=== PATIENT | female | born 1940 | race Caucasian/White ===

== ENCOUNTER → 2016-02-27 | Outpatient (CLI) | payer BC ==
[~2016-02-27] MED LIST: ASPI81TA28 PO; CALC600T37 PO; CHOL1000 PO; CHOLTAB3 PO; CYNI1000 SC; ESCI1TAB6 PO; FAMO20TA11 PO; GLC/500 PO; GLIP10TA9 PO; INSU1INJ7 SC; KETO10TA PO; LSN/10125 PO; MAGN400T6 PO; MAGNESIUM PO; METF-384 PO; NAPR-960 PO; OXYC-57 PO; OXYC1TAB3 PO; RXC5 PO; SIMV10TA2 PO; VITAMIN B 12
--- NOTE | 2016-02-27 10:01 | DIAGNOSTIC IMAGING REPORT ---
RIGHT SHOULDER MRI HISTORY: RIGHT SHOULDER PAIN, ROTATOR CUFF TEAR Right TECHNIQUE: Multiplanar multisequence MRI of the right shoulder was performed without contrast. COMPARISON STUDY: None. FINDINGS: AC joint: Moderate arthrosis demonstrated by cartilage space narrowing, subchondral sclerosis, and marginal osteophytes. Rotator cuff: Small amount of increased signal at the distal supraspinatus and infraspinatus tendons consistent with a tendinopathy. No evidence for full-thickness rotator cuff tear. The subscapularis and teres minor tendons are intact. No fluid within the subacromial/subdeltoid bursa. Labrum: Truncated appearance to the superior labrum consistent with a SLAP tear. Biceps tendon: Intact Bones: No fracture or dislocation. Cartilage: Mild cartilage thinning within the glenoid. Miscellaneous: No significant joint effusion. There is mild edema at the posterior fibers of the inferior glenohumeral ligament. This is best seen on coronal T2 fat sat sequences images 11 through 13. This could represent a partial tear as some of the fibers appear intact. There is an 8 mm cyst at the spinoglenoid notch. However, there is no atrophy or edema identified within the rotator cuff muscles. IMPRESSION: 1. Mild supraspinatus and infraspinatus tendinopathy. No evidence for full-thickness rotator cuff tear. 2. SLAP tear. 3. Edema within the posterior fibers of the inferior glenohumeral ligament. This may represent a partial tear as some of the fibers appear intact. 4. An 8 mm cyst at the spinoglenoid notch. However, there is no atrophy or edema identified within the rotator cuff muscles. Electronically signed by: Alex Cuba M.D. 02/27/2016 9:59 AM Dictated Date/Time: 02/27/2016 9:50 AM
== END | disposition home or self-care (01) ==
LOC: C.MRIBC 08:12
PROVIDERS: ATTEND Orthopaedic Surgery
DX: M25.511 Pain in right shoulder (principal)

== ENCOUNTER → 2016-03-05 | Outpatient (CLI) | payer BC ==
[2016-03-05 12:23] LABS: BASO % 0.3 %; BASO ABS # 0.03 K/uL (0-0.2); COMPLETE YES; EOS % 3.6 %; HEMATOCRIT 45.8 % (37-47); IG% 0.3 %; LYMPH % 20.6 %; LYMPH ABS # 2.16 K/uL (1.2-3.4); MEAN CELL VOLUME 88.8 fL (80-100); MEAN CORPUSCULAR HEMOGLOBIN 30.4 pg (25-34); MEAN CORPUSCULAR HGB CONC 34.3 g/dl (32-36); MEAN PLATELET VOLUME 12.4 fL (7.4-10.4); MONO % 5.5 %; NEUT % 69.7 %; PLATELET COUNT 225 K/uL (130-400); RED BLOOD COUNT 5.16 M/uL (4.2-5.4); WHITE BLOOD COUNT 10.49 K/uL (4.8-10.8)
[2016-03-05 12:45] LABS: BLOOD UREA NITROGEN 25 mg/dl (7-18); BUN/CREATININE RATIO 20.9 (10-20); CALCIUM 9.7 mg/dl (8.5-10.1); CARBON DIOXIDE 27 mmol/L (21-32); CHLORIDE 104 mmol/L (98-107); GLUCOSE 206 mg/dl (70-99); POTASSIUM 4.8 mmol/L (3.5-5.1); SODIUM 141 mmol/L (136-145)
== END | disposition home or self-care (01) ==
LOC: C.LABBFT 09:57
PROVIDERS: ATTEND Orthopaedic Surgery
DX: Z01.812 Encounter for preprocedural laboratory examination (principal); M25.511 Pain in right shoulder

== ENCOUNTER → 2016-03-26 | Outpatient (CLI) | payer BC ==
--- NOTE | 2016-03-26 14:09 | DIAGNOSTIC IMAGING REPORT ---
LUMBAR SPINE CT CT DOSE: 554.94 mGycm HISTORY: Low back pain. TECHNIQUE: Multiaxial CT images of the lumbar spine were performed and reformatted in the sagittal and coronal plane without the use of contrast. COMPARISON: Lumbar spine MRI 11/09/2015. FINDINGS: Paraspinal soft tissues are unremarkable. The sacrum is intact. There is posterior decompression fusion at L4-L5 with pedicle screws and rods. The hardware appears intact. Partial fusion of the vertebral bodies. Mild levoscoliosis which could be positional. Moderate to severe disc space narrowing at L1-L2. Mild disc space narrowing at L2-L3. L1-L2: Small broad-based posterior disc bulge resulting in mild central canal and mild bilateral neural foraminal narrowing. L2-L3: Small broad-based posterior disc bulge with facet hypertrophy. No significant central canal or neural foraminal narrowing. L3-L4: Small broad-based posterior disc bulge with ligamentum and facet hypertrophy resulting in mild central canal narrowing. L4-L5: No significant central canal narrowing due to the posterior decompression. No significant neural foraminal narrowing. L5-S1: No significant central canal or neural foraminal narrowing. IMPRESSION: 1. L4-L5 posterior decompression and fusion. The hardware appears intact. 2. No fractures or subluxation within the lumbar spine. 3. Degenerative changes as described above most pronounced at the L1-L2 level. This is similar to the prior lumbar spine MRI. Electronically signed by: Alex Cuba M.D. 03/26/2016 2:08 PM Dictated Date/Time: 03/26/2016 2:01 PM
== END | disposition home or self-care (01) ==
LOC: C.CTS 12:23
PROVIDERS: ATTEND Orthopaedic Surgery Orthopaedic Surgery of the Spine
DX: M54.5 Low back pain (principal)

== ENCOUNTER 2016-05-08 08:08 | Inpatient (IN) | payer BC, OTHER ==
[2016-04-13 08:52] VITALS: BMI 29.0
--- NOTE | 2016-04-13 09:34 | PAT Medication Instructions ---
Service Date Apr 13, 2016. Current Home Medication List Aspirin (Aspirin Ec), 81 MG PO QAM Calcium (Calcium), 1 TAB PO QAM Cholecalciferol (Vitamin D3), 1 TAB PO QAM Famotidine (Pepcid), 20 MG PO QPM Hctz/Lisinopril (Lisinopril/Hctz 10/12.5 Mg), 1 TAB PO QAM Insulin Glargine (Lantus), 38 UNITS SC QD@1200 Metformin Hcl (Glucophage), 1,000 MG PO BIDM Simvastatin (Zocor), 10 MG PO HS [Magnesium], 250 MG PO QAM [Vitamin B 12], QMONTHLY Medication Instructions For Your Scheduled Surgery - Continue as directed: [Vitamin B 12], QMONTHLY - Hold the following medications 48 hours prior to surgery: Metformin Hcl (Glucophage), 1,000 MG PO BIDM - Hold the following medications the morning of surgery: Insulin Glargine (Lantus), 38 UNITS SC QD@1200 (pt usually takes around lunchtime) Hctz/Lisinopril (Lisinopril/Hctz 10/12.5 Mg), 1 TAB PO QAM [Magnesium], 250 MG PO QAM Calcium (Calcium), 1 TAB PO QAM Cholecalciferol (Vitamin D3), 1 TAB PO QAM - Take the following medications the morning of surgery with a sip of water OTHERWISE NOTHING TO EAT OR DRINK AFTER MIDNIGHT: Aspirin (Aspirin Ec), 81 MG PO QAM Famotidine (Pepcid), 20 MG PO QPM - Take the following medications as scheduled the night before surgery: Simvastatin (Zocor), 10 MG PO HS If you have any questions please call us at [phone] or [phone] or [phone]
[2016-04-13 10:16] LABS: BASO % 0.3 %; BASO ABS # 0.03 K/uL (0-0.2); COMPLETE YES; EOS % 2.5 %; HEMATOCRIT 43.8 % (37-47); IG% 0.2 %; LYMPH % 21.5 %; LYMPH ABS # 1.88 K/uL (1.2-3.4); MEAN CELL VOLUME 89.2 fL (80-100); MEAN CORPUSCULAR HEMOGLOBIN 31.2 pg (25-34); MEAN CORPUSCULAR HGB CONC 34.9 g/dl (32-36); MEAN PLATELET VOLUME 12.2 fL (7.4-10.4); MONO % 5.5 %; PLATELET COUNT 192 K/uL (130-400); RED BLOOD COUNT 4.91 M/uL (4.2-5.4); WHITE BLOOD COUNT 8.75 K/uL (4.8-10.8)
--- NOTE | 2016-04-13 10:23 | DIAGNOSTIC IMAGING REPORT ---
CHEST PREADMISSION(PA/LAT) CLINICAL HISTORY: Preoperative chest COMPARISON STUDY: January 09, 2015 FINDINGS: The cardiac and mediastinal contours are normal. There is no evidence of focal pulmonary consolidation. There is no evidence of failure. No pleural effusions are visualized.[ IMPRESSION: No active disease in the chest. Electronically signed by: Julio Sharp M.D. 04/13/2016 10:22 AM Dictated Date/Time: 04/13/2016 10:19 AM
[2016-04-13 10:34] LABS: BUN/CREATININE RATIO 21.6 (10-20); CALCIUM 9.6 mg/dl (8.5-10.1); CREATININE 1.1 mg/dl (0.60-1.20); POTASSIUM 4.8 mmol/L (3.5-5.1)
[2016-04-13 17:46] LABS: URINE APPEARANCE CLEAR (CLEAR); URINE BILIRUBIN NEG (NEG); URINE COLOR YELLOW; URINE NITRITE NEG (NEG); URINE SPECIFIC GRAVITY 1.025 (1.000-1.030); UROBILINOGEN NEG (NEG)
[2016-04-13 17:51] LABS: MANUAL MICROSCOPIC REQUIRED? NO; REVIEW REQ? NO
[~2016-05-08] VITALS: Ht 157.5 cm; Wt 73.9 kg
[2016-05-08] VITALS (8 sets, daily range): BP systolic 115–136; BP diastolic 60–74; PULSE 42–100; TEMP 36.3–36.8; O2SAT 93–98; Ht 157.5 cm; Wt 73.9 kg
[~2016-05-08 08:08] MED LIST changes: +CEFAZOLIN 1000MG/55 ML D5W IV SCH; -CHOLTAB3 PO; -CYNI1000 SC; -ESCI1TAB6 PO; -GLIP10TA9 PO; -KETO10TA PO; +LACTATED RINGER'S 1000ML 1,000 ML IV SCH; -MAGN400T6 PO; -METF-384 PO; -NAPR-960 PO; -OXYC-57 PO; -OXYC1TAB3 PO; -RXC5 PO
--- NOTE | 2016-05-08 09:25 | History & Physical Bridge Note ---
H&P Re-Evaluation Bridge Note: I have examined the patient, reviewed the History & Physical and in the interval since the performance of the History & Physical I have noted the following changes of clinical significance: No changes noted
--- NOTE | 2016-05-08 09:26 | History and Physical ---
History & Physical Date May 08, 2016. Chief Complaint back and leg pain History of Present Illness The patient is a 75 year old female with complaints of Past Medical/Surgical History Medical Problems: (1) Acute respiratory distress (2) Back contusion (3) Chest pain (4) Chest pain (5) Contusion of left shoulder (6) Depressive Disorder Nec (7) Diab Tiffany Wo Compl, Type Ii Or Unspec Type, Uncontrolled (8) Esophageal Reflux (9) Fall (10) Hyperlipidemia Nec/Nos (11) Hypertension Nos (12) Osteoporosis Nos (13) Pneumonia Surgical Problems: (1) Knee Joint Replacement Status Additional History Hepatic Disease: No Endocrine Disorder: No Kidney Disease: No Hypertension: No Heart Disease: No Bleeding Tendencies: No Infectious Diseases: No Allergies Coded Allergies: No Known Allergies (Unverified , 05/08/16) Home Medications Scheduled Aspirin (Aspirin Ec), 81 MG PO QAM Calcium (Calcium), 1 TAB PO QAM Cholecalciferol (Vitamin D3), 1 TAB PO QAM Famotidine (Pepcid), 20 MG PO QPM Hctz/Lisinopril (Lisinopril/Hctz 10/12.5 Mg), 1 TAB PO QAM Insulin Glargine (Lantus), 42 UNITS SC QD@1200 Metformin Hcl (Glucophage), 1,000 MG PO BIDM Simvastatin (Zocor), 10 MG PO HS [Magnesium], 250 MG PO QAM [Vitamin B 12], QMONTHLY Physical Examination Skin: warm/dry, no rash Eyes: normal inspection, EOMI, sclerae normal ENT: normal ENT inspection, pharynx normal Head: normocephalic, atraumatic Neck: supple, no adenopathy, trachea midline Respiratory/Chest: lungs clear, normal breath sounds, no respiratory distress Cardiovascular: regular rate, rhythm, no edema, no murmur Abdomen / GI: normal bowel sounds, non tender Back: normal inspection Extremities: normal inspection, normal range of motion Neurologic/Psych: no motor/sensory deficits, alert, normal reflexes, oriented x 3 Diagnosis lumbar stenosis/ sacralilitis Plan of Treatment decompression fusion L5-S1 with iliac bolts, removal instrumentation L4-5
[2016-05-08] MEDS ORDERED: FENTANYL CITRATE INJ 50 MCG/1 ML 2 ML VIAL ONE ×4 (09:30→12:23)
[2016-05-08] MEDS ORDERED: MIDAZOLAM HCL 1 MG/ML 2ML VIAL ONE (09:30)
[2016-05-08] MEDS ORDERED: INSULIN REGULAR 250 UNITS in SODIUM CHLORIDE 0.9% 250ML 250 ML IV ONE (09:45)
[2016-05-08] MEDS ORDERED: BACITRACIN 50000 UNIT VIAL ONE (10:00)
[2016-05-08] MEDS ORDERED: BUPIVACAINE/EPINEPHRINE 0.5% MPF 1:200,000 30 ML VIAL ONE (10:00)
[2016-05-08] MEDS ORDERED: SODIUM CHLORIDE 0.9% PF 50 ML VIAL ONE (10:00)
[2016-05-08] MEDS ORDERED: HYDROmorphone INJ 2 MG/ML SYR/VIAL ONE ×2 (10:45→12:23)
[2016-05-08] MEDS ORDERED: EpHEDrine SULFATE INJ 50 MG/ML AMP IV PRN (11:15)
[2016-05-08] MEDS ORDERED: HYDROmorphone INJ 1 MG/ML SYR IV PRN (11:15)
[2016-05-08] MEDS ORDERED: ONDANSETRON INJ 2 MG/ML 2 ML VIAL IV PRN ×2 (11:15→12:00)
[2016-05-08] MEDS ORDERED: PROMETHAZINE HCL INJ 12.5 MG in SODIUM CHLORIDE 0.9% 50ML 50 ML IV PRN ×2 (11:15→12:00)
[2016-05-08] MEDS ORDERED: ATROPINE SULFATE 0.1 MG/ML 5ML SYR IV PRN (11:15)
[2016-05-08] MEDS ORDERED: FENTANYL CITRATE INJ 50 MCG/1 ML 2 ML VIAL IV PRN (11:15)
[2016-05-08] MEDS ORDERED: PHENYLEPHRINE 100MCG/ML 5ML SYR ONE ×2 (11:25→12:41)
[2016-05-08] MEDS ORDERED: ROCURONIUM BROMIDE 10 MG/ML 5 ML VIAL ONE (11:25)
[2016-05-08] MEDS ORDERED: LIDOCAINE HCL 2% 2 ML VIAL (20MG/ML) ONE (11:25)
[2016-05-08] MEDS ORDERED: PROPOFOL IV EMULSION 10 MG/ML 20 ML VIAL IV ONE (11:25)
[2016-05-08] MEDS ORDERED: DEXAMETHASONE SOD INJ 4 MG/ML VIAL ONE (11:25)
[2016-05-08] MEDS ORDERED: ONDANSETRON INJ 2 MG/ML 2 ML VIAL ONE ×2 (11:25→12:41)
[2016-05-08] MEDS ORDERED: SODIUM CHLORIDE 0.9% 1000ML 1,000 ML IV SCH (11:58)
[2016-05-08] MEDS ORDERED: DO NOT ADMINISTER FLU VACCINE PRN ×3 (12:00)
[2016-05-08] MEDS ORDERED: METOCLOPRAMIDE HCL INJ 5 MG/ML 2 ML VIAL IV PRN (12:00)
[2016-05-08] MEDS ORDERED: LORAZEPAM 0.5 MG TAB PO PRN (12:00)
[2016-05-08] MEDS ORDERED: NALOXONE HCL 0.4 MG/1 ML VIAL/CARP IV PRN ×2 (12:00)
[2016-05-08] MEDS ORDERED: ACETAMINOPHEN IV 100 ML IV PRN (12:00)
[2016-05-08] MEDS ORDERED: hydrOXYzine HCL 25 MG TAB PO PRN (12:00)
[2016-05-08] MEDS ORDERED: SOD PHOSPHATE/SOD BIPHOSPHATE ENEMA 132 ML BTL PR PRN (12:00)
[2016-05-08] MEDS ORDERED: MAGNESIUM HYDROXIDE SUSP 30 ML UDC PO PRN (12:00)
[2016-05-08] MEDS ORDERED: FAMOTIDINE 20 MG TAB PO PRN (12:00)
[2016-05-08] MEDS ORDERED: BISACODYL 10 MG SUPP PR PRN (12:00)
[2016-05-08] MEDS ORDERED: ACETAMINOPHEN 500 MG TAB PO PRN (12:00)
[2016-05-08] MEDS ORDERED: LORAZEPAM INJ 0.5 MG in SYRINGE 0 ML IV PRN (12:00)
[2016-05-08] MEDS ORDERED: ALUMINUM/MAGNESIUM SUSP 30 ML UDC PO PRN (12:00)
[2016-05-08] MEDS ORDERED: DO NOT ADMINISTER PNEUMOCOCCAL VACCINE PRN ×2 (12:00)
[2016-05-08] MEDS ORDERED: FLOSEAL HEMOSTATIC MATRIX 10ML TOP ONE (12:06)
--- NOTE | 2016-05-08 12:11 | DIAGNOSTIC IMAGING REPORT ---
INTRAOPERATIVE RADIOGRAPH CLINICAL HISTORY: L4-S1 spinal fusion. Fluoroscopy time: 12 seconds. FINDINGS: 2 spot fluoroscopic views of the lower lumbar spine are presented. There is evidence of discectomy at L4-L5 and L5-S1 with laminectomy and posterior fusion from L4 -S1. Interpedicular screws are present at all levels. Iliac bolts are in place. A surgical drain is noted on the second image. IMPRESSION: Intraoperative image from L4 -S1 spinal fusion with iliac bolt placement as above. Electronically signed by: Aquilino Wagner M.D. 05/08/2016 12:09 PM Dictated Date/Time: 05/08/2016 12:08 PM
--- NOTE | 2016-05-08 12:22 | OPERATIVE REPORT ---
DATE OF OPERATION: 05/08/2016 PREOPERATIVE DIAGNOSIS: Spinal stenosis. POSTOPERATIVE DIAGNOSIS: Same. PROCEDURES PERFORMED: 1. Removal of posterior instrumentation, L4-L5. 2. Exploration of fusion, L4-L5. 3. Lumbar decompression, medial facetectomies, and foraminotomies, L5-S1. 4. Posterior spinal fusion, L5-S1. 5. Placement of bilateral SI joint fusions. 6. Placement of posterior segmental instrumentation using Medicrea rods and screws, L4-L5 and L5-S1 as well as bilateral iliac bolts. 7. Interbody fusion, L4-L5. 8. Placement of PEEK cage, 13 x 22 mm at L5-S1. 9. Placement of locally harvested morselized autograft the posterior gutters. 10. Placement of Infuse collagen sponge combined with Mastergraft in the posterior lateral gutters and Angy bone graft in the interbody space and Infuse placed in the bilateral SI joints. SURGEON: Dr. Isaiah Palma. OFFICE MANAGER EXECUTIVE ASSISTANT: Armando Wu PA-C Due to the complex nature of the procedure, the entire surgery was performed with the perioperative assistant of Armando Wu PA-C. The assistant film editor, under direct supervision, was involved in the actual performance of all aspects of the surgical procedure including hemostasis, tissue retraction and incision, instrument management, patient positioning, and wound closure. ANESTHESIA: General. DISPOSITION: The patient awakened and taken to PACU in stable condition. HISTORY OF PATIENT'S PROBLEMS: This is a 75-year-old female that presents with the above-mentioned diagnosis. After failing extensive course of nonoperative care, she elected to undergo the above-mentioned procedures. Risks, benefits, pros, cons, and alternatives were outlined in detail preoperatively. DESCRIPTION OF PROCEDURE: The patient was met with preoperatively, the case discussed and all questions were addressed. At that point, the patient was taken back to operative suite and after undergoing successful general intubation by the department of anesthesia, she was placed in prone position on Reynaldo table atop the Guy frame. All bony prominences were well padded and the eyes were inspected to ensure there was no external pressure placed upon them. At this point, lumbar spine was prepped and draped in normal sterile fashion. Sharp dissection with the assistance of Bovie cautery was performed down to and exposing the lamina and transverse processes and instrumentation at the L4-L5 levels as well as the bilateral SI joints. I then proceeded to remove the hardware at L4-L5 bilaterally, exploring the fusion mass noting it to be intact. I then performed a complete laminectomy of L5 including medial facetectomies and foraminotomies, noting significant stenosis on the right. After this was complete, pedicle screws were then placed in L4, L5 and S1 levels as well as bilateral iliac bolts. Through a transforaminal approach on the right, a complete diskectomy of L5-S1 was performed and endplates curetted to subcortical bleeding bone and a 13 x 22 mm PEEK cage filled with Angy bone grafting tapped into position. Appropriate size rods were then placed, locked into final position bilaterally and transverse processes of L5 and the sacral ala as well as bilateral SI joints were burred to subcortical bleeding bone. Infused collagen sponge combined sponge combined with Mastergraft and locally harvested morselized autograft was placed. A 7 flat LIZY drain inserted. Incision was closed with 1-0 Vicryl in the fascia, 2-0 Vicryl subcutaneously, and 4-0 Monocryl for final skin closure. Steri-Strips and sterile dressing placed. The patient was awakened and taken to PACU in stable condition. I attest to the content of the Intraoperative Record and any orders documented therein. Any exceptio ns are noted below.
[2016-05-08] MEDS ORDERED: NEOSTIGMINE METHYLSULFATE 1 MG/ML 10ML VIAL ONE (12:41)
[2016-05-08] MEDS ORDERED: GLYCOPYRROLATE INJ 0.2 MG/ML VIAL ONE (12:41)
[2016-05-08] MEDS ORDERED: HYDROmorphone HCL 0.5MG/ML 50 ML CASSETTE ONE (12:43)
[2016-05-08] MEDS ORDERED: PHARMACY GLYCEMIC MGMT CONSULT PRN (12:46)
--- NOTE | 2016-05-08 13:17 | Pharmacy Progress Note ---
Glycemic Control Intl Consult Date of Service May 08, 2016. Scope Glycemic Pharmacist consulted for glycemic control and to write orders per [facility] inpatient glycemic control protocol Objective Weight (Kilograms): 73.90 Accuchecks BSG (last 24hrs): Test 05/08/16 08:36 05/08/16 12:30 Bedside Glucose 284 mg/dl (70-90) 152 mg/dl (70-90) Recent Pertinent Medications Outpatient Anti-diabetic Regimen: * Lantus 42 units SC daily@12 * Metformin 1 g po BIDM * A1c = pending for 05/09/16 The patient is currently receiving: * Insulin gtt per Dr. Sultana * Currently @ 2 units/hr (per REIMBURSEMENT AUDITOR) Risk Factors for Insulin Resistance: * Steroids: Dexamethasone 4 mg IV x1 then 6 mg IV q8h x3 doses * Infection: Cefazolin pre- and post-op * Recent Surgery: POD 1 s/p laminectomy * Diet: Regular Assessment & Plan ASSESSMENT: * ADA & AACE recommend a goal blood sugar range 140-180 mg/dl for the majority of critically ill & non-critically ill patients. However, more stringent targets may be selected in individual cases. 05/08/16 * 75 yo F s/p laminectomy today * Insulin gtt started per Dr. Sultana's direction (not protocol based) pre- and intra-op 2nd elevated BSG to 284 mg/dL pre-op today * Per REIMBURSEMENT AUDITOR, currently running at 2 units/hr * Anticipate discontinuation of insulin gtt. Can transition to basal/bolus * Total daily outpatient insulin dose 42 units, but administered as all basal which is not ideal for inpatient post-op management, especially when a patient is being administered steroids. * Will give 1/2 dose of total daily dose as basal. * Will start Novolog at weight-based correction factor. Will do slightly tighter than weight-based CHO ratio 2nd steroids * Will schedule two overnight BSG checks PLAN FOR INPATIENT GLYCEMIC CONTROL: * Hold outpatient oral diabetes medications * Discontinue insulin gtt 1 hr after administration of Lantus * Basal insulin with LANTUS 20 units SQ x1 now then 10 units BID (hold for BSG < 120 mg/dL) * Correctional Insulin with NOVOLOG per scale ACHS or Q6hrs while NPO - additional checks at 0000,0400 * Goal Range: Low 120 mg/dL - High 160 mg/dL * Correction Factor: 30 mg/dL/unit * Nutritional / Prandial insulin per carb ratio of 1 unit per 9 grams CHO consumed * Please note that the plan above was derived based on current level of insulin resistance and hospital stress. These recommendations are appropriate for inpatient admission only. Plan of care upon discharge will need to be reassessed to avoid potential outpatient hypo/hyperglycemia. Thank you.
[2016-05-08] MEDS ORDERED: BACITRACIN OINT 15 GM TUBE EXT ONE (13:45)
--- NOTE | 2016-05-08 13:55 | Anesthesiology Progress Note ---
Anesthesia Post Op Note Date & Time May 08, 2016 at 13:48 Vital Signs Pain Intensity: 5 Vital Signs Past 12 Hours Date Time Temp Pulse Resp B/P Pulse Ox O2 Delivery O2 Flow Rate FiO2 05/08/16 13:25 95 11 125/66 95 05/08/16 13:25 49 11 05/08/16 13:21 124/58 05/08/16 13:20 96 19 92 05/08/16 13:20 48 19 05/08/16 13:15 93 16 140/58 92 05/08/16 13:15 56 16 05/08/16 13:11 121/58 05/08/16 13:10 91 5 89 05/08/16 13:10 46 5 05/08/16 13:06 133/65 05/08/16 13:05 97 15 99 05/08/16 13:05 75 15 05/08/16 13:02 140/61 05/08/16 13:00 59 17 05/08/16 13:00 88 17 97 05/08/16 12:56 114/62 05/08/16 12:55 73 5 05/08/16 12:55 86 5 99 05/08/16 12:51 154/89 05/08/16 12:50 50 9 05/08/16 12:50 90 9 99 05/08/16 12:48 159/72 05/08/16 12:45 92 15 99 05/08/16 12:45 46 15 05/08/16 12:41 113/69 05/08/16 12:40 51 17 05/08/16 12:40 99 17 94 05/08/16 12:36 150/85 05/08/16 12:35 91 9 99 05/08/16 12:35 92 9 05/08/16 12:31 159/84 05/08/16 12:30 99 15 05/08/16 12:30 96 15 99 05/08/16 12:27 115/102 05/08/16 12:25 93 12 157/133 99 05/08/16 12:25 47 12 05/08/16 12:25 36.5 88 14 159/84 100 Mask 10 05/08/16 08:50 36.6 100 20 136/74 96 Room Air Notes Mental Status: alert / awake / arousable, participated in evaluation Pt Amnestic to Procedure: Yes Nausea / Vomiting: adequately controlled Pain: adequately controlled Airway Patency, RR, SpO2: stable & adequate BP & HR: stable & adequate Hydration State: stable & adequate Anesthetic Complications: no major complications apparent Anesthetic Complications: minor abrasions on face due to tape. Abrasions were covered in bacitracin in pacu. Patient BSG poorly controlled diabetic as outpatient. She had stopped her metformin as instructed before surgery. AM BSG at home was 210, by the time she was checked in to asu, 280. I put the patient on a drip of insulin intraoperative to control her BSG to 150-180. In pacu, this drip was running at 3u/hr on discharge. Dr Curry the consulting hospitalist is aware and will manage the blood glucose on the floor.
[2016-05-08] MEDS ORDERED: BACITRACIN OINT 15 GM TUBE EXT PRN (14:00)
[2016-05-08] MEDS ORDERED: NURSING VERBAL MED ORDER ONE (14:00)
[2016-05-08] MEDS: HYDROmorphone HCL 0.5MG/ML 50 ML CASSETTE IV PRN ×3 (14:16→22:57)
--- NOTE | 2016-05-08 15:09 | Medical Consult ---
Consultation Date of Consultation: May 08, 2016. Attending Physician: Isaiah Palma D.O. Reason for Consultation: Postoperative medical management History of Present Illness This patient is a 75-year-old female with a history of lumbar spinal stenosis, diabetes mellitus type 2, depression, GERD, fibrocystic breast disease, hyperlipidemia, hypertension, osteoarthritis, Ayers, obesity, osteoporosis, urinary stress incontinence, and pernicious anemia, who is admitted for a lumbar removal of hardware at L4-L5, discectomy and fusion at L4 L5 S1 performed by Dr. Palma today. Her diabetes has been uncontrolled and her insulin was increased as an outpatient in an effort to improve her preoperative glucose control. This morning preoperatively, her fasting glucose was 280. Anesthesia placed her on an insulin drip during the procedure to control her glucose. Of note, she also received several doses of IV dexamethasone for the procedure. Her glucose was 150 after being placed on 4 units per hour of the drip, then the drip was lowered to 2 units per hour and the glucose went up to 180. The insulin drip was then increased slightly to 3 units per hour by the completion of the surgery. Postoperatively, I interviewed and examined her in the PACU. She is drowsy and complains of a headache on the top of her head which she frequently gets. She denies chest pain or shortness of breath, denies abdominal pain, denies numbness or tingling anywhere. Past Medical/Surgical History Past Medical History: Lumbar spinal stenosis Frequent PVCs Diabetes mellitus type 2-uncontrolled Depression GERD Fibrocystic breast disease Osteoarthritis Hyperlipidemia Hypertension AYERS Obesity Osteoporosis Urinary stress incontinence Pernicious anemia Past surgical history: TKA 3 Left shoulder repair Left elbow repair Previous lumbar fusion L4-L5 Bilateral cataracts Right breast lumpectomy 2 Total abdominal hysterectomy Wrist surgery Family History Diabetes mellitus Heart disease Coronary artery disease in her mom, dad, and brothers Diabetes mellitus type 2 in multiple family members Stroke in dad Social History Smoking Status: Never Smoker Alcohol Use: none Drug Use: none Marital Status: Housing Status: lives alone (and has 2 sons that live locally, the third son lives in [place]) Occupation Status: unemployed Allergies Coded Allergies: No Known Allergies (Unverified , 05/08/16) Home Medications Reported Home Medications Medications Dose Route/Sig Max Daily Dose Days Date Category Dose Instructions Calcium 600 Mg Tab 1 Tab PO QAM 04/13/16 Reported Vitamin D3 (Cholecalciferol) 1,000 Unit Tab 1 Tab PO QAM 04/13/16 Reported DOSE ON PT MED LIST IS 1200 IU Aspirin Ec (Aspirin) 81 Mg Tab 81 Mg PO QAM 04/13/16 Reported [Magnesium] 250 Mg PO QAM 04/13/16 Reported [Vitamin B 12] QMONTHLY 04/13/16 Reported INJECTION ONCE A MONTH...LAST INJECTION APR 02 Glucophage (Metformin Hcl) 500 Mg Tab 1,000 Mg PO BIDM 11/09/15 Reported Lantus (Insulin Glargine) 100 Unit/ Inj 42 Units SC QD@1200 09/17/11 Reported Lisinopril/Hctz 11/19.5 Mg (HCTZ/Lisinopril) 1 Ea Tab 1 Tab PO QAM 09/17/11 Reported Zocor (Simvastatin) 10 Mg Tab 10 Mg PO HS 09/20/09 Reported Pepcid (Famotidine) 20 Mg Tab 20 Mg PO QPM 12/21/07 Reported AFTER SUPPER Current Inpatient Medications Current Inpatient Medications Medications (Trade) Dose Ordered Sig/Adriana Route Start Time Stop Time Status Last Admin Dose Admin Lactated Ringer's 1,000 ml @ 15 mls/hr Q24H IV 05/08/16 06:00 05/09/16 05:59 Cefazolin Sodium (Ancef 1000mg/55 ml D5W) 55 ml @ 100 mls/hr PREOP IV 05/08/16 06:00 05/08/16 18:00 05/08/16 10:02 100 MLS/HR Fentanyl Citrate (Fentanyl Inj) 50 mcg Q5M PRN IV 05/08/16 11:15 05/08/16 17:00 05/08/16 12:59 50 MCG Hydromorphone HCl (Dilaudid Inj) 0.5 mg Q5M PRN IV 05/08/16 11:15 05/08/16 17:00 Ondansetron HCl 4 mg 4 mg ONE PRN IV 05/08/16 11:15 05/08/16 17:00 Promethazine HCl/ Sodium Chloride (Phenergan Inj/ Nss 50ml) 50.5 ml @ 202 mls/hr ONE PRN IV 05/08/16 11:15 05/08/16 17:00 Ephedrine Sulfate (EpHEDrine SULFATE INJ) 5 mg Q5M PRN IV 05/08/16 11:15 05/08/16 17:00 Atropine Sulfate 0.5 mg 0.5 mg Q1M PRN IV 05/08/16 11:15 05/08/16 17:00 Dexamethasone Sodium Phosphate 6 mg/Syringe 1.5 ml @ 1 mls/min Q8H IV 05/08/16 12:00 05/09/16 04:02 UNV Promethazine HCl/ Sodium Chloride (Phenergan Inj/ Nss 50ml) 50.5 ml @ 202 mls/hr Q6H PRN IV 05/08/16 12:00 06/07/16 11:59 Ondansetron HCl (Zofran Inj) 4 mg Q6H PRN IV 05/08/16 12:00 06/07/16 11:59 Metoclopramide HCl (Reglan Inj) 10 mg Q6H PRN IV 05/08/16 12:00 06/07/16 11:59 Lorazepam 0.5 mg 0.5 mg Q8H PRN PO 05/08/16 12:00 06/07/16 11:59 Lorazepam/Syringe (Ativan Inj/ Syringe) 0.25 ml @ 1 mls/min Q8H PRN IV 05/08/16 12:00 06/07/16 11:59 UNV Pneumococcal Polysaccharide Vaccine 1 ea PRN PRN N/A 05/08/16 12:00 06/07/16 11:59 Influenza Virus Vacc Triv Types A&B 1 ea PRN PRN N/A 05/08/16 12:00 06/07/16 11:59 Polyethylene (Miralax Powder Packet) 17 gm Q6 PO 05/10/16 06:00 06/09/16 05:59 UNV Bisacodyl (Dulcolax Supp) 10 mg DAILY PRN MD 05/08/16 12:00 06/07/16 11:59 Magnesium Hydroxide (Milk Of Magnesia Susp) 30 ml DAILY PRN PO 05/08/16 12:00 06/07/16 11:59 Hydromorphone HCl (Dilaudid Inj) 0.5-1mg prn moder... Q3H PRN IV 05/09/16 06:00 05/23/16 05:59 Oxycodone HCl 5-10mg prn moderate to sev... Q4H PRN PO 05/09/16 06:00 05/23/16 05:59 Cefazolin Sodium 2000 mg/Dextrose 60 ml @ 100 mls/hr Q8H IV 05/08/16 12:00 05/08/16 20:35 UNV Sodium Chloride (Nss 1000ml) 1,000 ml @ 150 mls/hr Q6H40M IV 05/08/16 11:58 06/07/16 11:57 UNV Acetaminophen 1000 mg 1,000 mg Q8H PRN PO 05/08/16 12:00 06/07/16 11:59 Acetaminophen (Ofirmev Iv) 100 ml @ 400 mls/hr Q8H PRN IV 05/08/16 12:00 06/07/16 11:59 UNV Naloxone HCl (Narcan Inj) 0.1 mg Q5M PRN IV 05/08/16 12:00 06/07/16 11:59 Senna/Docusate Sodium (Senokot S Tab) 2 tab HS PO 05/08/16 21:00 06/07/16 20:59 UNV Sodium Biphosphate/ Sodium Phosphate (Fleet Enema) 132 ml ONE PRN MD 05/08/16 12:00 06/07/16 11:59 Hydroxyzine HCl (Vistaril Tab) 25 mg Q8H PRN PO 05/08/16 12:00 06/07/16 11:59 UNV Al Hydroxide/Mg Hydroxide (Maalox Susp) 30 ml Q6H PRN PO 05/08/16 12:00 06/07/16 11:59 Famotidine (Pepcid Tab) 20 mg Q12 PRN PO 05/08/16 12:00 06/07/16 11:59 UNV Diphenhydramine HCl (Benadryl Cap) 25 mg Q6H PRN PO 05/08/16 12:00 06/07/16 11:59 Miscellaneous Information (Discontinue TABLE SAW OPERATOR) 1 ea TODAY@0600 N/A 05/09/16 06:00 05/09/16 06:01 Naloxone HCl (Narcan Inj) 0.1 mg Q5M PRN IV 05/08/16 12:00 05/09/16 06:00 Hydromorphone HCl 25 mg 25 mg PRN PRN IV 05/08/16 12:00 05/09/16 06:00 05/08/16 14:16 25 MG Sodium Chloride (Nss 1000ml) 1,000 ml @ 15 mls/hr Q24H IV 05/08/16 11:58 05/09/16 06:00 Aspirin (Ecotrin Tab) 81 mg QAM PO 05/09/16 09:00 06/08/16 08:59 UNV Famotidine (Pepcid Tab) 20 mg QPM PO 05/08/16 21:00 06/07/16 20:59 UNV HCTZ/Lisinopril (Prinzide 10-12.5MG Tab) 1 tab QAM PO 05/09/16 09:00 06/08/16 08:59 UNV Simvastatin (Zocor Tab) 10 mg HS PO 05/08/16 21:00 06/07/16 20:59 UNV Miscellaneous Information (Consult Glycemic Management Pharmacy) 1 ea UD PRN N/A 05/08/16 12:46 06/07/16 12:45 Bacitracin (Bacitracin Oint) 1 appln DAILY PRN EXT 05/08/16 14:00 06/07/16 13:59 Bacitracin (Bacitracin Oint) 1 appln NOW ONCE EXT 05/08/16 13:45 05/08/16 13:46 UNV Review of Systems Constitutional: No chills, No fever Eyes: No worsening of vision ENT: No hearing loss, No problem reported Respiratory: No shortness of breath, No wheezing Cardiovascular: No chest pain, No palpitations Abdomen: No constipation (last bowel movement this morning), No nausea, No pain , No vomiting Genitourinary - Female: No problem reported Neurologic: + problem reported (headache) Psychiatric: No problem reported Endocrine: + problem reported (uncontrolled blood sugar) Hematologic / Lymphatic: No problem reported Allergic / Immunologic: No problem reported Physical Exam Date Time Temp Pulse Resp B/P Pulse Ox O2 Delivery O2 Flow Rate FiO2 05/08/16 13:51 66 29 05/08/16 13:51 94 29 126/62 100 05/08/16 13:49 121/82 05/08/16 13:47 92/62 05/08/16 13:46 96 19 94 05/08/16 13:46 48 19 05/08/16 13:43 36.3 94 16 122/60 95 Mask 4 05/08/16 13:41 93 12 122/60 97 05/08/16 13:41 49 12 05/08/16 13:36 96 22 96 05/08/16 13:36 48 22 05/08/16 13:35 135/76 05/08/16 13:31 96 12 93 05/08/16 13:31 48 12 05/08/16 13:30 128/63 05/08/16 13:26 54 12 05/08/16 13:26 95 12 94 05/08/16 13:25 95 11 125/66 95 05/08/16 13:25 49 11 05/08/16 13:21 124/58 05/08/16 13:20 96 19 92 05/08/16 13:20 48 19 05/08/16 13:15 93 16 140/58 92 05/08/16 13:15 56 16 05/08/16 13:11 121/58 05/08/16 13:10 91 5 89 05/08/16 13:10 46 5 05/08/16 13:06 133/65 05/08/16 13:05 97 15 99 05/08/16 13:05 75 15 05/08/16 13:02 140/61 05/08/16 13:00 59 17 05/08/16 13:00 88 17 97 05/08/16 12:56 114/62 05/08/16 12:55 73 5 05/08/16 12:55 86 5 99 05/08/16 12:51 154/89 05/08/16 12:50 50 9 05/08/16 12:50 90 9 99 05/08/16 12:48 159/72 05/08/16 12:45 92 15 99 05/08/16 12:45 46 15 05/08/16 12:41 113/69 05/08/16 12:40 51 17 05/08/16 12:40 99 17 94 05/08/16 12:36 150/85 05/08/16 12:35 91 9 99 05/08/16 12:35 92 9 05/08/16 12:31 159/84 05/08/16 12:30 99 15 05/08/16 12:30 96 15 99 05/08/16 12:27 115/102 05/08/16 12:25 93 12 157/133 99 05/08/16 12:25 47 12 05/08/16 12:25 36.5 88 14 159/84 100 Mask 10 05/08/16 08:50 36.6 100 20 136/74 96 Room Air General Appearance: WD/WN, no apparent distress Head: normocephalic, atraumatic Eyes: normal inspection, PERRL, EOMI, sclerae normal ENT: hearing grossly normal, pharynx normal Neck: supple, no carotid bruits, trachea midline Respiratory/Chest: lungs clear, normal breath sounds, no respiratory distress, no accessory muscle use Cardiovascular: regular rate, rhythm, + extra beats (frequent, in bigeminy on the monitor in the PACU) Abdomen/GI: normal bowel sounds, non tender, soft, no organomegaly, no pulsatile mass Extremities/Musculoskelatal: normal inspection, no calf tenderness Neurologic/Psych: no motor/sensory deficits, alert, normal mood/affect, oriented x 3 Skin: normal color, warm/dry, no rash Laboratory Results Last 24 Hours Test 05/08/16 08:36 05/08/16 12:30 05/08/16 13:32 Bedside Glucose 284 mg/dl 152 mg/dl 182 mg/dl Assessment & Plan This patient is a 75-year-old female with a history of lumbar spinal stenosis, diabetes mellitus type 2, depression, GERD, fibrocystic breast disease, hyperlipidemia, hypertension, frequent PVCs, osteoarthritis, Ayers, obesity, osteoporosis, urinary stress incontinence, and pernicious anemia, who is admitted for a lumbar removal of hardware at L4-L5, discectomy and fusion at L4 L5 S1 performed by Dr. Palma today. Lumbar discectomy and fusion-postoperative management as per orthopedics. -Pain control and bowel regimen -DVT prophylaxis with SCDs and BRANT hose -PT/OT evaluations -Postop wound care -Check postop CBC and PRP tomorrow Diabetes mellitus type 2-required insulin drip through the surgery. Did receive IV dexamethasone intraoperatively. Pharmacy glycemic consult is in place and I discussed the case with the pharmacist on the phone. Hemoglobin A1c was 9.5% in January 2016. -We'll stop insulin drip upon arrival to the floor and start Lantus 20 units daily with a higher sliding scale insulin for coverage with meals, we'll also check glucose in the middle of the night -Restart metformin in 2 days -home dose of Lantus is 42 units once daily along with metformin 1000 g by mouth twice a day. -Check hemoglobin A1c Hypertension/hyperlipidemia/frequent PVCs-stable, asymptomatic, had normal dobutamine stress test preoperatively in 2011. Hemodynamically stable -Okay to continue lisinopril/HCTZ tomorrow -Continue statin and baby aspirin once daily -No need for telemetry monitoring -Watch electrolytes and replete as needed GERD-stable -Continue Pepcid Pernicious anemia/B12 deficiency-stable -Restart vitamin B12 upon discharge DVT prophylaxis-SCDs and BRANT louisee Disposition-full code Possibly to rehabilitation versus home with home PT Additional Copies To Michelle Underwood M.D.
[2016-05-08] MEDS ORDERED: INSULIN GLARGINE SOLOSTAR 100 UNITS/ML 3 ML PEN SC ONE (15:30)
[2016-05-08] MEDS: SODIUM CHLORIDE 0.9% 1000ML 1,000 ML IV SCH ×3 (15:50→23:17)
[2016-05-08] MEDS ORDERED: INSULIN DRIP STOP ORDER ONE (16:30)
[2016-05-08] MEDS: INSULIN ASPART 100 UNITS/ML 3 ML PEN SC SCH ×2 (18:29→21:05)
[2016-05-08] MEDS: CEFAZOLIN IV 2,000 MG in DEXTROSE 5% 50ML 50 ML IV SCH (18:32)
[2016-05-08] MEDS: FAMOTIDINE 20 MG TAB PO SCH (20:28)
[2016-05-08] MEDS: DOCUSATE SODIUM/SENNA 50/8.6MG TAB PO SCH (20:29)
[2016-05-08] MEDS: SIMVASTATIN 10 MG TAB PO SCH (20:29)
[2016-05-08] MEDS: DEXAMETHASONE INJ 6 MG in SYRINGE 0 ML IV SCH (20:30)
[2016-05-09] MEDS: INSULIN ASPART 100 UNITS/ML 3 ML PEN SC SCH ×6 (00:53→20:55)
[2016-05-09] MEDS: CEFAZOLIN IV 2,000 MG in DEXTROSE 5% 50ML 50 ML IV SCH (02:25)
[2016-05-09 03:55] VITALS: BP 119/79; PULSE 70; TEMP 37; O2SAT 97
[2016-05-09] MEDS: DEXAMETHASONE INJ 6 MG in SYRINGE 0 ML IV SCH ×2 (04:04→13:00)
[2016-05-09 05:35] LABS: COMPLETE YES; HEMATOCRIT 37.4 % (37-47); IG% 0.5 %; LYMPH % 7.3 %; LYMPH ABS # 1.13 K/uL (1.2-3.4); MEAN CELL VOLUME 87.2 fL (80-100); MEAN CORPUSCULAR HEMOGLOBIN 30.3 pg (25-34); MEAN CORPUSCULAR HGB CONC 34.8 g/dl (32-36); MEAN PLATELET VOLUME 11.8 fL (7.4-10.4); MONO % 2.1 %; NEUT % 90.1 %; PLATELET COUNT 183 K/uL (130-400); RED BLOOD COUNT 4.29 M/uL (4.2-5.4); WHITE BLOOD COUNT 15.44 K/uL (4.8-10.8)
[2016-05-09 06:00] LABS: BUN/CREATININE RATIO 13.5 (10-20); CREATININE 1.2 mg/dl (0.60-1.20); POTASSIUM 4.4 mmol/L (3.5-5.1)
[2016-05-09] MEDS ORDERED: OXYCODONE HCL IR 5 MG TAB (IMMEDIATE RELEASE) PO PRN (06:00)
[2016-05-09] MEDS ORDERED: DC PCA SCH (06:00)
[2016-05-09] MEDS ORDERED: HYDROmorphone INJ 0.5 MG/0.5 ML SYR IV PRN (06:00)
[2016-05-09] MEDS ORDERED: NURSING DECISION MEDICATION ORDER SCH (06:30)
[2016-05-09 07:25] LABS: ESTIMATED AVERAGE GLUCOSE 263 mg/dl; HA1C FLAG Normal (Normal)
[2016-05-09 07:30] VITALS: BP 131/83; PULSE 54; TEMP 37.1; O2SAT 97
[2016-05-09] MEDS ORDERED: RXC5 PO (08:51)
--- NOTE | 2016-05-09 08:51 | Discharge Instructions ---
Discharge Instructions Date of Service May 09, 2016. Admission Reason for Admission: Lumbar Spinal Stenosis Discharge Discharge Diagnosis / Problem: stenosis Discharge Goals Goal(s): Improve function Activity Recommendations Activity Limitations: per Instructions/Follow-up section . Instructions / Follow-Up Instructions / Follow-Up ACTIVITY RECOMMENDATIONS: SELF CARE INSTRUCTIONS AFTER THORACIC/LUMBAR FUSIONS 1. You may walk to your tolerance. It is good exercise for your legs and back. Expect some back and intermittent leg aches and pains. 2. You may perform "counter-top" level activities (make a sandwich, heri with a project, etc.). 3. No bending or lifting of more than 10 pounds or back twisting of any nature (roll like a log when turning in bed). 4. You may ride in a car for 20-30 minutes at a time. No driving until after your first visit with your doctor. 5. Frequent changes of position and restricting sitting to 30 minutes at a time will help limit the amount of back spasms and stiffness you may experience. 6. You may discontinue the use of ambulatory aids (cane, crutches, etc.) once your strength and confidence allow. 7. You may cabinet assembler the shower and let water strike your incision when you arrive home at least once daily. Do not take a tub bath, sit in a hot tub or go into a swimming pool until after your first recheck in the office. SPECIAL CARE INSTRUCTIONS: VERY IMPORTANT TO READ AND REVIEW A. Your surgical incision has been closed with a cosmetic suture under the skin that will dissolve in about 6 weeks. In 14 days, you can use a pair of clean scissors and cut the suture that is left outside of the skin at the ends of your incision. 1. The small skin tapes can be removed 7 days after surgery if they have not fallen off by that point. 2. You may keep the wound open to air as much as possible to promote healing after post-op day number 5 unless told otherwise by your doctor. 3. If you think the wound looks like it is becoming infected (redness or worsening drainage) and/or you are experiencing fever, chill or worsening back pain and muscle spasms, contact the office so that we may evaluate you as soon as possible. B. Complications are uncommon, but please contact us if you have any signs or symptoms of: 1. wound infection (fever higher than 102.5 degrees F, redness, separation of wound, drainage, or increasing pain from the incision) 2. blood clots in legs (pain, swelling, redness and warmth in legs) 3. urinary tract infection (fever higher than 102.5 degrees F, burning upon urination or increased frequency of urination) 4. nerve problems (inability to walk on your toes or heels, numbness, loss of bowel or bladder control) 5. any other symptoms that concern you C. Please call the office at if you have any concerns or questions about your operation or recovery. D. No smoking! Smoking drastically decreases the chance of a solid fusion. E. Do not take any anti-inflammatory medications (Indocin, Advil, Motrin, Aspirin, Naprosyn, etc.) as these may inhibit the chance of a solid fusion. Tylenol is okay to take for pain. MANAGING PAIN AFTER SPINAL SURGERY 1. Narcotic medication is intended for short-term use and will be provided for surgical pain. Surgical pain usually lasts for a period of 4-6 weeks. Narcotic medication includes Percocet, Vicodin, Darvocet, Tylenol #3 or Lortab. 2. Longer-term pain is more appropriately treated with non-narcotic medication such as Tylenol ES. 3. Muscle spasm is not appropriately treated with narcotics. Muscle relaxers such as Soma, Flexeril or Skelaxin can be used along with Tylenol ES. 4. Remember that we all live with some "aches and pains". This is not unusual or uncommon after an injury or as we get older. a. Back pain is expected and may include muscle spasms for 4 to 6 weeks after surgery. The pain should gradually improve. If the pain worsens for no apparent reason, please contact the office. b. Intermittent leg pain may also be experienced and should not be concerned about unless it worsens for no apparent reason. If so, please contact the office. 5. We will provide appropriate medication within the normal guidelines of their prescribed use. We will also be very cautious and aware of potential abuse and extended duration of patients' medication needs. a. Pain medications are for your comfort and to assist with sleep and rest so that the tissue can heal. They are not provided in order to return to normal activity and should not be used through the day. To do so or worsening pain at night can result from ongoing tissue damage and development of tolerance to the prescribed medicine. 6. Please allow 2-3 days to process refills. Prescriptions will not be mailed but must be picked up at the office. FOLLOW UP VISIT: Keep your scheduled follow-up appointment. Any questions, please call the office at . Current Hospital Diet Patient's current hospital diet: Diabetes Type 2 Diet Discharge Diet Recommended Diet: Regular Diet Procedures Procedures Performed: L4-S1 Revision Decompression; L4-Pelvis Posterior Instrumentation and Posterolateral Fusion; L5-S1 Interbody Fusion with application of Interbody Cage; L4-L5 Hardware Removal; Use of Bone Morphogenetic Protein and Angy allograft Pending Studies Studies pending at discharge: no Laboratory Results Hemoglobin A1c Test 05/09/16 05:16 Range/Units Estimated Average Glucose 263 mg/dl Hemoglobin A1c 10.8 H 4.5-5.6 % Medical Emergencies . Who to Call and When: Medical Emergencies: If at any time you feel your situation is an emergency, please call 911 immediately. . Non-Emergent Contact Non-Emergency issues call your: Primary Care Provider . "Provider Documentation" section prepared by Isaiah Palma. VTE Core Measure Inpt VTE Proph given/why not?: Joaquin Cage, SCD's
[2016-05-09] MEDS ORDERED: INSULIN REGULAR IV STA ×3 (08:57→12:40)
[2016-05-09] MEDS: ASPIRIN 81 MG ECTAB PO SCH (09:29)
[2016-05-09] MEDS: INSULIN GLARGINE SOLOSTAR 100 UNITS/ML 3 ML PEN SC SCH ×2 (09:37→20:56)
[2016-05-09] MEDS: LISINOPRIL/HCTZ 10/12.5MG TAB PO SCH (09:37)
--- NOTE | 2016-05-09 10:53 | Pharmacy Progress Note ---
Glycemic Control: Progress Nt Date of Service May 09, 2016. Scope Glycemic Pharmacist consulted for glycemic control and to write orders per [facility] inpatient glycemic control protocol. Objective Accuchecks BSG (last 24hrs): Test 05/08/16 12:30 05/08/16 13:32 05/08/16 14:32 05/08/16 15:44 Bedside Glucose 152 mg/dl (70-90) 182 mg/dl (70-90) 208 mg/dl (70-90) 186 mg/dl (70-90) Test 05/08/16 16:56 05/08/16 20:51 05/08/16 23:55 05/09/16 04:00 Bedside Glucose 172 mg/dl (70-90) 265 mg/dl (70-90) 252 mg/dl (70-90) 258 mg/dl (70-90) Test 05/09/16 05:16 05/09/16 07:50 Random Glucose 285 mg/dl (70-99) Bedside Glucose 294 mg/dl (70-90) Laboratory Data (last 24hrs) Test 05/09/16 05:16 Anion Gap 8.0 mmol/L BUN/Creatinine Ratio 13.5 Blood Urea Nitrogen 16 mg/dl Creatinine 1.20 mg/dl Hemoglobin A1c 10.8 % Potassium Level 4.4 mmol/L Sodium Level 140 mmol/L White Blood Count 15.44 K/uL Red Blood Count 4.29 M/uL Hemoglobin 13.0 g/dL Hematocrit 37.4 % Mean Corpuscular Volume 87.2 fL Mean Corpuscular Hemoglobin 30.3 pg Mean Corpuscular Hemoglobin Concent 34.8 g/dl Platelet Count 183 K/uL Mean Platelet Volume 11.8 fL Neutrophils (%) (Auto) 90.1 % Lymphocytes (%) (Auto) 7.3 % Monocytes (%) (Auto) 2.1 % Eosinophils (%) (Auto) 0.0 % Basophils (%) (Auto) 0.0 % Neutrophils # (Auto) 13.92 K/uL Lymphocytes # (Auto) 1.13 K/uL Monocytes # (Auto) 0.32 K/uL Eosinophils # (Auto) 0.00 K/uL Basophils # (Auto) 0.00 K/uL HbA1c: Test 05/09/16 05:16 Hemoglobin A1c 10.8 % (4.5-5.6) H Recent Pertinent Medications Outpatient Anti-diabetic Regimen: * Lantus 42 units SC daily@12 * Metformin 1 g po BIDM * A1c 10.8% on 05/09/16 The patient is currently receiving: * Basal insulin with LANTUS 20 units SQ x1 now then 10 units BID (hold for BSG < 120 mg/dL) * Correctional Insulin with NOVOLOG per scale ACHS or Q6hrs while NPO - additional checks at 0000,0400 * Goal Range: Low 120 mg/dL - High 160 mg/dL * Correction Factor: 30 mg/dL/unit * Nutritional / Prandial insulin per carb ratio of 1 unit per 9 grams CHO consumed Risk Factors for Insulin Resistance: * Steroids: Dexamethasone 4 mg IV x1 then 6 mg IV q8h x3 doses (d/c today after 1200 dose) * Recent Surgery: POD 1 s/p laminectomy * Diet: T2DM Assessment & Plan ASSESSMENT: * ADA & AACE recommend a goal blood sugar range 140-180 mg/dl for the majority of critically ill & non-critically ill patients. However, more stringent targets may be selected in individual cases. 05/08/16 * 75 yo F s/p laminectomy today * Insulin gtt started per Dr. Sultana's direction (not protocol based) pre- and intra-op 2nd elevated BSG to 284 mg/dL pre-op today * Per DIGESTER OPERATOR, currently running at 2 units/hr * Anticipate discontinuation of insulin gtt. Can transition to basal/bolus * Total daily outpatient insulin dose 42 units, but administered as all basal which is not ideal for inpatient post-op management, especially when a patient is being administered steroids. * Will give 1/2 dose of total daily dose as basal. * Will start Novolog at weight-based correction factor. Will do slightly tighter than weight-based CHO ratio 2nd steroids * Will schedule two overnight BSG checks 05/09/16 * BSG's persistently elevated despite overnight BSG checks providing 8 units of insulin * Will give one-time IV bolus as BSG's close to 300 mg/dL are unacceptable for patients recently post-op * Will tighten carb ratio as steroid-induced hyperglycemia responds best to this * Will increase Lantus * Spoke w RN r/e lunch BSG to 329 mg/dL - patient snacks frequently over prolonged periods. Patient noted she has already had 8 ashok-ales today * Will give additional IV bolus at higher dose than at breakfast (BSG responded appropriately) * Appreciate RN to speaking with patient r/e dangers of significantly elevated BSG's so recently post-op. Per RN, patient eager to learn. * Will tighten carb ratio further and also tighten correction factor PLAN FOR INPATIENT GLYCEMIC CONTROL: * Hold outpatient oral diabetes medications * Regular insulin IV bolus' administered today * 6 units at breakfast * 10 units at lunch * Increase Basal insulin with LANTUS 14 units BID (half for BSG < 120 mg/dL) * Correctional Insulin with NOVOLOG per scale ACHS or Q6hrs while NPO - additional checks at 0000,0400 * Goal Range: Low 120 mg/dL - High 160 mg/dL * Tighten Correction Factor: 25 mg/dL/unit * Tighten Nutritional / Prandial insulin per carb ratio of 1 unit per 7 grams CHO consumed * Please note that the plan above was derived based on current level of insulin resistance and hospital stress. These recommendations are appropriate for inpatient admission only. Plan of care upon discharge will need to be reassessed to avoid potential outpatient hypo/hyperglycemia. Thank you.
[2016-05-09 11:36] VITALS: BP 124/69; PULSE 72; TEMP 36.7; O2SAT 94
--- NOTE | 2016-05-09 14:52 | Hospitalist Progress Note ---
Hospitalist Progress Note Date of Service May 09, 2016. Subjective Pt evaluation today including: conversation w/ patient, physical exam, chart review Medications Medications (Trade) Dose Ordered Sig/Adriana Route Start Time Stop Time Status Last Admin Dose Admin Dexamethasone Sodium Phosphate 6 mg/Syringe 1.5 ml @ 1 mls/min Q8H IV 05/08/16 20:00 05/09/16 12:02 DC 05/09/16 13:00 1 MLS/MIN Cefazolin Sodium/ Dextrose (Ancef Iv/D5 50ml) 60 ml @ 100 mls/hr Q8H IV 05/08/16 18:00 05/09/16 02:35 DC 05/09/16 02:25 100 MLS/HR Senna/Docusate Sodium (Senokot S Tab) 2 tab HS PO 05/08/16 21:00 06/07/16 20:59 05/08/16 20:29 2 TAB Miscellaneous Information (Discontinue 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) 1 ea TODAY@0600 N/A 05/09/16 06:00 05/09/16 06:01 DC 05/09/16 05:48 1 EA Aspirin (Ecotrin Tab) 81 mg QAM PO 05/09/16 09:00 06/08/16 08:59 05/09/16 09:29 81 MG Famotidine (Pepcid Tab) 20 mg QPM PO 05/08/16 21:00 06/07/16 20:59 05/08/16 20:28 20 MG HCTZ/Lisinopril (Prinzide 10-12.5MG Tab) 1 tab QAM PO 05/09/16 09:00 06/08/16 08:59 05/09/16 09:37 1 TAB Simvastatin (Zocor Tab) 10 mg HS PO 05/08/16 21:00 06/07/16 20:59 05/08/16 20:29 10 MG Insulin Glargine (Lantus Solostar Pen) 20 unit TODAY@1530 ONCE SC 05/08/16 15:30 05/08/16 15:31 DC 05/08/16 15:47 20 UNIT Insulin Glargine (Lantus Solostar Pen) BID SC 05/09/16 09:00 06/08/16 08:59 05/09/16 09:37 14 UNIT Insulin Aspart (novoLOG ASPART) SLIDING SCALE ACHS MT 05/08/16 17:15 06/07/16 17:14 05/09/16 13:00 12 UNITS Miscellaneous (Stop Order) 1 ea TODAY@1630 ONCE N/A 05/08/16 16:30 05/08/16 16:31 DC 05/08/16 16:33 1 EA Insulin Aspart SLIDING SCALE TODAY@0000,0400 MT 05/09/16 00:00 05/09/16 09:03 DC 05/09/16 04:12 4 UNITS Insulin Human Regular 6 units/ Syringe 0.06 ml @ 1 mls/min NOW STAT IV 05/09/16 08:57 05/09/16 08:58 DC 05/09/16 09:35 1 MLS/MIN Insulin Human Regular/Syringe (novoLIN-R/ Syringe) 0.1 ml @ 1 mls/min NOW STAT IV 05/09/16 12:40 05/09/16 12:41 DC 05/09/16 12:57 1 MLS/MIN Objective Vital Signs Date Time Temp Pulse Resp B/P Pulse Ox O2 Delivery O2 Flow Rate FiO2 05/09/16 11:36 36.7 72 16 124/69 94 Room Air 05/09/16 08:00 Room Air 05/09/16 07:30 37.1 54 16 131/83 97 Room Air 05/09/16 03:55 37.0 70 16 119/79 97 Room Air 05/09/16 00:50 Room Air 05/08/16 22:50 36.8 42 14 120/60 97 Room Air 05/08/16 20:41 36.8 67 17 132/71 96 Room Air 05/08/16 17:10 36.7 51 16 115/74 98 Nasal Cannula 4.0 05/08/16 16:09 36.3 47 16 119/69 97 Nasal Cannula 4.0 05/08/16 15:45 Nasal Cannula 4.0 05/08/16 15:15 36.4 93 16 133/66 98 Nasal Cannula 4.0 Physical Exam General Appearance: WD/WN, no apparent distress Eyes: normal inspection, PERRL, EOMI ENT: normal ENT inspection, hearing grossly normal, TMs normal Neck: supple, no adenopathy, thyroid normal Respiratory/Chest: chest non-tender, lungs clear, normal breath sounds Cardiovascular: regular rate, rhythm, no edema, no gallop Abdomen: normal bowel sounds, non tender, soft Extremities: normal range of motion Neurologic/Psychiatric: manager of care II-XII nml as tested, normal mood/affect, oriented x 3 Skin: normal color Laboratory Results Last 24 Hours Test 05/08/16 15:44 05/08/16 16:56 05/08/16 20:51 05/08/16 23:55 Bedside Glucose 186 mg/dl 172 mg/dl 265 mg/dl 252 mg/dl Test 05/09/16 04:00 05/09/16 05:16 05/09/16 07:50 05/09/16 11:31 Bedside Glucose 258 mg/dl 294 mg/dl 329 mg/dl White Blood Count 15.44 K/uL Red Blood Count 4.29 M/uL Hemoglobin 13.0 g/dL Hematocrit 37.4 % Mean Corpuscular Volume 87.2 fL Mean Corpuscular Hemoglobin 30.3 pg Mean Corpuscular Hemoglobin Concent 34.8 g/dl Platelet Count 183 K/uL Mean Platelet Volume 11.8 fL Neutrophils (%) (Auto) 90.1 % Lymphocytes (%) (Auto) 7.3 % Monocytes (%) (Auto) 2.1 % Eosinophils (%) (Auto) 0.0 % Basophils (%) (Auto) 0.0 % Neutrophils # (Auto) 13.92 K/uL Lymphocytes # (Auto) 1.13 K/uL Monocytes # (Auto) 0.32 K/uL Eosinophils # (Auto) 0.00 K/uL Basophils # (Auto) 0.00 K/uL RDW Standard Deviation 41.1 fL RDW Coefficient of Variation 12.8 % Immature Granulocyte % (Auto) 0.5 % Immature Granulocyte # (Auto) 0.07 K/uL Sodium Level 140 mmol/L Potassium Level 4.4 mmol/L Chloride Level 106 mmol/L Carbon Dioxide Level 26 mmol/L Anion Gap 8.0 mmol/L Blood Urea Nitrogen 16 mg/dl Creatinine 1.20 mg/dl Est Creatinine Clear Calc Drug Dose 39.3 ml/min Estimated GFR () 51.9 Estimated GFR (Non- 44.8 BUN/Creatinine Ratio 13.5 Random Glucose 285 mg/dl Estimated Average Glucose 263 mg/dl Hemoglobin A1c 10.8 % Calcium Level 8.0 mg/dl Hepatitis C Antibody Screen NEG Test 05/09/16 14:02 Bedside Glucose 175 mg/dl Assessment and Plan This patient is a 75-year-old female with a history of lumbar spinal stenosis, diabetes mellitus type 2, depression, GERD, fibrocystic breast disease, hyperlipidemia, hypertension, frequent PVCs, osteoarthritis, Hamilton, obesity, osteoporosis, urinary stress incontinence, and pernicious anemia, who is admitted for a lumbar removal of hardware at L4-L5, discectomy and fusion at L4 L5 S1 performed by Dr. Palma today. Lumbar discectomy and fusion-postoperative management as per orthopedics. -Pain control and bowel regimen -DVT prophylaxis with Dmitriy and BRANT medrano -PT/OT evaluations -Postop wound care -Check postop CBC and PRP tomorrow Diabetes mellitus type 2-required insulin drip through the surgery. Did receive IV dexamethasone intraoperatively. Pharmacy glycemic consult is in place and I discussed the case with the pharmacist on the phone. Hemoglobin A1c was 9.5% in January 2016. -We'll stop insulin drip upon arrival to the floor and start Lantus 20 units daily with a higher sliding scale insulin for coverage with meals. Adjust lantus dose according to accucheks. Hgba1c poorly controlled at 10.6 -Restart metformin in 2 days -home dose of Lantus is 42 units once daily along with metformin 1000 g by mouth twice a day. -Check hemoglobin A1c Hypertension/hyperlipidemia/frequent PVCs-stable, asymptomatic, had normal dobutamine stress test preoperatively in 2011. Hemodynamically stable -Okay to continue lisinopril/HCTZ tomorrow -Continue statin and baby aspirin once daily -No need for telemetry monitoring -Watch electrolytes and replete as needed GERD-stable -Continue Pepcid Pernicious anemia/B12 deficiency-stable -Restart vitamin B12 upon discharge DVT prophylaxis-Dmitriy and BRANT medrano Disposition-full code Possibly to rehabilitation versus home with home PT
[2016-05-09 16:02] VITALS: BP 101/66; PULSE 52; TEMP 36.9; O2SAT 97
[2016-05-09 17:36] VITALS: O2SAT 97
[2016-05-09] MEDS: SIMVASTATIN 10 MG TAB PO SCH (21:39)
[2016-05-09] MEDS: FAMOTIDINE 20 MG TAB PO SCH (21:39)
[2016-05-09] MEDS: DOCUSATE SODIUM/SENNA 50/8.6MG TAB PO SCH (21:40)
[2016-05-09 23:25] VITALS: BP 105/57; PULSE 45; TEMP 36.5; O2SAT 95
[2016-05-10] MEDS ORDERED: INSULIN ASPART 100 UNITS/ML 3 ML PEN SC ONE (02:00)
[2016-05-10] MEDS ORDERED: POLYETHYLENE (MIRALAX) 17 GM PACK PO SCH (06:00)
[2016-05-10] MEDS ORDERED: NURSING DECISION MEDICATION ORDER SCH (06:00)
[2016-05-10 06:52] VITALS: BP 107/64; PULSE 42; TEMP 36.5; O2SAT 97
[2016-05-10 07:45] VITALS: O2SAT 97
[2016-05-10 08:12] VITALS: BP 100/50; PULSE 86
[2016-05-10] MEDS: LISINOPRIL/HCTZ 10/12.5MG TAB PO SCH (08:14)
[2016-05-10] MEDS: ASPIRIN 81 MG ECTAB PO SCH (08:15)
[2016-05-10] MEDS: INSULIN GLARGINE SOLOSTAR 100 UNITS/ML 3 ML PEN SC SCH (08:28)
[2016-05-10] MEDS: INSULIN ASPART 100 UNITS/ML 3 ML PEN SC SCH ×2 (08:28→12:56)
--- NOTE | 2016-05-10 12:36 | Hospitalist Progress Note ---
Hospitalist Progress Note Date of Service May 10, 2016. Subjective Pt evaluation today including: conversation w/ patient, physical exam, chart review Voiding: no voiding problems Medications Medications (Trade) Dose Ordered Sig/Adriana Route Start Time Stop Time Status Last Admin Dose Admin Insulin Human Regular/Syringe (novoLIN-R/ Syringe) 0.1 ml @ 1 mls/min NOW STAT IV 05/09/16 12:40 05/09/16 12:41 DC 05/09/16 12:57 1 MLS/MIN Insulin Aspart (novoLOG ASPART) SLIDING SCALE 0200 ONCE SC 05/10/16 02:00 05/10/16 02:01 DC 05/10/16 02:08 5 UNITS Objective Vital Signs Date Time Temp Pulse Resp B/P Pulse Ox O2 Delivery O2 Flow Rate FiO2 05/10/16 08:12 86 100/50 05/10/16 07:45 97 Room Air 05/10/16 06:52 36.5 42 16 107/64 97 Room Air 05/10/16 00:00 Room Air 05/09/16 23:25 36.5 45 16 105/57 95 Room Air 05/09/16 17:36 97 Room Air 05/09/16 16:02 36.9 52 18 101/66 97 Room Air Physical Exam General Appearance: WD/WN, no apparent distress Eyes: normal inspection, PERRL ENT: normal ENT inspection Neck: supple, no adenopathy Respiratory/Chest: chest non-tender, lungs clear, normal breath sounds Cardiovascular: regular rate, rhythm, no edema, no gallop Abdomen: normal bowel sounds, non tender, soft Extremities: normal range of motion Neurologic/Psychiatric: usability strategist II-XII nml as tested Laboratory Results Last 24 Hours Test 05/09/16 14:02 05/09/16 16:56 05/09/16 20:39 05/10/16 02:03 Bedside Glucose 175 mg/dl 233 mg/dl 378 mg/dl 269 mg/dl Test 05/10/16 06:40 05/10/16 12:14 Bedside Glucose 183 mg/dl 268 mg/dl Assessment and Plan This patient is a 75-year-old female with a history of lumbar spinal stenosis, diabetes mellitus type 2, depression, GERD, fibrocystic breast disease, hyperlipidemia, hypertension, frequent PVCs, osteoarthritis, Hamilton, obesity, osteoporosis, urinary stress incontinence, and pernicious anemia, who is admitted for a lumbar removal of hardware at L4-L5, discectomy and fusion at L4 L5 S1 performed by Dr. Palma today. Lumbar discectomy and fusion-postoperative management as per orthopedics. -Pain control and bowel regimen -DVT prophylaxis with Dmitriy and BRANT medrano -PT/OT evaluation completed -Postop wound care Diabetes mellitus type 2-required insulin drip through the surgery. Did receive IV dexamethasone intraoperatively. Pharmacy glycemic consult is in place and I discussed the case with the pharmacist on the phone. Hemoglobin A1c was 9.5% in January 2016.. Hgba1c poorly controlled at 10.6 -home dose of Lantus is 42 units once daily along with metformin 1000 g by mouth twice a day which can be resumed at the time of discharge Hypertension/hyperlipidemia/frequent PVCs-stable, asymptomatic, had normal dobutamine stress test preoperatively in 2011. Hemodynamically stable -Okay to continue lisinopril/HCTZ -Continue statin and baby aspirin once daily GERD-stable -Continue Pepcid Pernicious anemia/B12 deficiency-stable -Restart vitamin B12 upon discharge DVT prophylaxis-Dmitriy and BRANT medrano Disposition-full code Ok for dc home from IM standpoint
[2016-05-10 13:16] VITALS: BP 100/50; PULSE 86; TEMP 36.5; O2SAT 97
--- NOTE | 2016-05-10 22:22 | DISCHARGE SUMMARY ---
PRINCIPAL DIAGNOSIS: Spinal stenosis. HOSPITAL COURSE FOLLOWS: On May 08, patient underwent lumbar decompression and fusion, tolerated this well and taken to the orthopedic floor postoperatively. Postop day #1, she was up and ambulatory, progressed to postop day #2. LIZY drain decreased appropriately. Pain well controlled. Subsequently discharged home. Discharge orders and instructions found on the chart for further review.
--- NOTE | 2016-05-11 07:48 | PROGRESS NOTE ---
DATE: 05/09/2016 SUBJECTIVE: Postop day #1. Back pain is controlled. Leg pain markedly improved. Vital signs stable. T-max 37.1. LIZY drained 80 mL. Hematocrit 37.4. PHYSICAL EXAMINATION: The patient is in chair at bedside. She has good strength to testing, appears comfortable. ASSESSMENT: Status post lumbar pelvic fusion. PLAN: At this time, will continue with physical therapy, advance her bowel regimen and anticipate possibly home Wednesday or Wednesday.
[2016-09-23] MEDS ORDERED: METF-384 PO (08:36)
[2016-09-23] MEDS ORDERED: NAPR-960 PO (08:42)
== END 2016-05-10 14:04 | disposition home or self-care (01) | DRG 460 ==
LOC: ENRESERVTM → ENRESERVDT → C.ACU 08:08 → C.3E 09:05
PROVIDERS: ADMIT Orthopaedic Surgery Orthopaedic Surgery of the Spine; ATTEND Orthopaedic Surgery Orthopaedic Surgery of the Spine
PROC: 0SG30A1 (ICD-10-PCS; principal; 2016-05-08 10:20)
PROC: 0SG00Z1 (ICD-10-PCS; principal; 2016-05-08 10:20)
PROC: 0SP004Z Removal of Internal Fixation Device from Lumbar Vertebral Joint, Open Approach (ICD-10-PCS; principal; 2016-05-08 10:20)
DX: M48.06 Spinal stenosis, lumbar region (principal); K21.9 Gastro-esophageal reflux disease without esophagitis; E11.65 Type 2 diabetes mellitus with hyperglycemia; E78.5 Hyperlipidemia, unspecified; M81.0 Age-related osteoporosis without current pathological fracture; E66.9 Obesity, unspecified; Z68.29 Body mass index [BMI] 29.0-29.9, adult; N60.19 Diffuse cystic mastopathy of unspecified breast; M19.90 Unspecified osteoarthritis, unspecified site; Z79.4 Long term (current) use of insulin; N39.3 Stress incontinence (female) (male); D51.0 Vitamin B12 deficiency anemia due to intrinsic factor deficiency; K75.81 Nonalcoholic steatohepatitis (NASH); Z83.3 Family history of diabetes mellitus; Z82.3 Family history of stroke; Z82.49 Family history of ischemic heart disease and other diseases of the circulatory system

== ENCOUNTER → 2016-06-01 | Outpatient (CLI) | payer BC ==
[~2016-06-01] MED LIST changes: -CEFAZOLIN 1000MG/55 ML D5W IV SCH; +INSDGI SQ; +KETO10TA PO; -LACTATED RINGER'S 1000ML 1,000 ML IV SCH; +METF-384 PO; +NAPR-960 PO; +OXYC-57 PO; +RXC5 PO
[2016-06-01 12:44] LABS: ESTIMATED AVERAGE GLUCOSE 301 mg/dl; HA1C FLAG Normal (Normal)
== END | disposition home or self-care (01) ==
LOC: C.LABBFT 08:31
PROVIDERS: ATTEND Internal Medicine
DX: E11.65 Type 2 diabetes mellitus with hyperglycemia (principal)

== ENCOUNTER → 2016-06-19 | Outpatient (CLI) | payer BC ==
[~2016-06-19] MED LIST changes: +OPTIRAY 320 IV PRN
[2016-06-19 14:16] LABS: BLOOD UREA NITROGEN 17 mg/dl (7-18); BUN/CREATININE RATIO 16.5 (10-20)
--- NOTE | 2016-06-19 14:41 | DIAGNOSTIC IMAGING REPORT ---
CT orbits ORBITS/SELLA/TEMP WITH CLINICAL HISTORY: H57.10 Pain and swelling of [id number] pain. Edema. TECHNIQUE: Transaxial acquisition with multi axial reformatted images COMPARISON STUDY: None FINDINGS: Mild degree of soft tissue edema anterior to the right globe and orbital region. No evidence for abscess or collection. Globes are symmetric. Retroseptal structures are unremarkable. The optic nerves are symmetric. Osseous structures are intact. There is no evidence for bony destructive process. IMPRESSION: Mild preseptal soft tissue edema, possibly a low-grade cellulitis. 2. No evidence for abscess collection or obstruction. 3. All retroseptal structures and retrobulbar structures are normal Electronically signed by: Arcenio Bowman M.D. 06/19/2016 2:40 PM Dictated Date/Time: 06/19/2016 2:37 PM
[2016-06-19 14:46] LABS: BASO % 0.2 %; BASO ABS # 0.02 K/uL (0-0.2); COMPLETE YES; EOS % 3.9 %; HEMATOCRIT 41.7 % (37-47); IG% 0.3 %; LYMPH % 24.7 %; LYMPH ABS # 2.75 K/uL (1.2-3.4); MEAN CORPUSCULAR HEMOGLOBIN 28.9 pg (25-34); MEAN CORPUSCULAR HGB CONC 32.9 g/dl (32-36); MEAN PLATELET VOLUME 11.5 fL (7.4-10.4); MONO % 6.5 %; NEUT % 64.4 %; PLATELET COUNT 248 K/uL (130-400); RED BLOOD COUNT 4.74 M/uL (4.2-5.4); WHITE BLOOD COUNT 11.15 K/uL (4.8-10.8)
== END | disposition home or self-care (01) ==
LOC: C.CTS 13:23
PROVIDERS: ATTEND Internal Medicine
DX: H57.10 Ocular pain, unspecified eye (principal)

== ENCOUNTER → 2016-06-24 | Outpatient (CLI) | payer BC ==
[~2016-06-24] MED LIST changes: -OPTIRAY 320 IV PRN
[2016-06-24 12:28] LABS: BLOOD UREA NITROGEN 18 mg/dl (7-18)
== END ==
LOC: C.LABBFT 08:34
PROVIDERS: ATTEND Internal Medicine
DX: E11.65 Type 2 diabetes mellitus with hyperglycemia (principal)

== ENCOUNTER → 2016-07-24 | Outpatient (CLI) | payer BC ==
--- NOTE | 2016-07-24 10:44 | DIAGNOSTIC IMAGING REPORT ---
CT LUMBAR SPINE WITHOUT CT DOSE: 691.57 mGycm CLINICAL HISTORY: Neurogenic claudication. Lumbar spinal stenosis. TECHNIQUE: Helical images were acquired in transverse plane. Reformatted sagittal and coronal images were reviewed. CONTRAST: No contrast was administered COMPARISON STUDY: 03/26/2016 FINDINGS: L1-2 level: There is marked disc degeneration with endplate sclerotic changes and mild endplate irregularity. There is a mild circumferential disc bulge. There is minimal spinal canal narrowing.. L2-3 level: There is a mild circumferential disc bulge. There is mild spinal stenosis. There is no significant foraminal narrowing L3-4 level: There is a mild circumferential disc bulge. There is mild to moderate spinal stenosis. There is no significant foraminal narrowing L4-5 level: There are postsurgical changes of a discectomy and interbody fusion. There are postlaminectomy changes present. There is posterior pedicle screw spinal fusion. L5-S1 level: There are postsurgical changes of a discectomy and interbody fusion. There are postlaminectomy changes. There is posterior pedicle screw spinal fusion. Bilateral sacral bolts are also visualized. IMPRESSION: 1. Postsurgical changes of an L4-5, and L5-S1 discectomies, interbody fusions, posterior laminectomies, and posterior spinal fusion 2. Multilevel degenerative change. Minimal spinal stenosis at the L1-2 level mild spinal stenosis at the L2-3 level and mild to moderate spinal stenosis the L3-4 level. Electronically signed by: Julio Sharp M.D. 07/24/2016 10:43 AM Dictated Date/Time: 07/24/2016 10:37 AM
== END | disposition home or self-care (01) ==
LOC: C.CTS 09:55
PROVIDERS: ATTEND Physician Assistant Medical
DX: M48.06 Spinal stenosis, lumbar region (principal); Z98.1 Arthrodesis status

== ENCOUNTER → 2016-08-05 | Outpatient (CLI) | payer BC ==
[~2016-08-05] MED LIST changes: -INSDGI SQ
[2016-08-05 12:37] LABS: URINE APPEARANCE CLEAR (CLEAR); URINE BILIRUBIN NEG (NEG); URINE COLOR YELLOW; URINE EPITHELIAL CELL AUTO 20-30 /lpf (0-5); URINE NITRITE NEG (NEG); URINE SPECIFIC GRAVITY 1.028 (1.000-1.030); UROBILINOGEN NEG (NEG)
[2016-08-05 12:41] LABS: MANUAL MICROSCOPIC REQUIRED? NO; REVIEW REQ? NO
== END | disposition home or self-care (01) ==
LOC: C.LABBFT 10:41
PROVIDERS: ATTEND Internal Medicine
DX: R39.9 Unspecified symptoms and signs involving the genitourinary system (principal)

== ENCOUNTER → 2016-08-21 | Outpatient (CLI) | payer BC ==
[~2016-08-21] MED LIST changes: +OPTIRAY 320 IV PRN
[2016-08-21 11:44] LABS: ISTAT CREATININE 0.9 mg/dl (0.6-1.3); ISTAT HEMOGLOBIN 15.6 g/dl (12.0-16.0); ISTAT IONIZED CALCIUM 0.96 mmol/l (1.12-1.32)
--- NOTE | 2016-08-21 13:53 | DIAGNOSTIC IMAGING REPORT ---
ABD/PELVIS IV AND ORAL CONT HISTORY:75 [id number] Lower abdominal pain COMPARISON: Lumbar spine 07/24/2016. TECHNIQUE: Multiple axial CT images of the abdomen and pelvis were obtained following the intravenous administration of 117 mL Optiray 320. Oral contrast was also used. FINDINGS: 4 mm noncalcified pulmonary nodule abutting the pleural surface of the posterior basal segment left lower lobe suggests an area of pleural parenchymal scarring. There is no pneumoperitoneum identified. Inferior cardiac chambers are unremarkable. The liver, spleen, gallbladder and adrenal glands appear normal. There is at least moderate pancreatic atrophy. No renal calculi or hydronephrosis is identified. Prior hysterectomy. Urinary bladder is collapsed. There is moderate plaquing of the abdominal aorta. No bulky retroperitoneal adenopathy is seen. There is no bowel obstruction. Moderate-sized stool ball is seen within the rectal wall to. The appendix appears normal. There are a few noninflamed colonic diverticula. The soft tissues are within normal limits. The bones are diffusely demineralized. Discectomy changes are seen at L4-L5 and L5-S1. Advanced intervertebral disc space narrowing seen at the L1-L2 level. Interbody helen and screw fixation hardware seen at L4-S1. Additional cannulated screws traverse the posterior aspects of the iliac wings bilaterally. No evidence of hardware complication. IMPRESSION: 1. No acute intra-abdominal or intrapelvic abnormality identified. 2. No bowel obstruction. Normal appendix. 3. Prior hysterectomy. 4. Colonic diverticulosis without diverticulitis. The above report was generated using voice recognition software. It may contain grammatical, syntax or spelling errors. Electronically signed by: Wisam Whitehead M.D. 08/21/2016 1:52 PM Dictated Date/Time: 08/21/2016 1:44 PM
== END | disposition home or self-care (01) ==
LOC: C.CTS 10:21
PROVIDERS: ATTEND Internal Medicine
DX: R10.30 Lower abdominal pain, unspecified (principal); K57.90 Diverticulosis of intestine, part unspecified, without perforation or abscess without bleeding; Z90.710 Acquired absence of both cervix and uterus

== ENCOUNTER → 2016-09-21 | Outpatient (CLI) | payer BC ==
[~2016-09-21] MED LIST changes: -OPTIRAY 320 IV PRN
[2016-09-21 15:36] LABS: BASO % 0.2 %; BASO ABS # 0.02 K/uL (0-0.2); COMPLETE YES; EOS % 4.9 %; HEMATOCRIT 44.3 % (37-47); IG% 0.3 %; LYMPH % 22.2 %; LYMPH ABS # 1.95 K/uL (1.2-3.4); MEAN CELL VOLUME 83.6 fL (80-100); MEAN CORPUSCULAR HEMOGLOBIN 27.5 pg (25-34); MONO % 5.4 %; PLATELET COUNT 214 K/uL (130-400); WHITE BLOOD COUNT 8.78 K/uL (4.8-10.8)
[2016-09-21 16:06] LABS: BLOOD UREA NITROGEN 21 mg/dl (7-18); CALCIUM 9.1 mg/dl (8.5-10.1); CARBON DIOXIDE 26 mmol/L (21-32); CHLORIDE 97 mmol/L (98-107); POTASSIUM 4.8 mmol/L (3.5-5.1); SODIUM 133 mmol/L (136-145)
[2016-09-21 16:09] LABS: GLUCOSE 643 mg/dl (70-99)
[2016-09-21 16:22] LABS: BETA-HYDROXYBUTYRATE 2.74 mg/dL (0.2-2.81)
== END | disposition home or self-care (01) ==
LOC: C.LAB 14:53
PROVIDERS: ATTEND Orthopaedic Surgery
DX: Z01.818 Encounter for other preprocedural examination (principal); M25.511 Pain in right shoulder

== ENCOUNTER → 2016-10-01 | Outpatient (CLI) | payer BC ==
[~2016-10-01] MED LIST changes: -GLC/500 PO; -RXC5 PO
--- NOTE | 2016-10-01 13:58 | MAMMOGRAPHY REPORT ---
BILATERAL DIGITAL SCREENING MAMMOGRAM WITH CAD: 10/01/2016 CLINICAL HISTORY: Routine screening. Patient has no complaints. TECHNIQUE: Current study was also evaluated with a Computer Aided Detection (CAD) system. Bilateral CC and MLO views were obtained. COMPARISON: Comparison is made to exams dated: 10/01/2015 mammogram, 09/27/2014 mammogram, 09/08/2013 ma mmogram, 09/07/2012 mammogram, 09/07/2011 mammogram, and 09/05/2010 mammogram - [facility] nter. BREAST COMPOSITION: The tissue of both breasts is heterogeneously dense, which may obscure small mas ses. FINDINGS: No suspicious masses, calcifications, or areas of architectural distortion are noted in ei ther breast. There has been no significant interval change compared to prior exams. Scattered bilater al benign-appearing calcifications are not significantly changed. There are stable postsurgical gómez ges from bilateral reduction mammoplasty. Bilateral asymmetries are stable. IMPRESSION: ACR BI-RADS CATEGORY 2: BENIGN There is no mammographic evidence of malignancy. A 1 year screening mammogram is recommended. The pa tient will receive written notification of the results. Approximately 10% of breast cancers are not detected with mammography. A negative mammographic report should not delay biopsy if a clinically suggestive mass is present. Mignon Sullivan M.D. /:10/01/2016 12:25:42 Textile Colorist Dyer: Jennifer LEON(Gordon)(M), [facility] letter sent: Normal 1/2 BI-RADS Code: ACR BI-RADS Category 2: Benign
== END | disposition home or self-care (01) ==
LOC: C.MAMM 07:51
PROVIDERS: ATTEND Internal Medicine
DX: Z12.31 Encounter for screening mammogram for malignant neoplasm of breast (principal)

== ENCOUNTER → 2016-10-06 | Outpatient (CLI) | payer BC ==
--- NOTE | 2016-10-14 12:43 | CODING QUERY MEDICAL NECESSITY ---
CQSUPPORTING DIAGNOSIS NEEDED A supporting diagnosis is required for the test/procedure performed on this patient in order for us to be reimbursed by the patient's insurance. Please provide a supporting diagnosis for the following test/procedure listed below next to the test name along with your signature. *If there is no additional diagnosis for this patient that would support the following test/procedure please document that below next to the test/procedure. Test(s)/Procedure(s) that require a supporting diagnosis: DOS 10/06/16 BLOOD GLUCOSE TEST Provider Signature: Date: Thank you Ashley Guzmán Health Information Management Once completed, please kindly fax back to [phone] For questions please call [phone]
== END | disposition home or self-care (01) ==
LOC: C.LABBFT 08:00
PROVIDERS: ATTEND Orthopaedic Surgery
DX: Z01.812 Encounter for preprocedural laboratory examination (principal); M75.121 Complete rotator cuff tear or rupture of right shoulder, not specified as traumatic

== ENCOUNTER → 2016-10-21 | Outpatient (CLI) | payer BC ==
[2016-10-21 12:33] LABS: ALT/SGPT 26 U/L (12-78); BLOOD UREA NITROGEN 16 mg/dl (7-18); BUN/CREATININE RATIO 16.7 (10-20); CALCIUM 9.8 mg/dl (8.5-10.1); CARBON DIOXIDE 27 mmol/L (21-32); CHLORIDE 107 mmol/L (98-107); CHOLESTEROL 139 mg/dl (0-200); CREATININE 0.97 mg/dl (0.60-1.20); ESTIMATED AVERAGE GLUCOSE 266 mg/dl; GLUCOSE 115 mg/dl (70-99); HA1C FLAG Normal (Normal); POTASSIUM 4.1 mmol/L (3.5-5.1); SODIUM 141 mmol/L (136-145); TRIGLYCERIDES 110 mg/dl (0-150); VERY LOW DENSITY LIPOPROT CALC 22 mg/dl
[2016-10-21 12:36] LABS: ALB/GLOB RATIO 1.3 (0.9-2); ALKALINE PHOSPHATASE 85 U/L (45-117); AST/SGOT 30 U/L (15-37); CHOLESTEROL/HDL RATIO 2.1; HDL CHOLESTEROL 66 mg/dl; LDL CHOLESTEROL CALCULATED 51 mg/dl
== END | disposition home or self-care (01) ==
LOC: C.LABBFT 08:11
PROVIDERS: ATTEND Internal Medicine
DX: Z00.00 Encounter for general adult medical examination without abnormal findings (principal); M75.121 Complete rotator cuff tear or rupture of right shoulder, not specified as traumatic; E11.65 Type 2 diabetes mellitus with hyperglycemia; E78.5 Hyperlipidemia, unspecified; M48.06 Spinal stenosis, lumbar region

== ENCOUNTER 2016-10-26 11:21 | Day surgery (SDC) | payer BC ==
[2016-09-23 08:36] VITALS: BMI 31.0
[2016-10-08 09:49] VITALS: BMI 29.0
--- NOTE | 2016-10-23 09:28 | HISTORY & PHYSICAL EXAMINATION ---
DATE OF ADMISSION: 10/26/2016 CHIEF COMPLAINT: Severe external impingement of the right shoulder. HISTORY OF PRESENT ILLNESS: Marisabel is a pleasant 75-year-old female who I did a left shoulder decompression arthroscopy on a year ago. She did very well with that. Unfortunately, recently she was reaching behind her couch and she developed significant pain in her right shoulder. MRI shows severe external impingement and biceps tendinopathy. After failing extensive conservative treatment, she elected to proceed with arthroscopy. PAST MEDICAL HISTORY: Significant for diabetes, hypertension, acid reflux and hyperlipidemia. MEDICATIONS: Include Glucophage, glipizide, Zocor, lisinopril, Pepcid, insulin, aspirin and vitamin B12 shot. PAST SURGICAL HISTORY: Significant for left knee surgery x3, surgeries to her left elbow, cataracts, bilateral carpal tunnel releases, hysterectomy and a left shoulder arthroscopy. ALLERGIES: None. FAMILY HISTORY: Noncontributory. SOCIAL HISTORY: She is . She denies any alcohol or tobacco use. She is moderately active. REVIEW OF SYSTEMS: She complains of right shoulder pain. All other pertinent review of systems are negative. PHYSICAL EXAMINATION: GENERAL: She is awake, alert and oriented x3. She is in no apparent distress. She is very pleasant. HEAD, EYES, EARS, NOSE, AND THROAT: Pupils are equal, round and reactive to light. Extraocular motion intact. Oral mucosa is pink and moist. HEART: Regular rate per radial pulse. LUNGS: Krista symmetrically bilaterally with no audible breath sounds. ABDOMEN: Soft, nontender, nondistended. MUSCULOSKELETAL: On physical examination of her right shoulder, she has almost full active range of motion in the office. She has 5/5 muscle strength to full can testing and external rotation. She has significant tenderness to palpation over the insertion of the rotator cuff and down the length of the biceps tendon. She also has a lot of pain over the AC joint. IMAGING: MRI of the right shoulder shows severe external impingement, biceps tendinopathy with mild AC joint arthritis. IMPRESSION: External impingement and biceps tendonitis of the right shoulder. PLAN: Will proceed with a right shoulder arthroscopy to include decompression and biceps tenotomy and distal clavicle resection. Postoperatively, she will be placed in an arm sling and discharged to home on oral pain medications.
[~2016-10-26] VITALS: Ht 157.5 cm; Wt 71.8 kg
[~2016-10-26 11:21] MED LIST changes: +ACETAMINOPHEN 500 MG TAB PO SCH; +CEFAZOLIN 2000 MG/60 ML D5W 60 ML IV SCH; -KETO10TA PO; +LACTATED RINGER'S 1000ML 1,000 ML IV SCH; +LACTATED RINGER'S 1000ML IV SCH; -OXYC-57 PO; +ROPIVACAINE 0.5% 5 MG/ML 30 ML VIAL ONE
[2016-10-26 11:53] VITALS: Ht 157.5 cm; Wt 71.8 kg
[2016-10-26 12:03] VITALS: BP 148/99; PULSE 100; TEMP 36.6; O2SAT 97
[2016-10-26] MEDS ORDERED: ONDANSETRON INJ 2 MG/ML 2 ML VIAL IV PRN ×2 (13:15→16:00)
[2016-10-26] MEDS ORDERED: EpHEDrine SULFATE INJ 50 MG/ML AMP IV PRN (13:15)
[2016-10-26] MEDS ORDERED: ATROPINE SULFATE 0.1 MG/ML 5ML SYR IV PRN (13:15)
[2016-10-26] MEDS ORDERED: MIDAZOLAM HCL 1 MG/ML 2ML VIAL ONE (13:24)
[2016-10-26] MEDS ORDERED: FENTANYL CITRATE INJ 50 MCG/1 ML 2 ML VIAL ONE (13:24)
[2016-10-26] MEDS ORDERED: BUPIVACAINE/EPINEPHRINE 0.5% MPF 1:200,000 30 ML VIAL ONE (14:25)
[2016-10-26] MEDS ORDERED: LIDOCAINE HCL 2% 2 ML VIAL (20MG/ML) ONE (14:26)
[2016-10-26] MEDS ORDERED: ONDANSETRON INJ 2 MG/ML 2 ML VIAL ONE (14:26)
[2016-10-26] MEDS ORDERED: DEXAMETHASONE SOD INJ 4 MG/ML VIAL ONE (14:26)
[2016-10-26] MEDS ORDERED: EpINEphrine HCL INJ 1 MG/ML 5ML SYRINGE ONE (14:26)
[2016-10-26] MEDS ORDERED: PROPOFOL IV EMULSION 10 MG/ML 20 ML VIAL IV ONE (14:26)
--- NOTE | 2016-10-26 15:35 | [facility] Post Operative Brief Note ---
Immediate Operative Summary Operative Date Oct 26, 2016. Pre-Operative Diagnosis External Impingement and Biceps Tendonitis Right Shoulder Post-Operative Diagnosis External Impingement and Biceps Tendonitis Right Shoulder Procedure(s) Performed Right Shoulder: Arthroscopy, Subacromial Decompression, Distal Clavicle Resection, Biceps Tenotomy Surgeon Dr. Whitt Vc++ Developer Surgeon(s) SHILO Meza Estimated Blood Loss 5cc Findings as above Specimens none per surgeon Complication(s) None Disposition Recovery Room / PACU
[2016-10-26] MEDS ORDERED: OXYC-57 PO (15:45)
[2016-10-26] MEDS ORDERED: KETO10TA PO (15:45)
[2016-10-26] MEDS ORDERED: SODIUM CHLORIDE 0.9% 1000ML 1,000 ML IV SCH (15:46)
--- NOTE | 2016-10-26 15:46 | Discharge Instructions ---
Discharge Instructions Date of Service Oct 26, 2016. Admission Reason for Admission: Right Shoulder Rotator Cuff Tear, Shoulder Pain Discharge Discharge Diagnosis / Problem: SAME ABOVE Discharge Goals Goal(s): Decrease discomfort, Improve function Activity Recommendations Activity Limitations: as noted below Lifting Limitations: gradually increase as tolerated Exercise/Sports Limitations: gradually increase as tolerated Shower/Bathe: tomorrow Driving or Machine Use: WHEN OUT OF THE SLING AND OFF OF PAIN MEDICATION . Instructions / Follow-Up Instructions / Follow-Up MEDICATIONS: * Resume previous medications unless instructed otherwise by your surgeon. * Always take pain medication on a full stomach or with food to avoid upset stomach. * Do not drink alcohol or drive while taking narcotics. * Ibuprofen or Tylenol may be taken if narcotic not needed. SPECIAL CARE INSTRUCTIONS: __ None _X_ Keep extremity elevated and iced x 48 hours; apply ice 20-30 minutes 8-10 times/day. May remove at night. _X_ Sling (WEAR NEEDED FOR COMFORT) __24 hrs/day __ Remove at night __ Shoulder Immobilizer __ 24 hrs/day __ Remove at night _X_ Dressing __ Maintain until seen in office, may shower with plastic over site _X_ Remove dressings in 24-48 hours and then may shower _X_ Cover incisions with band-aids after showering __ Do not remove steri-strips Call physician if chills or temperature rises above 102 degrees or pain unrelieved by prescribed pain medications at . . Current Hospital Diet Patient's current hospital diet: Discharge Diet Recommended Diet: Regular Diet Fluid Restriction: None Procedures Procedures Performed: Right Shoulder: Arthroscopy, Subacromial Decompression, Distal Clavicle Resection, Biceps Tenotomy Pending Studies Studies pending at discharge: no Laboratory Results Hemoglobin A1c Test 10/21/16 08:19 Range/Units Estimated Average Glucose 266 mg/dl Hemoglobin A1c 10.9 H 4.5-5.6 % Lipid Panel Test 10/21/16 08:19 Range/Units Triglycerides Level 110 0-150 mg/dl Cholesterol Level 139 0-200 mg/dl HDL Cholesterol 66 mg/dl Cholesterol/HDL Ratio 2.1 LDL Cholesterol, Calculated 51 mg/dl Work Instructions Lifting Limitations: none Medical Emergencies . Who to Call and When: Medical Emergencies: If at any time you feel your situation is an emergency, please call 911 immediately. . Non-Emergent Contact Non-Emergency issues call your: Primary Care Provider Call Non-Emergent contact if: you have a fever, temperature is above 101.5 . "Provider Documentation" section prepared by Michel Brenner. . VTE Core Measure Inpt VTE Proph given/why not?: Treatment not indicated
[2016-10-26] MEDS: FENTANYL CITRATE INJ 50 MCG/1 ML 2 ML VIAL IV PRN ×2 (15:51→15:57)
--- NOTE | 2016-10-26 15:59 | OPERATIVE REPORT ---
DATE OF OPERATION: 10/26/2016 PREOPERATIVE DIAGNOSES: Severe external impingement, acromioclavicular joint arthritis and biceps tendinopathy of the right shoulder. POSTOPERATIVE DIAGNOSES: Severe external impingement, biceps tendinopathy, acromioclavicular joint of the right shoulder with adhesive capsulitis. PROCEDURES: Right shoulder diagnostic arthroscopy with extensive debridement, lysis of adhesions, distal clavicle resection, acromioplasty and biceps tenotomy. SURGEON: Dr. Chapincito Whitt. TERRITORY SALES REPRESENTATIVE: Daljit Brenner PA-C, whose assistance was necessary for positioning the arm and helping with instrumentation. ANESTHESIA: General with a right interscalene nerve block. COMPLICATIONS: None. CONDITION: Stable to PACU. INDICATIONS FOR PROCEDURE: Marisabel is a pleasant 75-year-old female who I did a left shoulder decompression over a year ago. She was very happy with that and reports she was having similar symptoms on her right side. MRI and clinical examination showed severe external impingement, AC joint arthritis. After failing conservative treatment, she elected to undergo arthroscopy. DESCRIPTION OF PROCEDURE: On 10/26/2016, she arrived at [facility] for the above procedure. She was seen in the preoperative holding area and the operative extremity was identified and signed. She was given a preoperative antibiotic and a right interscalene nerve block. She was taken back to the operating room, laid on the table in supine position and put under general anesthesia. She was then put into the beachchair position. The right shoulder was prepped and draped in sterile fashion. Time-out was done and the patient and operative extremity was properly identified. On preoperative physical examination, she only had about 70 degrees of abduction and 30 degrees of external rotation. She felt tight at end ranges of motion. A gentle manipulation was done under anesthesia to facilitate insertion of the arthroscope. The scope was then placed in the posterior portal. Diagnostic arthroscopy showed no cartilage damage to the humeral head or the glenoid. There was some scarring and redness within the rotator interval as well as the middle and anterior inferior glenohumeral ligaments. The biceps tendon was frayed close to the insertion site on the glenoid. The supraspinatus, infraspinatus, teres minor, and subscapularis were all checked and intact. An anterior portal was made. A shaver was used to start an extensive debridement of the structures. Time was spent opening up the rotator interval and debrided back unstable tissue. An ablator was then used to do a lysis of adhesions of the superior, middle and anterior inferior glenohumeral ligaments. These were teased back carefully to gain range of motion of the shoulder. Care was taken not to disrupt the subscapularis or the axillary nerve. A shaver was used to remove any unstable additional tissue fragments. The long head of the biceps tendon was then arthroscopically tenotomized. The scope was then put into the subacromial space. A lateral portal was made. A shaver was used to do a complete subacromial and subdeltoid bursectomy. An ablator was used to tease the coracoacromial ligament off the undersurface of the acromion and a 5-0 reji was used to complete an acromioplasty of a Bigliani type 3 acromion. A shaver was used to remove any excess debris and the bursal side of the rotator cuff was examined extensively without evidence of tear. Attention was turned to the distal clavicle. Through an anterior portal, a shaver and ablator were used to skeletonize the distal clavicle. A 5-0 reji was used to resect the distal 7 mm from the clavicle. Complete resection was checked under direct visualization. A shaver was used to remove any excess debris. Arthroscopic instruments were removed from the shoulder. Portal sites were closed with 3-0 nylon. She was then placed in a soft dressing and a regular arm sling. She was then extubated, [facility] and taken to the postanesthesia care unit in stable condition. She tolerated the procedure well. I attest to the content of the Intraoperative Record and any orders documented therein. Any exceptions are noted below. SHANON
[2016-10-26] MEDS ORDERED: OXYCODONE/ACETAMINOPHEN 5-325 TAB PO PRN (16:00)
--- NOTE | 2016-10-26 16:20 | Anesthesiology Progress Note ---
Anesthesia Post Op Note Date & Time Oct 26, 2016 at 16:20 Vital Signs Pain Intensity: 3 Vital Signs Past 12 Hours Date Time Temp Pulse Resp B/P (MAP) Pulse Ox O2 Delivery O2 Flow Rate FiO2 10/26/16 16:10 75 18 168/93 93 Room Air 10/26/16 16:00 67 16 162/109 100 Oxymask 10 10/26/16 15:50 67 16 155/88 100 Oxymask 10 10/26/16 15:44 36.0 79 16 163/82 100 Oxymask 10 10/26/16 12:03 36.6 100 20 148/99 (115) 97 Room Air Notes Mental Status: alert / awake / arousable, participated in evaluation Pt Amnestic to Procedure: Yes Nausea / Vomiting: adequately controlled Pain: adequately controlled Airway Patency, RR, SpO2: stable & adequate BP & HR: stable & adequate Hydration State: stable & adequate Anesthetic Complications: no major complications apparent
[2016-10-26 16:30] VITALS: BP 168/79; PULSE 71; TEMP 36.4; O2SAT 94
[2016-10-26 17:00] VITALS: BP 167/81; PULSE 80; O2SAT 95
[2016-10-26 17:30] VITALS: BP 160/71; PULSE 75; TEMP 36.4; O2SAT 96
== END 2016-10-26 17:48 | disposition home or self-care (01) ==
LOC: C.ACU 11:21
PROVIDERS: ATTEND Orthopaedic Surgery
DX: M25.811 Other specified joint disorders, right shoulder (principal); M75.01 Adhesive capsulitis of right shoulder; E11.9 Type 2 diabetes mellitus without complications; I10 Essential (primary) hypertension; K21.9 Gastro-esophageal reflux disease without esophagitis; E78.5 Hyperlipidemia, unspecified

== ENCOUNTER 2016-12-22 18:27 | Emergency (ER) | payer BC ==
[~2016-12-22] VITALS: Ht 157.5 cm; Wt 71.0 kg
[~2016-12-22 18:27] MED LIST changes: -ACETAMINOPHEN 500 MG TAB PO SCH; -CEFAZOLIN 2000 MG/60 ML D5W 60 ML IV SCH; +KETO10TA PO; -LACTATED RINGER'S 1000ML 1,000 ML IV SCH; -LACTATED RINGER'S 1000ML IV SCH; +OXYC-57 PO; -ROPIVACAINE 0.5% 5 MG/ML 30 ML VIAL ONE
[2016-12-22 18:29] VITALS: TEMP 36.7; Ht 157.5 cm; Wt 71.0 kg
--- NOTE | 2016-12-22 19:40 | DIAGNOSTIC IMAGING REPORT ---
L FOOT MIN 3 VIEWS ROUTINE CLINICAL HISTORY: 76 years-old Female presenting with left foot injury. TECHNIQUE: Frontal, oblique, and lateral views of the left foot were obtained. COMPARISON: 02/02/2015. FINDINGS: Osteopenia limits evaluation for nondisplaced fracture. Allowing for this, nondisplaced fracture of the head of the proximal phalanx of the fifth toe. No other fracture identified. This does not appear to extend into the proximal interphalangeal joint of the fifth toe. Prominent enthesophyte at the inferior calcaneus. Atherosclerosis. IMPRESSION: Nondisplaced extra-articular fracture of the head of the proximal phalanx of the fifth toe. Electronically signed by: Gustavo Grady M.D. 12/22/2016 7:39 PM Dictated Date/Time: 12/22/2016 7:37 PM
--- NOTE | 2016-12-22 19:43 | DIAGNOSTIC IMAGING REPORT ---
L-SPINE MIN 4 VIEWS ROUTINE CLINICAL HISTORY: 76 years-old Female presenting with low back pain, fall, previous surgeries. TECHNIQUE: Frontal, bilateral oblique, lateral, and coned in lateral views of the lumbar spine were obtained. COMPARISON: 01/06/[address] from 07/24/2016. FINDINGS: Straightening of normal lumbar lordosis. Bilateral transpedicular screw and helen fixation of L4-S1 with bilateral iliac screws. Interbody spacers noted at L4-5 and L5-S1. Laminectomy defects of L4 and L5. No gross evidence of hardware complication. No compression deformity. Nonoperative levels demonstrate normal vertebral body heights and alignment. Intervertebral disc height loss at L1-2. IMPRESSION: No radiographic evidence of hardware complication. No compression deformity to suggest fracture. Electronically signed by: Gustavo Grady M.D. 12/22/2016 7:42 PM Dictated Date/Time: 12/22/2016 7:39 PM
--- NOTE | 2016-12-22 19:56 | EMERGENCY ROOM VISIT NOTE ---
ED Visit Note First contact with patient: 19:55 I have seen and examined this patient with Eileen Cedillo and generally agree with the treatment plan as discussed. Problem List Medical Problems: (1) Back contusion Status: Resolved (2) Chest pain Status: Resolved (3) Chest pain Status: Resolved (4) Contusion of left shoulder Status: Resolved (5) Depressive Disorder Nec Status: Chronic (6) Diab Tiffany Wo Compl, Type Ii Or Unspec Type, Uncontrolled Status: Chronic (7) Esophageal Reflux Status: Chronic (8) Fall Status: Resolved (9) Hyperlipidemia Nec/Nos Status: Chronic (10) Hypertension Nos Status: Chronic (11) Osteoporosis Nos Status: Chronic Surgical Problems: (1) Knee Joint Replacement Status Status: Resolved Current/Historical Medications Scheduled Aspirin (Aspirin Ec), 81 MG PO QAM Calcium (Calcium), 1 TAB PO QAM Cholecalciferol (Vitamin D3), 1 TAB PO QAM Famotidine (Pepcid), 20 MG PO QPM Hctz/Lisinopril (Lisinopril/Hctz 10/12.5 Mg), 1 TAB PO QAM Insulin Glargine (Lantus), 46 UNITS SC QD@1200 Metformin Hcl (Glucophage), 1,000 MG PO BID Simvastatin (Zocor), 10 MG PO HS [Magnesium], 250 MG PO QAM [Vitamin B 12], QMONTHLY Scheduled PRN Ketorolac Tromethamine (Toradol), 10 MG PO Q8 PRN for Pain Naproxen Sodium (Naproxen Sodium), 440 MG PO BID PRN for PRN Oxycodone/Acetaminophen 5MG/325MG (Percocet 5MG/325MG), 1-2 TABLETS PO Q6 PRN for Pain Allergies Coded Allergies: No Known Allergies (Unverified , 10/08/16) Vital Signs Date Time Temp Pulse Resp B/P (MAP) Pulse Ox O2 Delivery O2 Flow Rate FiO2 12/22/16 18:29 36.7 110 20 141/105 97 Room Air Departure Information Referrals Michelle Underwood M.D. (PCP) Patient Instructions My [facility]
--- NOTE | 2016-12-22 20:09 | EMERGENCY ROOM VISIT NOTE ---
History First contact with patient: 18:35 Chief Complaint: FALL Stated Complaint: FELL, LEFT FOOT AND RT SIDE BACK PAIN History of Present Illness The patient is a 76 year old female who presents to the Emergency Room for evaluation after a fall. The patient states that her foot caught on the rug and she fell onto her left side of the floor. She denies hitting her head. She does not take blood thinners. She reports pain in her left foot. She also reports pain in the right side of her back. She reports an extensive back history with [address] Palma for this. She denies any numbness or weakness in her legs. She rates her overall discomfort a 9/10. She did not take anything for pain. Review of Systems A complete 10 point review of systems was reviewed with the patient with pertinent positives and negatives as per history of present illness. All else were negative. Past Medical/Surgical History Medical Problems: (1) Acute respiratory distress (2) Back contusion (3) Chest pain (4) Chest pain (5) Contusion of left shoulder (6) Depressive Disorder Nec (7) Diab Tiffany Wo Compl, Type Ii Or Unspec Type, Uncontrolled (8) Esophageal Reflux (9) Fall (10) Hyperlipidemia Nec/Nos (11) Hypertension Nos (12) Lumbar stenosis with neurogenic claudication (13) Osteoporosis Nos (14) Pneumonia Surgical Problems: (1) Knee Joint Replacement Status Family History Diabetes mellitus Heart disease Social History Smoking Status: Never Smoker Alcohol Use: none Drug Use: none Marital Status: Housing Status: lives alone Occupation Status: unemployed Current/Historical Medications Scheduled Aspirin (Aspirin Ec), 81 MG PO QAM Calcium (Calcium), 1 TAB PO QAM Cholecalciferol (Vitamin D3), 1 TAB PO QAM Famotidine (Pepcid), 20 MG PO QPM Hctz/Lisinopril (Lisinopril/Hctz 10/12.5 Mg), 1 TAB PO QAM Insulin Glargine (Lantus), 46 UNITS SQ daily@lunch Metformin Hcl (Glucophage), 1,000 MG PO BID Simvastatin (Zocor), 10 MG PO HS [Magnesium], 250 MG PO QAM [Vitamin B 12], QMONTHLY Scheduled PRN Naproxen Sodium (Naproxen Sodium), 440 MG PO BID PRN for PRN Physical Exam Vital Signs Date Time Temp Pulse Resp B/P (MAP) Pulse Ox O2 Delivery O2 Flow Rate FiO2 12/22/16 20:45 96 20 140/98 96 12/22/16 18:29 36.7 110 20 141/105 97 Room Air Physical Exam VITALS: Vitals are noted on the nurse's note and reviewed by myself. Vital signs stable. GENERAL: This is a 76-year-old female, in no acute distress, nondiaphoretic, well-developed well-nourished. SKIN: Capillary reflex less than 2 seconds. HEENT: Normocephalic. PERRLA. EOMI. Neck is supple without nuchal rigidity. HEART: Regular rate and rhythm without murmurs gallops or rubs. LUNGS: Clear to auscultation bilaterally without wheezes, rales or rhonchi. MUSCULOSKELETAL: There is tenderness to the right lumbar region. There is tenderness across the dorsal aspect of the left foot, just proximal to the toes. Full range of motion of all toes. No significant ecchymosis or edema. NEURO: Patient was alert and oriented to person place and time. Normal sensation to light and sharp touch. Medical Decision & Procedures ER Provider Diagnostic Interpretation: L FOOT MIN 3 VIEWS ROUTINE FINDINGS: Osteopenia limits evaluation for nondisplaced fracture. Allowing for this, nondisplaced fracture of the head of the proximal phalanx of the fifth toe. No other fracture identified. This does not appear to extend into the proximal interphalangeal joint of the fifth toe. Prominent enthesophyte at the inferior calcaneus. Atherosclerosis. IMPRESSION: Nondisplaced extra-articular fracture of the head of the proximal phalanx of the fifth toe. L-SPINE MIN 4 VIEWS ROUTINE FINDINGS: Straightening of normal lumbar lordosis. Bilateral transpedicular screw and helen fixation of L4-S1 with bilateral iliac screws. Interbody spacers noted at L4-5 and L5-S1. Laminectomy defects of L4 and L5. No gross evidence of hardware complication. No compression deformity. Nonoperative levels demonstrate normal vertebral body heights and alignment. Intervertebral disc height loss at L1-2. IMPRESSION: No radiographic evidence of hardware complication. No compression deformity to suggest fracture. Medical Decision Differential diagnosis includes fracture, contusion, dislocation, sprain, among others. The patient was evaluated as above. Imaging studies were performed and reviewed by radiology as above. Patient did sustain a fracture to her left fifth toe. X-ray of the lumbar spine was unremarkable. Patient was placed in a postoperative shoe. She has pain medication at home that she will take as needed. She has crutches at home to use as needed. She will follow-up with her orthopedic provider as needed. She verbalized understanding of my assessment and treatment plan and was discharged home in good condition. The patient was independently evaluated by Dr. Duran, ED attending physician , who agreed with my assessment and treatment plan. Medication Reconcilliation Current Medication List: was personally reviewed by me Blood Pressure Screening Patient's blood pressure: Elevated blood pressure Blood pressure disposition: Elevated BP felt to be situational Impression Primary Impression: Toe fracture Additional Impression: Fall Departure Information Dispostion Home / Self-Care Condition GOOD Referrals Michelle Underwood M.D. (PCP) Patient Instructions My [facility] Additional Instructions You were treated today for a fall. Your x-ray showed a fracture of the toe. X- ray of the back was normal. For pain control, you can use the following [id number] medicines (if >12 yo): - Regular strength (325mg/tab) Tylenol (acetaminophen) 2 tabs every 4-6 hours as needed. Do not exceed 12 tablets in a 24 hour period. Avoid taking more than 4 grams (4000 mg) of Tylenol per day. This includes any other sources of acetaminophen you may take on a regular basis. - Regular strength (200 mg/tab) Advil (ibuprofen) 1-2 tabs every 4-6 hours as needed. Do not exceed a dose of 3200 mg per day. Wear the postoperative shoe for the next few weeks as needed. Use crutches as needed to aid with walking. Follow-up with your transformation specialist as needed. Return to the emergency department with any worsening or new/concerning symptoms. Problem Qualifiers Primary Impression: Toe fracture Encounter type: initial encounter Toe: lesser toe Fracture type: closed Phalanx: proximal Fracture alignment: nondisplaced Laterality: left Qualified Codes: S92.515A - Nondisplaced fracture of proximal phalanx of left lesser toe(s), initial encounter for closed fracture Additional Impression: Fall Encounter type: initial encounter Qualified Codes: W19.XXXA - Unspecified fall, initial encounter
[2016-12-22] MEDS ORDERED: INSDGI SQ (20:10)
[2016-12-22 20:45] VITALS: BP 140/98; PULSE 96; O2SAT 96
== END 2016-12-22 20:46 | disposition home or self-care (01) ==
LOC: C.EDB 18:28 → C.EDD 20:46
DX: S92.515A Nondisplaced fracture of proximal phalanx of left lesser toe(s), initial encounter for closed fracture (principal); M54.9 Dorsalgia, unspecified; F32.9 Major depressive disorder, single episode, unspecified; E11.9 Type 2 diabetes mellitus without complications; E78.5 Hyperlipidemia, unspecified; I10 Essential (primary) hypertension; M81.0 Age-related osteoporosis without current pathological fracture; K21.9 Gastro-esophageal reflux disease without esophagitis; Z79.4 Long term (current) use of insulin; Z79.82 Long term (current) use of aspirin; Z79.899 Other long term (current) drug therapy; Z87.828 Personal history of other (healed) physical injury and trauma; Z82.49 Family history of ischemic heart disease and other diseases of the circulatory system; Z83.3 Family history of diabetes mellitus; W18.09XA Striking against other object with subsequent fall, initial encounter

== ENCOUNTER → 2017-02-09 | Outpatient (CLI) | payer BC ==
[~2017-02-09] MED LIST changes: +CYNI1000 SQ; +INSDGI SQ; -INSU1INJ7 SC; -KETO10TA PO; +LIRA18IN SQ
== END | disposition home or self-care (01) ==
LOC: C.MAMM 11:06
PROVIDERS: ATTEND Internal Medicine
DX: M85.851 Other specified disorders of bone density and structure, right thigh (principal); M85.852 Other specified disorders of bone density and structure, left thigh; M81.0 Age-related osteoporosis without current pathological fracture

== ENCOUNTER → 2017-02-10 | Outpatient (CLI) | payer BC ==
[~2017-02-10] MED LIST changes: +BUPIVACAINE 0.5 % 5 MG/1 ML PF 10ML VIAL ONE; +CLONIDINE HCL 100 MCG/ML SYRINGE ONE; +MEPIVACAINE HCL 1.5% 30 ML VIAL ONE; +NovoLIN-R INSULIN PER UNIT CHARGE ONE
[2017-02-10 12:18] LABS: BASO % 0.2 %; BASO ABS # 0.02 K/uL (0-0.2); EOS % 4.1 %; EOS ABS # 0.35 K/uL (0-0.5); HEMATOCRIT 45.8 % (37-47); HEMOGLOBIN 15.6 g/dL (12.0-16.0); IG# 0.03 K/uL (0.00-0.02); LYMPH % 25.2 %; LYMPH ABS # 2.16 K/uL (1.2-3.4); MEAN CELL VOLUME 87.6 fL (80-100); MEAN CORPUSCULAR HEMOGLOBIN 29.8 pg (25-34); MEAN CORPUSCULAR HGB CONC 34.1 g/dl (32-36); MEAN PLATELET VOLUME 12.5 fL (7.4-10.4); MONO % 6.3 %; MONO ABS # 0.54 K/uL (0.11-0.59); NEUT % 63.9 %; NEUT ABS # 5.48 K/uL (1.4-6.5); PLATELET COUNT 191 K/uL (130-400); RED CELL DISTRIBUTION WIDTH CV 13.2 % (11.5-14.5); RED CELL DISTRIBUTION WIDTH SD 42.1 fL (36.4-46.3); WHITE BLOOD COUNT 8.58 K/uL (4.8-10.8)
[2017-02-10 12:34] LABS: BLOOD UREA NITROGEN 23 mg/dl (7-18); CARBON DIOXIDE 30 mmol/L (21-32); CREATININE 1.21 mg/dl (0.60-1.20); GLUCOSE 286 mg/dl (70-99); POTASSIUM 5.2 mmol/L (3.5-5.1); SODIUM 138 mmol/L (136-145)
--- NOTE | 2017-02-16 09:45 | CODING QUERY MEDICAL NECESSITY ---
CQSUPPORTING DIAGNOSIS NEEDED A supporting diagnosis is required for the test/procedure performed on this patient in order for us to be reimbursed by the patient's insurance. Please provide a supporting diagnosis for the following test/procedure listed below next to the test name along with your signature. *If there is no additional diagnosis for this patient that would support the following test/procedure please document that below next to the test/procedure. Test(s)/Procedure(s) that require a supporting diagnosis: DOS 02/10/17 COMPLETE BLOOD COUNTS Provider Signature: Date: Thank you Ashley Guzmán Health Information Management Once completed, please kindly fax back to [phone] For questions please call [phone]
== END | disposition home or self-care (01) ==
LOC: C.CPL 10:36
PROVIDERS: ATTEND Orthopaedic Surgery
DX: Z01.812 Encounter for preprocedural laboratory examination (principal); M19.019 Primary osteoarthritis, unspecified shoulder; M75.01 Adhesive capsulitis of right shoulder

== ENCOUNTER 2017-02-12 13:29 | Day surgery (SDC) | payer BC ==
[2017-02-11 09:20] VITALS: BMI 28.0
--- NOTE | 2017-02-11 09:24 | HISTORY & PHYSICAL EXAMINATION ---
DATE OF ADMISSION: 02/12/2017 REASON FOR CONSULTATION: Postoperative adhesive capsulitis of the right shoulder. HISTORY OF PRESENT ILLNESS: Marisabel is a very pleasant 76-year-old female who did a right shoulder decompression about 3 months ago. I did a similar procedure on her left shoulder, she did very well. Unfortunately, postoperatively with her right shoulder, she has been very tight. She did have a minor adhesive capsulitis during the index procedure 3 months ago, which I released. Unfortunately, her shoulder has been getting tighter postoperatively. She is now 3 months out. She is having constant shoulder pain and very limited range of motion. She has elected to proceed with the manipulation under anesthesia. PAST MEDICAL HISTORY: Significant for diabetes, hypertension, acid reflux and hyperlipidemia. MEDICATIONS: Glucophage, glipizide, Zocor, lisinopril, Pepcid, insulin, aspirin and vitamin B12. PAST SURGICAL HISTORY: Significant for left knee arthroscopy x3, surgeries to her left elbow, cataracts, bilateral carpal tunnel release, hysterectomy, left shoulder arthroscopy and right shoulder arthroscopy 3 months ago. ALLERGIES: None. FAMILY HISTORY: Denied. SOCIAL HISTORY: She is . Denies any alcohol or tobacco use. She is moderately active. REVIEW OF SYSTEMS: She complains of right shoulder pain and tightness. All other pertinent review of systems are negative. PHYSICAL EXAMINATION: GENERAL: She is awake, alert and oriented x3. She is in no apparent distress. She is very pleasant. HEENT: Pupils are equal, round and reactive to light. Extraocular movements intact. Oral mucosa is pink and moist. HEART: Regular rate per radial pulse. LUNGS: Krista symmetrically bilaterally with no audible breath sounds. ABDOMEN: Soft, nontender, nondistended. MUSCULOSKELETAL: On physical examination of the right shoulder, I can only forward elevate her about 60 degrees and abduct her about 50 degrees. She has 20 degrees of external rotation. She has significant pain at end ranges of motion. IMPRESSION: Postoperative adhesive capsulitis of the right shoulder. PLAN: We will proceed with a manipulation under anesthesia with an intra-articular cortisone injection. Postoperatively, she will be placed in an arm sling and discharged to home on oral pain medications.
[~2017-02-12] VITALS: Ht 157.5 cm; Wt 70.5 kg
[~2017-02-12 13:29] MED LIST changes: +ACETAMINOPHEN 500 MG TAB PO SCH; -BUPIVACAINE 0.5 % 5 MG/1 ML PF 10ML VIAL ONE; -CALC600T37 PO; +CEFAZOLIN 2000MG IV PUSH 10 ML IV SCH; -CHOL1000 PO; -CLONIDINE HCL 100 MCG/ML SYRINGE ONE; -CYNI1000 SQ; +LACTATED RINGER'S 1000ML 1,000 ML IV SCH; +LACTATED RINGER'S 1000ML IV SCH; -LIRA18IN SQ; -MAGNESIUM PO; -MEPIVACAINE HCL 1.5% 30 ML VIAL ONE; -NAPR-960 PO; -NovoLIN-R INSULIN PER UNIT CHARGE ONE; -OXYC-57 PO
[2017-02-12 14:05] VITALS: BP 93/79; PULSE 102; TEMP 36.6; O2SAT 98; Ht 157.5 cm; Wt 70.5 kg
[2017-02-12] MEDS ORDERED: NURSING VERBAL MED ORDER ONE (14:45)
[2017-02-12] MEDS ORDERED: BUPIVACAINE 0.5 % 5 MG/1 ML MPF 30ML VIAL ONE (14:57)
[2017-02-12] MEDS ORDERED: EpINEphrine INJ 1MG/ML AMP 1 MG/ML AMP ONE (14:57)
[2017-02-12] MEDS ORDERED: METHYLPREDNISOLONE ACETATE 80 MG/ML VIAL ONE (14:57)
[2017-02-12] MEDS ORDERED: INSULIN HUMAN REGULAR PER UNIT 15 UNITS in SYRINGE 14.85 ML IV SCH (15:15)
[2017-02-12] MEDS ORDERED: MIDAZOLAM HCL 1 MG/ML 2ML VIAL ONE (15:20)
[2017-02-12] MEDS ORDERED: FENTANYL CITRATE INJ 50 MCG/1 ML 2 ML VIAL ONE (15:20)
[2017-02-12] MEDS ORDERED: PROPOFOL IV EMULSION 10 MG/ML 20 ML VIAL IV ONE (15:50)
--- NOTE | 2017-02-12 16:03 | [facility] Post Operative Brief Note ---
Immediate Operative Summary Operative Date Feb 12, 2017. Pre-Operative Diagnosis Postoperative adhesive capsulitis of the right shoulder Post-Operative Diagnosis Postoperative adhesive capsulitis of the right shoulder Procedure(s) Performed Manipulation Right Shoulder Surgeon Dr. Whitt Brick Sorter Surgeon(s) none Estimated Blood Loss none Findings as above Specimens None Complication(s) None Disposition Recovery Room / PACU
[2017-02-12] MEDS ORDERED: EpHEDrine SULFATE INJ 50 MG/ML AMP IV PRN (16:15)
[2017-02-12] MEDS ORDERED: ATROPINE SULFATE 0.1 MG/ML 5ML SYR IV PRN (16:15)
[2017-02-12] MEDS ORDERED: OXYC-57 PO (16:24)
[2017-02-12] MEDS ORDERED: SODIUM CHLORIDE 0.9% 1000ML 1,000 ML IV SCH (16:25)
--- NOTE | 2017-02-12 16:25 | Discharge Instructions ---
Discharge Instructions Date of Service Feb 12, 2017. Admission Reason for Admission: Right Shoulder Adhesive Capsulitis Discharge Discharge Diagnosis / Problem: SAME ABOVE Discharge Goals Goal(s): Decrease discomfort, Improve function Activity Recommendations Activity Limitations: as noted below Lifting Limitations: gradually increase as tolerated Exercise/Sports Limitations: gradually increase as tolerated Shower/Bathe: tomorrow . Instructions / Follow-Up Instructions / Follow-Up MEDICATIONS: * Resume previous medications unless instructed otherwise by your surgeon. * Always take pain medication on a full stomach or with food to avoid upset stomach. * Do not drink alcohol or drive while taking narcotics. * Ibuprofen or Tylenol may be taken if narcotic not needed. SPECIAL CARE INSTRUCTIONS: __ None _X_ Keep extremity elevated and iced x 48 hours; apply ice 20-30 minutes 8-10 times/day. May remove at night. _X_ Sling (REMOVE AFTER 24 HOURS, THEN WEAR FOR COMFORT ONLY) __24 hrs/day __ Remove at night __ Shoulder Immobilizer __ 24 hrs/day __ Remove at night __ Dressing __ Maintain until seen in office, may shower with plastic over site __ Remove dressings in 24-48 hours and then may shower __ Cover incisions with band-aids after showering __ Do not remove steri-strips Call physician if chills or temperature rises above 102 degrees or pain unrelieved by prescribed pain medications at . . Current Hospital Diet Patient's current hospital diet: Discharge Diet Recommended Diet: Regular Diet Fluid Restriction: None Procedures Procedures Performed: Right Shoulder Manipulation Pending Studies Studies pending at discharge: no Work Instructions Lifting Limitations: none Medical Emergencies . Who to Call and When: Medical Emergencies: If at any time you feel your situation is an emergency, please call 911 immediately. . Non-Emergent Contact Non-Emergency issues call your: Primary Care Provider Call Non-Emergent contact if: you have a fever, temperature is above 101.5 . "Provider Documentation" section prepared by Michel Brenner. . VTE Core Measure Inpt VTE Proph given/why not?: Treatment not indicated
[2017-02-12] MEDS ORDERED: OXYCODONE/ACETAMINOPHEN 5-325 TAB PO PRN ×2 (16:30)
[2017-02-12] MEDS ORDERED: ONDANSETRON INJ 2 MG/ML 2 ML VIAL IV PRN (16:30)
--- NOTE | 2017-02-12 16:31 | Anesthesiology Progress Note ---
Anesthesia Post Op Note Date & Time Feb 12, 2017 at 16:31 Vital Signs Pain Intensity: 0 Vital Signs Past 12 Hours Date Time Temp Pulse Resp B/P (MAP) Pulse Ox O2 Delivery O2 Flow Rate FiO2 02/12/17 16:25 75 16 99/55 96 Oxymask 3 02/12/17 16:15 63 16 88/51 97 Oxymask 5 02/12/17 16:09 36.2 64 16 82/52 98 Oxymask 5 02/12/17 14:05 36.6 102 20 93/79 (84) 98 Room Air Notes Mental Status: alert / awake / arousable, participated in evaluation Pt Amnestic to Procedure: Yes Nausea / Vomiting: adequately controlled Pain: adequately controlled Airway Patency, RR, SpO2: stable & adequate BP & HR: stable & adequate Hydration State: stable & adequate Anesthetic Complications: no major complications apparent
[2017-02-12 16:40] VITALS: BP 98/74; PULSE 76; TEMP 36.6; O2SAT 96
[2017-02-12 17:10] VITALS: BP 96/54; PULSE 78; TEMP 36.5; O2SAT 98
--- NOTE | 2017-02-12 17:56 | OPERATIVE REPORT ---
DATE OF OPERATION: 02/12/2017 PREOPERATIVE DIAGNOSIS: Postoperative adhesive capsulitis of the right shoulder. POSTOPERATIVE DIAGNOSIS: Same. PROCEDURE: Manipulation under anesthesia of the right shoulder with cortisone injection. SURGEON: Dr. Chapincito Whitt. ASSISTANTS: None. ANESTHESIA: Sedation. COMPLICATIONS: None. CONDITION: Stable to PACU. INDICATIONS: Marisabel is a 76-year-old female who I did a decompression about 3 months ago. She had a little adhesive capsulitis at that time and I released the capsule. Unfortunately, postoperatively, she has kind of very tight and very painful. She elected to undergo manipulation under anesthesia. DESCRIPTION OF PROCEDURE: On 02/12/2017, she arrived at [facility] for the above procedure. She was seen in the preoperative holding area and the operative extremity was identified and signed. She was given a right interscalene nerve block and taken back to the operating room, laid on the table in supine position and given basic sedation. A time-out was done and the patient and operative extremity was properly identified. On preoperative examination, she had about 60 degrees of abduction and 40 degrees of external rotation. A gentle manipulation was done under anesthesia and I was able to get full range of motion of her shoulder. After I got full motion, I gave her an anterior glenohumeral joint injection with 5 of Marcaine and 80 mg of Depo-Medrol. A Band-Aid was placed. She was then placed in an arm sling and taken to the postanesthesia care unit in stable condition. She tolerated the procedure well. I attest to the content of the Intraoperative Record and any orders documented therein. Any exception s are noted below.
== END 2017-02-12 17:32 | disposition home or self-care (01) ==
LOC: C.ACU 13:29
PROVIDERS: ATTEND Orthopaedic Surgery
DX: M75.01 Adhesive capsulitis of right shoulder (principal); E11.9 Type 2 diabetes mellitus without complications; I12.9 Hypertensive chronic kidney disease with stage 1 through stage 4 chronic kidney disease, or unspecified chronic kidney disease; K21.9 Gastro-esophageal reflux disease without esophagitis; M81.0 Age-related osteoporosis without current pathological fracture; N18.9 Chronic kidney disease, unspecified; E78.5 Hyperlipidemia, unspecified; Z79.82 Long term (current) use of aspirin; Z79.4 Long term (current) use of insulin; Z90.710 Acquired absence of both cervix and uterus

== ENCOUNTER → 2017-03-03 | Outpatient (CLI) | payer BC ==
[~2017-03-03] MED LIST changes: -ACETAMINOPHEN 500 MG TAB PO SCH; -CEFAZOLIN 2000MG IV PUSH 10 ML IV SCH; -LACTATED RINGER'S 1000ML 1,000 ML IV SCH; -LACTATED RINGER'S 1000ML IV SCH; +OXYC-57 PO
[2017-03-03 13:10] LABS: HEMOGLOBIN A1C 10.3 % (4.5-5.6)
== END | disposition home or self-care (01) ==
LOC: C.LABBFT 07:36
PROVIDERS: ATTEND Internal Medicine
DX: E11.65 Type 2 diabetes mellitus with hyperglycemia (principal)

== ENCOUNTER 2018-05-23 12:14 | Inpatient (IN) ==
--- NOTE | 2018-05-23 12:41 | Emergency Department Note ---
Entered by Paty Romano acting as a scribe for Chapincito Wilkins MD History of Present Illness General Chief complaint: Fall Stated complaint: dizzy, fall Time Seen by Provider: 05/23/18 12:20 Source: patient History of Present Illness Onset (ago): day(s) (this morning) Location: head and right (shoulder) Pain Consistency: + other (episode) Quality: + other (fall) Associated symptoms: + denies other symptoms (vision changes, neck pain, pain with breathing, abdominal pain, back pain, hematochezia, numbness), + headaches, + nausea/vomiting, + weakness and + other (diarrhea, dizziness, right shoulder pain, left ankle, elevated blood sugars); no chest pain and no shortness of breath The patient is a 77 year old female who presents to the Emergency Room with complaints of an episode of a fall occurring this morning. The patient states that for 3 weeks she has had nausea, vomiting, and diarrhea. She states that she went to her PCP for it and they told her to just take Imodium. She reports that intermittently since then she gets dizzy. She states that this morning she felt fine and decided to get a shower. She reports that when she went to get out, she somehow fell and hit her head. The patient states that she cannot remember if she got dizzy and fell or passed out and fell. She states that regardless she landed between the tub and the toilet and hit her head on the way down. She reports that she also injured her right shoulder and left ankle. She states that since then she has had a headache. She notes that she did lay on the floor for about 15 minutes. The patient complains of bilateral ankle weakness and elevated blood sugars recently. The patient denies chest pain, neck pain, vision changes, shortness of breath, pain with breathing, abdominal pain, back pain, hematochezia, numbness, and taking any blood thinners. Home Medications Home Medications Medication Instructions Recorded Confirmed Type aspirin [Aspirin Low Dose] 81 mg PO QAM 01/03/18 05/23/18 History cholecalciferol (vitamin D3) 1,000 unit PO QAM 01/03/18 05/23/18 History [Vitamin D3] cyanocobalamin (vitamin B-12) 1,000 mcg IM MONTHLY 01/03/18 05/23/18 History famotidine 20 mg PO HS 01/03/18 05/23/18 History gabapentin 300 mg PO HS 01/03/18 05/23/18 History insulin glargine 40 unit SUBCUT QAM 01/03/18 05/23/18 History liraglutide 1.8 mg SUBCUT QAM 01/03/18 05/23/18 History lisinopril-hydrochlorothiazide 1 tab PO QAM 01/03/18 05/23/18 History metformin 1,000 mg PO BIDM 01/03/18 05/23/18 History oxycodone 5 mg PO TID PRN 01/03/18 05/23/18 History simvastatin 10 mg PO HS 01/03/18 05/23/18 History duloxetine 60 mg PO QAM 05/23/18 05/23/18 History fesoterodine [Toviaz] 8 mg PO QAM 05/23/18 05/23/18 History ibuprofen 600 mg PO Q8H PRN 05/23/18 05/23/18 History Allergies Allergy/AdvReac Type Severity Reaction Status Date / Time No Known Allergies Allergy Verified 05/23/18 12:45 Past Med/Surg History Medical History Peripheral neuropathy (Chronic) Lumbar spinal stenosis (Resolved) Pernicious anemia (Chronic) Diabetes mellitus (Chronic) GERD (gastroesophageal reflux disease) (Chronic) Osteoporosis (Chronic) Hypercholesterolemia (Chronic) Hypertension (Chronic) Surgical History History of lumbar surgery (Chronic) L4-S1 fusion X [address] Palma History of ankle surgery (Chronic) History of total knee arthroplasty (Chronic) left History of hysterectomy for benign disease (Chronic) H/O reduction mammoplasty (Chronic) History of cataract extraction (Chronic) Social History Preferred Language: Chinese Communication Ability: Effective Beliefs That Will Affect Care: None marital status: Current Living Situation: Alone current occupational status: retired Other Information That Helps Us Care for You: No Feels Safe at Home: Yes Safety Concerns: Feels Safe At This Time Smoking Status: Never smoker Hx Alcohol Use: No Hx Substance Use: No Review of Systems See HPI for pertinent positives & negatives. and A total of 10 systems reviewed and were otherwise negative Physical Exam Vital Signs Vital Signs - 24 hr 05/23/18 12:29 05/23/18 12:31 05/23/18 12:37 Temperature 37.2 C Temperature Source Oral Sepsis Recent Fever Within 48 Hours No Sepsis Action Taken by Nursing No Action Required Pulse Rate 109 H 106 H 106 H Pulse Rate [Left Apical] Pulse Rate from SpO2 Sensor 106 H 106 H Pulse Rhythm [Left Apical] Pulse Strength [Left Apical] Respiratory Rate 17 16 18 Respiratory Effort / Characteristics Non-Labored Spontaneous Respiratory Depth Normal Respiratory Pattern Regular Blood Pressure 112/95 154/82 H Blood Pressure [Left Arm] Blood Pressure Mean 100 106 Blood Pressure Mean [Left Arm] Blood Pressure Position [Left Arm] Pulse Oximetry 95 92 92 Oxygen Delivery Method Room Air 05/23/18 12:40 05/23/18 12:52 05/23/18 13:00 Temperature Temperature Source Sepsis Recent Fever Within 48 Hours Sepsis Action Taken by Nursing Pulse Rate 108 H 113 H 99 H Pulse Rate [Left Apical] Pulse Rate from SpO2 Sensor 108 H 110 H 99 H Pulse Rhythm [Left Apical] Pulse Strength [Left Apical] Respiratory Rate 18 21 21 Respiratory Effort / Characteristics Respiratory Depth Respiratory Pattern Blood Pressure 122/74 Blood Pressure [Left Arm] Blood Pressure Mean 90 Blood Pressure Mean [Left Arm] Blood Pressure Position [Left Arm] Pulse Oximetry 95 96 92 Oxygen Delivery Method 05/23/18 13:01 05/23/18 13:31 05/23/18 13:40 Temperature Temperature Source Sepsis Recent Fever Within 48 Hours Sepsis Action Taken by Nursing Pulse Rate 98 H 96 H 94 H Pulse Rate [Left Apical] Pulse Rate from SpO2 Sensor 98 H 96 H 95 H Pulse Rhythm [Left Apical] Pulse Strength [Left Apical] Respiratory Rate 20 15 15 Respiratory Effort / Characteristics Respiratory Depth Respiratory Pattern Blood Pressure Blood Pressure [Left Arm] Blood Pressure Mean Blood Pressure Mean [Left Arm] Blood Pressure Position [Left Arm] Pulse Oximetry 91 99 95 Oxygen Delivery Method 05/23/18 13:50 05/23/18 14:00 05/23/18 14:02 Temperature Temperature Source Sepsis Recent Fever Within 48 Hours Sepsis Action Taken by Nursing Pulse Rate 100 H 95 H 95 H Pulse Rate [Left Apical] Pulse Rate from SpO2 Sensor 95 H 95 H Pulse Rhythm [Left Apical] Pulse Strength [Left Apical] Respiratory Rate 17 15 20 Respiratory Effort / Characteristics Respiratory Depth Respiratory Pattern Blood Pressure 148/100 H Blood Pressure [Left Arm] Blood Pressure Mean 116 Blood Pressure Mean [Left Arm] Blood Pressure Position [Left Arm] Pulse Oximetry 99 99 Oxygen Delivery Method 05/23/18 14:10 05/23/18 14:20 05/23/18 14:30 Temperature Temperature Source Sepsis Recent Fever Within 48 Hours Sepsis Action Taken by Nursing Pulse Rate 97 H 95 H 93 H Pulse Rate [Left Apical] Pulse Rate from SpO2 Sensor 97 H 96 H 93 H Pulse Rhythm [Left Apical] Pulse Strength [Left Apical] Respiratory Rate 14 17 16 Respiratory Effort / Characteristics Respiratory Depth Respiratory Pattern Blood Pressure 151/85 H Blood Pressure [Left Arm] Blood Pressure Mean 107 Blood Pressure Mean [Left Arm] Blood Pressure Position [Left Arm] Pulse Oximetry 99 99 100 Oxygen Delivery Method 05/23/18 14:31 05/23/18 14:40 05/23/18 14:50 Temperature Temperature Source Sepsis Recent Fever Within 48 Hours Sepsis Action Taken by Nursing Pulse Rate 94 H 92 H 96 H Pulse Rate [Left Apical] Pulse Rate from SpO2 Sensor 94 H 95 H 96 H Pulse Rhythm [Left Apical] Pulse Strength [Left Apical] Respiratory Rate 18 16 13 Respiratory Effort / Characteristics Respiratory Depth Respiratory Pattern Blood Pressure Blood Pressure [Left Arm] Blood Pressure Mean Blood Pressure Mean [Left Arm] Blood Pressure Position [Left Arm] Pulse Oximetry 99 98 98 Oxygen Delivery Method 05/23/18 15:00 05/23/18 15:01 05/23/18 15:10 Temperature Temperature Source Sepsis Recent Fever Within 48 Hours Sepsis Action Taken by Nursing Pulse Rate 98 H 97 H 95 H Pulse Rate [Left Apical] Pulse Rate from SpO2 Sensor 99 H 98 H 95 H Pulse Rhythm [Left Apical] Pulse Strength [Left Apical] Respiratory Rate 13 20 18 Respiratory Effort / Characteristics Respiratory Depth Respiratory Pattern Blood Pressure 127/77 Blood Pressure [Left Arm] Blood Pressure Mean 93 Blood Pressure Mean [Left Arm] Blood Pressure Position [Left Arm] Pulse Oximetry 98 98 98 Oxygen Delivery Method 05/23/18 15:20 05/23/18 15:30 05/23/18 15:31 Temperature Temperature Source Sepsis Recent Fever Within 48 Hours Sepsis Action Taken by Nursing Pulse Rate 96 H 94 H 96 H Pulse Rate [Left Apical] Pulse Rate from SpO2 Sensor 97 H 94 H 96 H Pulse Rhythm [Left Apical] Pulse Strength [Left Apical] Respiratory Rate 18 33 H 25 H Respiratory Effort / Characteristics Respiratory Depth Respiratory Pattern Blood Pressure 100/54 L Blood Pressure [Left Arm] Blood Pressure Mean 69 Blood Pressure Mean [Left Arm] Blood Pressure Position [Left Arm] Pulse Oximetry 99 99 98 Oxygen Delivery Method 05/23/18 15:40 05/23/18 16:46 Temperature 36.3 C L Temperature Source Oral Sepsis Recent Fever Within 48 Hours Sepsis Action Taken by Nursing Pulse Rate 94 H Pulse Rate [Left Apical] 100 H Pulse Rate from SpO2 Sensor 94 H Pulse Rhythm [Left Apical] Regular Pulse Strength [Left Apical] Normal Respiratory Rate 22 18 Respiratory Effort / Characteristics Non-Labored Spontaneous Respiratory Depth Normal Respiratory Pattern Regular Blood Pressure Blood Pressure [Left Arm] 130/78 Blood Pressure Mean Blood Pressure Mean [Left Arm] 95 Blood Pressure Position [Left Arm] Sitting Pulse Oximetry 99 99 Oxygen Delivery Method Room Air General: Non-ill appearing older female in no acute distress. HEENT: Normal cephalic. Contusions to the right forehead. Mild swelling around the right eye. No hyphema. Pupils are equal round and reactive to light. Extraocular movements are intact. Oropharynx is pink with moist mucous membranes. No swelling of the mouth lips or tongue. Neck: Supple with a midline trachea. No meningeal signs or stiffness, no JVD or bruits. No Stridor. Chest: Clear to auscultation bilaterally. No wheezes or rhonchi. No increased work of breathing. Heart: regular rate and rhythm. Abdomen: Soft nontender, nondistended without rebound guarding or rigidity. Extremities: Mild tenderness to right shoulder and left ankle, but full range of motion intact. No cyanosis clubbing or edema. No calf tenderness or assymetry Spine/Back. Non tender to palpation. No CVA tenderness Skin: Good turgor without rashes. Neurologic exam: Cranial nerves two through 12 are intact. Motor and sensation are intact and symmetrical throughout. Course 1221: The patient was evaluated in room C11B, and a complete history and physical examination were performed. 1331: I reevaluated the patient and updated her on her test results. I discussed the treatment plan with her. She verbally agrees and understands. 1334: I reviewed the patient's case with Dr. Jameel SCHWARTZ Hospitalist. He will evaluate the patient for further management. Consultations Consultation #1: I reviewed the patient's case with Dr. Jameel SCHWARTZ [facility]. He will evaluate the patient for further management. Time: 13:34 Administered Medications Insulin Human Regular 250 (units/ Sodium Chloride) 250 mls @ 1.7 mls/hr IV .Q24H RUI; Protocol Stop: 06/22/18 17:29 Last Admin: 05/23/18 17:42 Dose: 1.7 units/hr, 1.7 mls/hr Documented by: [id number] Cosigned by: [id number] Sodium Chloride (Nss 1000ml) 1,000 mls @ 150 mls/hr IV .Q6H40M [facility] Stop: 06/22/18 16:56 Last Admin: 05/23/18 17:27 Dose: 150 mls/hr Documented by: [id number] Insulin Aspart (Novolog Flexpen) [address] [facility] Stop: 06/22/18 17:59 Last Admin: 05/23/18 18:21 Dose: Not Given Documented by: [id number] Cosigned by: [id number] Discontinued Medications Sodium Chloride (Nss 1000ml) 1,000 mls @ 999 mls/hr IV .Q1H1M [facility] Stop: 05/23/18 13:45 Last Infusion: 05/23/18 14:05 Dose: 0 mls/hr Documented by: [id number] Admin: 05/23/18 12:54 Dose: 999 mls/hr Documented by: [id number] Sodium Chloride (Nss 1000ml) 1,000 mls @ 999 mls/hr IV .Q1H1M ONE Stop: 05/23/18 14:34 Last Infusion: 05/23/18 14:42 Dose: 0 mls/hr Documented by: [id number] Admin: 05/23/18 13:41 Dose: 999 mls/hr Documented by: [id number] Famotidine 20 mg/ Syringe 5 mls @ 2.5 mls/min IV 1730 [facility] Stop: 05/23/18 17:31 Last Admin: 05/23/18 17:41 Dose: 2.5 mls/min Documented by: [id number] Insulin Human Regular 1.5 (units/ Syringe) 1.5 mls @ 1.5 mls/min IV TODAY@1730 ONE Stop: 05/23/18 17:31 Last Admin: 05/23/18 17:41 Dose: 1.5 mls/min Documented by: [id number] Cosigned by: [id number] Insulin Human Regular (Novolin R U-100 Per Unit) 10 units IV NOW STA Stop: 05/23/18 13:30 Last Admin: 05/23/18 13:41 Dose: 10 units Documented by: [id number] Cosigned by: [id number] Medical Decision Making Differential Diagnosis Differential diagnoses trauma, dehydration, arrhythmia, cardiac disease, electrolyte or metabolic abnormality, infection. Medical Records Attestation: I reviewed the patient's medical records. Home Medications Current Medication List: was personally reviewed by me Laboratory Data Attestation: I reviewed the patient's lab results. Result diagrams: 05/23/18 12:41 05/23/18 17:15 Lab Results 05/23/18 05/23/18 05/23/18 Range/Units 12:41 12:41 12:41 WBC 8.06 (4.8-10.8) K/uL RBC 4.90 (4.2-5.4) M/uL Hgb 15.2 (12.0-16.0) g/dL Hct 42.0 (37-47) % MCV 85.7 (80-100) fL MCH 31.0 (25-34) pg MCHC 36.2 H (32-36) g/dL Plt Count 156 (130-400) K/uL Immature Gran % (Auto) 0.4 % Neut % (Auto) 71.6 % Lymph % (Auto) 18.4 % [place] % (Auto) 6.8 % Eos % (Auto) 2.6 % Baso % (Auto) 0.2 % Immature Gran # (Auto) 0.03 H (0.00-0.02) K/uL Neut # (Auto) 5.77 (1.4-6.5) K/uL Lymph # (Auto) 1.48 (1.2-3.4) K/uL [place] # (Auto) 0.55 (0.11-0.59) K/uL Eos # (Auto) 0.21 (0-0.5) K/uL Baso # (Auto) 0.02 (0-0.2) K/uL PT 10.0 (9.0-12.0) Seconds INR 1.0 (0.9-1.1) APTT 21.0 (21.0-31.0) Seconds PTT Ratio 0.8 VBG pH (7.36-7.41) VBG pCO2 (38-50) mmHg VBG pO2 mmHg VBG HCO3 mmol/L VBG O2 Saturation % VBG Base Excess mEq/L Barometric Pressure mm/Hg Sodium 126 L (136-145) mmol/L Potassium 4.7 (3.5-5.1) mmol/L Chloride 91 L (98-107) mmol/L Carbon Dioxide 21 (21-32) mmol/L Anion Gap 13.0 H (3-11) BUN 28 H (7-18) mg/dl Creatinine 1.58 H (0.6-1.2) mg/dl Est Cr Clr Drug Dosing 26.6 ml/min Est GFR ( Amer) 36.7 Est GFR (Non-Af Amer) 31.7 BUN/Creatinine Ratio 17.4 (10-20) Glucose 877 H* (70-99) mg/dl POC Glucose (70-99) Calcium 9.5 (8.5-10.1) mg/dl Magnesium 2.1 (1.8-2.4) mg/dl Total Bilirubin 0.5 (0.2-1) mg/dl AST 25 (15-37) U/L ALT 34 (12-78) U/L Alkaline Phosphatase 290 H (45-117) U/L Troponin I < 0.015 (0-0.045) ng/ml Total Protein 6.4 (6.4-8.2) gm/dl Albumin 3.4 (3.4-5.0) gm/dl Globulin 3.0 (2.5-4.0) gm/dl Albumin/Globulin Ratio 1.1 (0.9-2) Beta-Hydroxybutyric Acd 3.52 H (0.2-2.81) mg/dl TSH 1.300 (0.300-4.500) uIu/ml Urine Color Urine Appearance (Clear) Urine pH (4.5-7.5) Ur Specific [place] (1.000-1.030) Urine Protein (Negative) Urine Glucose (UA) (Negative) Urine Ketones (Negative) Urine Blood (Negative) Urine Nitrite (Negative) Urine Bilirubin (Negative) Urine Urobilinogen (Negative) Ur Leukocyte Esterase (Negative) 05/23/18 05/23/18 05/23/18 Range/Units 12:56 13:59 15:27 WBC (4.8-10.8) K/uL RBC (4.2-5.4) M/uL Hgb (12.0-16.0) g/dL Hct (37-47) % MCV (80-100) fL MCH (25-34) pg MCHC (32-36) g/dL Plt Count (130-400) K/uL Immature Gran % (Auto) % Neut % (Auto) % Lymph % (Auto) % [place] % (Auto) % Eos % (Auto) % Baso % (Auto) % Immature Gran # (Auto) (0.00-0.02) K/uL Neut # (Auto) (1.4-6.5) K/uL Lymph # (Auto) (1.2-3.4) K/uL [place] # (Auto) (0.11-0.59) K/uL Eos # (Auto) (0-0.5) K/uL Baso # (Auto) (0-0.2) K/uL PT (9.0-12.0) Seconds INR (0.9-1.1) APTT (21.0-31.0) Seconds PTT Ratio VBG pH 7.34 L (7.36-7.41) VBG pCO2 50 (38-50) mmHg VBG pO2 40 mmHg VBG HCO3 26 mmol/L VBG O2 Saturation 69.2 % VBG Base Excess -0.1 mEq/L Barometric Pressure 723.8 mm/Hg Sodium (136-145) mmol/L Potassium (3.5-5.1) mmol/L Chloride (98-107) mmol/L Carbon Dioxide (21-32) mmol/L Anion Gap (3-11) BUN (7-18) mg/dl Creatinine (0.6-1.2) mg/dl Est Cr Clr Drug Dosing ml/min Est GFR ( Amer) Est GFR (Non-Af Amer) BUN/Creatinine Ratio (10-20) Glucose (70-99) mg/dl POC Glucose 430 H* (70-99) Calcium (8.5-10.1) mg/dl Magnesium (1.8-2.4) mg/dl Total Bilirubin (0.2-1) mg/dl AST (15-37) U/L ALT (12-78) U/L Alkaline Phosphatase (45-117) U/L Troponin I (0-0.045) ng/ml Total Protein (6.4-8.2) gm/dl Albumin (3.4-5.0) gm/dl Globulin (2.5-4.0) gm/dl Albumin/Globulin Ratio (0.9-2) Beta-Hydroxybutyric Acd (0.2-2.81) mg/dl TSH (0.300-4.500) uIu/ml Urine Color Yellow Urine Appearance Clear (Clear) Urine pH 5.0 (4.5-7.5) Ur Specific [place] 1.033 H (1.000-1.030) Urine Protein Negative (Negative) Urine Glucose (UA) 3+ H (Negative) Urine Ketones Negative (Negative) Urine Blood Negative (Negative) Urine Nitrite Negative (Negative) Urine Bilirubin Negative (Negative) Urine Urobilinogen Negative (Negative) Ur Leukocyte Esterase Negative (Negative) 05/23/18 05/23/18 05/23/18 Range/Units 17:13 17:15 17:15 WBC (4.8-10.8) K/uL RBC (4.2-5.4) M/uL Hgb (12.0-16.0) g/dL Hct (37-47) % MCV (80-100) fL MCH (25-34) pg MCHC (32-36) g/dL Plt Count (130-400) K/uL Immature Gran % (Auto) % Neut % (Auto) % Lymph % (Auto) % [place] % (Auto) % Eos % (Auto) % Baso % (Auto) % Immature Gran # (Auto) (0.00-0.02) K/uL Neut # (Auto) (1.4-6.5) K/uL Lymph # (Auto) (1.2-3.4) K/uL [place] # (Auto) (0.11-0.59) K/uL Eos # (Auto) (0-0.5) K/uL Baso # (Auto) (0-0.2) K/uL PT (9.0-12.0) Seconds INR (0.9-1.1) APTT (21.0-31.0) Seconds PTT Ratio VBG pH 7.44 H (7.36-7.41) VBG pCO2 43 (38-50) mmHg VBG pO2 23 mmHg VBG HCO3 29 mmol/L VBG O2 Saturation < 60.0 % VBG Base Excess 4.2 mEq/L Barometric Pressure 727.4 mm/Hg Sodium 137 D (136-145) mmol/L Potassium 3.8 D (3.5-5.1) mmol/L Chloride 101 (98-107) mmol/L Carbon Dioxide 27 (21-32) mmol/L Anion Gap 9.0 (3-11) BUN 23 H (7-18) mg/dl Creatinine 1.14 D (0.6-1.2) mg/dl Est Cr Clr Drug Dosing 38.2 ml/min Est GFR ( Amer) 54.5 Est GFR (Non-Af Amer) 47.0 BUN/Creatinine Ratio 20.2 H (10-20) Glucose 319 H (70-99) mg/dl POC Glucose 323 H (70-99) Calcium 9.5 (8.5-10.1) mg/dl Magnesium (1.8-2.4) mg/dl Total Bilirubin (0.2-1) mg/dl AST (15-37) U/L ALT (12-78) U/L Alkaline Phosphatase (45-117) U/L Troponin I (0-0.045) ng/ml Total Protein (6.4-8.2) gm/dl Albumin (3.4-5.0) gm/dl Globulin (2.5-4.0) gm/dl Albumin/Globulin Ratio (0.9-2) Beta-Hydroxybutyric Acd 3.83 H (0.2-2.81) mg/dl TSH (0.300-4.500) uIu/ml Urine Color Urine Appearance (Clear) Urine pH (4.5-7.5) Ur Specific [place] (1.000-1.030) Urine Protein (Negative) Urine Glucose (UA) (Negative) Urine Ketones (Negative) Urine Blood (Negative) Urine Nitrite (Negative) Urine Bilirubin (Negative) Urine Urobilinogen (Negative) Ur Leukocyte Esterase (Negative) 05/23/18 Range/Units 18:44 WBC (4.8-10.8) K/uL RBC (4.2-5.4) M/uL Hgb (12.0-16.0) g/dL Hct (37-47) % MCV (80-100) fL MCH (25-34) pg MCHC (32-36) g/dL Plt Count (130-400) K/uL Immature Gran % (Auto) % Neut % (Auto) % Lymph % (Auto) % [place] % (Auto) % Eos % (Auto) % Baso % (Auto) % Immature Gran # (Auto) (0.00-0.02) K/uL Neut # (Auto) (1.4-6.5) K/uL Lymph # (Auto) (1.2-3.4) K/uL [place] # (Auto) (0.11-0.59) K/uL Eos # (Auto) (0-0.5) K/uL Baso # (Auto) (0-0.2) K/uL PT (9.0-12.0) Seconds INR (0.9-1.1) APTT (21.0-31.0) Seconds PTT Ratio VBG pH (7.36-7.41) VBG pCO2 (38-50) mmHg VBG pO2 mmHg VBG HCO3 mmol/L VBG O2 Saturation % VBG Base Excess mEq/L Barometric Pressure mm/Hg Sodium (136-145) mmol/L Potassium (3.5-5.1) mmol/L Chloride (98-107) mmol/L Carbon Dioxide (21-32) mmol/L Anion Gap (3-11) BUN (7-18) mg/dl Creatinine (0.6-1.2) mg/dl Est Cr Clr Drug Dosing ml/min Est GFR ( Amer) Est GFR (Non-Af Amer) BUN/Creatinine Ratio (10-20) Glucose (70-99) mg/dl POC Glucose 253 H (70-99) Calcium (8.5-10.1) mg/dl Magnesium (1.8-2.4) mg/dl Total Bilirubin (0.2-1) mg/dl AST (15-37) U/L ALT (12-78) U/L Alkaline Phosphatase (45-117) U/L Troponin I (0-0.045) ng/ml Total Protein (6.4-8.2) gm/dl Albumin (3.4-5.0) gm/dl Globulin (2.5-4.0) gm/dl Albumin/Globulin Ratio (0.9-2) Beta-Hydroxybutyric Acd (0.2-2.81) mg/dl TSH (0.300-4.500) uIu/ml Urine Color Urine Appearance (Clear) Urine pH (4.5-7.5) Ur Specific [place] (1.000-1.030) Urine Protein (Negative) Urine Glucose (UA) (Negative) Urine Ketones (Negative) Urine Blood (Negative) Urine Nitrite (Negative) Urine Bilirubin (Negative) Urine Urobilinogen (Negative) Ur Leukocyte Esterase (Negative) Imaging Data Radiologist's Impression: Radiology results as stated below per my review and the radiologist's interpretation: CT head/brain wo con CT DOSE: 1525.41 mGy.cm HISTORY: Mental status change syncope TECHNIQUE: Multiaxial CT images of the head were performed without the use of intravenous contrast. A dose lowering technique was utilized adhering to the principles of ALARA. Comparison: None. Findings: The paranasal sinuses and mastoid air cells are clear. The calvarium and skull base are intact. The ventricles and sulci are within normal limits. There is no mass, hematoma, midline shift, or acute infarct. Impression: No acute intracranial abnormality. The above report was generated using voice recognition software. It may contain grammatical, syntax or spelling errors. Electronically signed by: Arcenio Bowman M.D. 05/23/2018 1:[address] facial bones wo con CT DOSE: HISTORY: Trauma. Pain. eval for trauma TECHNIQUE: Multiaxial CT images of the maxillofacial region were performed and reformatted in the coronal plane without the use of contrast. A dose lowering technique was utilized adhering to the principles of ALARA. COMPARISON: 06/19/2016 FINDINGS: The visualized cervical spine, skull base, pterygoid plates, nasal bones, lamina papyracea, orbital floors, mandible, and zygomatic arches are intact. No fractures. The orbits are unremarkable. IMPRESSION: No fractures within the maxillofacial region. The above report was generated using voice recognition software. It may contain grammatical, syntax or spelling errors. Electronically signed by: Arcenio Bowman M.D. 05/23/2018 1:[address] OF THE CERVICAL SPINE CLINICAL HISTORY: Neck pain status post trauma. Loss of consciousness. COMPARISON STUDY: 06/27/2017 CT DOSE: TECHNIQUE: CT scan of the cervical spine was performed from the skull base to the thoracic inlet. Images are reviewed in the axial, sagittal, and coronal planes. IV contrast was not administered for this examination. A dose lowering technique was utilized adhering to the principles of ALARA. FINDINGS: The visualized portions of the lung apices reveal no evidence of pneumothorax. The prevertebral soft tissues are normal. No fractures or subluxations are visualized. There are multilevel degenerative changes. There is a stable left C3-4 foraminal calcification. IMPRESSION: 1. No evidence of acute fracture or traumatic subluxation 2. Stable calcific/ossific density within the left C3-4 neural foramen Electronically signed by: Julio Sharp M.D. 05/23/2018 1:27 PM ECG Data Attestation: I personally reviewed and interpreted this ECG as follows: Indication: syncope Rate (beats per minute): 106 Rhythm: normal sinus (with unusual p wave axis) Findings: no PAC, no PVC, no ST depression, no ST elevation, no acute ischemic change and no ectopy Comparison ECG Date: from (01/04/2018) Change: the following changes noted (her rate is increased and her P wave axis is different) Additional Comments: REPEAT EKG: Normal sinus rhythm at a rate of 95. No acute ischemia or ectopy. Compared to his first, normal sinus rhythm is now present. Blood Pressure Blood Pressure Findings: Normal blood pressure Blood Pressure Disposition: did not require urgent referral MDM Narrative This patient comes in as described above. She has had nausea vomiting diarrhea for about 3 weeks. She says she felt okay this morning although had diarrhea overnight. she had no blood or melena stool. After she got out of the shower, she fell and hit her head. She does have a bruise and a headache. She has no acute neurologic deficits. She tells me that she is not sure why she fell at the time and is not sure if she passed out or not. IV access established was hydrated with 1 L IV normal saline bolus. She was placed on a alarm security or surveillance monitor. Head CT chest x-ray and EKG were obtained as well as multiple blood testing. I also ordered stool studies. Her blood sugar came back significantly elevated at over 800. Her anion gap is mildly elevated although her CO2 is 21. Chest x-ray was unremarkable CAT scans of the head face and neck were unremarkable. Her BUN and creatinine are elevated as well which may be more prerenal. she was hydrated with IV normal saline boluses here. she was given insulin 10 units regular IV. EKG does not show any definite acute ischemic changes or ectopy. I do think she needs to be admitted/observe for further treatment evaluation of her high blood sugar, dizziness, nausea and trauma and at this point appears to have mild DKA. Impression & Plan Syncope, Hyperglycemia, DKA (diabetic ketoacidoses), Concussion Discharge Plan Visit Data *Final* Discharge Date/Time: 05/23/18 15:56 Chief Complaint: Fall Stated Complaint: dizzy, fall ED Provider: Chapincito Wilkins Discharge Problem: Syncope, Hyperglycemia, DKA (diabetic ketoacidoses), Concussion Patient Disposition: Admitted As Inpatient Discharge Instructions Interventions: ED Discharge Assessment Last Done: 05/23/18 15:56 The scribe's documentation has been prepared under my direction and personally reviewed by me in its entirety. I confirm that the note above accurately reflects all work, treatment, procedures, and medical decision making performed by me.
[2018-05-23] MEDS ORDERED: SODIUM CHLORIDE 0.9% 1000ML 1,000 ML IV SCH (12:45)
[2018-05-23 13:09] LABS: Appearance Urine Clear (Clear); Bilirubin Urine Negative (Negative); Blood Urine Negative (Negative); Color Urine Yellow; Glucose Urine UA 3+ (Negative); Ketones Urine Negative (Negative); Leukocyte Esterase Urine Negative (Negative); Nitrite Urine Negative (Negative); Protein Urine Negative (Negative); Specific Gravity Urine 1.033 (1.000-1.030); Urobilinogen Urine Negative (Negative)
[2018-05-23 13:13] LABS: Partial Thromboplastin Ratio 0.8
[2018-05-23 13:20] LABS: Alanine Aminotransferase 34 U/L (12-78); Albumin Globulin Ratio 1.1 (0.9-2); Albumin Level 3.4 gm/dl (3.4-5.0); Alkaline Phosphatase 290 U/L (45-117); Aspartate Aminotransferase 25 U/L (15-37); BUN Creatinine Ratio 17.4 (10-20); Bilirubin,Total 0.5 mg/dl (0.2-1); Blood Urea Nitrogen 28 mg/dl (7-18); Calcium 9.5 mg/dl (8.5-10.1); Carbon Dioxide 21 mmol/L (21-32); Chloride 91 mmol/L (98-107); Creatinine Clr Calc Pharmacy 26.6 ml/min; Est GFR (African American) 36.7; Est GFR (Non-African American) 31.7; Glucose 877 mg/dl (70-99); Magnesium 2.1 mg/dl (1.8-2.4); Potassium 4.7 mmol/L (3.5-5.1); Sodium 126 mmol/L (136-145); Total Protein 6.4 gm/dl (6.4-8.2); Troponin I < 0.015 ng/ml (0-0.045)
--- NOTE | 2018-05-23 13:24 | CT Scan Report ---
CT head/brain wo con CT DOSE: 1525.41 mGy.cm HISTORY: Mental status change syncope TECHNIQUE: Multiaxial CT images of the head were performed without the use of intravenous contrast. A dose lowering technique was utilized adhering to the principles of ALARA. Comparison: None. Findings: The paranasal sinuses and mastoid air cells are clear. The calvarium and skull base are int act. The ventricles and sulci are within normal limits. There is no mass, hematoma, midline shift, or acute infarct. Impression: No acute intracranial abnormality. The above report was generated using voice recognition software. It may contain grammatical, syntax or spelling errors. Electronically signed by: Arcenio Bowman M.D. 05/23/2018 1:23 PM
--- NOTE | 2018-05-23 13:27 | CT Scan Report ---
CT facial bones wo con CT DOSE: HISTORY: Trauma. Pain. eval for trauma TECHNIQUE: Multiaxial CT images of the maxillofacial region were performed and reformatted in the cor onal plane without the use of contrast. A dose lowering technique was utilized adhering to the princ iples of JEFFERSON. COMPARISON: 06/19/2016 FINDINGS: The visualized cervical spine, skull base, pterygoid plates, nasal bones, lamina papyracea, orbital floors, mandible, and zygomatic arches are intact. No fractures. The orbits are unremarkable . IMPRESSION: No fractures within the maxillofacial region. The above report was generated using voice recognition software. It may contain grammatical, syntax or spelling errors. Electronically signed by: Arcenio Bowman M.D. 05/23/2018 1:26 PM
--- NOTE | 2018-05-23 13:28 | CT Scan Report ---
CT OF THE CERVICAL SPINE CLINICAL HISTORY: Neck pain status post trauma. Loss of consciousness. COMPARISON STUDY: 06/27/2017 CT DOSE: TECHNIQUE: CT scan of the cervical spine was performed from the skull base to the thoracic inlet. Sarah ges are reviewed in the axial, sagittal, and coronal planes. IV contrast was not administered for thi s examination. A dose lowering technique was utilized adhering to the principles of ALARA. FINDINGS: The visualized portions of the lung apices reveal no evidence of pneumothorax. The prevertebral soft tissues are normal. No fractures or subluxations are visualized. There are multilevel degenerative changes. There is a stable left C3-4 foraminal calcification. IMPRESSION: 1. No evidence of acute fracture or traumatic subluxation 2. Stable calcific/ossific density within the left C3-4 neural foramen Electronically signed by: Julio Sharp M.D. 05/23/2018 1:27 PM
[2018-05-23] MEDS ORDERED: NovoLIN-R INSULIN PER UNIT CHARGE IV STA (13:29)
[2018-05-23 13:34] LABS: Basophils # (auto) 0.02 K/uL (0-0.2); Basophils % (auto) 0.2 %; Eosinophils # (auto) 0.21 K/uL (0-0.5); Eosinophils % (auto) 2.6 %; Hemoglobin 15.2 g/dL (12.0-16.0); Immature Granulocytes # (auto) 0.03 K/uL (0.00-0.02); Immature Granulocytes % (auto) 0.4 %; Lymphocytes # (auto) 1.48 K/uL (1.2-3.4); Lymphocytes % (auto) 18.4 %; Mean Corpuscular Hgb Conc 36.2 g/dL (32-36); Mean Corpuscular Volume 85.7 fL (80-100); Monocytes # (auto) 0.55 K/uL (0.11-0.59); Monocytes % (auto) 6.8 %; Neutrophils # (auto) 5.77 K/uL (1.4-6.5); Neutrophils % (auto) 71.6 %; Platelet Count 156 K/uL (130-400); White Blood Count 8.06 K/uL (4.8-10.8)
[2018-05-23] MEDS ORDERED: SODIUM CHLORIDE 0.9% 1000ML 1,000 ML IV ONE (13:34)
[2018-05-23 13:36] LABS: Beta-Hydroxybutyrate 3.52 mg/dl (0.2-2.81)
--- NOTE | 2018-05-23 14:06 | History & Physical Report ---
Date of Service May 23, 2018 Assessment & Plan (1) Syncope: No prior CAD or arrhythmia history Patient with fall at home after obtaining a shower Hyperglycemia with a sugar in the 800s Admit to telemetry floor Dobutamine stress echocardiogram 01/05/2018 with no inducible ischemia (2) Hyperglycemia: Poorly controlled diabetes with a hemoglobin A1c of 11.1 Noncompliant with medications at home secondary to cost and affordability Has been taking her Lantus and metformin every other day Noncompliant with diet in as much the patient gets differing instructions from different providers on what she should and should not eat We will start on insulin drip with IV fluids Diabetic education consult Hold home medications fluting metformin, Lantus, and Victoza N.p.o. 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 Palma x2 Scheduled to be seen in the pain clinic next week for injection -previously seen by Gricelda West PA-C (7) Pernicious anemia: Continue monthly injections of B12 Follow serial labs (8) Diabetes mellitus: See above plan for hyperglycemia Diabetes mellitus type 2 with hemoglobin A1c of 11.1 Hold home medications and begin insulin drip Diabetic education consult will be ordered (9) GERD (gastroesophageal reflux disease): Patient on Pepcid at home We will place on famotidine IV for now. Convert to p.o. when patient resumes diet (10) Hypertension: Currently well controlled Continue home medications (11) Hypercholesterolemia: Continue home medications (12) DVT prophylaxis: Dmitriy Sinha Hold on chemical prophylaxis secondary to fall with closed head injury (CT head negative) Ambulate as tolerated Please refer to Dr. Curry's addendum for further recommendations. History of Present Illness Chief Complaint: Hyperglycemia, syncope Primary Care Provider: Michelle Underwood MD Attending: Dr. Curry This is a 77-year-old female with a past medical history including HTN, HL, DM 2, osteoporosis, pernicious anemia, lumbar spinal stenosis, and GERD. She states that she was not feeling well and got up this morning and had a syncopal event, falling and hitting her head. She presented to the emergency room and had a CT of the head completed which showed no fracture or subdural hematoma. She was incidentally found to have a sugar greater than 800 and was referred to us for admission. In the emergency department she received regular insulin 10 units and a liter of normal saline solution. The patient reports that she has had 2-3 weeks of nausea and vomiting as well as diarrhea. She was seen by her PCP and was instructed to take Imodium to slow down the diarrhea. She has had some dizziness and lightheadedness since that. But felt better this morning and deciding the shower. It was after this that she fell but cannot remember if she passed out or if it was a mechanical fall. She reports that she stayed on the floor for approximately 15 minutes and was aware during that period. The patient reports that over the last several weeks she is not been compliant with her medications due to cost. She has been taking medications approximately every other day in an effort to save expense for all of her medications. She is on a fixed income and does not have the resources to take medications as prescribed. Her primary care physician has been helping and was able to obtain samples of the Lantus pen but not of her other medications. Her hemoglobin A1c in the past has been around 8.5 and she reports that recently has been between 11 and 12 and she attributes this to taking Lantus every other day and metformin every other day. She also indicates that she is not diligent with checking her blood sugar and that when she does take it ranges anywhere from the 180s to over 400. She does not use any NovoLog or supplemental insulin when her sugar is high. She does report that her primary care physician recently increased her Lantus from 34 units daily to 40 units daily. Regarding her diet, she enjoys fresh fruits frequently and will eat 3 or 4 "cuities" at a sitting. She also has occasional chocolate bars as a treat. She enjoys carb laden foods such as pretzels. The patient was 16 years ago and lives alone at home. She has 1 son that lives locally and checks on her daily by phone. She functions and performs ADLs on her own. She has 2 other children that live out of the area. Allergies Allergy/AdvReac Type Severity Reaction Status Date / Time No Known Allergies Allergy Verified 05/23/18 12:45 Home Medications Home Medications Medication Instructions Recorded Confirmed Type aspirin [Aspirin Low Dose] 81 mg PO QAM 01/03/18 05/23/18 History cholecalciferol (vitamin D3) 1,000 unit PO QAM 01/03/18 05/23/18 History [Vitamin D3] cyanocobalamin (vitamin B-12) 1,000 mcg IM MONTHLY 01/03/18 05/23/18 History famotidine 20 mg PO HS 01/03/18 05/23/18 History gabapentin 300 mg PO HS 01/03/18 05/23/18 History insulin glargine 40 unit SUBCUT QAM 01/03/18 05/23/18 History liraglutide 1.8 mg SUBCUT QAM 01/03/18 05/23/18 History lisinopril-hydrochlorothiazide 1 tab PO QAM 01/03/18 05/23/18 History metformin 1,000 mg PO BIDM 01/03/18 05/23/18 History oxycodone 5 mg PO TID PRN 01/03/18 05/23/18 History simvastatin 10 mg PO HS 01/03/18 05/23/18 History duloxetine 60 mg PO QAM 05/23/18 05/23/18 History fesoterodine [Toviaz] 8 mg PO QAM 05/23/18 05/23/18 History ibuprofen 600 mg PO Q8H PRN 05/23/18 05/23/18 History Past Med/Surg History Medical History Peripheral neuropathy (Chronic) Lumbar spinal stenosis (Resolved) Pernicious anemia (Chronic) Diabetes mellitus (Chronic) GERD (gastroesophageal reflux disease) (Chronic) Osteoporosis (Chronic) Hypercholesterolemia (Chronic) Hypertension (Chronic) Surgical History History of lumbar surgery (Chronic) L4-S1 fusion X [address] Palma History of ankle surgery (Chronic) History of total knee arthroplasty (Chronic) left History of hysterectomy for benign disease (Chronic) H/O reduction mammoplasty (Chronic) History of cataract extraction (Chronic) Social History Preferred Language: Danish Communication Ability: Effective Beliefs That Will Affect Care: None marital status: Current Living Situation: Alone current occupational status: retired Other Information That Helps Us Care for You: No Feels Safe at Home: Yes Safety Concerns: Feels Safe At This Time Smoking Status: Never smoker Hx Alcohol Use: No Hx Substance Use: No Review of Systems All systems reviewed & are unremarkable except as noted in HPI & below Physical Exam Vital Signs (Past 24 Hours): Last Vital Signs Temp 37.2 C 05/23/18 12:29 Pulse 94 H 05/23/18 13:40 Resp 15 05/23/18 13:40 BP 122/74 05/23/18 13:00 Pulse Ox 95 05/23/18 13:40 Physical Exam: GENERAL : No acute distress EYES: No icterus, gaze conjugate NOSE: No evidence of epistaxis MOUTH: No lesions or candidiasis. Mucosa is dry NECK: Supple LUNGS: CTA B/L, no wheezes, rales or rhonchi HEART: Regular, rate controlled ABDOMEN: Soft, NT, ND, BS Present EXTREMITIES: No LE edema, pedal pulses intact NEURO: A&OX3 Results & Data Laboratory Results 05/23/18 05/23/18 05/23/18 12:41 12:41 12:41 WBC 8.06 RBC 4.90 Hgb 15.2 Hct 42.0 MCV 85.7 MCH 31.0 MCHC 36.2 H Plt Count 156 Immature Gran % (Auto) 0.4 Neut % (Auto) 71.6 Lymph % (Auto) 18.4 [place] % (Auto) 6.8 Eos % (Auto) 2.6 Baso % (Auto) 0.2 Immature Gran # (Auto) 0.03 H Neut # (Auto) 5.77 Lymph # (Auto) 1.48 [place] # (Auto) 0.55 Eos # (Auto) 0.21 Baso # (Auto) 0.02 PT 10.0 INR 1.0 APTT 21.0 PTT Ratio 0.8 VBG pH VBG pCO2 VBG pO2 VBG HCO3 VBG O2 Saturation VBG Base Excess Barometric Pressure Sodium 126 L Potassium 4.7 Chloride 91 L Carbon Dioxide 21 Anion Gap 13.0 H BUN 28 H Creatinine 1.58 H Est Cr Clr Drug Dosing 26.6 Est GFR ( Amer) 36.7 Est GFR (Non-Af Amer) 31.7 BUN/Creatinine Ratio 17.4 Glucose 877 H* Calcium 9.5 Magnesium 2.1 Total Bilirubin 0.5 AST 25 ALT 34 Alkaline Phosphatase 290 H Troponin I < 0.015 Total Protein 6.4 Albumin 3.4 Globulin 3.0 Albumin/Globulin Ratio 1.1 Beta-Hydroxybutyric Acd 3.52 H TSH 1.300 Urine Color Urine Appearance Urine pH Ur Specific Carey Urine Protein Urine Glucose (UA) Urine Ketones Urine Blood Urine Nitrite Urine Bilirubin Urine Urobilinogen Ur Leukocyte Esterase 05/23/18 05/23/18 12:56 13:59 WBC RBC Hgb Hct MCV MCH MCHC Plt Count Immature Gran % (Auto) Neut % (Auto) Lymph % (Auto) [place] % (Auto) Eos % (Auto) Baso % (Auto) Immature Gran # (Auto) Neut # (Auto) Lymph # (Auto) [place] # (Auto) Eos # (Auto) Baso # (Auto) PT INR APTT PTT Ratio VBG pH 7.34 L VBG pCO2 50 VBG pO2 40 VBG HCO3 26 VBG O2 Saturation 69.2 VBG Base Excess -0.1 Barometric Pressure 723.8 Sodium Potassium Chloride Carbon Dioxide Anion Gap BUN Creatinine Est Cr Clr Drug Dosing Est GFR ( Amer) Est GFR (Non-Af Amer) BUN/Creatinine Ratio Glucose Calcium Magnesium Total Bilirubin AST ALT Alkaline Phosphatase Troponin I Total Protein Albumin Globulin Albumin/Globulin Ratio Beta-Hydroxybutyric Acd TSH Urine Color Yellow Urine Appearance Clear Urine pH 5.0 Ur Specific Carey 1.033 H Urine Protein Negative Urine Glucose (UA) 3+ H Urine Ketones Negative Urine Blood Negative Urine Nitrite Negative Urine Bilirubin Negative Urine Urobilinogen Negative Ur Leukocyte Esterase Negative Diagnostic Findings CT head/brain wo con CT DOSE: 1525.41 mGy.cm HISTORY: Mental status change syncope TECHNIQUE: Multiaxial CT images of the head were performed without the use of intravenous contrast. A dose lowering technique was utilized adhering to the principles of ALARA. Comparison: None. Findings: The paranasal sinuses and mastoid air cells are clear. The calvarium and skull base are intact. The ventricles and sulci are within normal limits. There is no mass, hematoma, midline shift, or acute infarct. Impression: No acute intracranial abnormality. The above report was generated using voice recognition software. It may contain grammatical, syntax or spelling errors. Electronically signed by: Arcenio Bowman M.D. 05/23/2018 1:[address] OF THE CERVICAL SPINE CLINICAL HISTORY: Neck pain status post trauma. Loss of consciousness. COMPARISON STUDY: 06/27/2017 CT DOSE: TECHNIQUE: CT scan of the cervical spine was performed from the skull base to the thoracic inlet. Images are reviewed in the axial, sagittal, and coronal planes. IV contrast was not administered for this examination. A dose lowering technique was utilized adhering to the principles of ALARA. FINDINGS: The visualized portions of the lung apices reveal no evidence of pneumothorax. The prevertebral soft tissues are normal. No fractures or subluxations are visualized. There are multilevel degenerative changes. There is a stable left C3-4 foraminal calcification. IMPRESSION: 1. No evidence of acute fracture or traumatic subluxation 2. Stable calcific/ossific density within the left C3-4 neural foramen Electronically signed by: Julio Sharp M.D. 05/23/2018 1:[address] facial bones wo con CT DOSE: HISTORY: Trauma. Pain. eval for trauma TECHNIQUE: Multiaxial CT images of the maxillofacial region were performed and reformatted in the coronal plane without the use of contrast. A dose lowering technique was utilized adhering to the principles of ALARA. COMPARISON: 06/19/2016 FINDINGS: The visualized cervical spine, skull base, pterygoid plates, nasal bones, lamina papyracea, orbital floors, mandible, and zygomatic arches are intact. No fractures. The orbits are unremarkable. IMPRESSION: No fractures within the maxillofacial region. The above report was generated using voice recognition software. It may contain grammatical, syntax or spelling errors. Electronically signed by: Arcenio Bowman M.D. 05/23/2018 1:26 PM Supervising Physician Co-Signing Physician Notes PA Supervision Note: I personally saw and examined the patient. I verified all torrez points and agree with SHILO Sosa with the following exceptions and/or additions: Patient presented with syncope while in the shower and fell and hit her head on the toilet sustaining contusion to the right forehead and cheek. He was found to have a blood sugar of 877 in the ER. She is admittedly noncompliant with her diabetic medications and checking her sugars due to cost of medications and supplies. She was given 10 units of IV regular insulin in the ER and most recent blood sugar was still in the 400s. She was also given 2 L of normal saline. She does have pain and headache on the right side, denies nausea or vomiting, denies chest pain or shortness of breath, denies abdominal pain. Her recent diarrhea has cleared up. History and ROS reviewed as above Vitals reviewed Gen: AAOx3, NAD HEENT: Anicteric sclerae, EOMI, right forehead with small hematoma and right cheek with mild edema, bilateral cheeks with erythema CV: RRR no mgr nl S1S2 Pulm: CTAB no wcr Abd: +BS soft NT ND no masses or hernias Ext: No edema, 2+ DP pulses Skin: No rashes, warm/dry Neuro: Full strength throughout Labs reviewed This is a 77-year-old female with history as above here with likely HHS, hyperglycemia secondary to chronic noncompliance with diabetic medications and diabetic diet. Blood sugar rate 77 on admission -Start insulin drip and normal saline, add potassium to the fluids if potassium less than 4.5 -Can likely start her back on her long-acting Lantus tonight -We will consult diabetic nurse educator-appreciate recommendations for cheaper long-acting insulins that patient can afford more easily after discharge -Needs copious IV fluids -Educated patient on importance of compliance with medications and diabetic diet -Serial labs (1) Diabetes mellitus Diabetes mellitus complication status: with hyperglycemia Diabetes mellitus longwall foreman insulin use: with prison use Diabetes mellitus type: type 2 Qualified Code(s): E11.65 - Type 2 diabetes mellitus with hyperglycemia; Z79.4 - buttermaker (current) use of insulin (2) Headache Headache chronicity pattern: acute headache Headache type: unspecified Intractability: intractable Qualified Code(s): R51 - Headache (3) Syncope Syncope type: unspecified Qualified Code(s): R55 - Syncope and collapse (4) Hypertension Hypertension type: essential hypertension Qualified Code(s): I10 - Essential (primary) hypertension
[2018-05-23 14:11] LABS: Base Excess VBG -0.1 mEq/L; Oxygen Saturation VBG 69.2 %; pH VBG 7.34 (7.36-7.41)
[2018-05-23] MEDS ORDERED: FAMOTIDINE 20MG/5ML IV PUSH IV STA (16:57)
[2018-05-23] MEDS ORDERED: MODERATE STRESS LEVEL ONE (16:57)
[2018-05-23] MEDS ORDERED: DC ALL PREVIOUSLY ORDERED DIABETES MEDS ONE (16:57)
[2018-05-23] MEDS ORDERED: DKA GOAL RANGE 150-250 mg/dl ONE (16:57)
[2018-05-23] MEDS ORDERED: PHARMACY GLYCEMIC MGMT CONSULT STA (16:57)
[2018-05-23] MEDS ORDERED: OXYCODONE HCL IR 5 MG TAB (IMMEDIATE RELEASE) PO PRN (16:57)
[2018-05-23] MEDS ORDERED: ONDANSETRON INJ 2 MG/ML 2 ML VIAL IV PRN (16:57)
[2018-05-23] MEDS ORDERED: ACETAMINOPHEN 325 MG TAB PO PRN (16:57)
[2018-05-23] MEDS ORDERED: PHARMACY GLYCEMIC MGMT CONSULT PRN (17:01)
[2018-05-23 17:26] LABS: Base Excess VBG 4.2 mEq/L; HCO3 VBG 29 mmol/L; PCO2 VBG 43 mmHg (38-50); PO2 VBG 23 mmHg; pH VBG 7.44 (7.36-7.41)
[2018-05-23 17:27] LABS: Oxygen Saturation VBG < 60.0 %
[2018-05-23] MEDS: SODIUM CHLORIDE 0.9% 1000ML 1,000 ML IV SCH (17:27)
[2018-05-23] MEDS ORDERED: INSULIN REGULAR 250 UNITS in SODIUM CHLORIDE 0.9% 247.5 ML IV SCH (17:30)
[2018-05-23] MEDS ORDERED: FAMOTIDINE 20 MG in SYRINGE 3 ML IV SCH (17:30)
[2018-05-23] MEDS ORDERED: INSULIN HUMAN REGULAR IV BOLUS 1.5 UNITS in SYRINGE 0 ML IV ONE (17:30)
[2018-05-23] MEDS ORDERED: GLUCAGON FOR INJ 1 MG VIAL IM PRN (17:30)
[2018-05-23] MEDS ORDERED: GLUCOSE 40% GEL 15 GM TUBE PO PRN (17:30)
[2018-05-23] MEDS ORDERED: DEXTROSE 50% 50 ML SYRINGE IV PRN (17:30)
[2018-05-23] MEDS ORDERED: CARBOHYDRATES FOR HYPOGLYCEMIA PO PRN (17:30)
[2018-05-23] MEDS ORDERED: GLUCOSE 10 TABS/TUBE PO PRN (17:30)
[2018-05-23 17:50] LABS: BUN Creatinine Ratio 20.2 (10-20); Calcium 9.5 mg/dl (8.5-10.1); Creatinine Clr Calc Pharmacy 38.2 ml/min; Est GFR (African American) 54.5; Potassium 3.8 mmol/L (3.5-5.1)
[2018-05-23] MEDS ORDERED: INSULIN ASPART 100 UNITS/ML 3 ML PEN SC SCH (18:00)
[2018-05-23 18:12] LABS: Beta-Hydroxybutyrate 3.83 mg/dl (0.2-2.81)
[2018-05-23] MEDS ORDERED: POTASSIUM CHLORIDE 20 MEQ TABCR PO STA (18:41)
--- NOTE | 2018-05-23 19:41 | Pharmacy Report ---
Glycemic Control Consultation - Date of Service May 23, 2018 - Scope Scope: Glycemic Pharmacist consulted by Dr Curry on 05/23 for glycemic control and to write orders per [facility] inpatient glycemic control protocol - Objective Weight: 66.9 kg Accuchecks BSG (last 24hrs): 05/23/18 05/23/18 05/23/18 12:41 15:27 17:13 Glucose 877 H* POC Glucose 430 H* 323 H 05/23/18 05/23/18 17:15 18:44 Glucose 319 H POC Glucose 253 H Laboratory Data (last 24hrs): 05/23/18 05/23/18 12:41 17:15 Potassium 4.7 3.8 D Carbon Dioxide 21 27 Anion Gap 13.0 H 9.0 Creatinine 1.58 H 1.14 D Est Cr Clr Drug Dosing 26.6 38.2 Beta-Hydroxybutyric Acd 3.52 H 3.83 H - Recent Pertinent Medications Outpatient Anti-diabetic Regimen: Note: patient has been taking medications every other day d/t cost issues * Lantus 40 units qAM * Liraglutide 1.8 mg SQ qAM * Metformin 1 gm BID * A1c = 11.1 % 03/18/18 Risk Factors for Insulin Resistance/Sensitivity: * Diet: NPO * Poor baseline control - Assessment & Plan Assessment & Plan: ASSESSMENT: * Patient is a 77 y/o female admitted s/p syncope and subsequently found to have a BSG in the 800s. As noted above, patient has been noncompliant with diabetes management due to cost issues. Her A1c and recent BSGs are indicative of poor control. * She was given fluids and a 10 unit bolus of IV insulin in the ER, with a subsequent BSG of 430 mg/dL and later 323 mg/dL, prior to the initiation of an insulin drip for a possible HHS picture. Patient is currently on NS @ 150 cc/hr, with po K supplementation for a K that has dropped to 3.8. * With BSGs continuing to improve rapidly, physician will be starting a diet and not switching fluids to incorporate dextrose. These will be changed to 1/2 NS + 20 K starting at midnight tonight. * Patient currently meets criteria to begin switching to SQ (last BSG of 217 mg/dL), so will give one time dose of Lantus 40 units and start Novolog with overnight checks as well. Note that this Lantus dose is greater than weight based calculations w/ stress level of 3; however, patient had this dose yesterday and was admitted with BSGs > 800 today. I suspect that once BSGs improve with daily insulin on board, that she will require less than this. PLAN FOR INPATIENT GLYCEMIC CONTROL: * Continue insulin drip per protocol with goal range 150-250 mg/dL * Give Lantus 40 units x 1 now as patient meets criteria to start transitioning to SQ * d/c insulin drip 6 hours after 1st dose or sooner as directed per insulin drip calculator * Novolog ACHS * Goal 120-160 mg/dL (can lower this once BSGs have improved further) * CF 25 mg/dL/unit * CR 1 unit per 10 gm CHO consumed * Add overnight checks at 00,04 to provide supplemental insulin if needed * New Lantus orders will need to be ordered tomorrow based upon needs * Please note that the plan above was derived based on current level of insulin resistance and hospital stress. These recommendations are appropriate for inpatient admission only. Plan of care upon discharge will need to be reassessed to avoid potential outpatient hypo/hyperglycemia. Thank you.
[2018-05-23] MEDS ORDERED: INSULIN GLARGINE SOLOSTAR 100 UNITS/ML 3 ML PEN SC ONE (20:00)
[2018-05-23] MEDS: INSULIN ASPART 100 UNITS/ML 3 ML PEN SC SCH (20:15)
[2018-05-23] MEDS: GABAPENTIN 300 MG CAP PO SCH ×2 (20:16→20:19)
[2018-05-23] MEDS: FAMOTIDINE 20 MG TAB PO SCH (20:17)
[2018-05-23] MEDS: SIMVASTATIN 10 MG TAB PO SCH (20:17)
[2018-05-23 21:22] LABS: Base Excess VBG 2.7 mEq/L; Oxygen Saturation VBG 60.9 %; pH VBG 7.42 (7.36-7.41)
[2018-05-23 21:34] LABS: BUN Creatinine Ratio 16.7 (10-20); Calcium 9.2 mg/dl (8.5-10.1); Creatinine Clr Calc Pharmacy 37.3 ml/min; Est GFR (African American) 52.8; Est GFR (Non-African American) 45.5; Potassium 3.3 mmol/L (3.5-5.1)
[2018-05-24] MEDS: SODIUM CHLOR 0.45% + 20MEQ KCL 20 MEQ/1,000 ML BAG IV SCH ×4 (00:13→19:34)
[2018-05-24] MEDS: INSULIN ASPART 100 UNITS/ML 3 ML PEN SC SCH ×6 (01:03→20:43)
[2018-05-24 01:12] LABS: BUN Creatinine Ratio 17.8 (10-20); Calcium 8.8 mg/dl (8.5-10.1); Creatinine Clr Calc Pharmacy 41.1 ml/min; Est GFR (African American) 59.5; Est GFR (Non-African American) 51.3; Potassium 4.5 mmol/L (3.5-5.1)
[2018-05-24] MEDS ORDERED: DC IV INSULIN INFUSION 1 EA DEVI ONE (02:00)
[2018-05-24 06:21] LABS: Basophils # (auto) 0.03 K/uL (0-0.2); Basophils % (auto) 0.3 %; Eosinophils # (auto) 0.47 K/uL (0-0.5); Eosinophils % (auto) 4.4 %; Hematocrit (blood only) 37.5 % (37-47); Hemoglobin 13.4 g/dL (12.0-16.0); Immature Granulocytes # (auto) 0.03 K/uL (0.00-0.02); Immature Granulocytes % (auto) 0.3 %; Lymphocytes # (auto) 2.12 K/uL (1.2-3.4); Lymphocytes % (auto) 19.6 %; Mean Corpuscular Hgb Conc 35.7 g/dL (32-36); Mean Platelet Volume 11.3 fL (7.4-10.4); Monocytes # (auto) 0.71 K/uL (0.11-0.59); Monocytes % (auto) 6.6 %; Neutrophils # (auto) 7.43 K/uL (1.4-6.5); Neutrophils % (auto) 68.8 %; Platelet Count 156 K/uL (130-400); RDW Coefficient of Variation 12.5 % (11.5-14.5); RDW Standard Deviation 39.5 fL (36.4-46.3); Red Blood Count 4.36 M/uL (4.2-5.4); White Blood Count 10.79 K/uL (4.8-10.8)
[2018-05-24 06:51] LABS: BUN Creatinine Ratio 17.4 (10-20); Calcium 8.1 mg/dl (8.5-10.1); Creatinine Clr Calc Pharmacy 51.3 ml/min; Est GFR (African American) 76.6; Est GFR (Non-African American) 66.1
[2018-05-24] MEDS: SODIUM CHLORIDE 0.9% 1000ML 1,000 ML IV SCH (07:07)
[2018-05-24] MEDS: ASPIRIN 81 MG ECTAB PO SCH (07:57)
[2018-05-24] MEDS: CHOLECALCIFEROL 1,000 UNITS TAB PO SCH (07:57)
[2018-05-24] MEDS: DULOXETINE HCL 60 MG CAP PO SCH (07:57)
[2018-05-24] MEDS ORDERED: INSULIN GLARGINE SOLOSTAR 100 UNITS/ML 3 ML PEN SC ONE (13:00)
--- NOTE | 2018-05-24 14:36 | Pharmacy Report ---
Pharmacy Glycemic Short Note 2 - Date of Service May 24, 2018 - Glycemic Short BSG Results (Last 24 hours): 05/23/18 05/23/18 05/23/18 15:27 17:13 17:15 Glucose 319 H POC Glucose 430 H* 323 H 05/23/18 05/23/18 05/23/18 18:44 19:42 20:48 Glucose POC Glucose 253 H 217 H 240 H 05/23/18 05/23/18 05/23/18 21:09 21:50 23:52 Glucose 236 H POC Glucose 230 H 148 H 05/24/18 05/24/18 05/24/18 00:13 00:50 01:40 Glucose 108 H POC Glucose 114 H 91 05/24/18 05/24/18 05/24/18 04:00 06:07 07:45 Glucose 103 H POC Glucose 97 105 H 05/24/18 11:17 Glucose POC Glucose 150 H OUTPATIENT ANTIDIABETIC REGIMEN: Note: patient has been taking medications every other day d/t cost issues * Lantus 40 units qAM * Liraglutide 1.8 mg SQ qAM * Metformin 1 gm BID * A1c = 11.1 % 03/18/18 ASSESSMENT: * Pt with bsg's in the 800's yesterday transitioned off of insulin drip last evening. Bsg's decreased from 877 mg/dL to 103 mg/dL over a period of about 12 hours. * Will loosen CF and CR to prevent hypoglycemia. This is weight based stress of 2 which seems reasonable considering she is not ordered steroids. * Basal dose was given around 1700 last evening. A reduced basal dose was given this afternoon since 40 units of basal helped to decrease bsg's so rapidly yesterday. The dose was scheduled for around lunchtime today in an attempt to transition her back to morning dosing for discharge. Will reassess tomorrow am for future basal doses. * Will consider decreasing goal range tomorrow if adequate glycemic control can be maintained. PLAN FOR INPATIENT GLYCEMIC CONTROL: * Hold outpatient oral diabetes medications * Basal insulin * Lantus 20 units SQ today * Bolus insulin * NovoLog per scale ACHS or Q6hrs while NPO * Goal Range: Low 120 mg/dL - High 160 mg/dL * Correction Factor: 35 mg/dL/unit * Nutritional / Prandial insulin per carb ratio of 1 unit per 12 grams CHO consumed * Please note that the plan above was derived based on current level of insulin resistance and hospital stress. These recommendations are appropriate for inpatient admission only. Plan of care upon discharge will need to be reassessed to avoid potential outpatient hypo/hyperglycemia.
[2018-05-24] MEDS ORDERED: SODIUM CHLORIDE 0.65% NA SOLN 45 ML (OCEAN) ONE (19:29)
[2018-05-24] MEDS: GABAPENTIN 300 MG CAP PO SCH (20:42)
[2018-05-24] MEDS: FAMOTIDINE 20 MG TAB PO SCH (20:42)
[2018-05-24] MEDS: SIMVASTATIN 10 MG TAB PO SCH (20:42)
[2018-05-25] MEDS: SODIUM CHLOR 0.45% + 20MEQ KCL 20 MEQ/1,000 ML BAG IV SCH ×2 (02:50→09:24)
--- NOTE | 2018-05-25 06:42 | Hospitalist Progress Note ---
Date of Service May 24, 2018 Assessment & Plan (1) Syncope: No prior CAD or arrhythmia history Patient with fall at home while in the shower likely secondary to dehydration from severe hyperglycemia with sugar in the 800s No significant arrhythmias on telemetry Dobutamine stress echocardiogram 01/05/2018 with no inducible ischemia and normal LV function -Continue telemetry monitoring (2) Hyperglycemia: Blood sugar was 877 upon admission, now improved rapidly down to 103 this morning Poorly controlled diabetes with a hemoglobin A1c of 11.1 Noncompliant with medications at home secondary to cost and affordability Has been taking her Lantus and metformin every other day Noncompliant with a diabetic diet in as much the patient gets differing instructions from different providers on what she should and should not eat-she frequently consumes Gatorade, Coke, pretzels, apple juice and orange juice "all day long" -Was initially placed on insulin drip with IV fluids and now that has been weaned off -Continue Lantus 40 units nightly and sliding scale insulin -Diabetic education consult appreciated -Continue to hold home medications including metformin and Victoza -Continue IV fluids until taking p.o. 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 Palma x2 Scheduled to be seen in the pain clinic next week for injection -previously seen by Gricelda West PA-C -Takes oxycodone chronically at home as needed -Continue gabapentin from home (7) Pernicious anemia: Continue monthly injections of B12 Follow serial labs (8) Diabetes mellitus: See above plan for hyperglycemia Diabetes mellitus type 2 with hemoglobin A1c of 11.1 (9) GERD (gastroesophageal reflux disease): -Continue Pepcid (10) Hypercholesterolemia: Continue home simvastatin (11) Nausea vomiting and diarrhea: She has chronic occasional vomiting, suspect gastroparesis from severely uncontrolled diabetes Now with worsening nausea, vomiting, diarrhea for the last 3 weeks Stool studies here with C. difficile negative, stool culture pending No abdominal pain or signs of obstruction -Could be secondary to severe hyperglycemia -Treat with antiemetics as needed, loperamide as needed for diarrhea -Continue to follow -Continue IV fluids (12) DVT prophylaxis: KILLIAN Sinhas Hold on chemical prophylaxis secondary to fall with closed head injury (CT head negative) Ambulate as tolerated Disposition-remain on telemetry overnight even persistent nausea and vomiting in the setting of labile glucose Subjective Patient reports she still having nausea and vomiting this morning, she also had diarrhea and had incontinence to stool she could not get out of the bed fast enough to get to the toilet. Blood sugars are much improved and she is now committed to controlling them at home. Denies chest pain or shortness of breath. She still has some pain in the right side of her head when she smiles or moves the right side of her face. Review of Systems All systems reviewed & are unremarkable except as noted in HPI & below Physical Exam Vital Signs (Past 24 Hours): Last Vital Signs Temp 37.4 C 05/25/18 04:10 Pulse 78 05/25/18 04:10 Resp 18 05/25/18 04:10 BP 137/74 05/25/18 04:10 Pulse Ox 95 05/25/18 04:10 Constitutional: WD/WN, vitals as above Eyes: PERRL, conjunctivae normal, anicteric sclerae ENMT: Ears: no hearing impairment Nose: + facial edema (Mild in the right cheek but improved from previous with small hematoma on the right forehead) Neck: trachea midline, no thyromegaly Respiratory: normal respiratory effort, lungs clear to auscultation Cardiovascular: RRR, no murmur, no edema Gastrointestinal (Abdomen): normal bowel sounds, soft, nontender, no hepatosplenomegaly Musculoskeletal: Extremities: extremities normal to inspection; no cyanosis and no clubbing Skin: no rashes, warm and dry Neurologic: moves all extremities and awake; no focal motor deficits Psychiatric: A+Ox3, euthymic affect Results & Data Laboratory Results 05/24/18 05/24/18 05/24/18 Range/Units 20:27 16:10 11:17 Sodium (136-145) mmol/L Potassium (3.5-5.1) mmol/L Chloride (98-107) mmol/L Carbon Dioxide (21-32) mmol/L Anion Gap (3-11) BUN (7-18) mg/dl Creatinine (0.6-1.2) mg/dl Est Cr Clr Drug Dosing ml/min Est GFR ( Amer) Est GFR (Non-Af Amer) BUN/Creatinine Ratio (10-20) Glucose (70-99) mg/dl POC Glucose 265 H 247 H 150 H (70-99) Calcium (8.5-10.1) mg/dl 05/24/18 05/24/18 Range/Units 07:45 06:07 Sodium 139 (136-145) mmol/L Potassium 4.0 (3.5-5.1) mmol/L Chloride 110 H (98-107) mmol/L Carbon Dioxide 25 (21-32) mmol/L Anion Gap 4.0 (3-11) BUN 15 (7-18) mg/dl Creatinine 0.86 (0.6-1.2) mg/dl Est Cr Clr Drug Dosing 51.3 ml/min Est GFR ( Amer) 76.6 Est GFR (Non-Af Amer) 66.1 BUN/Creatinine Ratio 17.4 (10-20) Glucose 103 H (70-99) mg/dl POC Glucose 105 H (70-99) Calcium 8.1 L (8.5-10.1) mg/dl (1) Syncope Syncope type: unspecified Qualified Code(s): R55 - Syncope and collapse (2) Headache Headache type: unspecified Headache chronicity pattern: acute headache Intractability: intractable Qualified Code(s): R51 - Headache (3) Diabetes mellitus Diabetes mellitus type: type 2 Diabetes mellitus shelter insulin use: with termite helper use Diabetes mellitus complication status: with hyperglycemia Qualified Code(s): E11.65 - Type 2 diabetes mellitus with hyperglycemia; Z79.4 - 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
[2018-05-25] MEDS ORDERED: LOPERAMIDE HCL 2 MG CAP PO PRN (06:48)
[2018-05-25 07:26] LABS: Basophils # (auto) 0.02 K/uL (0-0.2); Basophils % (auto) 0.3 %; Eosinophils # (auto) 0.37 K/uL (0-0.5); Eosinophils % (auto) 5.3 %; Hematocrit (blood only) 38.2 % (37-47); Hemoglobin 13.4 g/dL (12.0-16.0); Immature Granulocytes # (auto) 0.02 K/uL (0.00-0.02); Immature Granulocytes % (auto) 0.3 %; Lymphocytes # (auto) 1.13 K/uL (1.2-3.4); Lymphocytes % (auto) 16.2 %; Mean Corpuscular Hgb Conc 35.1 g/dL (32-36); Mean Platelet Volume 11.7 fL (7.4-10.4); Monocytes # (auto) 0.58 K/uL (0.11-0.59); Monocytes % (auto) 8.3 %; Neutrophils # (auto) 4.84 K/uL (1.4-6.5); Neutrophils % (auto) 69.6 %; Platelet Count 140 K/uL (130-400); RDW Coefficient of Variation 12.7 % (11.5-14.5); RDW Standard Deviation 40.8 fL (36.4-46.3); Red Blood Count 4.39 M/uL (4.2-5.4); White Blood Count 6.96 K/uL (4.8-10.8)
[2018-05-25 07:45] LABS: BUN Creatinine Ratio 13.4 (10-20); Calcium 8.3 mg/dl (8.5-10.1); Creatinine Clr Calc Pharmacy 52.7 ml/min; Est GFR (African American) 78.8; Potassium 4.3 mmol/L (3.5-5.1)
[2018-05-25] MEDS: DULOXETINE HCL 60 MG CAP PO SCH (08:00)
[2018-05-25] MEDS: ASPIRIN 81 MG ECTAB PO SCH (08:00)
[2018-05-25] MEDS: CHOLECALCIFEROL 1,000 UNITS TAB PO SCH (08:00)
[2018-05-25] MEDS: INSULIN ASPART 100 UNITS/ML 3 ML PEN SC SCH ×3 (08:07→16:58)
[2018-05-25] MEDS ORDERED: INSULIN GLARGINE SOLOSTAR 100 UNITS/ML 3 ML PEN SC SCH (09:30)
[2018-05-25] MEDS ORDERED: INSULIN HUMAN REGULAR PER UNIT 3 UNITS in SYRINGE 2.97 ML IV SCH (09:30)
--- NOTE | 2018-05-25 13:56 | Pharmacy Report ---
Pharmacy Glycemic Short Note 2 - Date of Service May 25, 2018 - Glycemic Short BSG Results (Last 24 hours): 05/24/18 05/24/18 05/25/18 16:10 20:27 06:36 Glucose 230 H POC Glucose 247 H 265 H 05/25/18 05/25/18 08:00 11:06 Glucose POC Glucose 251 H 203 H OUTPATIENT ANTIDIABETIC REGIMEN: Note: patient has been taking medications every other day d/t cost issues * Lantus 40 units qAM * Liraglutide 1.8 mg SQ qAM * Metformin 1 gm BID * A1c = 11.1 % 03/18/18 ASSESSMENT: 05/25: * Patient received total of 39 units of insulin yesterday- 20 units of basal and 19 units bolus. * Fasting BSG this AM was high; Lantus dose this AM was increased. * BSGs throughout last evening were high as well; Novolog parameters were tightened today. * In addition 3 units of IV regular insulin was given as well this AM since BSGs have been above 200. 05/24: * Pt with bsg's in the 800's yesterday transitioned off of insulin drip last evening. Bsg's decreased from 877 mg/dL to 103 mg/dL over a period of about 12 hours. * Will loosen CF and CR to prevent hypoglycemia. This is weight based stress of 2 which seems reasonable considering she is not ordered steroids. * Basal dose was given around 1700 last evening. A reduced basal dose was given this afternoon since 40 units of basal helped to decrease bsg's so rapidly yesterday. The dose was scheduled for around lunchtime today in an attempt to transition her back to morning dosing for discharge. Will reassess tomorrow am for future basal doses. * Will consider decreasing goal range tomorrow if adequate glycemic control can be maintained. PLAN FOR INPATIENT GLYCEMIC CONTROL: * Hold outpatient diabetes medications * Basal insulin- increased * Lantus 30 units SQ today AM * Bolus insulin- tightened * NovoLog per scale ACHS or Q6hrs while NPO * Goal Range: Low 120 mg/dL - High 160 mg/dL * Correction Factor: 30 mg/dL/unit * Nutritional / Prandial insulin per carb ratio of 1 unit per 10 grams CHO consumed PLAN FOR DISCHARGE: * See CDE note. Patient has been non-compliant on home anti-diabetic regimen. * Recommend continue home regimen upon discharge and encourage compliance with meds, SMBG and Novolog with correction and carb coverage.
[2018-05-25 15:12] VITALS: TEMP 98.6; O2SAT 97
--- NOTE | 2018-05-25 17:11 | Discharge Summary ---
Date of Service May 25, 2018 Admission HPI Per Admitting Provider This is a 77-year-old female with a past medical history including HTN, HL, DM 2, osteoporosis, pernicious anemia, lumbar spinal stenosis, and GERD. She states that she was not feeling well and got up this morning and had a syncopal event, falling and hitting her head. She presented to the emergency room and had a CT of the head completed which showed no fracture or subdural hematoma. She was incidentally found to have a sugar greater than 800 and was referred to us for admission. In the emergency department she received regular insulin 10 units and a liter of normal saline solution. The patient reports that she has had 2-3 weeks of nausea and vomiting as well as diarrhea. She was seen by her PCP and was instructed to take Imodium to slow down the diarrhea. She has had some dizziness and lightheadedness since that. But felt better this morning and deciding the shower. It was after this that she fell but cannot remember if she passed out or if it was a mechanical fall. She reports that she stayed on the floor for approximately 15 minutes and was aware during that period. The patient reports that over the last several weeks she is not been compliant with her medications due to cost. She has been taking medications approximately every other day in an effort to save expense for all of her medications. She is on a fixed income and does not have the resources to take medications as prescribed. Her primary care physician has been helping and was able to obtain samples of the Lantus pen but not of her other medications. Her hemoglobin A1c in the past has been around 8.5 and she reports that recently has been between 11 and 12 and she attributes this to taking Lantus every other day and metformin every other day. She also indicates that she is not diligent with checking her blood sugar and that when she does take it ranges anywhere from the 180s to over 400. She does not use any NovoLog or supplemental insulin when her sugar is high. She does report that her primary care physician recently increased her Lantus from 34 units daily to 40 units daily. Regarding her diet, she enjoys fresh fruits frequently and will eat 3 or 4 "cuities" at a sitting. She also has occasional chocolate bars as a treat. She enjoys carb laden foods such as pretzels. The patient was 16 years ago and lives alone at home. She has 1 son that lives locally and checks on her daily by phone. She functions and performs ADLs on her own. She has 2 other children that live out of the area. Principal Diagnosis Hyperglycemia, Syncope Discharge Exam Constitutional WD/WN, vitals as above Eyes PERRL, conjunctivae normal, anicteric sclerae ENMT Ears: no hearing impairment Nose: + facial edema (Mild in the right cheek but improved from previous with small hematoma on the right forehead) Neck trachea midline, no thyromegaly Respiratory normal respiratory effort, lungs clear to auscultation Cardiovascular RRR, no murmur, no edema Gastrointestinal (Abdomen) normal bowel sounds, soft, nontender, no hepatosplenomegaly Musculoskeletal Extremities: extremities normal to inspection; no cyanosis and no clubbing Skin no rashes, warm and dry Neurologic moves all extremities and awake; no focal motor deficits Psychiatric A+Ox3, euthymic affect Discharge Data Allergies Allergy/AdvReac Type Severity Reaction Status Date / Time No Known Allergies Allergy Verified 05/23/18 12:45 Consultations None Ordered Studies 05/23/18 12:33 CT cervical spine wo con Stat CT facial bones wo con Stat 05/23/18 12:34 CT head/brain wo con Stat Hospital Course (1) Syncope: No prior CAD or arrhythmia history Patient with fall at home while in the shower likely secondary to dehydration from severe hyperglycemia with sugar in the 800s No significant arrhythmias on telemetry Dobutamine stress echocardiogram 01/05/2018 with no inducible ischemia and normal LV function (2) Hyperglycemia: Blood sugar was 877 upon admission, now improved rapidly with IVFs and insulin Poorly controlled diabetes with a hemoglobin A1c of 11.1% due to noncompliance with prescribed regimen Noncompliant with medications at home secondary to cost and affordability Has been taking her Lantus and metformin every other day Noncompliant with a diabetic diet in as much the patient gets differing instructions from different providers on what she should and should not eat-she frequently consumes Gatorade, Coke, pretzels, apple juice and orange juice "all day long" -Was initially placed on insulin drip with IV fluids and now that has been weaned off -Continue Lantus 40 units daily upon discharge and she states she will take it every day as prescribed -Diabetic education consult appreciated -restart home meds metformin upon discharge -given ongoing nausea and vomiting for many months, recommend DISCONTINUING Victoza as this may be causing this side effect, especially in light of the fact pt reports eating very large meals at home (3) Hyponatremia: Pseudohyponatremia due to severe hyperglycemia-now resolved (4) MICHAEL (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 Palma x2 Scheduled to be seen in the pain clinic next week for injection -previously seen by Gricelda West PA-C -Takes oxycodone chronically at home as needed -Continue gabapentin from home (7) Pernicious anemia: Continue monthly injections of B12 Follow serial labs (8) Diabetes mellitus: See above plan for hyperglycemia Diabetes mellitus type 2 with hemoglobin A1c of 11.1 (9) GERD (gastroesophageal reflux disease): -Continue Pepcid (10) Hypercholesterolemia: Continue home simvastatin (11) Nausea vomiting and diarrhea: She has chronic occasional vomiting, suspect gastroparesis from severely uncontrolled diabetes as well as side effect from Victoza Now with worsening nausea, vomiting, diarrhea for the last 3 weeks Stool studies here with C. difficile negative, stool culture negative, Fecal leukocytes negative No abdominal pain or signs of obstruction -Could be secondary to severe hyperglycemia -Treated with antiemetics as needed, loperamide as needed for diarrhea Improved prior to discharge (12) DVT prophylaxis: Dmitriy Sinha were provided Disposition-stable for dc to home after evaluation by PT/OT deemed safe to return home Total Time Total Time Spent Total Time Spent (In Minutes): >30 min Total Time Includes: Examination of the Patient, Discharge Planning and Medication Reconciliation Discharge Plan Discharge Items Patient Disposition: Home - Self-Care Reason For Visit: SYNCOPE,HYPERGLYCEMIA Discharge Diagnosis: Syncope, Hyperglycemia Condition: Good Discharge Goals: Diagnostic testing, Improve disease control, Learn about illness and Therapeutic intervention Activity: Resume your previous activity Lifting: Gradually increase as tolerated Bathing: No limitations Exercise/Sports: Gradually increase as tolerated Driving/Machine Use: No limitations Non-emergency contact: Primary Care Provider Call non-emergency contact if: you have any medication questions, your symptoms worsen, your pain is not controlled, your pain is worsening, your pain is un usual for you and your pain is concerning for you Follow-up/Referrals: Michelle Underwood MD [Primary Care Provider] - 06/02/18 3:00 pm (Please, follow up at Dr. Underwood's office with Mariia Maier PA-C on June 02 at 3:00 pm. *If you need to change this appointment, call the office at [phone].) Diet: Carb Consistent or DM2 Addtl Provider Instructions: You were admitted after passing out in the shower. Your high blood sugars caused you to be severely dehydrated which caused you to pass out. Your blood glucose here initially was 877. We were able to control your blood sugar with giving you regular doses of insulin. It is very important that you continue to take your Lantus EVERY DAY as prescribed. You can continue your metformin, but given your recent troubles with diarrhea, you may want to stop this for 1-2 weeks and see if it improves your diarrhea. Because you have been vomiting frequently and tend to eat very large portions of meals, your Victoza may be contributing to the vomiting. I would suggest stopping the Victoza also for a few weeks to see if your vomiting improves. Your vomiting probably also increased due to your severely high blood sugars. Please check your blood sugars at least twice a day, ESPECIALLY WHEN YOU ARE SICK. For your head injury, your CT of the head was negative for bleeding. If you develop a worsening headache, vision changes, dizziness, or for any other acute concerns, please call 911 and go to the hospital. Please follow up with your PCP as scheduled for you next week. Prescriptions: New loperamide 2 mg Capsule 2 mg PO Q4 PRN (Reason: loose stool) Qty: 30 RF: 0 Continued ibuprofen 600 mg tablet 600 mg PO Q8H PRN (Reason: Pain) RF: 0 duloxetine 60 mg capsule,delayed release(DR/EC) 60 mg PO QAM RF: 0 Toviaz 8 mg tablet extended release 24 hr 8 mg PO QAM RF: 0 simvastatin 10 mg Tablet 10 mg PO HS RF: 0 aspirin [Aspirin Low Dose] 81 mg Tablet,Delayed Release (Dr/Ec) 81 mg PO QAM RF: 0 famotidine 20 mg tablet 20 mg PO HS RF: 0 metformin 1,000 mg Tablet 1,000 mg PO BIDM RF: 0 lisinopril-hydrochlorothiazide 10-12.5 mg Tablet 1 tab PO QAM RF: 0 insulin glargine 100 unit/mL (3 mL) insulin pen 40 unit subcut QAM RF: 0 cyanocobalamin (vitamin B-12) 1,000 mcg/mL Kit 1,000 mcg IM MONTHLY RF: 0 cholecalciferol (vitamin D3) [Vitamin D3] 1,000 unit Capsule 1,000 unit PO QAM RF: 0 gabapentin 300 mg capsule 300 mg PO HS RF: 0 oxycodone 5 mg tablet 5 mg PO TID PRN (Reason: Pain) RF: 0 Discontinued liraglutide 0.6 mg/0.1 mL (18 mg/3 mL) pen injector 1.8 mg subcut QAM RF: 0 Stand-Alone Forms: [facility] Discharge Orders: Discharge Order (Routine); Ordered 05/25/18 Ordered By: Laly Curry Admission Data Admit Date/Time: 05/23/18 15:21 Attending Provider: Laly Curry Admit Provider: Laly Curry Primary Care Provider: Michelle Underwood Service: Telemetry Other Interventions: Discharge Summary Assessment (RN) Last Done: 05/25/18 17:22 Pending Studies at Discharge: No DC Date/Time DO NOT enter until pt leaves facility: 05/25/18 18:14
[2018-05-25 17:28] VITALS: BP 135/80; PULSE 89
== END 2018-05-25 18:14 | disposition home or self-care (01) | DRG 312 ==
LOC: ED 12:14 → 2S 15:21
DX: M48.061 Spinal stenosis, lumbar region without neurogenic claudication; E86.0 Dehydration; R19.7 Diarrhea, unspecified; Z79.82 Long term (current) use of aspirin; K21.9 Gastro-esophageal reflux disease without esophagitis; N17.9 Acute kidney failure, unspecified; W18.2XXA Fall in (into) shower or empty bathtub, initial encounter; Z79.4 Long term (current) use of insulin; Z79.899 Other long term (current) drug therapy; R55 Syncope and collapse; S00.83XA Contusion of other part of head, initial encounter; Z91.11 Patient's noncompliance with dietary regimen; I10 Essential (primary) hypertension; E78.00 Pure hypercholesterolemia, unspecified; D51.0 Vitamin B12 deficiency anemia due to intrinsic factor deficiency; E11.65 Type 2 diabetes mellitus with hyperglycemia; Z91.120 Patient's intentional underdosing of medication regimen due to financial hardship; R51 Headache; E87.1 Hypo-osmolality and hyponatremia

== ENCOUNTER 2018-06-23 12:05 | Observation (INO) ==
--- OUTSIDE RECORDS SUMMARY | 2018-06-23 12:09 | External Medical Summary | Continuity of Care Document ---
:1940 Author Name Jeb Cruz Address Unavailable Unavailable , Care Team Providers Name Role Phone Nicko Cruz I. Unavailable [email or web address] Omaira Munoz PA-C Unavailable [email or web address] Ashvin LYNCH Unavailable [email or web address] Kj Cruz Unavailable [email or web address] Oleg Cruz Unavailable [email or web address] Rosie UNDERWOOD M.D. Unavailable Unavailable Og Cruz, Mik. Unavailable [email or web address] Alexis Gusman Unavailable [email or web address] Jarred Simmons PA-C Unavailable [email or web address] Erasto Cruz, M. Unavailable [email or web address] Gordon MAY Unavailable Unavailable Adán COLEMAN Unavailable Unavailable Luis Miguel BRAXTON Unavailable Unavailable Miguel III, M Unavailable Unavailable HEIMER, L Unavailable Unavailable Unavailable Unavailable Unavailable Problems Genital herpes simplex (054.10) (A60.00) Obesity (278.00) (E66.9) Esophageal reflux (530.81) (K21.9) Encounter for routine pelvic examination (V72.31) (Z01.419) Hearing loss (389.9) (H91.90) Hair loss (704.00) (L65.9) Hypomagnesemia (275.2) (E83.42) Pneumonia (486) (J18.9) Hypercalcemia (275.42) (E83.52) Dysfunction of left eustachian tube (381.81) (H69.82) Abnormal serum protein electrophoresis (790.99) (R77.8) Knee pain (719.46) (M25.569) Osteoporotic compression fracture of spine, sequela (905.1) (M80.88XS) Osteoarthritis (715.90) (M19.90) Fibrocystic breast disease (610.1) (N60.19) Nonalcoholic steatohepatitis (571.8) (K75.81) Lower abdominal pain (789.09) (R10.30) Itching of ear (698.9) (L29.9) Vulvitis (616.10) (N76.2) Upper back pain (724.5) (M54.9) Left foot pain (729.5) (M79.672) Seeing [facility] Rib pain on right side (786.50) (R07.81) Hyperlipidemia (272.4) (E78.5) Postmenopausal atrophic vaginitis (627.3) (N95.2) Fatigue (780.79) (R53.83) Obstructive sleep apnea of adult (327.23) (G47.33) Need for influenza vaccination (V04.81) (Z23) Vitamin D deficiency (268.9) (E55.9) Osteoporosis (733.00) (M81.0) Bilateral impacted cerumen (380.4) (H61.23) Pelvic pain (R10.2) Burning with urination (788.1) (R30.0) Stress incontinence in female (625.6) (N39.3) Urinary incontinence (788.30) (R32) Urinary symptom or sign (788.99) (R39.9) Diarrhea, unspecified type (787.91) (R19.7) Depression (311) (F32.9) Lumbar canal stenosis (724.02) (M48.061) Uncontrolled type II diabetes mellitus (250.02) (E11.65) Hypertension (401.9) (I10) Syncope (780.2) (R55) Fall (E888.9) (W19.XXXA) Pernicious anemia (281.0) (D51.0) Abdominal pain (789.00) (R10.9) Functional Status Hearing loss Allergies and Adverse Reactions Percodan TABS (Allergy) Medications Aspirin Low Dose 81 MG TABS; TAKE 1 TABLET DAILY. Carlos Dejesus Start: 22-Aug-2009 Refills: 0 metFORMIN HCl - 1000 MG Oral Tablet; Take 1 tablet twi ce daily Nancy Underwood Start: 22-Aug-2009 Quantity: 180 Refills: 3 Simvastatin 10 MG Oral Tablet; TAKE 1 TABLET AT BEDTIM E. Nancy Underwood Start: 22-Aug-2009 Quantity: 90 Refills: 3 Lisinopril-hydroCHLOROthiazide 10-12.5 MG Oral Tablet; Take 1 tablet daily Nancy Underwood Start: 16-Jan-2010 Quantity: 90 Refills: 3 valACYclovir HCl - 1 GM Oral Tablet; JESENIA E 1 TABLET Every twelve hours PRN outbreak Nancy Underwood Start: 29-Jan-2010 Quantity: 6 Refills: 3 Lantus SoloStar 100 UNIT/ML Subcutaneous Solution Pen-injector; INJECT 34 units at bedtime Nancy Underwood Start: 15-Sep-2011 Quantity: 2 5 x 3 ML Pen Refills: 3 OneTouch Verio In Vitro Strip; TEST three times a day if needed Nancy Underwood Start: 22-Jun-2018 Quantity: 300 Refills: 3 BD Pen Needle Kendra U/F 32G X 4 MM; use once daily or a s directed SY[employer] Lock Start: 10-Mar-2012 Quantity: 1 100 Miscellaneous Alberto x Refills: 3 OneTouch Verio IQ System w/Device Kit; USE DIRECTED. JIMBO Mackey Start: 15-Sep-2013 Quantity: 1 Refills: 0 Famotidine 20 MG Oral Tablet; TAKE 1 TABLET Bedtime Nancy Stark Start: 07-Jul-2016 Quantity: 90 Refills: 3 Cyanocobalamin 1000 MCG/ML Injection Michell ution; INJECT 1 ML INTRAMUSCULARLY ONCE A MONTH Nancy Underwood Start: 30-Oct-2017 Quantity: 0 Status: Admin Reques toshia Refills: 0 Gabapentin 300 MG Oral Capsule; TAKE 1 CAPSULE AT BEDT CHRIS. Nancy Underwood Start: 09-Mar-2017 Quantity: 30 Refills: 5 Vitamin D3 1000 UNIT Oral Capsule; TAKE DIRECTED. Nancy Crawford Start: 17-Nov-2017 Refills: 0 Estradiol 0.1 MG/GM Vaginal Cream; APPLY A PEA-SIZED AMOUNT TO VAGINAL OPENING EVERY WEDNESDAY, WEDNESDAY, AND WEDNESDAY EVENING. Nancy Maharaj I. Start: 02-Mar-2018 Quantity: 1 42.5 GM Tube Refills: 3 Toviaz 8 MG Oral Tablet Extended Release 24 Hour; Take 1 tablet daily Nancy Maharaj I. Start: 02-Mar-2018 Quantity: 30 Refills: 6 Toviaz 4 MG Oral Tablet Extended Release 24 Hour; TAKE 1 TABLET DAILY. Nancy Maharaj I. Start: 19-Apr-2018 Quantity: 30 Refills: 6 DULoxetine HCl - 60 MG Oral Capsule Kelsey yed Release Particles; TAKE 1 CAPSULE Daily Nancy Underwood Start: 25-Mar-2018 Quantity: 30 Refills: 5 Ibuprofen 600 MG Oral Tablet; TAKE 1 TABLET Every 6 hours PA N pain Refills: 0 Loperamide HCl - 2 MG Oral Tablet; TAKE 1 TABLET Every 4 nicole rs PRN DIARRHEA Refills: 0 Victoza 18 MG/3ML Subcutaneous Solution Pen-injector; Inject 1.8 mg SQ once daily Nancy Underwood Start: 14-Jul-2017 Quantity: 1 3 x 3 ML Pen Refills: 3 Procedures Comp Metabolic Panel Date: 23-May-2018 Hemoglobin A1C Date: 23-May-2018 History of Total Abdominal Hysterectomy Status: Completed History of Hernia Repair Status: Complet ed History of Knee Surgery Status: Complete d History of Wrist Surgery Status: Complet ed History of Breast Surgery Reduction Procedure Status: Completed History of Revision Of Total Knee Arthroplasty Status: Completed History of Hand Surgery Status: Complete d History of back surgery Status: Complete d Immunizations Pneumococcal polysaccharide vaccine, 23 valent On: 23-Sep-19 06 Pneumococcal polysaccharide vaccine, 23 valent On: 1 9:43 Lot #: [id number], [employer] Influenza On: 13-Jan-2012 10:29 Lot #: [id number], [employer] Zostavax 92330 UNT/0.65ML Subcutaneous Solution Reconstitute d On: 17-Jul-2013 Fluzone High-Dose Intramuscular Suspension On: 13-Oct-2013 Prevnar 13 Intramuscular Suspension 1 On: 15-Jan-2014 10:26 Lot #: [id number], [employer] Fluzone INJ On: 22-Oct-2014 9:19 Lot #: [id number], [employer] Fluzone High-Dose Intramuscular Suspension On: 24-Oct-2015 Fluzone High-Dose Intramuscular Suspension On: 06-Oct-2016 1 0:55 Lot #: [id number], [employer] Fluzone High-Dose 0.5 ML Intramuscular Suspension Pref illed Syringe On: 16-Nov-2017 12:03 Lot #: [id number], [employer] Tdap (Adacel) Comments:Approx [id number] Family History Mother Family history of Acute Myocardial Infarction (V17.3) Status : Active Father Family history of Congestive Heart Failure Status: Active Unknown Family Member Family history of diabetes mellitus (V18.0) Status: Active Comments: Family History (Z83.3) Grandfather Family history of skin cancer (V16.8) (Z80.8) Status: Active Social History - Smoking Status Never smoker Plan of Treatment Planned Encounters Appointment; Javi Maharaj M.D. Start: 17-Aug-2018 11:15 R equest Planned Observations Planned Goals not documented Results No Known Results Results not documented Vital Signs 23-Jun-2018 10:56 Systolic 112 mm[Hg] Comments: Location: E; Position: Sitting Diastolic 78 mm[Hg] Comments: Location: E; Position: Sitting Temperature 98.3 f Comments: Method: Te mporal Height 62 in BMI Calculated 26.34 kg/m2 Weight 144 lb BSA Calculated 1.66 m2 Respiration 18 /min Comments: Quality: N ormal Heart Rate 97 /min 02-Jun-2018 14:42 Systolic 112 mm[Hg] Comments: Position: Sitting Diastolic 72 mm[Hg] Comments: Position: Sitting Temperature 98.1 f Comments: Method: Or al BMI Calculated 26.59 kg/m2 Weight 145.375 lb BSA Calculated 1.67 m2 Respiration 16 /min Heart Rate 114 /min O2 Saturation 94 % Comments: Source: RA Encounters Appointment; Mariia Maier PA-C 23-Jun-2018 11:00 Encounter Diagnosis: Problem not documented Appointment; [place] [id number] 20-Jun-2018 10:00 Encounter Diagnosis: Problem not documented Appointment; Mariia Maier PA-C 02-Jun-2018 15:00 Encounter Diagnosis: Problem not documented Appointment; Michelle Underwood M.D. 17-May-2018 11:30 Encounter Diagnosis: Problem not documented Appointment; Javi Maharaj M.D. 19-Apr-2018 13:55 Encounter Diagnosis: Problem not documented Appointment; [place] [id number] 12-Apr-2018 10:10 Encounter Diagnosis: Problem not documented Appointment; Michelle Underwood M.D. 25-Mar-2018 10:30 Encounter Diagnosis: Problem not documented Appointment; [facility]ness, Nurse 25-Mar-2018 9:50 Encounter Diagnosis: Problem not documented Appointment; [place] [address] 21-Mar-2018 10:40 Encounter Diagnosis: Problem not documented Appointment; [place] [address] 18-Mar-2018 7:55 Encounter Diagnosis: Problem not documented Appointment; Javi Maharaj M.D. 09-Mar-2018 15:55 Encounter Diagnosis: Problem not documented Appointment; Urology, Room 7 09-Mar-2018 15:40 Encounter Diagnosis: Problem not documented Appointment; Javi Maharaj M.D. 02-Mar-2018 15:45 Encounter Diagnosis: Problem not documented Appointment; [place] [address] 16-Feb-2018 9:55 Encounter Diagnosis: Problem not documented Appointment; Mirta Farley PA-C 14-Feb-2018 9:00 Encounter Diagnosis: Problem not documented Appointment; Mariia Maier PA-C 12-Jan-2018 15:30 Encounter Diagnosis: Problem not documented Appointment; Zuri Plummer M.D. 12-Jan-2018 9:00 Encounter Diagnosis: Problem not documented Appointment; [place] [id number] 14-Dec-2017 9:25 Encounter Diagnosis: Problem not documented Appointment; Michelle Underwood M.D. 16-Nov-2017 10:30 Encounter Diagnosis: Problem not documented Appointment; Stephan Robison DO 04-Nov-2017 10:00 Encounter Diagnosis: Problem not documented Appointment; [place] [address] 14-Oct-2017 9:15 Encounter Diagnosis: Problem not documented Appointment; Mariia Maier PA-C 06-Oct-2017 15:00 Encounter Diagnosis: Problem not documented Appointment; [place] [address] 14-Sep-2017 9:25 Encounter Diagnosis: Problem not documented Appointment; Michelle Underwood M.D. 13-Aug-2017 11:00 Encounter Diagnosis: Problem not documented Appointment; Mirta Farley PA-C 12-Aug-2017 8:20 Encounter Diagnosis: Problem not documented Appointment; Michelle Underwood M.D. 14-Jul-2017 11:30 Encounter Diagnosis: Problem not documented Appointment; [place] [address] 15-Jun-2017 9:35 Encounter Diagnosis: Problem not documented Appointment; Michelle Underwood M.D. 14-May-2017 13:00 Encounter Diagnosis: Problem not documented Appointment; [place] [address] 07-Apr-2017 8:25 Encounter Diagnosis: Problem not documented Appointment; Michelle Underwood M.D. 09-Mar-2017 9:00 Encounter Diagnosis: Problem not documented Appointment; Mirta Farley PA-C 15-Feb-2017 8:20 Encounter Diagnosis: Problem not documented Appointment; [place] [address] 28-Jan-2017 9:10 Encounter Diagnosis: Problem not documented Appointment; Michelle Underwood M.D. 05-Jan-2017 11:00 Encounter Diagnosis: Problem not documented Appointment; [facility], Nurse 05-Jan-2017 10:20 Encounter Diagnosis: Problem not documented Appointment; [place] [address] 04-Dec-2016 10:30 Encounter Diagnosis: Problem not documented Appointment; Michelle Underwood M.D. 30-Oct-2016 12:00 Encounter Diagnosis: Problem not documented Appointment; Michelle Underwood M.D. 06-Oct-2016 10:00 Encounter Diagnosis: Problem not documented Appointment; Qi Collins CRNP 01-Oct-2016 10:00 Encounter Diagnosis: Problem not documented Appointment; [place] [address] 03-Sep-2016 9:50 Encounter Diagnosis: Problem not documented Appointment; [facility], Ultrasound 14-Aug-2016 10:00 Encounter Diagnosis: Problem not documented Appointment; Shonda Jj PA-C 14-Aug-2016 8:50 Encounter Diagnosis: Problem not documented Appointment; Mirta Farley PA-C 12-Aug-2016 8:40 Encounter Diagnosis: Problem not documented Appointment; [place] [address] 07-Aug-2016 9:20 Encounter Diagnosis: Problem not documented Appointment; Michelle Underwood M.D. 05-Aug-2016 10:00 Encounter Diagnosis: Problem not documented Appointment; [place] [address] 03-Jul-2016 9:45 Encounter Diagnosis: Problem not documented Appointment; Javi Maharaj M.D. 17-Aug-2018 11:15 Encounter Diagnosis: Problem not documented
[2018-06-23] MEDS ORDERED: MoRPHine SULFATE 4 MG/ML 1 ML CARP\\VIAL IV STA (12:18)
[2018-06-23] MEDS ORDERED: ONDANSETRON INJ 2 MG/ML 2 ML VIAL IV STA (12:18)
[2018-06-23] MEDS ORDERED: SODIUM CHLORIDE 0.9% 1000ML 1,000 ML IV SCH (12:30)
[2018-06-23 12:38] LABS: Basophils # (auto) 0.03 K/uL (0-0.2); Basophils % (auto) 0.3 %; Eosinophils # (auto) 0.63 K/uL (0-0.5); Eosinophils % (auto) 5.3 %; Hematocrit (blood only) 42.8 % (37-47); Hemoglobin 15.8 g/dL (12.0-16.0); Immature Granulocytes # (auto) 0.04 K/uL (0.00-0.02); Immature Granulocytes % (auto) 0.3 %; Lymphocytes # (auto) 2.79 K/uL (1.2-3.4); Lymphocytes % (auto) 23.5 %; Mean Corpuscular Hgb Conc 36.9 g/dL (32-36); Mean Corpuscular Volume 85.8 fL (80-100); Mean Platelet Volume 10.7 fL (7.4-10.4); Monocytes # (auto) 0.67 K/uL (0.11-0.59); Monocytes % (auto) 5.7 %; Neutrophils # (auto) 7.69 K/uL (1.4-6.5); Neutrophils % (auto) 64.9 %; Platelet Count 244 K/uL (130-400); RDW Coefficient of Variation 12.9 % (11.5-14.5); RDW Standard Deviation 40.4 fL (36.4-46.3); Red Blood Count 4.99 M/uL (4.2-5.4); White Blood Count 11.85 K/uL (4.8-10.8)
[2018-06-23 12:52] LABS: Partial Thromboplastin Ratio 0.8; Partial Thromboplastin Time 21.5 Seconds (21.0-31.0); Prothrombin Time 10.3 Seconds (9.0-12.0)
[2018-06-23 12:59] LABS: Albumin Level 3.9 gm/dl (3.4-5.0); Aspartate Aminotransferase 23 U/L (15-37); BUN Creatinine Ratio 16.8 (10-20); Bilirubin Direct 0.2 mg/dl (0-0.2); Blood Urea Nitrogen 18 mg/dl (7-18); Calcium 9.6 mg/dl (8.5-10.1); Carbon Dioxide 24 mmol/L (21-32); Chloride 107 mmol/L (98-107); Creatinine Clr Calc Pharmacy 40.7 ml/min; Est GFR (African American) 58.8; Est GFR (Non-African American) 50.7; Glucose 181 mg/dl (70-99); Potassium 3.7 mmol/L (3.5-5.1); Sodium 141 mmol/L (136-145)
[2018-06-23 13:04] LABS: Alanine Aminotransferase 29 U/L (12-78); Alkaline Phosphatase 104 U/L (45-117); Bilirubin,Total 0.8 mg/dl (0.2-1); Total Protein 7.2 gm/dl (6.4-8.2); Troponin I < 0.015 ng/ml (0-0.045)
[2018-06-23] MEDS ORDERED: IOVERSOL 100ml IV PRN (13:24)
--- NOTE | 2018-06-23 13:41 | CT Scan Report ---
CT abd pelvis IV con only CT DOSE: 348.26 mGy.cm HISTORY: Pain. Nausea. RLQRUQpain vomitting TECHNIQUE: Multiaxial CT images of the abdomen and pelvis were performed following the use of intrave nous contrast. A dose lowering technique was utilized adhering to the principles of ALARA. COMPARISON STUDY: 08/21/2016 FINDINGS: Lung bases are considered clear. Liver is uniform throughout. Possible small gallstone. The adrenal glands are unremarkable. The kidneys enhance appropriately. Stable postoperative change of the lumbar spine. Bowel pattern is considered nonobstructive. Normal appendix. The bladder is midline. No significant f ree fluid within the pelvic cul-de-sac. IMPRESSION: 1. Normal appendix. 2. Nonobstructive bowel pattern. 3. No acute process of the abdomen or pelvis. The above report was generated using voice recognition software. It may contain grammatical, syntax or spelling errors. Electronically signed by: Arcenio Bowman M.D. 06/23/2018 1:39 PM
--- NOTE | 2018-06-23 15:27 | Ultrasound Report ---
US gallbladder CLINICAL HISTORY: 77 years-old Female presenting with ro sun. TECHNIQUE: Real-time grayscale and limited color Doppler ultrasound imaging of the abdomen limited to the right upper quadrant was performed. COMPARISON: CT from earlier today. FINDINGS: Pancreas: Visualized portions of the pancreatic head and body normal. Top normal diameter of the panc reatic duct. Liver: Mildly hyperechogenic parenchyma, although the right hemidiaphragm remains visible, likely ind icating mild steatosis. The liver measures 13.5 cm in maximal sagittal dimension. No sonographic evid ence of hepatic mass. Main portal vein patent with normal directional flow. Biliary: No intrahepatic biliary ductal dilatation. Common bile duct measures up to 8 mm in diameter. Gallbladder: 3 mm nonmobile hyperechogenic nonshadowing focus adherent to the gallbladder wall. Simil ar additional focus may also be present. In addition, gallstones are noted. Right kidney: Normal in appearance without evidence of hydronephrosis. Ascites: None. Other: None. IMPRESSION: 1. Cholelithiasis with mild extra hepatic biliary ductal dilatation. 2. 3 mm likely cholesterol polyp in the gallbladder. 3. Mild hepatic steatosis. Electronically signed by: Gustavo Grady M.D. 06/23/2018 3:26 PM
[2018-06-23] MEDS ORDERED: KETOROLAC TROMETHAMINE 15 MG/ML VIAL IV STA (16:09)
--- NOTE | 2018-06-23 17:57 | Emergency Department Note ---
Entered by Manuel Osorio acting as a scribe for History of Present Illness General Chief complaint: Vomiting Stated complaint: pain in right side, vomiting Time Seen by Provider: 06/23/18 12:11 Source: patient Mode of arrival: ambulatory History of Present Illness Provider complaint: Vomiting Onset (ago): month(s) 1 Location: abdomen Pain Consistency: + constant Maximum Pain Intensity: 8 Current Pain Intensity: 8 Associated symptoms: no fever/chills Patient is a 77 year old female who presents herself to the ER with complaint of abdominal pain beginning yesterday. She reports that the abdominal pain is located on the right side. She reports that she went to go see her PCP today who examined her and was worried that the patient might have gallstones. The patient reports she has been having nausea and vomiting. She also reports that the pain has been radiating to her back as well. Patient reports having a history of a hysterectomy. Patient denies fever, chest pain, difficulty breathing, blood in vomit, coffee-ground emesis, black tarry stools and blood in stool. Home Medications Home Medications Medication Instructions Recorded Confirmed Type aspirin [Aspirin Low Dose] 81 mg PO QAM 01/03/18 06/23/18 History cholecalciferol (vitamin D3) 1,000 unit PO QAM 01/03/18 06/23/18 History [Vitamin D3] cyanocobalamin (vitamin B-12) 1,000 mcg IM MONTHLY 01/03/18 06/23/18 History famotidine 20 mg PO HS 01/03/18 06/23/18 History gabapentin 300 mg PO HS 01/03/18 06/23/18 History insulin glargine 40 unit SUBCUT QAM 01/03/18 06/23/18 History lisinopril-hydrochlorothiazide 1 tab PO QAM 01/03/18 06/23/18 History metformin 1,000 mg PO BIDM 01/03/18 06/23/18 History oxycodone 5 mg PO TID PRN 01/03/18 06/23/18 History simvastatin 10 mg PO HS 01/03/18 06/23/18 History Toviaz 8 mg PO QAM 05/23/18 06/23/18 History duloxetine 60 mg PO QAM 05/23/18 06/23/18 History ibuprofen 600 mg PO Q8H PRN 05/23/18 06/23/18 History loperamide 2 mg PO Q4 PRN #30 cap 05/25/18 06/23/18 Rx liraglutide [Victoza 3-Reuben] 1.8 mg SUBCUT QAM 06/23/18 06/23/18 History Allergies Allergy/AdvReac Type Severity Reaction Status Date / Time No Known Allergies Allergy Verified 06/23/18 13:54 Past Med/Surg History Medical History Peripheral neuropathy (Chronic) Lumbar spinal stenosis (Resolved) Pernicious anemia (Chronic) Diabetes mellitus (Chronic) GERD (gastroesophageal reflux disease) (Chronic) Osteoporosis (Chronic) Hypercholesterolemia (Chronic) Hypertension (Chronic) Surgical History History of lumbar surgery (Chronic) L4-S1 fusion X [address] Palma History of ankle surgery (Chronic) History of total knee arthroplasty (Chronic) left History of hysterectomy for benign disease (Chronic) H/O reduction mammoplasty (Chronic) History of cataract extraction (Chronic) Family History Other Coronary heart disease Myocardial infarction Social History Preferred Language: Citizen Of [place] Communication Ability: Effective Beliefs That Will Affect Care: None marital status: / Current Living Situation: Alone current occupational status: retired Feels Safe at Home: Yes Smoking Status: Never smoker Second Hand Exposure: No Hx Alcohol Use: No Hx Substance Use: No Review of Systems See HPI for pertinent positives & negatives. and A total of 10 systems reviewed and were otherwise negative Physical Exam Vital Signs Vital Signs - 24 hr 06/23/18 12:08 06/23/18 12:48 06/23/18 13:00 Temperature 36.6 C Temperature Source Oral Sepsis Recent Fever Within 48 Hours No Sepsis New/Unexplained Change in Mental Status No Sepsis Action Taken by Nursing No Action Required Pulse Rate 113 H 87 93 H Pulse Rate [Apical] Pulse Rhythm Regular Pulse Rhythm [Apical] Pulse Strength Normal Respiratory Rate 20 22 19 Respiratory Effort / Characteristics Non-Labored Spontaneous Respiratory Depth Normal Respiratory Pattern Regular Blood Pressure 153/85 H Blood Pressure [Left Arm] Blood Pressure Mean 107 Blood Pressure Mean [Left Arm] Blood Pressure Position Sitting Pulse Oximetry 98 Oxygen Delivery Method Room Air 06/23/18 13:37 06/23/18 13:54 06/23/18 13:55 Temperature Temperature Source Sepsis Recent Fever Within 48 Hours Sepsis New/Unexplained Change in Mental Status Sepsis Action Taken by Nursing Pulse Rate 95 H 103 H Pulse Rate [Apical] 101 H Pulse Rhythm Pulse Rhythm [Apical] Regular Pulse Strength Respiratory Rate 18 17 18 Respiratory Effort / Characteristics Non-Labored Spontaneous Respiratory Depth Normal Respiratory Pattern Regular Blood Pressure 112/65 Blood Pressure [Left Arm] 112/65 Blood Pressure Mean 80 Blood Pressure Mean [Left Arm] 80 Blood Pressure Position Pulse Oximetry 93 91 Oxygen Delivery Method Room Air 06/23/18 14:00 06/23/18 14:30 06/23/18 15:30 Temperature Temperature Source Sepsis Recent Fever Within 48 Hours Sepsis New/Unexplained Change in Mental Status Sepsis Action Taken by Nursing Pulse Rate 102 H 97 H 82 Pulse Rate [Apical] Pulse Rhythm Pulse Rhythm [Apical] Pulse Strength Respiratory Rate 17 24 22 Respiratory Effort / Characteristics Respiratory Depth Respiratory Pattern Blood Pressure Blood Pressure [Left Arm] Blood Pressure Mean Blood Pressure Mean [Left Arm] Blood Pressure Position Pulse Oximetry 91 92 Oxygen Delivery Method 06/23/18 16:00 06/23/18 16:04 06/23/18 16:30 Temperature Temperature Source Sepsis Recent Fever Within 48 Hours Sepsis New/Unexplained Change in Mental Status Sepsis Action Taken by Nursing Pulse Rate 86 81 84 Pulse Rate [Apical] 84 Pulse Rhythm Pulse Rhythm [Apical] Pulse Strength Respiratory Rate 28 H 16 22 Respiratory Effort / Characteristics Respiratory Depth Respiratory Pattern Blood Pressure 99/58 L Blood Pressure [Left Arm] 99/58 L Blood Pressure Mean 71 Blood Pressure Mean [Left Arm] 71 Blood Pressure Position Pulse Oximetry 97 Oxygen Delivery Method 06/23/18 17:00 06/23/18 17:55 Temperature Temperature Source Sepsis Recent Fever Within 48 Hours Sepsis New/Unexplained Change in Mental Status Sepsis Action Taken by Nursing Pulse Rate 91 H 81 Pulse Rate [Apical] Pulse Rhythm Pulse Rhythm [Apical] Pulse Strength Respiratory Rate 23 18 Respiratory Effort / Characteristics Respiratory Depth Respiratory Pattern Blood Pressure 125/86 Blood Pressure [Left Arm] Blood Pressure Mean Blood Pressure Mean [Left Arm] Blood Pressure Position Pulse Oximetry 96 Oxygen Delivery Method Room Air Physical Exam GENERAL: He is oriented to person, place, and time. He appears well-developed and well-nourished. He does not appear distressed. ____ HENT: Exam performed. - Head: Normocephalic and atraumatic. - Right Ear: External ear normal. No mastoid tenderness. - Left Ear: External ear normal. No mastoid tenderness. - Mouth/Throat: The oropharynx is clear and moist. No trismus in the jaw. No dental abscesses or uvula swelling. No oropharyngeal exudate or tonsillar abscesses. ____ EYES: Conjunctivae and EOM are normal. Pupils are equal, round, and reactive to light. Right eye exhibits no discharge. Left eye exhibits no discharge. No scleral icterus. ____ NECK: Normal range of motion. Neck supple. No JVD present. No spinous process tenderness present. No carotid bruit present. No rigidity. No tracheal deviation and normal range of motion present. No Brudzinski's sign and no Kernig's sign noted. ____ CV: Normal rate, regular rhythm, normal heart sounds and intact distal pulses. There is no peripheral edema. Palpable radial pulses bue. ____ PULM/CHEST: Effort normal and breath sounds normal. No respiratory distress. No stridor. He has no wheezes. He has no rales. - Chest Wall: He exhibits no tenderness. ____ ABD: The abdomen is soft. Bowel sounds are normal. He has no distension. No mass is present. Pain on palpation right lower and upper quadrants. MUSC/SKEL: Normal range of motion. There is no peripheral edema, tenderness or deformity. LYMPH: No cervical adenopathy. ____ NEURO: He is alert and oriented to person, place, and time. He has normal strength. No cranial nerve deficit or sensory deficit. Coordination and gait nor mal. GCS eye subscore is 4. GCS verbal subscore is 5. GCS motor subscore is 6. cerbellar tests wnl. ____ SKIN: Skin is warm and dry. He is not diaphoretic. ____ PSYCH: He has a normal mood and affect. His behavior is normal. Judgment and thought content normal. ____ Course 1215: Past medical records reviewed. The patient was evaluated in room B9. A complete history and physical examination was performed. 1430: Vital signs stable. Labs and imaging within normal limits. On repeat abdominal exam, the patient continues have pain on palpation of the right upper quadrant. No pain on palpation right lower quadrant. Given these findings, the patient will be sent for ultrasound right upper quadrant rule out gallstones. 1616: Vital signs are stable. Ultrasound of the right upper quadrant showed cholelithiasis with common bile duct diameter of 8 mm. On repeat abdominal exam, pain on palpation of the RUQ was noted. After discussing with GI specialist it was suggested that the patient have a MRCP. I discussed the patient's labs, imaging findings, and recommendation with GI, and gave the patient the option to be admitted for observation to have MRCP done or to have MRCP done outpatient. Patient reports she is still having abdominal pain and thus would like to be admitted for observation to the hospital for GI evaluation and MRCP. I discussed this with the patient and she will be admitted under the care of EFREN Mock. Administered Medications Sodium Chloride (Nss 1000ml) 1,000 mls @ 125 mls/hr IV .Q8H RUI Stop: 07/23/18 12:29 Last Admin: 06/23/18 12:34 Dose: 125 mls/hr Documented by: [id number] Ioversol (Optiray 320 100ml) 94 ml IV ONCE PRN PRN Reason: Interaction Checking Stop: 06/27/18 13:23 Last Admin: 06/23/18 13:25 Dose: 94 ml Documented by: [id number] Discontinued Medications Ketorolac Tromethamine (Toradol) 15 mg IV NOW STA Stop: 06/23/18 16:10 Last Admin: 06/23/18 16:15 Dose: 15 mg Documented by: [id number] Morphine Sulfate (Morphine Sulfate) 4 mg IV NOW STA Stop: 06/23/18 12:19 Last Admin: 06/23/18 12:34 Dose: 4 mg Documented by: [id number] Ondansetron HCl (Zofran) 4 mg IV NOW STA Stop: 06/23/18 12:19 Last Admin: 06/23/18 12:34 Dose: 4 mg Documented by: [id number] Medical Decision Making Medical Records Attestation: I reviewed the patient's medical records. Home Medications Current Medication List: was personally reviewed by me Laboratory Data Attestation: I reviewed the patient's lab results. Result diagrams: 06/23/18 12:28 06/23/18 12:28 Lab Results 06/23/18 06/23/18 06/23/18 Range/Units 12:26 12:28 12:28 WBC 11.85 H (4.8-10.8) K/uL RBC 4.99 (4.2-5.4) M/uL Hgb 15.8 (12.0-16.0) g/dL Hct 42.8 (37-47) % MCV 85.8 (80-100) fL MCH 31.7 (25-34) pg MCHC 36.9 H (32-36) g/dL RDW Std Deviation 40.4 (36.4-46.3) fL RDW Coeff of Hien 12.9 (11.5-14.5) % Plt Count 244 (130-400) K/uL MPV 10.7 H (7.4-10.4) fL Immature Gran % (Auto) 0.3 % Neut % (Auto) 64.9 % Lymph % (Auto) 23.5 % [place] % (Auto) 5.7 % Eos % (Auto) 5.3 % Baso % (Auto) 0.3 % Immature Gran # (Auto) 0.04 H (0.00-0.02) K/uL Neut # (Auto) 7.69 H (1.4-6.5) K/uL Lymph # (Auto) 2.79 (1.2-3.4) K/uL [place] # (Auto) 0.67 H (0.11-0.59) K/uL Eos # (Auto) 0.63 H (0-0.5) K/uL Baso # (Auto) 0.03 (0-0.2) K/uL PT 10.3 (9.0-12.0) Seconds INR 1.0 (0.9-1.1) APTT 21.5 (21.0-31.0) Seconds PTT Ratio 0.8 Sodium (136-145) mmol/L Potassium (3.5-5.1) mmol/L Chloride (98-107) mmol/L Carbon Dioxide (21-32) mmol/L Anion Gap (3-11) BUN (7-18) mg/dl Creatinine (0.6-1.2) mg/dl Est Cr Clr Drug Dosing ml/min Est GFR ( Amer) Est GFR (Non-Af Amer) BUN/Creatinine Ratio (10-20) Glucose (70-99) mg/dl POC Glucose 172 H (70-99) Calcium (8.5-10.1) mg/dl Magnesium (1.8-2.4) mg/dl Total Bilirubin (0.2-1) mg/dl Direct Bilirubin (0-0.2) mg/dl AST (15-37) U/L ALT (12-78) U/L Alkaline Phosphatase (45-117) U/L Troponin I (0-0.045) ng/ml Total Protein (6.4-8.2) gm/dl Albumin (3.4-5.0) gm/dl Lipase (73-393) U/L 06/23/18 06/23/18 Range/Units 12:28 12:28 WBC (4.8-10.8) K/uL RBC (4.2-5.4) M/uL Hgb (12.0-16.0) g/dL Hct (37-47) % MCV (80-100) fL MCH (25-34) pg MCHC (32-36) g/dL RDW Std Deviation (36.4-46.3) fL RDW Coeff of Hien (11.5-14.5) % Plt Count (130-400) K/uL MPV (7.4-10.4) fL Immature Gran % (Auto) % Neut % (Auto) % Lymph % (Auto) % [place] % (Auto) % Eos % (Auto) % Baso % (Auto) % Immature Gran # (Auto) (0.00-0.02) K/uL Neut # (Auto) (1.4-6.5) K/uL Lymph # (Auto) (1.2-3.4) K/uL [place] # (Auto) (0.11-0.59) K/uL Eos # (Auto) (0-0.5) K/uL Baso # (Auto) (0-0.2) K/uL PT (9.0-12.0) Seconds INR (0.9-1.1) APTT (21.0-31.0) Seconds PTT Ratio Sodium 141 (136-145) mmol/L Potassium 3.7 (3.5-5.1) mmol/L Chloride 107 (98-107) mmol/L Carbon Dioxide 24 (21-32) mmol/L Anion Gap 10.0 (3-11) BUN 18 (7-18) mg/dl Creatinine 1.07 (0.6-1.2) mg/dl Est Cr Clr Drug Dosing 40.7 ml/min Est GFR ( Amer) 58.8 Est GFR (Non-Af Amer) 50.7 BUN/Creatinine Ratio 16.8 (10-20) Glucose 181 H (70-99) mg/dl POC Glucose (70-99) Calcium 9.6 (8.5-10.1) mg/dl Magnesium 1.6 L (1.8-2.4) mg/dl Total Bilirubin 0.8 (0.2-1) mg/dl Direct Bilirubin 0.2 (0-0.2) mg/dl AST 23 (15-37) U/L ALT 29 (12-78) U/L Alkaline Phosphatase 104 (45-117) U/L Troponin I < 0.015 (0-0.045) ng/ml Total Protein 7.2 (6.4-8.2) gm/dl Albumin 3.9 (3.4-5.0) gm/dl Lipase 139 (73-393) U/L Imaging Data Attestation: I personally reviewed and interpreted this imaging study as follows: Radiologist's Impression: Radiology results as stated below per my review and the radiologist's interpretation: US gallbladder CLINICAL HISTORY: 77 years-old Female presenting with ro sun. TECHNIQUE: Real-time grayscale and limited color Doppler ultrasound imaging of the abdomen limited to the right upper quadrant was performed. COMPARISON: CT from earlier today. FINDINGS: Pancreas: Visualized portions of the pancreatic head and body normal. Top normal diameter of the pancreatic duct. Liver: Mildly hyperechogenic parenchyma, although the right hemidiaphragm r emains visible, likely indicating mild steatosis. The liver measures 13.5 cm in maximal sagittal dimension. No sonographic evidence of hepatic mass. Main portal vein patent with normal directional flow. Biliary: No intrahepatic biliary ductal dilatation. Common bile duct measures up to 8 mm in diameter. Gallbladder: 3 mm nonmobile hyperechogenic nonshadowing focus adherent to the gallbladder wall. Similar additional focus may also be present. In addition, gallstones are noted. Right kidney: Normal in appearance without evidence of hydronephrosis. Ascites: None. Other: None. IMPRESSION: 1. Cholelithiasis with mild extra hepatic biliary ductal dilatation. 2. 3 mm likely cholesterol polyp in the gallbladder. 3. Mild hepatic steatosis. Electronically signed by: Gustavo Grady M.D. 06/23/2018 3:26 PM Dictated: 06/23/18 1519 Transcribed: 06/23/[address] abd pelvis IV con only CT DOSE: 348.26 mGy.cm HISTORY: Pain. Nausea. RLQRUQpain vomitting TECHNIQUE: Multiaxial CT images of the abdomen and pelvis were performed following the use of intravenous contrast. A dose lowering technique was utilized adhering to the principles of ALARA. COMPARISON STUDY: 08/21/2016 FINDINGS: Lung bases are considered clear. Liver is uniform throughout. Possible small gallstone. The adrenal glands are unremarkable. The kidneys enhance appropriately. Stable postoperative change of the lumbar spine. Bowel pattern is considered nonobstructive. Normal appendix. The bladder is midline. No significant free fluid within the pelvic cul-de-sac. IMPRESSION: 1. Normal appendix. 2. Nonobstructive bowel pattern. 3. No acute process of the abdomen or pelvis. The above report was generated using voice recognition software. It may contain grammatical, syntax or spelling errors. Electronically signed by: Arcenio Bowman M.D. 06/23/2018 1:39 PM Dictated: 06/23/18 1334 Transcribed: 06/23/[address] abd pelvis IV con only CT DOSE: 348.26 mGy.cm HISTORY: Pain. Nausea. RLQRUQpain vomitting TECHNIQUE: Multiaxial CT images of the abdomen and pelvis were performed following the use of intravenous contrast. A dose lowering technique was utilized adhering to the principles of ALARA. COMPARISON STUDY: 08/21/2016 FINDINGS: Lung bases are considered clear. Liver is uniform throughout. Possible small gallstone. The adrenal glands are unremarkable. The kidneys enhance appropriately. Stable postoperative change of the lumbar spine. Bowel pattern is considered nonobstructive. Normal appendix. The bladder is midline. No significant free fluid within the pelvic cul-de-sac. IMPRESSION: 1. Normal appendix. 2. Nonobstructive bowel pattern. 3. No acute process of the abdomen or pelvis. The above report was generated using voice recognition software. It may contain grammatical, syntax or spelling errors. Electronically signed by: Arcenio Bowman M.D. 06/23/2018 1:39 PM Dictated: 06/23/18 1334 Transcribed: 06/23/18 1334 ECG Data Attestation: I personally reviewed and interpreted this ECG as follows: Indication: other (Vomiting) Rate (beats per minute): 96 Rhythm: normal sinus Findings: + other (Pr, qrs , qtc wnl, PVCs present); no ST depression and no ST elevation Blood Pressure Blood Pressure Findings: Low blood pressure Blood Pressure Disposition: further management by hospitalist MDM Narrative 1215: Past medical records reviewed. The patient was evaluated in room B9. A complete history and physical examination was performed. 1430: Vital signs stable. Labs and imaging within normal limits. On repeat abdominal exam, the patient continues have pain on palpation of the right upper quadrant. No pain on palpation right lower quadrant. Given these findings, the patient will be sent for ultrasound right upper quadrant rule out gallstones. 1616: Vital signs are stable. Ultrasound of the right upper quadrant showed cholelithiasis with common bile duct diameter of 8 mm. On repeat abdominal exam, pain on palpation of the RUQ was noted. After discussing with GI specialist it was suggested that the patient have a MRCP. I discussed the patient's labs, imaging findings, and recommendation with GI, and gave the patient the option to be admitted for observation to have MRCP done or to have MRCP done outpatient. Patient reports she is still having abdominal pain and thus would like to be admitted for observation to the hospital for GI evaluation and MRCP. I discussed this with the patient and she will be admitted under the care of Dr. Curry [facility] [place]. Impression & Plan Abdominal pain, RUQ, Colitis Discharge Plan Visit Data Chief Complaint: Vomiting Stated Complaint: pain in right side, vomiting ED Provider: Amor Rodrigues Discharge Problem: Abdominal pain, RUQ, Colitis Patient Disposition: Being Evaluated by Hospitalist Discharge Instructions Activity Restrictions/Additional Instructions: Do not take metformin for next 48 hours. Interventions: ED Discharge Assessment Last Done: 06/23/18 17:55 Forms Stand Alone Forms: [employer] Prescriptions Prescriptions: No Action ibuprofen 600 mg tablet 600 mg PO Q8H PRN (Reason: Pain) RF: 0 duloxetine 60 mg capsule,delayed release(DR/EC) 60 mg PO QAM RF: 0 Toviaz 8 mg tablet extended release 24 hr 8 mg PO QAM RF: 0 loperamide 2 mg Capsule 2 mg PO Q4 PRN (Reason: loose stool) Qty: 30 RF: 0 Victoza 3-Reuben 0.6 mg/0.1 mL (18 mg/3 mL) pen injector 1.8 mg subcut QAM RF: 0 simvastatin 10 mg Tablet 10 mg PO HS RF: 0 aspirin [Aspirin Low Dose] 81 mg Tablet,Delayed Release (Dr/Ec) 81 mg PO QAM RF: 0 famotidine 20 mg tablet 20 mg PO HS RF: 0 metformin 1,000 mg Tablet 1,000 mg PO BIDM RF: 0 lisinopril-hydrochlorothiazide 10-12.5 mg Tablet 1 tab PO QAM RF: 0 insulin glargine 100 unit/mL (3 mL) insulin pen 40 unit subcut QAM RF: 0 cyanocobalamin (vitamin B-12) 1,000 mcg/mL Kit 1,000 mcg IM MONTHLY RF: 0 cholecalciferol (vitamin D3) [Vitamin D3] 1,000 unit Capsule 1,000 unit PO QAM RF: 0 gabapentin 300 mg capsule 300 mg PO HS RF: 0 oxycodone 5 mg tablet 5 mg PO TID PRN (Reason: Pain) RF: 0 Referrals Referrals: Michelle Underwood MD [Primary Care Provider] - The scribe's documentation has been prepared under my direction and personally reviewed by me in its entirety. I confirm that the note above accurately reflects all work, treatment, procedures, and medical decision making performed by me.
[2018-06-23] MEDS ORDERED: GLUCOSE 40% GEL 15 GM TUBE PO PRN (18:28)
[2018-06-23] MEDS ORDERED: GLUCOSE 10 TABS/TUBE PO PRN (18:28)
[2018-06-23] MEDS ORDERED: DC ALL PREVIOUSLY ORDERED DIABETES MEDS ONE (18:28)
[2018-06-23] MEDS ORDERED: CARBOHYDRATES FOR HYPOGLYCEMIA PO PRN (18:28)
[2018-06-23] MEDS ORDERED: ONDANSETRON INJ 2 MG/ML 2 ML VIAL IV PRN (18:28)
[2018-06-23] MEDS ORDERED: ACETAMINOPHEN 325 MG TAB PO PRN (18:28)
[2018-06-23] MEDS ORDERED: DEXTROSE 50% 50 ML SYRINGE IV PRN (18:28)
[2018-06-23] MEDS ORDERED: OXYCODONE HCL IR 5 MG TAB (IMMEDIATE RELEASE) PO PRN (18:28)
[2018-06-23] MEDS ORDERED: GLUCAGON FOR INJ 1 MG VIAL SQ PRN (18:28)
[2018-06-23] MEDS ORDERED: Nursing to Pharmacy Communication ONE (19:08)
--- NOTE | 2018-06-23 19:09 | History & Physical Report ---
Date of Service June 23, 2018 Assessment & Plan (1) History of lumbar surgery: Savi Bales is a 77 year old woman with a history of diarrhea, vomiting, and right lower quadrant abdominal pain. She also has worsening shortness of breath and chest pain on exertion. Abdominal Pain * Seems to be focused on Right lower quadrant * Very sensitive to exam, not associated with meals or defecation * CT showing no intra abdominal abnormalities though she does appear to have a large volume of stool present, ultrasound shows some evidence of cholelithiasis, choledocholithiasis * Labs with no significant abnormalities, no obstructive pattern of liver enzymes * Differential: Constipation vs choledocholithiasis/cholelithiasis vs gut dysmotility secondary to poorly controlled diabetes. * We will try and relieve her constipation with miralax, order an MRCP to ev aluate biliary tract disease, and continue to monitor. Vomiting and Diarrhea * Could be explained by constipation, overflow diarrhea * Vomiting could be 2/2 biliary disease will assess further with MRCP. Worsening Chest Pain/Dyspnoea on Exertion * Troubling description of her symptoms with crushing chest pain worsening shortness of breath on exertion * T wave changes in leads III (inversion) and AVF (flattened) from 2018 by my read * Stress test in december of 2017 negative for inducible ischemia but with new/worsening symptoms and EKG changes with her strong risk factors and family history might be worth stress test or catheterization * Consulting cardiology Diabetes * 30 Units glargine * 1:8 unit/carb ratio novolog * Will continue to educate patient on this condition and monitor GERD * continuing home pepsid Pernicious Anemia * Received B12 injection last week Back pain * continuing oxcodone prn and gabapentin F/E/N: DMII diet Dispo: Med/Surg (2) Peripheral neuropathy: (3) Nausea vomiting and diarrhea: (4) Hypercholesterolemia: (5) Hypertension: (6) Diabetes mellitus: (7) Pernicious anemia: History of Present Illness Chief Complaint: Abdominal Pain Primary Care Provider: Michelle Underwood MD Patient reports a 5 month history of not feeling herself. She tells me she began to have diarrhea frequently starting five months ago. One month ago she had a syncopal episode and was admitted for further workup. Patient presented with a blood sugar well over 800 at that time and a A1C of 11. The syncopal episode was thought to be secondary to dehydration from her extreme hyperglycemia. Since she was discharged she has had persistent vomiting with meals. Every time she eats she says she vomits without fail unless she eats appl e sauce or ice cream. Tells me "Even five blueberries... WITHOUT FAIL". She has also noticed in the last week that she has began to have right lower quadrant abdominal pain that waxes and wanes. Pain goes from about a 2 at minimum to 8 at maximum doesn't seem to be affected by meals or eating, doesn't ever wake her from sleep or stop her from falling asleep. Worst first thing in the morning. Only change in stools is that her chronic diarrhea seems to have resolved and her stools have become more firm. She also tells me that she has been having worsening exertional chest pain and shortness of breath. She tells me that she has chest pain almost always when she is at her most active gardening, walking up steps etc. She says she gets very short of breath and it is progressively more than she used to. She says the chest pain typically isn't so much a pain as "A large animal or weight sitting on my chest" and sometimes radiates between her shoulder blades posteriorly. She has no history of MA or CVA and is a nonsmoker. She does have a history of HTN, HLD, and poorly controlled DMII. She has a strong family history of heart disease with her mother having had 9 heart attacks by the time she was Marisabel's age, her father having several heart attacks and 3 brothers with 3 or more heart attacks including before age 45. Non smoker non drinker, lives alone in [place]. 13 years ago, son checks in on her from time to time calls daily. She has a history of depression, recently stopped taking duloxetine about a month ago. Allergies Allergy/AdvReac Type Severity Reaction Status Date / Time No Known Allergies Allergy Verified 06/23/18 13:54 Home Medications Home Medications Medication Instructions Recorded Confirmed Type aspirin [Aspirin Low Dose] 81 mg PO QAM 01/03/18 06/23/18 History cholecalciferol (vitamin D3) 1,000 unit PO QAM 01/03/18 06/23/18 History [Vitamin D3] cyanocobalamin (vitamin B-12) 1,000 mcg IM MONTHLY 01/03/18 06/23/18 History famotidine 20 mg PO HS 01/03/18 06/23/18 History gabapentin 300 mg PO HS 01/03/18 06/23/18 History insulin glargine 40 unit SUBCUT QAM 01/03/18 06/23/18 History lisinopril-hydrochlorothiazide 1 tab PO QAM 01/03/18 06/23/18 History metformin 1,000 mg PO BIDM 01/03/18 06/23/18 History oxycodone 5 mg PO TID PRN 01/03/18 06/23/18 History simvastatin 10 mg PO HS 01/03/18 06/23/18 History Toviaz 8 mg PO QAM 05/23/18 06/23/18 History ibuprofen 600 mg PO Q8H PRN 05/23/18 06/23/18 History loperamide 2 mg PO Q4 PRN #30 cap 05/25/18 06/23/18 Rx liraglutide [Victoza 3-Reuben] 1.8 mg SUBCUT QAM 06/23/18 06/23/18 History Past Med/Surg History Medical History Peripheral neuropathy (Chronic) Lumbar spinal stenosis (Resolved) Pernicious anemia (Chronic) Diabetes mellitus (Chronic) GERD (gastroesophageal reflux disease) (Chronic) Osteoporosis (Chronic) Hypercholesterolemia (Chronic) Hypertension (Chronic) Surgical History History of lumbar surgery (Chronic) L4-S1 fusion X [address] Palma History of ankle surgery (Chronic) History of total knee arthroplasty (Chronic) left History of hysterectomy for benign disease (Chronic) H/O reduction mammoplasty (Chronic) History of cataract extraction (Chronic) Family History Other Coronary heart disease Myocardial infarction Social History Preferred Language: [place] Communication Ability: Effective Director Of Hotel Required: No Beliefs That Will Affect Care: None marital status: / Current Living Situation: Alone current occupational status: retired Other Information That Helps Us Care for You: No Feels Safe at Home: Yes Safety Concerns: Feels Safe At This Time Smoking Status: Never smoker Do You Dip or Chew Tobacco: No Second Hand Exposure: No Hx Alcohol Use: No Hx Substance Use: No Review of Systems Constitutional: + weight loss; no fever, no chills and no sweats Eyes: no problem reported Ear, Nose, Mouth, Throat: no problem reported Respiratory: + dyspnea on exertion; no cough, no chest congestion, no pain on inspiration, no pain with cough and no wheezing Cardiovascular: + chest pain, + chest pain with activity (Pressure on chest sometimes sharp pain radiating between shoulder blades) and + dyspnea on exertion; no dyspnea at rest, no orthopnea, no palpitations, no lightheadedness and no syncope (Since previous admission) Gastrointestinal: + abdominal pain (Right lower quadrant), + nausea, + vomi ting and + diarrhea/loose stools; no pain with swallowing, no dysphagia and no blood in stools Genitourinary: no difficulty urinating, no urinary frequency and no urinary urgency Physical Exam Constitutional: WD/WN, vitals as above no acute distress and not ill appearing Eyes: PERRL, conjunctivae normal, anicteric sclerae ENMT: external ear and nose normal, oropharynx normal Respiratory: normal respiratory effort, lungs clear to auscultation Cardiovascular: RRR, no murmur, no edema Heart Sounds: no gallop and no cardiac rub Vessels: normal peripheral pulses Gastrointestinal (Abdomen): Inspection/Auscultation: abdomen normal to inspection; abdomen not distended and + abnormal bowel sounds (Hypoactive bowel sounds) Percussion/Palpation: + abdomen tender (Right lower quadrant tenderness) and abdomen soft Skin: no rashes, warm and dry Neurologic: PERRL, EOMI, accommodation nl, no face palsy, no dysarthria Results & Data Vital Signs (Past 12 Hours) Vital Signs Temp Pulse Pulse Resp BP BP Pulse Ox 06/23/18 17:55 81 18 125/86 96 06/23/18 17:00 91 H 23 06/23/18 16:30 84 22 06/23/18 16:04 81 84 16 99/58 L 99/58 L 97 06/23/18 16:00 86 28 H 06/23/18 15:30 82 22 06/23/18 14:30 97 H 24 92 06/23/18 14:00 102 H 17 91 05/16/19 13:55 103 H 18 112/65 91 06/23/18 13:54 101 H 17 112/65 93 06/23/18 13:37 95 H 18 06/23/18 13:00 93 H 19 06/23/18 12:48 87 22 06/23/18 12:08 36.6 C 113 H 20 153/85 H 98 Supervising Physician Co-Signing Physician Notes I personally examined the patient and verified all torrez points of history and exam, discussed case, and agree with decision making with Dr Briones. Nausea and vomiting with abdominal pain. Also dyspnea on exertion that progresses to chest pressure on exertion. HPI as above. Vitals noted, in general she is pleasant no distress. HEENT normal cephalic atraumatic mucous membranes moist. Breathing unlabored no accessory muscle use good effort. Skin shows no rashes no pallor or icterus. Neuro shows no focal deficits. Labs and radiology reviewed, CT actually reviewed [id number] with the patient as well. Abdominal pain/nausea/vomitingwith the gallstones and initial concern on this being gallbladder, certainly biliary is possible, but without choledocholithiasis, without an elevated alk phos, without an elevated bili barajas, it seems less likely that this is gallbladder related. Given that it is possible, and it is a common ailment, MRCP for completeness to rule this out. More than likely however, she has pain and nausea from constipation, given the stool burden on her CT scan. Furthermore she is most tender right where there is a fairly sizable amount of stool that has close approximation to the abdominal wall. Discussed this with her in depth. She expressed understanding. Work towards affecting bowel movements with MiraLAX and then to manage chronic constipation accordingly. Diarrheaseems to almost certainly be overflow diarrhea. Even on her CT chest from December, whenever she was having this diarrhea, a loop of bowel with a significant amount of stool can be seen. As above otherwise. Chest pain/dyspnea on exertionshe had a negative stress echo in December, however, she is extremely high risk given her family history, poor control diabetes, hypertension, hyperlipidemia, and age. Rather than simply repeating a stress test, we will ask cardiology for input on stress and close follow-up versus possibly moving towards a cath in the near future. Type 2 diabetesinsulin management. Follow. (1) Hypertension Hypertension type: essential hypertension Qualified Code(s): I10 - Essential (primary) hypertension (2) Diabetes mellitus Diabetes mellitus complication status: with hyperglycemia Diabetes mellitus ad terminal makeup operator insulin use: with senior living use Diabetes mellitus type: type 2 Qualified Code(s): E11.65 - Type 2 diabetes mellitus with hyperglycemia; Z79.4 - [facility] (current) use of insulin
[2018-06-23] MEDS ORDERED: POLYETHYLENE (MIRALAX) 17 GM PACK PO ONE (20:10)
[2018-06-23] MEDS ORDERED: GABAPENTIN 300 MG CAP PO SCH (21:00)
[2018-06-23] MEDS ORDERED: SIMVASTATIN 10 MG TAB PO SCH (21:00)
[2018-06-23] MEDS ORDERED: INSULIN ASPART 100 UNITS/ML 3 ML PEN SC SCH (21:00)
[2018-06-23] MEDS ORDERED: FAMOTIDINE 20 MG TAB PO SCH (21:00)
[2018-06-23] MEDS: CHOLECALCIFEROL 1,000 UNITS TAB PO SCH (21:18)
[2018-06-23] MEDS: ASPIRIN 81 MG ECTAB PO SCH (21:18)
[2018-06-23] MEDS: INSULIN ASPART 100 UNITS/ML 3 ML PEN SC SCH (21:45)
[2018-06-24] MEDS ORDERED: INSULIN ASPART 100 UNITS/ML 3 ML PEN SC SCH
[2018-06-24] MEDS: TOVIAZ - ORDER AWAITING ACTION SCH ×3 (00:14→15:38)
[2018-06-24] MEDS: VICTOZA - ORDER AWAITING ACTION SCH ×3 (00:14→15:38)
[2018-06-24 07:36] LABS: Basophils # (auto) 0.02 K/uL (0-0.2); Basophils % (auto) 0.3 %; Eosinophils # (auto) 0.82 K/uL (0-0.5); Hematocrit (blood only) 40.4 % (37-47); Hemoglobin 14.7 g/dL (12.0-16.0); Immature Granulocytes # (auto) 0.03 K/uL (0.00-0.02); Immature Granulocytes % (auto) 0.4 %; Lymphocytes # (auto) 2.36 K/uL (1.2-3.4); Lymphocytes % (auto) 31.7 %; Mean Corpuscular Hgb Conc 36.4 g/dL (32-36); Mean Corpuscular Volume 86.7 fL (80-100); Mean Platelet Volume 10.3 fL (7.4-10.4); Monocytes # (auto) 0.57 K/uL (0.11-0.59); Monocytes % (auto) 7.7 %; Neutrophils # (auto) 3.65 K/uL (1.4-6.5); Neutrophils % (auto) 48.9 %; Platelet Count 203 K/uL (130-400); RDW Coefficient of Variation 13.3 % (11.5-14.5); RDW Standard Deviation 41.8 fL (36.4-46.3); Red Blood Count 4.66 M/uL (4.2-5.4); White Blood Count 7.45 K/uL (4.8-10.8)
[2018-06-24 08:12] LABS: BUN Creatinine Ratio 15.6 (10-20); Calcium 8.7 mg/dl (8.5-10.1); Creatinine Clr Calc Pharmacy 43.1 ml/min; Est GFR (African American) 63.1; Est GFR (Non-African American) 54.4; Potassium 3.7 mmol/L (3.5-5.1)
[2018-06-24] MEDS ORDERED: INSULIN GLARGINE SOLOSTAR 100 UNITS/ML 3 ML PEN SC SCH (09:00)
[2018-06-24] MEDS ORDERED: LISINOPRIL/HCTZ 10/12.5MG TAB PO SCH (09:00)
--- NOTE | 2018-06-24 09:12 | Magnetic Resonance Report ---
MR MRCP CLINICAL HISTORY: Abnormal ultrasound with ductal dilatation. Abdominal pain, nausea, vomiting. COMPARISON STUDY: CT scan dated 06/23/2018, biliary ultrasound dated 06/23/2018 FINDINGS: Breath-hold images were acquired in the axial and coronal planes. MIP imaging was performe d There is no pancreatic ductal dilatation. There is no intrahepatic biliary ductal dilatation. The mid and distal common bile duct measures 4.5 mm. There are no ductal filling defects to indicate a common bile duct calculus. The gallbladder calculi described on ultrasonography, are not visualized with certainty. IMPRESSION: 1. No evidence of pancreatic ductal biliary ductal dilatation. 2. No ductal calculi are visualized. 3. The gallstones reported on the prior ultrasound study are not visualized with certainty. Electronically signed by: Julio Sharp M.D. 06/24/2018 9:11 AM
--- NOTE | 2018-06-24 10:15 | Cardiology Consultation ---
Date of Consultation June 24, 2018 Assessment & Plan (1) Chest pain: 2. Shortness of breath 3. Abdominal pain 4. Hypertension 5. Dyslipidemia 6. Type 2 diabetes mellitus Patient presented to the ED yesterday with complaints of right lower quadrant abdominal pain, vomiting, and diarrhea. She is being evaluated from a GI standpoint for these symptoms. During admission, patient admitted to a 1 year history of shortness of breath with exertion as well as with bending over. She notes a mild discomfort in her chest in association with the shortness of breath which she describes as feeling as though someone is sitting on her chest. Symptoms resolve within a few minutes of rest or sitting upright. Her symptoms have been stable in nature over the last year, aside from a more prolonged episode of chest discomfort in December for which she was admitted; ACS was ruled out at that time, and dobutamine stress echo was performed which was negative for ischemia. During this admission, troponin is negative and ECG shows no acute ST-T wave abnormality. Given the atypical presentation of her symptoms (the fact that the shortness of breath and chest discomfort can occur with bending over), stable nature of her symptoms, negative ischemic evaluation in December 2017, and normal cardiac enzymes/ECG this admission, would not recommend any further cardiovascular evaluation at this time. Would advocate for further evaluation of other, non-cardiac causes of her symptoms. Supervising Physician Co-Signing Physician Notes When I presented to the bedside to evaluate the patient, she was unavailable. She was seen earlier in the day by Cardiology physician fitness assistant. I was later notified that she was being discharged and therefore she left the hospital prior to my evaluation/examination. [place] History of Present Illness Reason for Consultation: Worsening symptoms with EKG changes Requesting Physician: Dr. Briones History of Present Illness Ms. Bales is a 77-year-old female with a past medical history significant for type 2 diabetes mellitus, hypertension, dyslipidemia, depression, chronic back pain with lumbar spinal stenosis, osteoporosis, vitamin D deficiency, and pernicious anemia who presented to the ED yesterday with complaints of abdominal pain in her right lower quadrant, vomiting, and diarrhea. She is being evaluated from a GI standpoint for her symptoms. During admission, patient admitted to chest discomfort and shortness of breath symptoms, therefore, cardiology consult was requested. The patient states that over the last year, she has noted shortness of breath with exertion such as walking around [employer] and doing laundry. She also notes the shortness of breath with bending over. She has a discomfort in the center of her chest where she feels as though "someone is sitting on her chest" in association with the shortness of breath. The discomfort is non-radiating. Her symptoms resolve within a few minutes of rest or sitting upright. She describes her symptoms as stable over the last year aside from one occasion in December, when her discomfort persisted longer than usual. She was admitted on this occasion, and ACS was ruled out. She ultimately underwent a dobutamine stress echocardiogram which was negative for ischemia at 100% MPHR. She denies orthopnea, PND, or edema. She sustained a syncopal event in May, which occurred in the setting of hyperglycemia with a blood glucose >800 and dehydration. She denies any further syncope/presyncope. He denies abnormal bleeding such as melena, hematochezia, or hematuria. He denies cerebrovascular symptoms. As noted in HPI. All other ROS are reviewed and otherwise negative at this time. Family history: Her mother had several VA's starting at the age of 69. Her father had several VA's starting at the age of 75. Her brother had 3 VA's starting in his early 40s; he underwent CABG x3. Social history: She is a and lives at home alone. She denies smoking or alcohol use. Allergies Allergy/AdvReac Type Severity Reaction Status Date / Time No Known Allergies Allergy Verified 06/23/18 13:54 Home Medications Home Medications Medication Instructions Recorded Confirmed Type aspirin [Aspirin Low Dose] 81 mg PO QAM 01/03/18 06/23/18 History cholecalciferol (vitamin D3) 1,000 unit PO QAM 01/03/18 06/23/18 History [Vitamin D3] cyanocobalamin (vitamin B-12) 1,000 mcg IM MONTHLY 01/03/18 06/23/18 History famotidine 20 mg PO HS 01/03/18 06/23/18 History gabapentin 300 mg PO HS 01/03/18 06/23/18 History insulin glargine 40 unit SUBCUT QAM 01/03/18 06/23/18 History metformin 1,000 mg PO BIDM 01/03/18 06/23/18 History oxycodone 5 mg PO TID PRN 01/03/18 06/23/18 History Toviaz 8 mg PO QAM 05/23/18 06/23/18 History Victoza 3-Reuben 1.8 mg SUBCUT QAM 06/23/18 06/23/18 History atorvastatin 40 mg PO DAILY #30 tab 06/24/18 Rx lisinopril 10 mg PO DAILY #30 tab 06/24/18 Rx metoprolol succinate 25 mg PO DAILY #30 ea 06/24/18 Rx nitroglycerin 0.4 mg SUBLINGUAL Q5M PRN #30 tab 06/24/18 Rx Patient History Medical History Peripheral neuropathy (Chronic) Lumbar spinal stenosis (Resolved) Pernicious anemia (Chronic) Diabetes mellitus (Chronic) GERD (gastroesophageal reflux disease) (Chronic) Osteoporosis (Chronic) Hypercholesterolemia (Chronic) Hypertension (Chronic) Surgical History History of lumbar surgery (Chronic) L4-S1 fusion X [address] Palma History of ankle surgery (Chronic) History of total knee arthroplasty (Chronic) left History of hysterectomy for benign disease (Chronic) H/O reduction mammoplasty (Chronic) History of cataract extraction (Chronic) Family History Other Coronary heart disease Myocardial infarction Social History Preferred Language: Citizen Of [place] Communication Ability: Effective Strategy Intern Required: No Beliefs That Will Affect Care: None marital status: / Current Living Situation: Alone current occupational status: retired Other Information That Helps Us Care for You: No Feels Safe at Home: Yes Safety Concerns: Feels Safe At This Time Smoking Status: Never smoker Do You Dip or Chew Tobacco: No Second Hand Exposure: No Hx Alcohol Use: No Hx Substance Use: No Physical Exam Physical Exam: Constitutional: Alert, oriented, in no acute distress HEENT: Head is atraumatic and normocephalic. EOMs intact. Sclera anicteric. Face is symmetric. No perioral cyanosis. Mucous membranes moist. Neck: Supple, no JVD, no carotid bruits Pulmonary: Normal respiratory effort, clear to auscultation bilaterally Cardiac: Regular rate and rhythm, normal S1 and S2, no gallops, no rubs, no murmurs Extremities: No clubbing, cyanosis, or edema. Pulses 2+ and symmetric Abdomen: Normal bowel sounds, soft, +tender upon palpation over right lower quadrant Skin: Normal skin color, turgor, and pigmentation, no rash, no skin lesions Neurological: Oriented to person, place, and time Results & Data Vital Signs (Past 12 Hours) Vital Signs Temp Pulse Resp BP Pulse Ox 06/24/18 07: 36.8 C 78 18 106/70 98 06/23/18 23:38 36.8 C 82 18 107/68 96 Laboratory Results Laboratory Results WBC 7.45 K/uL (4.8-10.8) 06/24/18 07:22 RBC 4.66 M/uL (4.2-5.4) 06/24/18 07:22 Hgb 14.7 g/dL (12.0-16.0) 06/24/18 07:22 Hct 40.4 % (37-47) 06/24/18 07:22 MCV 86.7 fL (80-100) 06/24/18 07:22 MCH 31.5 pg (25-34) 06/24/18 07:22 MCHC 36.4 g/dL (32-36) H 06/24/18 07:22 RDW Std Deviation 41.8 fL (36.4-46.3) 06/24/18 07:22 RDW Coeff of Hien 13.3 % (11.5-14.5) 06/24/18 07:22 Plt Count 203 K/uL (130-400) 06/24/18 07:22 MPV 10.3 fL (7.4-10.4) 06/24/18 07:22 Immature Gran % (Auto) 0.4 % 06/24/18 07:22 Neut % (Auto) 48.9 % 06/24/18 07:22 Lymph % (Auto) 31.7 % 06/24/18 07:22 [place] % (Auto) 7.7 % 06/24/18 07:22 Eos % (Auto) 11.0 % 06/24/18 07:22 Baso % (Auto) 0.3 % 06/24/18 07:22 Immature Gran # (Auto) 0.03 K/uL (0.00-0.02) H 06/24/18 07:22 Neut # (Auto) 3.65 K/uL (1.4-6.5) 06/24/18 07:22 Lymph # (Auto) 2.36 K/uL (1.2-3.4) 06/24/18 07:22 [place] # (Auto) 0.57 K/uL (0.11-0.59) 06/24/18 07:22 Eos # (Auto) 0.82 K/uL (0-0.5) H 06/24/18 07:22 Baso # (Auto) 0.02 K/uL (0-0.2) 06/24/18 07:22 PT 10.3 Seconds (9.0-12.0) 06/23/18 12:28 INR 1.0 (0.9-1.1) 06/23/18 12:28 APTT 21.5 Seconds (21.0-31.0) 06/23/18 12:28 PTT Ratio 0.8 06/23/18 12:28 Sodium 142 mmol/L (136-145) 06/24/18 07:22 Potassium 3.7 mmol/L (3.5-5.1) 06/24/18 07:22 Chloride 109 mmol/L (98-107) H 06/24/18 07:22 Carbon Dioxide 27 mmol/L (21-32) 06/24/18 07:22 6.0 (3-11) 06/24/18 07:22 BUN 16 mg/dl (7-18) 06/24/18 07:22 1.01 mg/dl (0.6-1.2) 06/24/18 07:22 Est Cr Clr Drug Dosing 43.1 ml/min 06/24/18 07:22 Est GFR ( Amer) 63.1 06/24/18 07:22 Est GFR (Non-Af Amer) 54.4 06/24/18 07:22 15.6 (10-20) 06/24/18 07:22 Glucose 110 mg/dl (70-99) H 06/24/18 07:22 POC Glucose 108 (70-99) H 06/24/18 07:54 Calcium 8.7 mg/dl (8.5-10.1) 06/24/18 07:22 Magnesium 1.6 mg/dl (1.8-2.4) L 06/23/18 12:28 0.8 mg/dl (0.2-1) 06/23/18 12:28 0.2 mg/dl (0-0.2) 06/23/18 12:28 AST 23 U/L (15-37) 06/23/18 12:28 ALT 29 U/L (12-78) 06/23/18 12:28 104 U/L (45-117) 06/23/18 12:28 < 0.015 ng/ml (0-0.045) 06/23/18 12:28 7.2 gm/dl (6.4-8.2) 06/23/18 12:28 3.9 gm/dl (3.4-5.0) 06/23/18 12:28 139 U/L (73-393) 06/23/18 12:28 Specimen Hemolysis 06/24/18 07:22 Diagnostic Findings ECG shows sinus rhythm with PVCs. Inferior infarct pattern. Anterior infarct pattern. When compared to prior ECGs, no significant change. Dobutamine stress echo 01/04/18: Negative for ischemia at 100% MPHR. Resting echo with normal LV size, wall motion and systolic function. EF 60-65%. No LVH. Grade I diastolic dysfunction. Mildly dilated RV with normal systolic function. Mild TR.
[2018-06-24] MEDS: INSULIN ASPART 100 UNITS/ML 3 ML PEN SC SCH ×3 (10:34→17:29)
[2018-06-24] MEDS: ASPIRIN 81 MG ECTAB PO SCH (10:36)
[2018-06-24] MEDS: CHOLECALCIFEROL 1,000 UNITS TAB PO SCH (10:37)
[2018-06-24] MEDS ORDERED: POLYETHYLENE (MIRALAX) 17 GM PACK PO SCH (12:30)
--- NOTE | 2018-06-24 18:57 | Discharge Summary ---
Date of Service June 24, 2018 Admission HPI Per Admitting Provider Patient reports a 5 month history of not feeling herself. She tells me she began to have diarrhea frequently starting five months ago. One month ago she had a syncopal episode and was admitted for further workup. Patient presented with a blood sugar well over 800 at that time and a A1C of 11. The syncopal episode was thought to be secondary to dehydration from her extreme hyperglycemia. Since she was discharged she has had persistent vomiting with meals. Every time she eats she says she vomits without fail unless she eats apple sauce or ice cream. Tells me "Even five blueberries... WITHOUT FAIL". She has also noticed in the last week that she has began to have right lower quadrant abdominal pain that waxes and wanes. Pain goes from about a 2 at minimum to 8 at maximum doesn't seem to be affected by meals or eating, doesn't ever wake her from sleep or stop her from falling asleep. Worst first thing in the morning. Only change in stools is that her chronic diarrhea seems to have resolved and her stools have become more firm. She also tells me that she has been having worsening exertional chest pain and shortness of breath. She tells me that she has chest pain almost always when she is at her most active gardening, walking up steps etc. She says she gets very short of breath and it is progressively more than she used to. She says the chest pain typically isn't so much a pain as "A large animal or weight sitting on my chest" and sometimes radiates between her shoulder blades posteriorly. She has no history of PR or CVA and is a nonsmoker. She does have a history of HTN, HLD, and poorly controlled DMII. She has a strong family history of heart disease with her mother having had 9 heart attacks by the time she was Marisabel's age, her father having several heart attacks and 3 brothers with 3 or more heart attacks including before age 45. Non smoker non drinker, lives alone in [place]. 13 years ago, son checks in on her from time to time calls daily. She has a history of depression, recently stopped taking duloxetine about a month ago. Admission Exam Per Admitting Provider Constitutional: WD/WN, vitals as above no acute distress and not ill appearing Eyes: PERRL, conjunctivae normal, anicteric sclerae ENMT: external ear and nose normal, oropharynx normal Respiratory: normal respiratory effort, lungs clear to auscultation Cardiovascular: RRR, no murmur, no edema Heart Sounds: no gallop and no cardiac rub Vessels: normal peripheral pulses Gastrointestinal (Abdomen): Inspection/Auscultation: abdomen normal to inspection; abdomen not distended and + abnormal bowel sounds (Hypoactive bowel sounds) Percussion/Palpation: + abdomen tender (Right lower quadrant tenderness ) and abdomen soft Skin: no rashes, warm and dry Neurologic: PERRL, EOMI, accommodation nl, no face palsy, no dysarthria Principal Diagnosis Constipation Discharge Exam Constitutional WD/WN, vitals as above no acute distress and not ill appearing Eyes PERRL, conjunctivae normal, anicteric sclerae ENMT external ear and nose normal, oropharynx normal Respiratory normal respiratory effort, lungs clear to auscultation Cardiovascular RRR, no murmur, no edema Heart Sounds: no gallop and no cardiac rub Vessels: normal peripheral pulses Gastrointestinal (Abdomen) Inspection/Auscultation: abdomen normal to inspection; abdomen not distended and + abnormal bowel sounds (Hypoactive bowel sounds) Percussion/Palpation: + abdomen tender (Right lower quadrant tenderness) and abdomen soft Skin no rashes, warm and dry Neurologic PERRL, EOMI, accommodation nl, no face palsy, no dysarthria Discharge Data Allergies Allergy/AdvReac Type Severity Reaction Status Date / Time No Known Allergies Allergy Verified 06/23/18 13:54 Consultations 06/23/18 16:09 ED Decision to Admit Stat 06/23/18 18:28 Consult Case Management - Discharge Planning Routine 06/23/18 18:53 Consult Cardiology Routine Ordered Studies 06/23/18 12:18 CT abd pelvis IV con only Stat 06/23/18 14:24 US gallbladder Stat 06/24/18 07:15 MR MRCP Routine Hospital Course (1) History of lumbar surgery: Savi Bales is a 77 year old woman with a history of diarrhea, vomiting, and right lower quadrant abdominal pain. She also has worsening sh ortness of breath and chest pain on exertion. Abdominal Pain Patient had a 7-10 day history of abdominal pain right lower quadrant, no signs of peritonitis on exam. Imaging showed large amount of stool in large intestine and normal appearing appendix. cholelithiasis present. Patient had MRCP today which showed no abnormalities of the biliary tree. Gave patient high dose of miralax that she was working on before she d/c herself AMA. Would recommend continuing to clear her bowels and see if symptoms resolve over next week. Her diarrhea of the last five months was likely Chest Pain and SOB with exertion, worsening with EKG changes Crushing chest pain and shortness of breath with exertion, along with EKG changes since previous stress test made me concerned for worsening CAD trop negative on admission but appeared to be a chronic progressive worsening. COnsulted cardiology but unfortunately patient left AMA before consultation. Recommend outpatient cardio follow up. (2) Peripheral neuropathy: (3) Nausea vomiting and diarrhea: (4) Hypercholesterolemia: (5) Hypertension: (6) Diabetes mellitus: (7) Pernicious anemia: Total Time Total Time Spent Total Time Spent (In Minutes): Less than 30 Discharge Plan Discharge Items Patient Disposition: Home - Self-Care Reason For Visit: ABDOMINAL PAIN Discharge Diagnosis: abdominal pain - see below Discharge Goals: Diagnostic testing and Therapeutic intervention Activity: Resume your previous activity Non-emergency contact: Primary Care Provider and Earring Maker Call non-emergency contact if: you have any medication questions and your symptoms worsen Follow-up/Referrals: Michelle Underwood MD [Primary Care Provider] - 06/28/18 10:45 am (Please, follow up with Dr. Underwood's associate, Sangeeta Lemon PA-C, on WednesdayJune 28 at 10:45 am. PLEASE, NOTE THIS PROVIDER'S OFFICE IS LOCATED AT [address] [facility] IN [place]. THERE WERE NO OPENINGS IN DR. UNDERWOOD'S OFFICE NEXT WEEK AND WE DIDN'T WANT YOU TO HAVE TO WAIT TOO LONG FOR A FOLLOW-UP APPOINTMENT.) Diet: Carb Consistent or DM2 Addtl Provider Instructions: abdominal pain/nausea -as we discussed and saw on CT scan, it appears that actually most of your abdominal pain and nausea related to a chronic degree of constipation. What you have been seeing as diarrhea is actually what we would call "overflow" where the softer and smaller parts of stool are able to get around the larger and harder. We would recommend that you continue to do MiraLAX until you have had a significant amount of stool (remember that the colon is approximately 4 feet alina g and on CT scan your entire colon appeared filled with stool) and then likely do at least some degree of medicine like MiraLAX daily to continue to keep bowels moving, with dosing today based on yesterday's bowel movement. -We will nowhere on the right track with this whenever you start to feel better, have less diarrhea, have less nausea. As we discussed it may take a week or so for everything to truly settle down; follow-up with Dr. Underwood in this regard Chest pain and shortness of breath -We sincerely apologize about the delay in seeing cardiology, there were a number of emergencies and while the cardiology physician security assistant was able to see you early in the day, our input from the instrument technologist continued to be delayed by emergencies. Given that you needed to get home now, we will ask for follow-up in the office in this regard. -our main concern is that your symptoms do seem to be fairly characteristic of what would be called exertional angina, meaning that with exertion you may not be getting enough flow to the heart muscle causing the shortness of breath and discomfort you are feeling. It is certainly also possible that those symptoms do relate to something else, but certainly heart related chest discomfort would be the main thing we want to look at here. Since he had a stress test about 6 months ago that was negative, but do have reasons for coronary blockages, we felt it prudent to get cardiology input. -Again as above given your needs to leave, we will ask for this to be done in short order as an outpatient -In the meantime, we have adjusted your medication regimen to be more protective of your heart in the event that there are coronary blockages. The med changes are as follows: -----We have switched your simvastatin over to atorvastatin, atorvastatin tends to have a much more protective effect on blood vessels. For most people if they tolerate simvastatin they will tolerate atorvastatin, of course there is a small chance of muscle aches, Dr. Underwood will follow up on this as well as appropriate blood work ------ we have changed your blood pressure regimen from lisinopril/hydrochlorothiazide to lisinopril and metoprolol. Unfortunately these are 2 separate pills, but the metoprolol will take strain off of your heart far more than the hydrochlorothiazide did. It should be well-tolerated, if it does cause side effects it would most likely be feeling weak or lightheaded or dizzy, but given that we are starting at the lowest dose this is unlikely. Dr. Underwood will follow up on how you are tolerating the medicine, and adjust the dose appropriately. ------- while we hope you do not need to use it, should you get chest pressure that does not go away with rest, we have given a prescription for nitroglycerin to put under your tongue. If you have chest pressure, stop what you are doing. If the pressure goes away, great. If the pressure does not go away within a few minutes (no more than 5) put a nitroglycerin tablet under your tongue. Should the pressure not go away within 5 minutes of the nitroglycerin tablet, put a second tablet under your tongue, and call 911. Hopefully this will not be necessary, but it is a safety net to protect you in the meantime. ------- lastly, we would recommend that you hold off on ibuprofen or other anti- inflammatories. Because they affect the production of a chemical called prostaglandin that allows blood vessels to open up when needed, while anti- inflammatories are not necessarily a culprit for heart attack alone, they can often be the "straw that broke the camel's back" by not allowing blood vessels to open up to provide more blood flow around the blockage when needed. You may safely use Tylenol for pain. We will work on getting appointments with both Dr. Underwood and cardiology next week. Prescriptions: New atorvastatin 40 mg tablet 40 mg PO DAILY Qty: 30 RF: 0 metoprolol succinate 25 mg capsule,sprinkle,ER 24hr 25 mg PO DAILY Qty: 30 RF: 0 lisinopril 10 mg tablet 10 mg PO DAILY Qty: 30 RF: 0 nitroglycerin 0.4 mg tablet, sublingual 0.4 mg sublingual Q5M PRN (Reason: chest pain) Qty: 30 RF: 0 Continued Toviaz 8 mg tablet extended release 24 hr 8 mg PO QAM RF: 0 Victoza 3-Reuben 0.6 mg/0.1 mL (18 mg/3 mL) pen injector 1.8 mg subcut QAM RF: 0 aspirin [Aspirin Low Dose] 81 mg Tablet,Delayed Release (Dr/Ec) 81 mg PO QAM RF: 0 famotidine 20 mg tablet 20 mg PO HS RF: 0 metformin 1,000 mg Tablet 1,000 mg PO BIDM RF: 0 insulin glargine 100 unit/mL (3 mL) insulin pen 40 unit subcut QAM RF: 0 cyanocobalamin (vitamin B-12) 1,000 mcg/mL Kit 1,000 mcg IM MONTHLY RF: 0 cholecalciferol (vitamin D3) [Vitamin D3] 1,000 unit Capsule 1,000 unit PO QAM RF: 0 gabapentin 300 mg capsule 300 mg PO HS RF: 0 oxycodone 5 mg tablet 5 mg PO TID PRN (Reason: Pain) RF: 0 Discontinued ibuprofen 600 mg tablet 600 mg PO Q8H PRN (Reason: Pain) RF: 0 loperamide 2 mg Capsule 2 mg PO Q4 PRN (Reason: loose stool) Qty: 30 RF: 0 simvastatin 10 mg Tablet 10 mg PO HS RF: 0 lisinopril-hydrochlorothiazide 10-12.5 mg Tablet 1 tab PO QAM RF: 0 Stand-Alone Forms: [facility]/Other Patient Handouts: Hyperglycemia Discharge Orders: Discharge Order (Routine); Ordered 06/24/18 Ordered By: Kit Aaron Admission Data Admit Date/Time: 06/23/18 17:32 Attending Provider: Kit Aaron Admit Provider: Quincy Briones Primary Care Provider: Michelle Underwood Other Providers: Laly Curry Alexander W. Service: Medical Other Interventions: Discharge Summary Assessment (RN) Last Done: 06/24/18 18:49 DC Date/Time DO NOT enter until pt leaves facility: 06/24/18 19:00 Supervising Physician Co-Signing Physician Notes I personally examined the patient and verified all torrez points of history and exam, discussed case, and agree with decision making with Dr Briones. No new complaints. MRCP was negative. Awaiting formal cardiology input in regards to her chest pressure and dyspnea on exertion. Unfortunately later in the day due to cardiology being tied up with emergencies, while the PA and seen the patient, the attending instrument technologist was heading up to see her, and apparently she was in the bathroom. Before he was able to actually see her again, she was telling nursing that she was leaving with her without permission. To try to keep her as safe as possible, I did med reconciliation and a full set of instructions to soften the potential impact health of her leaving AMA. Vitals noted, no distress. Breathing unlabored no accessory muscle use. Skin shows no rashes no pallor or icterus. Abdominal pain nausea and vomitingappears actually to have been due to co nstipation. MiraLAX. Outpatient follow-up. Chronic diarrheaappears to have also been due to constipation. See yesterday's note on history and physical, even on a CT scan from December, that the upper abdomen on the chest CT shows stool and loops of bowel. Likely she had constipation with overflow diarrhea. MiraLAX as above as well. Outpatient follow-up. We discussed that this is most likely the diagnosis, but until she is truly feeling better we would definitely want to look at it as a "work in progress". Chest pain/dyspnea on exertionhighly concerning for angina. She did have a ne gative dobutamine stress echo about 6 months ago, and while a good test, it does have an approximately 10% false negative rate. Due to this we consulted cardiology for evaluation of repeating stress versus possibly proceeding with a heart cath, versus close follow-up and watchful waiting. As above noted, the attending instrument technologist was unfortunately tied up throughout the day with emergencies, and approximately at 6 PM when he tried to see her, she was not in the room at that moment, and before he was able to double back to see her again she decided she was leaving with her without being seen. At this point in time, with concern because of her high risk for having cardiac disease, I rewrote her med list and full set of instructions in an effort to protect her from any health consequences of leaving AGAINST MEDICAL ADVICE. Changed her blood pressure regimen from lisinopril/hydrochlorothiazide to lisinopril/metoprolol. Changed her statin from simvastatin to atorvastatin for better plaque stabilization (outpatient follow-up for tolerability and labs), and added sublingual nitro as needed chest pain. Will ask for close outpatient for follow-up with cardiology as best as possible, in addition to her follow-up with her PCP. Resident Activity Tracking Resident Involvement: Resident Care Provided Care Provided: Adult [facility]
[2018-07-22] MEDS ORDERED: CYANOCOBALAMIN 1000 MCG/ML VIAL IM SCH (09:00)
== END 2018-06-24 19:00 | disposition home or self-care (01) ==
LOC: ED 12:05 → 4W 12:05

== ENCOUNTER 2019-11-11 18:52 | Observation (INO) ==
[2019-11-11] MEDS ORDERED: MoRPHine SULFATE 2 MG/ML CARP IV STA (19:32)
[2019-11-11] MEDS ORDERED: ONDANSETRON INJ 2 MG/ML 2 ML VIAL IV STA (19:32)
--- NOTE | 2019-11-11 19:32 | Emergency Department Note ---
History of Present Illness General Chief complaint: Hyperglycemia Stated complaint: SYNCOPE, HYPERGLYCEMIA, HEADACHE Time Seen by Provider: 11/11/19 19:14 Source: patient History of Present Illness Provider complaint: Headache Onset (ago): hour(s) Location: head and left Radiation: non-radiation Pain Consistency: + constant Maximum Pain Intensity: 10 Quality: + other (Pressure) Exacerbated By: + other (Bright lights) Associated symptoms: + syncope; no chest pain, no cough, no fever/chills, no nausea/vomiting and no shortness of breath Unwell. She felt lightheaded and developed a headache. She states that she typically gets these headaches when she is hyperglycemic. She states the headache is located on the left side of her head andThis is a 78-year-old female who presents with a headache starting at approximately 2 PM today. Patient was shopping with her granddaughter when she developed lightheadedness and a headache. She states that she typically gets this kind of headache when she is hyperglycemic. She checked her sugar and the machine did not register it because it was too high. She did give herself insulin. She states that when she went home she went to lie down and she started to feel very lightheaded and woke up on the floor. She did hit the left side of her head but denies any neck pain or injury. She states her headache is worse with bright lights. She describes it as a pressure. No associated fever, vomiting, chest discomfort or pain, shortness of breath, abdominal pain, diarrhea, cough or cold symptoms, loss of taste or smell or known exposure to COVID-19. The patient did have a COVID-19 test in July which was negative. She states that she also hurt her left hip when she fell and complains of pain to that area. She did bear weight on the hip since but has worsening pain when she moves it. She denies any other injuries from the fall. Home Medications Home Medications Medication Instructions Recorded Confirmed Type metoprolol succinate 25 mg PO DAILY #30 ea 06/24/18 11/11/19 Rx nitroglycerin 0.4 mg SUBLINGUAL Q5M PRN #30 tab 06/24/18 11/11/19 Rx ibuprofen 600 mg tablet 600 mg PO Q6H PRN #120 tab 08/03/18 11/11/19 Rx aspirin 81 mg tablet,delayed 81 mg PO QAM 10/03/18 11/11/19 History release cholecalciferol (vitamin D3) 25 1,000 unit PO QAM 10/03/18 11/11/19 History mcg (1,000 unit) capsule cyanocobalamin (vitamin B-12) 1,000 mcg IM MONTHLY 10/03/18 11/11/19 History 1,000 mcg/mL injection kit metformin 1,000 mg tablet 1,000 mg PO BID #180 tab 10/20/18 11/11/19 Rx lisinopril 10 1 tab PO DAILY #90 tab 12/12/18 11/11/19 Rx mg-hydrochlorothiazide 12.5 mg tablet oxycodone 5 mg tablet 5 mg PO Q6H PRN #30 tab 12/20/18 11/11/19 Rx famotidine 40 mg tablet 40 mg PO DAILY #90 tab 01/18/19 11/11/19 Rx simvastatin 10 mg tablet 10 mg PO QPM #90 tab 09/06/19 11/11/19 Rx fesoterodine 8 mg tablet,extended 8 mg PO DAILY #90 tab 10/31/19 11/11/19 Rx release 24 hr insulin aspart U-100 [Novolog 0 unit SUBCUT BIDM 11/11/19 11/11/19 History Flexpen U-100 Insulin] insulin glargine [Lantus Solostar 40 unit SUBCUT HS 11/11/19 11/11/19 History U-100 Insulin] Allergies Allergy/AdvReac Type Severity Reaction Status Date / Time aspirin [From Percodan] Allergy Verified 11/11/19 22:08 oxycodone [From Percodan] Allergy Verified 11/11/19 22:08 Past Med/Surg History Medical History Depression Fibrocystic breast disease Genital herpes simplex GERD (gastroesophageal reflux disease) Hyperlipidemia Hypertension Lumbar spinal stenosis Nonalcoholic steatohepatitis Obstructive sleep apnea of adult Osteoporosis Osteoporotic compression fracture of spine Peripheral neuropathy Pernicious anemia Postmenopausal atrophic vaginitis Uncontrolled type II diabetes mellitus Urinary incontinence Vitamin D deficiency Surgical History H/O lumbosacral spine surgery H/O total knee replacement H/O: hysterectomy History of hernia repair Family History Other Coronary heart disease Myocardial infarction Social History Smoking Status: Never smoker Second Hand Exposure: No; Hx Alcohol Use: No Hx Substance Use: No Preferred Language: [place] Communication Ability: Effective 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 and A total of 10 systems reviewed and were otherwise negative Physical Exam Vital Signs Vital Signs - 24 hr 11/11/19 18:50 11/11/19 19:16 11/11/19 19:57 Temperature 37.5 C Temperature Source Oral Pulse Rate 97 H Pulse Rate [Radial] Pulse Rhythm [Radial] Pulse Strength [Radial] Respiratory Rate 20 Respiratory Effort / Characteristics Non-Labored Respiratory Depth Normal Respiratory Pattern Blood Pressure 138/73 Blood Pressure [Right Arm] Blood Pressure Mean 94 Blood Pressure Mean [Right Arm] Pulse Oximetry 96 Oxygen Delivery Method Room Air Room Air Room Air Sepsis Recent Fever Within 48 Hours No Sepsis New/Unexplained Change in Mental Status N/A Sepsis Action Taken by Nursing No Action Required 11/11/19 20:50 11/11/19 22:47 Temperature Temperature Source Pulse Rate Pulse Rate [Radial] 86 85 Pulse Rhythm [Radial] Regular Regular Pulse Strength [Radial] Normal Respiratory Rate 18 18 Respiratory Effort / Characteristics Non-Labored Spontaneous Non-Labored Spontaneous Respiratory Depth Normal Normal Respiratory Pattern Regular Regular Blood Pressure Blood Pressure [Right Arm] 136/93 125/74 Blood Pressure Mean Blood Pressure Mean [Right Arm] 107 91 Pulse Oximetry 95 95 Oxygen Delivery Method Room Air Room Air Sepsis Recent Fever Within 48 Hours Sepsis New/Unexplained Change in Mental Status Sepsis Action Taken by Nursing Constitutional: Vital signs reviewed. Eyes: Pupils are equal round reactive to light. Conjunctiva are noninjected. ENT: Pharynx is clear without erythema or exudate. Mucous membranes are moist. Neck supple without meningeal signs. No midline tenderness to the cervical spine. Respiratory: Clear to auscultation bilaterally. Breath sounds are equal bilaterally. Cardiovascular: Regular rate and rhythm. No rubs or gallops. GI: Soft, nondistended and nontender. Bowel sounds are present. Musculoskeletal: No peripheral edema. Tenderness to the left hip without shortening or deformity. Normal distal pulses. No tenderness to the ribs. Integumentary: No cyanosis. or jaundice. Neurologic: The patient is awake and alert. Cranial nerves II-XII are intact. Motor is 5 out of 5 all extremities. Sensation is intact to light touch all extremities. Normal speech. No pronator drift. No limb ataxia. Psychiatric: Normal affect. Not anxious appearing. Course Administered Medications Sodium Chloride (Nss) 500 mls @ 125 mls/hr IV .Q4H RUI Stop: 12/11/19 19:44 Last Infusion: 11/11/19 22:57 Dose: 125 mls/hr Documented by: [id number] Infusion: 11/11/19 21:00 Dose: 0 mls/hr Documented by: [id number] Admin: 11/11/19 20:08 Dose: 125 mls/hr Documented by: [id number] Discontinued Medications Sodium Chloride (Nss 1000ml) 500 mls @ 999 mls/hr IV .Q31M ONE Stop: 11/11/19 21:08 Last Infusion: 11/11/19 21:38 Dose: 0 mls/hr Documented by: [id number] Admin: 11/11/19 21:01 Dose: 999 mls/hr Documented by: [id number] Insulin Human Regular (Novolin-R Insulin Per Unit Charge) 7 units IV NOW STA Stop: 11/11/19 20:39 Last Admin: 11/11/19 21:01 Dose: 7 units Documented by: [id number] Cosigned by: [id number] Ioversol (Optiray 320 125ml) 119 ml IV ONCE ONE Stop: 11/11/19 21:22 Last Admin: 11/11/19 21:22 Dose: 119 ml Documented by: [id number] Morphine Sulfate (Morphine Sulfate 2 Mg/Ml Carp) 2 mg IV NOW STA Stop: 11/11/19 19:33 Last Admin: 11/11/19 20:08 Dose: 2 mg Documented by: [id number] Morphine Sulfate (Morphine Sulfate 4 Mg/Ml 1 Ml Carp\Vial) 4 mg IV NOW STA Stop: 11/11/19 22:21 Last Admin: 11/11/19 22:43 Dose: 4 mg Documented by: [id number] Ondansetron HCl (Ondansetron Inj 2 Mg/Ml 2 Ml Vial) 4 mg IV NOW STA Stop: 11/11/19 19:33 Last Admin: 11/11/19 20:08 Dose: 4 mg Documented by: [id number] Medical Decision Making Differential Diagnosis Syncope, intracranial hemorrhage, migraine headache, metabolic derangement, dysrhythmia, DKA Medical Records Attestation: I reviewed the patient's medical records. I did perform a limited focused review of portions of the patient's old chart on the electronic medical record. The patient has had no recent pertinent visits to this hospital. Home Medications Current Medication List: was personally reviewed by me Laboratory Data Attestation: I reviewed the patient's lab results. Result diagrams: 11/11/19 19:54 11/11/19 19:54 Lab Results 11/11/19 11/11/19 11/11/19 Range/Units 19:54 19:54 20:07 WBC 8.08 (4.8-10.8) K/uL RBC 4.82 (4.2-5.4) M/uL Hgb 14.8 (12.0-16.0) g/dL Hct 42.8 (37-47) % MCV 88.8 (80-100) fL MCH 30.7 (25-34) pg MCHC 34.6 (32-36) g/dL RDW Std Deviation 42.1 (36.4-46.3) fL RDW Coeff of Hien 13.0 (11.5-14.5) % Plt Count 179 (130-400) K/uL MPV 11.1 H (7.4-10.4) fL Immature Gran % (Auto) 0.4 % Neut % (Auto) 64.9 % Lymph % (Auto) 22.9 % Davidson % (Auto) 7.3 % Eos % (Auto) 4.3 % Baso % (Auto) 0.2 % Neut # (Auto) 5.24 (1.4-6.5) K/uL Lymph # (Auto) 1.85 (1.2-3.4) K/uL Davidson # (Auto) 0.59 (0.11-0.59) K/uL Eos # (Auto) 0.35 (0-0.5) K/uL Baso # (Auto) 0.02 (0-0.2) K/uL Immature Gran # (Auto) 0.03 H (0.00-0.02) K/uL Sodium 135 L (136-145) mmol/L Potassium 4.5 (3.5-5.1) mmol/L Chloride 100 (98-107) mmol/L Carbon Dioxide 24 (21-32) mmol/L Anion Gap 11.0 (3-11) BUN 20 H (7-18) mg/dl Creatinine 1.49 H (0.6-1.2) mg/dl Est Cr Clr Drug Dosing 30.3 ml/min Est GFR ( Amer) 39.1 Est GFR (Non-Af Amer) 33.8 BUN/Creatinine Ratio 13.6 (10-20) Glucose 610 H* (70-99) mg/dl POC Glucose (70-99) mg/dl Calcium 9.5 (8.5-10.1) mg/dl Magnesium 2.0 (1.8-2.4) mg/dl Total Bilirubin 0.3 (0.2-1) mg/dl AST 19 (15-37) U/L ALT 24 (12-78) U/L Alkaline Phosphatase 148 H (45-117) U/L Troponin I < 0.015 (0-0.045) ng/ml Total Protein 6.4 (6.4-8.2) gm/dl Albumin 3.2 L (3.4-5.0) gm/dl Globulin 3.2 (2.5-4.0) gm/dl Albumin/Globulin Ratio 1.0 (0.9-2) Beta-Hydroxybutyric Acd 1.64 (0.2-2.81) mg/dl TSH 1.210 (0.300-4.500) uIu/ml Urine Color Yellow Urine Appearance Clear (Clear) Urine pH 7.0 (4.5-7.5) Ur Specific [place] 1.028 (1.000-1.030) Urine Protein Negative (Negative) Urine Glucose (UA) 3+ H (Negative) Urine Ketones Negative (Negative) Urine Blood Negative (Negative) Urine Nitrite Negative (Negative) Urine Bilirubin Negative (Negative) Urine Urobilinogen Negative (Negative) Ur Leukocyte Esterase Negative (Negative) 11/11/19 Range/Units 22:02 WBC (4.8-10.8) K/uL RBC (4.2-5.4) M/uL Hgb (12.0-16.0) g/dL Hct (37-47) % MCV (80-100) fL MCH (25-34) pg MCHC (32-36) g/dL RDW Std Deviation (36.4-46.3) fL RDW Coeff of Hien (11.5-14.5) % Plt Count (130-400) K/uL MPV (7.4-10.4) fL Immature Gran % (Auto) % Neut % (Auto) % Lymph % (Auto) % Davidson % (Auto) % Eos % (Auto) % Baso % (Auto) % Neut # (Auto) (1.4-6.5) K/uL Lymph # (Auto) (1.2-3.4) K/uL Davidson # (Auto) (0.11-0.59) K/uL Eos # (Auto) (0-0.5) K/uL Baso # (Auto) (0-0.2) K/uL Immature Gran # (Auto) (0.00-0.02) K/uL Sodium (136-145) mmol/L Potassium (3.5-5.1) mmol/L Chloride (98-107) mmol/L Carbon Dioxide (21-32) mmol/L Anion Gap (3-11) BUN (7-18) mg/dl Creatinine (0.6-1.2) mg/dl Est Cr Clr Drug Dosing ml/min Est GFR ( Amer) Est GFR (Non-Af Amer) BUN/Creatinine Ratio (10-20) Glucose (70-99) mg/dl POC Glucose 232 H (70-99) mg/dl Calcium (8.5-10.1) mg/dl Magnesium (1.8-2.4) mg/dl Total Bilirubin (0.2-1) mg/dl AST (15-37) U/L ALT (12-78) U/L Alkaline Phosphatase (45-117) U/L Troponin I (0-0.045) ng/ml Total Protein (6.4-8.2) gm/dl Albumin (3.4-5.0) gm/dl Globulin (2.5-4.0) gm/dl Albumin/Globulin Ratio (0.9-2) Beta-Hydroxybutyric Acd (0.2-2.81) mg/dl TSH (0.300-4.500) uIu/ml Urine Color Urine Appearance (Clear) Urine pH (4.5-7.5) Ur Specific Greenfield (1.000-1.030) Urine Protein (Negative) Urine Glucose (UA) (Negative) Urine Ketones (Negative) Urine Blood (Negative) Urine Nitrite (Negative) Urine Bilirubin (Negative) Urine Urobilinogen (Negative) Ur Leukocyte Esterase (Negative) Imaging Data Radiologist's Impression: XR hip LT 2V w pelvis CLINICAL HISTORY: fall eval for fx. Left hip pain. COMPARISON STUDY: Pelvis 07/05/2017. FINDINGS: L4-S1 posterior decompression fusion with bilateral sacroiliac screws. The hardware appears intact. No fracture or dislocation within the pelvis or hips. The visualized sacrum appears intact. Soft tissues are unremarkable. The bones are osteopenic. Mild cartilage space narrowing within the bilateral hips. IMPRESSION: No fracture or dislocation within the pelvis or hips. ACT 112: Negative or not required by law. Electronically signed by: Alex Cuba M.D. 11/11/2019 7:52 PM XR chest 1V portable HISTORY: syncope COMPARISON: Chest 01/03/2018. FINDINGS: Mild diffuse interstitial thickening which is likely chronic. No focal lung consolidations to suggest pneumonia. No evidence for pulmonary edema. The heart is normal in size. No pleural effusions. No pneumothorax. IMPRESSION: Mild diffuse interstitial thickening which is likely chronic. Otherwise, no acute process within the chest. ACT 112: Negative or not required by law. Electronically signed by: Alex Cuba M.D. 11/11/2019 7:[address] HEAD: The paranasal sinuses and mastoid air cells are normally aerated. There is no skull fracture or scalp hematoma. There is a normal gyral pattern of the brain. There is no mass lesion or midline shift. The correa-white matter differentiation is maintained. There is mild periventricular white matter low density bilaterally consistent with chronic small vessel disease. There is no evidence of acute large vessel infarct or intracranial hemorrhage. CTA HEAD: Mild calcification of the cavernous portion of the distal internal carotid arteries bilaterally with less than 20% stenosis. The A1 and M1 segments are widely patent bilaterally. The right P1 segment is hypoplastic due to origin of the right posterior cerebral artery from the anterior circulation which is a normal variant. The distal right vertebral artery is small but present. The basal artery is widely patent. The visualized portions of the anterior, middle, and posterior cerebral arteries are unremarkable. No aneurysm, vascular malformation, or arterial thrombus is identified. Radiologist: Cuco Woodall MD Study ready at 21:39 and initial results transmitted at 22:05 ECG Data Attestation: I personally reviewed and interpreted this ECG as follows: Indication: + syncope Rate (beats per minute): 83 Rhythm: + normal sinus ECG [place]: + Normal ECG ST segments: no ST elevation ECG Findings: + Q waves (Inferior); no PVCs Comparison ECG Date: from (06/23/2018) Change: no significant change Head Trauma GCS Score: 15 (Opens eyes to voice) MDM Narrative I did evaluate the patient as noted above. The patient is presenting with a syncopal episode, hyperglycemia and a headache. She is neurologically intact and states that she has similar headaches when her blood sugar is elevated. Her headache got worse after she had a syncopal episode at home and hit the left side of her head. IV access was established. I did treat her with morphine 2 mg and Zofran IV. She was also given normal saline IV. I did place an order for continuous cardiac monitoring. The monitor showed normal sinus rhythm at a rate of 96 bpm. I did order and personally review the patient's 12-lead EKG as described above. She has no acute ischemic changes on her twelve-lead EKG. I did order and personally reviewed the images of the patient's chest, left hip and pelvis x-rays as described above. There is no evidence of fracture dislocation or acute cardiopulmonary process. I did order a urine analysis. She does not have a UTI. I did order and review the patient's blood work as noted in the electronic medical record. There is no leukocytosis, anemia or thrombocytopenia. Electrolytes are unremarkable. Her creatinine is elevated at 1.49. Her sugar is 610. Troponin is negative. She was given a liter of normal saline IV in total. She was given 7 units of regular insulin IV. I did order a CT angiogram of the head with and without contrast. I did review the images myself as well as the radiology report as described above. There is no evidence of acute intracranial process. No aneurysm or bleed. I did reassess the patient. She states her hip is feeling better but she still has a headache. She was given an additional 4 mg of morphine IV. I did discuss the test results with her. Her repeat blood sugar is 232. She will be hospitalized for further care and evaluation given her syncopal episode. I did discuss case with the housing case manager and the hospitalist was informed. Impression & Plan Syncope, Acute hyperglycemia, Acute head injury, Acute headache, Injury of hip, left Discharge Plan Visit Data Chief Complaint: Hyperglycemia Stated Complaint: SYNCOPE, HYPERGLYCEMIA, HEADACHE ED Provider: Dave Corbin Discharge Problem: Syncope, Acute hyperglycemia, Acute head injury, Acute headache, Injury of hip, left Patient Disposition: Being Evaluated by Hospitalist Forms Stand Alone Forms: My [facility] Prescriptions Prescriptions: No Action metformin 1,000 mg tablet 1,000 mg PO BID Qty: 180 RF: 3 lisinopril-hydrochlorothiazide 10-12.5 mg tablet 1 tab PO DAILY Qty: 90 RF: 3 famotidine 40 mg tablet 40 mg PO DAILY Qty: 90 RF: 3 Toviaz 8 mg tablet extended release 24 hr 8 mg PO DAILY Qty: 90 RF: 3 oxycodone 5 mg tablet 5 mg PO Q6H PRN (Reason: pain) Qty: 30 RF: 0 ibuprofen 600 mg tablet 600 mg PO Q6H PRN (Reason: pain) Qty: 120 RF: 2 simvastatin 10 mg tablet 10 mg PO QPM Qty: 90 RF: 3 metoprolol succinate 25 mg capsule,sprinkle,ER 24hr 25 mg PO DAILY Qty: 30 RF: 0 nitroglycerin 0.4 mg tablet, sublingual 0.4 mg sublingual Q5M PRN (Reason: chest pain) Qty: 30 RF: 0 insulin aspart U-100 [Novolog Flexpen U-100 Insulin] 100 unit/mL (3 mL) insulin pen 0 unit subcut BIDM RF: 0 Lantus Solostar U-100 Insulin 100 unit/mL (3 mL) insulin pen 40 unit SUBCUT HS RF: 0 cholecalciferol (vitamin D3) [Vitamin D3] 1,000 unit capsule 1,000 unit PO QAM RF: 0 aspirin [Aspirin Low Dose] 81 mg tablet,delayed release (DR/EC) 81 mg PO QAM RF: 0 cyanocobalamin (vitamin B-12) 1,000 mcg/mL kit 1,000 mcg IM MONTHLY RF: 0 Referrals Referrals: Michelle Underwood MD [Primary Care Provider] -
--- NOTE | 2019-11-11 19:50 | XRay Report ---
XR chest 1V portable HISTORY: syncope COMPARISON: Chest 01/03/2018. FINDINGS: Mild diffuse interstitial thickening which is likely chronic. No focal lung consolidations to suggest pneumonia. No evidence for pulmonary edema. The heart is normal in size. No pleural effusi ons. No pneumothorax. IMPRESSION: Mild diffuse interstitial thickening which is likely chronic. Otherwise, no acute process within the chest. ACT 112: Negative or not required by law. Electronically signed by: Alex Cuba M.D. 11/11/2019 7:49 PM
--- NOTE | 2019-11-11 19:53 | XRay Report ---
XR hip LT 2V w pelvis CLINICAL HISTORY: fall eval for fx. Left hip pain. COMPARISON STUDY: Pelvis 07/05/2017. FINDINGS: L4-S1 posterior decompression fusion with bilateral sacroiliac screws. The hardware appears intact. No fracture or dislocation within the pelvis or hips. The visualized sacrum appears intact. Soft tissues are unremarkable. The bones are osteopenic. Mild cartilage space narrowing within the bilateral hips. IMPRESSION: No fracture or dislocation within the pelvis or hips. ACT 112: Negative or not required by law. Electronically signed by: Alex Cuba M.D. 11/11/2019 7:52 PM
[2019-11-11 20:07] LABS: Basophils # (auto) 0.02 K/uL (0-0.2); Basophils % (auto) 0.2 %; Eosinophils # (auto) 0.35 K/uL (0-0.5); Eosinophils % (auto) 4.3 %; Hematocrit (blood only) 42.8 % (37-47); Hemoglobin 14.8 g/dL (12.0-16.0); Immature Granulocytes # (auto) 0.03 K/uL (0.00-0.02); Immature Granulocytes % (auto) 0.4 %; Lymphocytes # (auto) 1.85 K/uL (1.2-3.4); Lymphocytes % (auto) 22.9 %; Mean Corpuscular Hemoglobin 30.7 pg (25-34); Mean Corpuscular Hgb Conc 34.6 g/dL (32-36); Mean Corpuscular Volume 88.8 fL (80-100); Mean Platelet Volume 11.1 fL (7.4-10.4); Monocytes # (auto) 0.59 K/uL (0.11-0.59); Monocytes % (auto) 7.3 %; Neutrophils # (auto) 5.24 K/uL (1.4-6.5); Neutrophils % (auto) 64.9 %; Platelet Count 179 K/uL (130-400); RDW Standard Deviation 42.1 fL (36.4-46.3); Red Blood Count 4.82 M/uL (4.2-5.4); White Blood Count 8.08 K/uL (4.8-10.8)
[2019-11-11] MEDS: SODIUM CHLORIDE 0.9% 500 ML IV SCH (20:08)
[2019-11-11 20:28] LABS: Appearance Urine Clear (Clear); Bilirubin Urine Negative (Negative); Blood Urine Negative (Negative); Color Urine Yellow; Glucose Urine UA 3+ (Negative); Ketones Urine Negative (Negative); Leukocyte Esterase Urine Negative (Negative); Nitrite Urine Negative (Negative); Protein Urine Negative (Negative); Specific Gravity Urine 1.028 (1.000-1.030); Urobilinogen Urine Negative (Negative)
[2019-11-11 20:28] LABS: Alanine Aminotransferase 24 U/L (12-78); Albumin Level 3.2 gm/dl (3.4-5.0); Aspartate Aminotransferase 19 U/L (15-37); BUN Creatinine Ratio 13.6 (10-20); Bilirubin,Total 0.3 mg/dl (0.2-1); Blood Urea Nitrogen 20 mg/dl (7-18); Calcium 9.5 mg/dl (8.5-10.1); Carbon Dioxide 24 mmol/L (21-32); Chloride 100 mmol/L (98-107); Creatinine Clr Calc Pharmacy 30.3 ml/min; Est GFR (African American) 39.1; Est GFR (Non-African American) 33.8; Globulin 3.2 gm/dl (2.5-4.0); Glucose 610 mg/dl (70-99); Potassium 4.5 mmol/L (3.5-5.1); Sodium 135 mmol/L (136-145); Total Protein 6.4 gm/dl (6.4-8.2)
[2019-11-11 20:33] LABS: Alkaline Phosphatase 148 U/L (45-117); Troponin I < 0.015 ng/ml (0-0.045)
[2019-11-11] MEDS ORDERED: SODIUM CHLORIDE 0.9% 1000ML 500 ML IV ONE (20:38)
[2019-11-11] MEDS ORDERED: NovoLIN-R INSULIN PER UNIT CHARGE IV STA (20:38)
[2019-11-11 20:39] LABS: Beta-Hydroxybutyrate 1.64 mg/dl (0.2-2.81)
[2019-11-11] MEDS ORDERED: OPTIRAY 320 125ml IV ONE (21:21)
[2019-11-11] MEDS ORDERED: MoRPHine SULFATE 4 MG/ML 1 ML CARP\\VIAL IV STA (22:20)
--- NOTE | 2019-11-11 23:30 | History & Physical Report ---
Date of Service November 11, 2019 Assessment & Plan (1) Syncope: Syncopal episode secondary to hyperglycemia and treatment. Present on Admission?: Yes (2) Hyperglycemia due to type 2 diabetes mellitus: The patient had initially recorded glucose on millimeters being too high to record when tested while out with her granddaughter. Glucose upon arrival in the emergency department was 610. She was given IV fluids, and 7 units of regular insulin IV, with improvement in glucose to 227. Patient had no further episodes of syncope. Place on Accu-Cheks before meals and at bedtime with NovoLog coverage per scale. Continue Lantus insulin 40 units subcu at bedtime. Hold metformin 1000 mg p.o. twice daily There does not appear to be any direct trigger as to infectious sources for reason for hyperglycemia at this time Present on Admission?: Yes (3) Urinary incontinence: Continue fesoterodine Present on Admission?: Yes (4) Uncontrolled type II diabetes mellitus: Check hemoglobin A1c Present on Admission?: Yes (5) Obstructive sleep apnea of adult: CPAP at at bedtime as needed Present on Admission?: Yes (6) Hyperlipidemia: Continue simvastatin 10 mg in the evening Present on Admission?: Yes (7) GERD (gastroesophageal reflux disease): Continue famotidine 40 mg daily Present on Admission?: Yes (8) Hypertension: Continue aspirin 81 mg daily, metoprolol succinate 25 mg daily. Hold lisinopril/HCTZ Present on Admission?: Yes (9) Pernicious anemia: Takes vitamin B12 1000 mcg IM monthly Present on Admission?: Yes History of Present Illness Chief Complaint: The patient presents to the emergency department with complaint of a near syncopal episode, headache and hyperglycemia. Primary Care Provider: Michelle Underwood MD The patient is a 78-year-old female with a past medical history including urinary incontinence, vitamin D deficiency, uncontrolled obese mellitus type II, postmenopausal atrophic vaginitis, MART, nonalcoholic steatohepatitis, hyperlipidemia, depression, peripheral neuropathy, lumbar spinal stenosis, pernicious anemia, GERD, osteoporosis and hypertension. The patient reports that she was shopping with her granddaughter, when she developed a headache, which she usually gets when her blood sugar is high. She checked her sugar at that time, and it did not register because it was too high. After shopping, she went home, given herself some insulin, and later on found herself waking up on the floor. Patient has no specific complaints otherwise. She denies symptoms of infection related to urinary tract, GI tract, respiratory or sinus symptoms. She denies any change in dietary or liquid intake. She reports taking all of her medications as directed. Allergies Allergy/AdvReac Type Severity Reaction Status Date / Time aspirin [From Percodan] Allergy Verified 11/11/19 22:08 oxycodone [From Percodan] Allergy Verified 11/11/19 22:08 Home Medications Home Medications Medication Instructions Recorded Confirmed Type metoprolol succinate 25 mg PO DAILY #30 ea 06/24/18 11/11/19 Rx nitroglycerin 0.4 mg SUBLINGUAL Q5M PRN #30 tab 06/24/18 11/11/19 Rx ibuprofen 600 mg tablet 600 mg PO Q6H PRN #120 tab 08/03/18 11/11/19 Rx aspirin 81 mg tablet,delayed 81 mg PO QAM 10/03/18 11/11/19 History release cholecalciferol (vitamin D3) 25 1,000 unit PO QAM 10/03/18 11/11/19 History mcg (1,000 unit) capsule cyanocobalamin (vitamin B-12) 1,000 mcg IM MONTHLY 10/03/18 11/11/19 History 1,000 mcg/mL injection kit metformin 1,000 mg tablet 1,000 mg PO BID #180 tab 10/20/18 11/11/19 Rx lisinopril 10 1 tab PO DAILY #90 tab 12/12/18 11/11/19 Rx mg-hydrochlorothiazide 12.5 mg tablet oxycodone 5 mg tablet 5 mg PO Q6H PRN #30 tab 12/20/18 11/11/19 Rx famotidine 40 mg tablet 40 mg PO DAILY #90 tab 01/18/19 11/11/19 Rx simvastatin 10 mg tablet 10 mg PO QPM #90 tab 09/06/19 11/11/19 Rx fesoterodine 8 mg tablet,extended 8 mg PO DAILY #90 tab 10/31/19 11/11/19 Rx release 24 hr insulin aspart U-100 [Novolog 0 unit SUBCUT BIDM 11/11/19 11/11/19 History Flexpen U-100 Insulin] insulin glargine [Lantus Solostar 40 unit SUBCUT HS 11/11/19 11/11/19 History U-100 Insulin] Past Med/Surg History Medical History Depression Fibrocystic breast disease Genital herpes simplex GERD (gastroesophageal reflux disease) Hyperlipidemia Hypertension Lumbar spinal stenosis Nonalcoholic steatohepatitis Obstructive sleep apnea of adult Osteoporosis Osteoporotic compression fracture of spine Peripheral neuropathy Pernicious anemia Postmenopausal atrophic vaginitis Uncontrolled type II diabetes mellitus Urinary incontinence Vitamin D deficiency Surgical History H/O lumbosacral spine surgery H/O total knee replacement H/O: hysterectomy History of hernia repair Family History Other Coronary heart disease Myocardial infarction Social History Smoking Status: Never smoker Second Hand Exposure: No; Hx Alcohol Use: No Hx Substance Use: No Preferred Language: [place] Communication Ability: Effective Torch Burner Required: No Beliefs That Will Affect Care: None marital status: / Current Living Situation: Alone current occupational status: retired Other Information That Helps Us Care for You: No Feels Safe at Home: Yes Safety Concerns: Feels Safe At This Time Assistive Devices: None Review of Systems Review of Systems: The patient denies chest pain, palpitations, shortness of breath, dyspnea on exertion, cough, lower extremity swelling, sore throat, fevers, chills, sweats, nausea, vomiting, diarrhea , constipation, abdominal pain, pelvic pain, blood in urine or stool, dysuria, urinary frequency or urgency, rash, abnormal bruising or bleeding, focal weakness, numbness or tingling in arms or legs, generalized arthralgias or myalgias, back or neck pain, or night sweats. The review of systems is otherwise negative other than for that already noted above, and at least 10 systems have been reviewed. Physical Exam Physical Exam: The patient is awake, alert and oriented 3, well developed and well nourished, normocephalic and atraumatic, lying in bed and in no acute distress. HEENT--PERRL, EOMI, mucous membranes and oropharynx dry. Neck--supple. No JVD. No bruits. Thyroid normal, trachea midline, no adenopathy. Heart--normal S1 and S2. No murmurs, rubs or gallops. Lungs--clear bilaterally, no respiratory distress, no accessory muscle use. Abdomen--normal bowel sounds and soft. Nontender. Nondistended. Extremities--no cyanosis or clubbing. No edema. Dermatologic--normal skin turgor, normal color, no abnormal lymph nodes, no rash. Neurologic--cranial nerves II through XII grossly intact. Rheumatologic--normal range of motion. Psychiatric--normal affect. Results & Data Results & Data ([facility]) Vital Signs (Past 12 Hours) Vital Signs Temp Pulse Pulse Resp BP BP Pulse Ox 11/11/19 22:47 85 18 125/74 95 11/11/19 20:50 86 18 136/93 95 11/11/19 18:50 99.5 F 97 H 20 138/73 96 Laboratory Results Laboratory Results WBC 8.08 K/uL (4.8-10.8) 11/11/19 19:54 RBC 4.82 M/uL (4.2-5.4) 11/11/19 19:54 Hgb 14.8 g/dL (12.0-16.0) 11/11/19 19:54 Hct 42.8 % (37-47) 11/11/19 19:54 MCV 88.8 fL (80-100) 11/11/19 19:54 MCH 30.7 pg (25-34) 11/11/19 19:54 MCHC 34.6 g/dL (32-36) 11/11/19 19:54 RDW Std Deviation 42.1 fL (36.4-46.3) 11/11/19 19:54 RDW Coeff of Hien 13.0 % (11.5-14.5) 11/11/19 19:54 Plt Count 179 K/uL (130-400) 11/11/19 19:54 MPV 11.1 fL (7.4-10.4) H 11/11/19 19:54 Immature Gran % (Auto) 0.4 % 11/11/19 19:54 Neut % (Auto) 64.9 % 11/11/19 19:54 Lymph % (Auto) 22.9 % 11/11/19 19:54 Cocke % (Auto) 7.3 % 11/11/19 19:54 Eos % (Auto) 4.3 % 11/11/19 19:54 Baso % (Auto) 0.2 % 11/11/19 19:54 Neut # (Auto) 5.24 K/uL (1.4-6.5) 11/11/19 19:54 Lymph # (Auto) 1.85 K/uL (1.2-3.4) 11/11/19 19:54 Cocke # (Auto) 0.59 K/uL (0.11-0.59) 11/11/19 19:54 Eos # (Auto) 0.35 K/uL (0-0.5) 11/11/19 19:54 Baso # (Auto) 0.02 K/uL (0-0.2) 11/11/19 19:54 Immature Gran # (Auto) 0.03 K/uL (0.00-0.02) H 11/11/19 19:54 Sodium 135 mmol/L (136-145) L 11/11/19 19:54 Potassium 4.5 mmol/L (3.5-5.1) 11/11/19 19:54 Chloride 100 mmol/L (98-107) 11/11/19 19:54 Carbon Dioxide 24 mmol/L (21-32) 11/11/19 19:54 Anion Gap 11.0 (3-11) 11/11/19 19:54 BUN 20 mg/dl (7-18) H 11/11/19 19:54 Creatinine 1.49 mg/dl (0.6-1.2) H 11/11/19 19:54 Est Cr Clr Drug Dosing 30.3 ml/min 11/11/19 19:54 Est GFR ( Amer) 39.1 11/11/19 19:54 Est GFR (Non-Af Amer) 33.8 11/11/19 19:54 BUN/Creatinine Ratio 13.6 (10-20) 11/11/19 19:54 Glucose 610 mg/dl (70-99) H* 11/11/19 19:54 POC Glucose 223 mg/dl (70-99) H 11/12/19 00:11 Calcium 9.5 mg/dl (8.5-10.1) 11/11/19 19:54 Magnesium 2.0 mg/dl (1.8-2.4) 11/11/19 19:54 Total Bilirubin 0.3 mg/dl (0.2-1) 11/11/19 19:54 AST 19 U/L (15-37) 11/11/19 19:54 ALT 24 U/L (12-78) 11/11/19 19:54 Alkaline Phosphatase 148 U/L (45-117) H 11/11/19 19:54 Troponin I < 0.015 ng/ml (0-0.045) 11/11/19 19:54 Total Protein 6.4 gm/dl (6.4-8.2) 11/11/19 19:54 Albumin 3.2 gm/dl (3.4-5.0) L 11/11/19 19:54 Globulin 3.2 gm/dl (2.5-4.0) 11/11/19 19:54 Albumin/Globulin Ratio 1.0 (0.9-2) 11/11/19 19:54 Beta-Hydroxybutyric Acd 1.64 mg/dl (0.2-2.81) 11/11/19 19:54 TSH 1.210 uIu/ml (0.300-4.500) 11/11/19 19:54 Urine Color Yellow 11/11/19 20:07 Urine Appearance Clear (Clear) 11/11/19 20:07 Urine pH 7.0 (4.5-7.5) 11/11/19 20:07 Ur Specific [place] 1.028 (1.000-1.030) 11/11/19 20:07 Urine Protein Negative (Negative) 11/11/19 20:07 Urine Glucose (UA) 3+ (Negative) H 11/11/19 20:07 Urine Ketones Negative (Negative) 11/11/19 20:07 Urine Blood Negative (Negative) 11/11/19 20:07 Urine Nitrite Negative (Negative) 11/11/19 20:07 Urine Bilirubin Negative (Negative) 11/11/19 20:07 Urine Urobilinogen Negative (Negative) 11/11/19 20:07 Ur Leukocyte Esterase Negative (Negative) 11/11/19 20:07 Diagnostic Findings [facility], [place] [phone] XRay Report Patient: MONY JAIMES Date: 11/11/19 MR#: [id number]: [address] Acct ID:[id number]: Date: [address] [place] [address] [facility] [address] Age: 78Location: ED Sex: FRoom/Bed: Att Phy:Diagnosis: SYNCOPE, HYPERGLYCEMIA, HEADACHE Erica Phy: Michelle Underwood, MDService Date: 11/11/19 Fam Phy:Interpreting Phy: Alex Cuba MD Admit Phy: Ordering Phy: Dave Corbin MD cc: ~ XR chest 1V portable HISTORY: syncope COMPARISON: Chest 01/03/2018. FINDINGS: Mild diffuse interstitial thickening which is likely chronic. No focal lung consolidations to suggest pneumonia. No evidence for pulmonary edema. The heart is normal in size. No pleural effusions. No pneumothorax. IMPRESSION: Mild diffuse interstitial thickening which is likely chronic. Otherwise, no acute process within the chest. ACT 112: Negative or not required by law. Electronically signed by: Alex Cuba M.D. 11/11/2019 7:49 PM Dictated: 11/11/191946 Transcribed: 11/11/191946 [facility], [place] [phone] XRay Report Patient: MONY JAIMES Date: 11/11/19 MR#: [id number]: [address] Acct ID:[id number]: Date: [address] [place] [address] [facility]: [facility] [address] Age: 78Location: ED Sex: FRoom/Bed: Att Phy:Diagnosis: SYNCOPE, HYPERGLYCEMIA, HEADACHE Erica Phy: Michelle Underwood, MDService Date: 11/11/19 Fam Phy:Interpreting Phy: Alex Cuba MD Admit Phy: Ordering Phy: Dave Corbin MD cc: ~ XR hip LT 2V w pelvis CLINICAL HISTORY: fall eval for fx. Left hip pain. COMPARISON STUDY: Pelvis 07/05/2017. FINDINGS: L4-S1 posterior decompression fusion with bilateral sacroiliac screws. The hardware appears intact. No fracture or dislocation within the pelvis or hips. The visualized sacrum appears intact. Soft tissues are unremarkable. The bones are osteopenic. Mild cartilage space narrowing within the bilateral hips. IMPRESSION: No fracture or dislocation within the pelvis or hips. ACT 112: Negative or not required by law. Electronically signed by: Alex Cuba M.D. 11/11/2019 7:52 PM Dictated: 11/11/191948 Transcribed: 11/11/191948 [facility] Patient: MONY JAIMES (Female) : 44 Status: ER Date: 11/11/19 21:35 Room #: History: EVAL FOR BLEED OPTIRAY 320 119ML Slices: 653 Priors: Tech: Vlad Leeic @ [phone] Exams: CT HEAD, CTA HEAD Contrast: IV Amt: 119ML Accession Numbers: [id number] Preliminary Findings Only See Final Report For Complete Findings CT HEAD: The paranasal sinuses and mastoid air cells are normally aerated. There is no skull fracture or scalp hematoma. There is a normal gyral pattern of the brain. There is no mass lesion or midline shift. The correa-white matter differentiation is maintained. There is mild periventricular white matter low density bilaterally consistent with chronic small vessel disease. There is no evidence of acute large vessel infarct or intracranial hemorrhage. CTA HEAD: Mild calcification of the cavernous portion of the distal internal carotid arteries bilaterally with less than 20% stenosis. The A1 and M1 segments are widely patent bilaterally. The right P1 segment is hypoplastic due to origin of the right posterior cerebral artery from the anterior circulation which is a normal variant. The distal right vertebral artery is small but present. The basal artery is widely patent. The visualized portions of the anterior, middle, and posterior cerebral arteries are unremarkable. No aneurysm, vascular malformation, or arterial thrombus is identified. Radiologist: Cuco Woodall MD Study ready at 21:39 and initial results transmitted at 22:05 *This report constitutes a preliminary interpretation only. Non-acute findings felt to be unrelated to the clinical presentation may not be discussed in this report. The study will be interpreted and a final report will be generated by the local Radiologist the following shift. To reach the hospital radiology department call [phone]. If a discrepancy is found between the preliminary and final interpretations of this study, please notify us via our Client Portal at [email or web address].You can also fax this report with a description of the discrepancy, or include the final report, to our daytime fax number [phone].If faxing, please indicate the severity of discrepancy using one of the following categories: [ ] 1 - Agree/Informational [ ] 2 - Unlikely to Affect Management [ ] 3 - Possible Eventual Change of Management [ ] 4 - Probable Immediate Change of Management For all other patient related information, please fax us at [phone]. [id number] Code Status & VTE Plan Code Status Full code VTE Prophylaxis Plan VTE Prophylaxis will be ordered: Yes PG Care Time/CCT Total # of Minutes Spent Total Time Spent with Patient: Total time spent is greater than 50% in coordination of care (as documented) at patient's floor/unit and/or counseling patient: Coding Level of Care Code 50236 Initial Inpt Care Lvl 3 Diagnoses Syncope R55 Syncope type: unspecified Hyperglycemia due to type 2 diabetes mellitus E11.65 Urinary incontinence R32 Uncontrolled type II diabetes mellitus E11.65 Obstructive sleep apnea of adult G47.33 Hyperlipidemia E78.5 GERD (gastroesophageal reflux disease) K21.9 Hypertension I10 Hypertension type: essential hypertension Pernicious anemia D51.0 (1) Syncope Syncope type: unspecified Qualified Code(s): R55 - Syncope and collapse (2) Hypertension Hypertension type: essential hypertension Qualified Code(s): I10 - Essential (primary) hypertension
[2019-11-12] MEDS ORDERED: GLUCOSE 40% GEL 15 GM TUBE PO PRN (00:10)
[2019-11-12] MEDS ORDERED: MAGNESIUM HYDROXIDE SUSP 30 ML UDC PO PRN (00:10)
[2019-11-12] MEDS ORDERED: GLUCOSE 10 TABS/TUBE PO PRN (00:10)
[2019-11-12] MEDS ORDERED: CARBOHYDRATES FOR HYPOGLYCEMIA PO PRN (00:10)
[2019-11-12] MEDS ORDERED: ONDANSETRON INJ 2 MG/ML 2 ML VIAL IV PRN (00:10)
[2019-11-12] MEDS ORDERED: DEXTROSE 50% 50 ML SYRINGE IV PRN (00:10)
[2019-11-12] MEDS ORDERED: GLUCAGON FOR INJ 1 MG VIAL SQ PRN (00:10)
[2019-11-12] MEDS ORDERED: NITROGLYCERIN SL 0.4 MG/TAB TAB SL PRN ×2 (00:10)
[2019-11-12] MEDS ORDERED: ALUMINUM/MAGNESIUM SUSP 30 ML UDC PO PRN (00:10)
[2019-11-12] MEDS ORDERED: ACETAMINOPHEN 325 MG TAB PO PRN (00:10)
[2019-11-12] MEDS ORDERED: OXYCODONE HCL IR 5 MG TAB (IMMEDIATE RELEASE) PO PRN (00:20)
[2019-11-12] MEDS: SODIUM CHLORIDE 0.9% 1000ML 1,000 ML IV SCH ×2 (00:46→10:28)
[2019-11-12] MEDS: SODIUM CHLORIDE 0.9% 500 ML IV SCH (01:10)
[2019-11-12 05:52] LABS: Basophils # (auto) 0.02 K/uL (0-0.2); Basophils % (auto) 0.2 %; Eosinophils # (auto) 0.56 K/uL (0-0.5); Eosinophils % (auto) 6.4 %; Hematocrit (blood only) 39.4 % (37-47); Hemoglobin 13.3 g/dL (12.0-16.0); Immature Granulocytes # (auto) 0.03 K/uL (0.00-0.02); Immature Granulocytes % (auto) 0.3 %; Lymphocytes # (auto) 2.98 K/uL (1.2-3.4); Lymphocytes % (auto) 34.2 %; Mean Corpuscular Hemoglobin 29.8 pg (25-34); Mean Corpuscular Hgb Conc 33.8 g/dL (32-36); Mean Corpuscular Volume 88.3 fL (80-100); Monocytes # (auto) 0.69 K/uL (0.11-0.59); Monocytes % (auto) 7.9 %; Neutrophils # (auto) 4.43 K/uL (1.4-6.5); Platelet Count 169 K/uL (130-400); RDW Standard Deviation 41.9 fL (36.4-46.3); Red Blood Count 4.46 M/uL (4.2-5.4); White Blood Count 8.71 K/uL (4.8-10.8)
[2019-11-12 06:03] LABS: Partial Thromboplastin Ratio 0.8; Partial Thromboplastin Time 21.9 Seconds (21.0-31.0); Prothrombin Time 10.9 Seconds (9.0-12.0)
[2019-11-12 06:33] LABS: Alanine Aminotransferase 18 U/L (12-78); Albumin Level 2.9 gm/dl (3.4-5.0); Aspartate Aminotransferase 16 U/L (15-37); BUN Creatinine Ratio 17.7 (10-20); Blood Urea Nitrogen 17 mg/dl (7-18); Calcium 8.6 mg/dl (8.5-10.1); Carbon Dioxide 29 mmol/L (21-32); Chloride 107 mmol/L (98-107); Creatinine Clr Calc Pharmacy 46.7 ml/min; Est GFR (African American) 68.3; Est GFR (Non-African American) 58.9; Glucose 160 mg/dl (70-99); Magnesium 1.8 mg/dl (1.8-2.4); Potassium 3.9 mmol/L (3.5-5.1); Sodium 141 mmol/L (136-145)
[2019-11-12 06:37] LABS: Albumin Globulin Ratio 1.1 (0.9-2); Alkaline Phosphatase 106 U/L (45-117); Bilirubin,Total 0.4 mg/dl (0.2-1); Globulin 2.6 gm/dl (2.5-4.0); Total Protein 5.5 gm/dl (6.4-8.2); Troponin I < 0.015 ng/ml (0-0.045)
[2019-11-12] MEDS ORDERED: TOVIAZ~ORDER AWAITING ACTION SCH (08:00)
[2019-11-12] MEDS ORDERED: INSULIN ASPART 100 UNITS/ML 3 ML PEN SQ SCH (08:00)
--- NOTE | 2019-11-12 08:12 | CT Scan Report ---
HEAD CTA HISTORY: Fall. Headache. eval for bleed/eval for aneurysm TECHNIQUE: Multiaxial CT images of the head were performed both before and after the intravenous admi nistration of contrast to evaluate the major cerebral vessels. Maximum intensity projection images we re also obtained. A dose lowering technique was utilized adhering to the principles of ALARA. COMPARISON: Head CT 05/23/2018. FINDINGS: There is no mass, hematoma, midline shift, or acute infarct. Mild periventricular white mat ter hypodensity favors microvascular ischemic change. Visualized intracranial internal carotid arteri es, distal vertebral arteries, and basilar artery are widely patent. There is no significant stenosis , occlusion, or aneurysm seen within the bilateral ACAs, MCAs, or medical reception specialist. Hypoplastic distal right vert ebral artery and hypoplastic right P1 segment. These are considered to be normal variants. Mild calci fied plaque within the bilateral carotid siphons. The major dural venous sinuses appear patent. IMPRESSION: 1. No acute intracranial abnormality. 2. No significant stenosis, occlusion, or aneurysm within the [place]. ACT 112: Negative or not required by law. Electronically signed by: Alex Cuba M.D. 11/12/2019 8:11 AM
[2019-11-12] MEDS: INSULIN ASPART 100 UNITS/ML 3 ML PEN SC SCH ×2 (08:42→12:04)
[2019-11-12] MEDS ORDERED: CHOLECALCIFEROL 1,000 UNITS 25 MCG TAB PO SCH (09:00)
[2019-11-12] MEDS ORDERED: FAMOTIDINE 40 MG TABLET PO SCH (09:00)
[2019-11-12] MEDS ORDERED: ASPIRIN 81 MG ECTAB PO SCH (09:00)
[2019-11-12] MEDS ORDERED: METOPROLOL SUCC 25MG EXT REL TAB PO SCH (09:00)
[2019-11-12] MEDS ORDERED: HEPARIN SOD 5,000 UNIT/0.5 ML VIAL SQ SCH (09:00)
[2019-11-12] MEDS ORDERED: METFORMIN HCL 500 MG TAB PO SCH (09:00)
--- NOTE | 2019-11-12 09:50 | Electrocardiogram Report ---
Test Reason : Blood Pressure : / mmHG Vent. Rate : 083 BPM Atrial Rate : 083 BPM P-R Int : 170 ms QRS Dur : 086 ms QT Int : 380 ms P-R-T Axes : 014 014 039 degrees QTc Int : 446 ms Normal sinus rhythm Poor R wave progression, consider anterior KS vs. lead placement vs. LVH Abnormal ECG When compared with ECG of 23-JUN-2018 12:24, Premature ventricular and fusion complexes are no longer Present Confirmed by Rogerio Kirk ([id number]) on 11/12/2019 9:50:08 AM Referred By: REFERRED SELF Confirmed By:Merlin Kirk
--- NOTE | 2019-11-12 16:54 | Discharge Summary ---
Date of Service November 12, 2019 Admission HPI Per Admitting Provider The patient is a 78-year-old female with a past medical history including urinary incontinence, vitamin D deficiency, uncontrolled obese mellitus type II, postmenopausal atrophic vaginitis, MART, nonalcoholic steatohepatitis, hyperlipidemia, depression, peripheral neuropathy, lumbar spinal stenosis, pernicious anemia, GERD, osteoporosis and hypertension. The patient reports that she was shopping with her granddaughter, when she developed a headache, which she usually gets when her blood sugar is high. She checked her sugar at that time, and it did not register because it was too high. After shopping, she went home, given herself some insulin, and later on found herself waking up on the floor. Patient has no specific complaints otherwise. She denies symptoms of infection related to urinary tract, GI tract, respiratory or sinus symptoms. She denies any change in dietary or liquid intake. She reports taking all of her medications as directed. Principal Diagnosis Hyperglycemia Discharge Exam Constitutional WD/WN, vitals as above Eyes EOM intact bilaterally; no conjunctival abnormality ENMT external ear and nose normal, oropharynx normal Neck trachea midline, no thyromegaly normal visual inspection Respiratory normal respiratory effort, lungs clear to auscultation no respiratory distress Cardiovascular RRR, no murmur, no edema Gastrointestinal (Abdomen) Inspection/Auscultation: abdomen normal to inspection; abdomen not distended Musculoskeletal no cyanosis or clubbing, extremities motor strength 5/5 Skin no rashes, warm and dry Neurologic moves all extremities and awake Psychiatric Orientation: alert, oriented to person and cooperative Discharge Data Allergies Allergy/AdvReac Type Severity Reaction Status Date / Time aspirin [From Percodan] Allergy Verified 11/11/19 22:08 oxycodone [From Percodan] Allergy Verified 11/11/19 22:08 Consultations 11/11/19 22:20 ED Decision to Admit Stat 11/12/19 00:10 Consult Case Management - Discharge Planning Routine Ordered Studies 11/11/19 20:38 CT angio head wo/w Urgent Hospital Course (1) Hyperglycemia due to type 2 diabetes mellitus: The patient had initially recorded glucose on millimeters being too high to record when tested while out with her granddaughter. Glucose upon arrival in the emergency department was 610. Recent A1cs have been in the 10 range, meaning an average blood sugar of ~250. - Patient's glucose improved substantially to the 160s on discharge. - She was very reluctant to have any insulin changes done while inpatient. She really only trusted Dr. Underwood to make changes for her. Two thoughts: 1) She really doesn't like checking her blood sugar for pain and cost. Only does it about 2 times per day. She is interested in continuous glucose monitor which I think could really help her stay much more updated on blood sugars at any given time. 2) She could almost certainly do a meal-time Novolog dose (ie 5 units with small meal, 8 with medium meal, 10 units with larger meal) without adding too much complexity to her current regimen. 3) Her long-acting insulin seems appropriate because she reports to me that she usually is in the lower range in the mornings (138 on the morning of admission). Raising her long-acting insulin too much could cause her to bottom out if she skips a meal or doesn't feel well. (2) Syncope: Syncopal episode secondary to hyperglycemia and treatment. - Likely dehydration causing some orthostatic syncope. Patient notes she was pe eing lots in the last few days with high blood sugars. (3) Urinary incontinence: - Continue fesoterodine (4) Uncontrolled type II diabetes mellitus: - As above (5) Obstructive sleep apnea of adult: CPAP at at bedtime as needed (6) Hyperlipidemia: - Continue simvastatin 10 mg in the evening (7) GERD (gastroesophageal reflux disease): - Continue famotidine 40 mg daily (8) Hypertension: - Continue aspirin 81 mg daily, metoprolol succinate 25 mg daily. - Hold lisinopril/HCTZ (9) Pernicious anemia: - Takes vitamin B12 1000 mcg IM monthly Total Time Total Time Spent Total Time Spent (In Minutes): 30 Discharge Plan Discharge Items Patient Disposition: Home - Self-Care Reason For Visit: HYPERGLYCEMIA IN DM Discharge Diagnosis: High blood sugars Activity: Resume your previous activity Non-emergency contact: Primary Care Provider Call non-emergency contact if: your symptoms worsen Follow-up/Referrals: Michelle Underwood MD [Primary Care Provider] - Diet: Carb Consistent or DM2 Addtl Attending Provider Instructions: You were admitted to the hospital with high blood sugars. You had sugars > 600 that I think was due to the [employer] and chocolate milk. Please continue to check your sugars at least twice per day. You indicated that you would prefer Dr. Underwood help you adjust your insulin regimen. This is fine, but I do worry about your sugars if you are only giving yourself insulin when your pre-meal blood sugar is >200. Your long-acting insulin dosing seems good, so I will not adjust that. Pending Studies at Discharge: No Stand-Alone Forms: [facility], Smoking Cessation Medications and DC Order Prescriptions: Continued metformin 1,000 mg tablet 1,000 mg PO BID Qty: 180 RF: 3 lisinopril-hydrochlorothiazide 10-12.5 mg tablet 1 tab PO DAILY Qty: 90 RF: 3 famotidine 40 mg tablet 40 mg PO DAILY Qty: 90 RF: 3 Toviaz 8 mg tablet extended release 24 hr 8 mg PO DAILY Qty: 90 RF: 3 oxycodone 5 mg tablet 5 mg PO Q6H PRN (Reason: pain) Qty: 30 RF: 0 ibuprofen 600 mg tablet 600 mg PO Q6H PRN (Reason: pain) Qty: 120 RF: 2 simvastatin 10 mg tablet 10 mg PO QPM Qty: 90 RF: 3 metoprolol succinate 25 mg capsule,sprinkle,ER 24hr 25 mg PO DAILY Qty: 30 RF: 0 nitroglycerin 0.4 mg tablet, sublingual 0.4 mg sublingual Q5M PRN (Reason: chest pain) Qty: 30 RF: 0 insulin aspart U-100 [Novolog Flexpen U-100 Insulin] 100 unit/mL (3 mL) insulin pen 0 unit subcut BIDM RF: 0 Lantus Solostar U-100 Insulin 100 unit/mL (3 mL) insulin pen 40 unit SUBCUT HS RF: 0 cholecalciferol (vitamin D3) [Vitamin D3] 1,000 unit capsule 1,000 unit PO QAM RF: 0 aspirin [Aspirin Low Dose] 81 mg tablet,delayed release (DR/EC) 81 mg PO QAM RF: 0 cyanocobalamin (vitamin B-12) 1,000 mcg/mL kit 1,000 mcg IM MONTHLY RF: 0 Discharge Orders: Discharge Order (Routine); Ordered 11/12/19 Ordered By: Colby Larson/Other Patient Handouts: Understanding Carbohydrates, Managing Your Glucose Level for ..., Discharge Instructions for ..., Diabetes: Meal Planning, Diabetes Carbs Fats Protein, Taking Medicine for Diabetes, Understanding Type 2 Diabetes Admission Data Admit Date/Time: 11/11/19 22:57 Attending Provider: Colby Maharaj Admit Provider: Andre Villalpando Primary Care Provider: Michelle Underwood Other Providers: Colby Maharaj Other Interventions: Discharge Summary Assessment (RN) Last Done: 11/12/19 13:39 Coding Level of Care Code D/C Day Management >30 mins Diagnoses Hyperglycemia due to type 2 diabetes mellitus E11.65 Syncope R55 Syncope type: unspecified Urinary incontinence R32 Uncontrolled type II diabetes mellitus E11.65 Obstructive sleep apnea of adult G47.33 Hyperlipidemia E78.5 GERD (gastroesophageal reflux disease) K21.9 Hypertension I10 Hypertension type: essential hypertension Pernicious anemia D51.0
[2019-11-12] MEDS ORDERED: SIMVASTATIN 10 MG TAB PO SCH (21:00)
[2019-11-12] MEDS ORDERED: INSULIN GLARGINE SOLOSTAR 100 UNITS/ML 3 ML PEN SQ SCH (21:00)
[2019-11-13 06:33] LABS: Estimated Average Glucose 289 mg/dl; Hemoglobin A1C 11.7 % (4.5-5.6)
== END 2019-11-12 15:36 | disposition home or self-care (01) ==
LOC: ED 18:52 → SUATTDRO 22:57 → 2S 22:57 → INTOOBSV 22:57 → 2S 23:33

== ENCOUNTER 2021-08-04 09:00 | Inpatient (IN) ==
--- NOTE | 2021-08-04 09:06 | Emergency Department Note ---
Impression & Plan Acute on chronic renal insufficiency, Metabolic acidosis, Diarrhea ED Provider Note NAME: MONY AJIMES AGE: 80 SEX: F ARRIVES VIA: Ambulance INFORMANT: ED PROVIDER(S): Lv Talley MD CHIEF COMPLAINT: Dizziness, near syncope, nausea/vomiting/diarrhea PLAN: Disposition: Admit MEDICAL DECISION MAKING: The patient is a pleasant 80-year-old woman with a past medical history of MART, GERD, hypertension, hyperlipidemia, neuropathy, uncontrolled type 2 diabetes, renal insufficiency, B12 deficiency, depression, lumbar spinal stenosis who presents to the emergency department via EMS for dizziness and near syncope in setting of having 6 weeks of ongoing daily diarrhea with intermittent nausea and vomiting. Patient reports she had seen her primary care doctor for the symptoms and had been recommended to take Metamucil. Patient reports she took this for 2 days but did not feel as it helps and does not like the flavor and so did not take anymore. She reports she cannot take Imodium because then she will develop severe constipation. She denies any cough or congestion, fevers, chills, urinary symptoms. She reports she moves her bowels so frequently she frequently will have incontinence of stool and will have to wash off in the shower. She denies any recent antibiotics. Today she felt short of breath and had chest pain with associated dizziness. On arrival, the patient is fatigued-appearing in no distress, afebrile stable vital signs. She appears clinically dry. She has general abdominal discomfort without discrete tenderness. WBC, H/H and platelets within normal limits. Chemistry demonstrates anion gap metabolic acidosis in the setting of acute on chronic renal insufficiency where her creatinine today is 3.4 prior creatinine range from 1-1.5. Anion gap 17 with bicarbonate of 15. Glucose 237 however patient's exam is not consistent with DKA at this time. Potassium 3.2 and electrolytes otherwise without significant abnormality. AST and ALT mildly elevated at 87 and 110, respectively. Total bilirubin is within normal limits. High-sensitivity troponin 10.4, within normal limits. Lipase is not elevated. Covid-19 RNA, NAAT negative. CT of the abdomen pelvis was performed and was negative for acute process. Of note, CT with IV contrast was initially ordered based on the patient's most recent renal function. Patient was updated of her IV contrast study in setting of her acute on chronic renal insufficiency was not intentional. The patient was understanding. She does agree with plan for admission for further management. Dr. Del Real [facility] hospitalist will evaluate the patient for admission. Triage Nursing notes reviewed and agree them. Prior medical records reviewed Vital Signs: reviewed and remarkable for no significant abnormalities Differential diagnosis: Benign positional vertigo, dehydration, hypovolemia, anemia, tumor, infection, hypoglycemia, electrolyte abnormalities, cardiac sources, intracerebral event, toxicologic, neurologic, as well as other pathologies. ER treatment provided: See below. Diagnostics interpreted by me: ECG: Normal sinus rhythm, 81 bpm, no ectopy, LVH, no overt ST elevation or depression, QTC 460, QRS 94 Cardiac Monitoring: An order for continuous cardiac monitoring was placed and d emonstrated normal sinus rhythm, 81 bpm, no ectopy. Laboratory studies: See below Imaging studies: See below Consultation(s): Dr. Del Real [facility] hospitalist will evaluate the patient for admission. HPI: The patient is a pleasant 80-year-old woman with a past medical history of MART, GERD, hypertension, hyperlipidemia, neuropathy, uncontrolled type 2 diabetes, renal insufficiency, B12 deficiency, depression, lumbar spinal stenosis who presents to the emergency department via EMS for dizziness and near syncope in setting of having 6 weeks of ongoing daily diarrhea with intermittent nausea and vomiting. Patient reports she had seen her primary care doctor for the symptoms and had been recommended to take Metamucil. Patient reports she took this for 2 days but did not feel as it helps and does not like the flavor and so did not take anymore. She reports she cannot take Imodium because then she will develop severe constipation. She denies any cough or congestion, fevers, chills, urinary symptoms. She reports she moves her bowels so frequently she frequently will have incontinence of stool and will have to wash off in the shower. She denies any recent antibiotics. Today she felt short of breath and had chest pain with associated dizziness. ROS: See above HPI for pertinent positives & negatives. A total of 10 systems reviewed and were otherwise negative. VITALS:See Below PHYSICAL EXAMINATION: GENERAL: Awake, alert, fatigued-appearing, in no distress HENT: Normocephalic, atraumatic. Oropharynx with dry mucous membranes and otherwise unremarkable. EYES: Normal conjunctiva. Sclera non-icteric. NECK: Supple. No nuchal rigidity. FROM. No JVD. RESPIRATORY: Clear to auscultation. CARDIAC: Regular rate, normal rhythm. Extremities warm and well perfused. Pulses equal. ABDOMEN: Soft, non-distended. No tenderness to palpation. No rebound or guarding. No masses. RECTAL: Deferred. MUSCULOSKELETAL: Chest examination reveals no tenderness. The back is symmetrical on inspection without obvious abnormality. There is no CVA tenderness to palpation. No joint edema. LOWER EXTREMITIES: Calves are equal size bilaterally and non-tender. No edema. No discoloration. NEURO: Normal sensorium. No sensory or motor deficits noted. SKIN: No rash or jaundice noted. Lv Talley MD Past Med/Surg History Medical History Acute hemorrhagic colitis Depression Fibrocystic breast disease Genital herpes simplex GERD (gastroesophageal reflux disease) Hyperlipidemia Hypertension Lumbar spinal stenosis Nonalcoholic steatohepatitis Obstructive sleep apnea of adult Osteoporosis Fosamax started 02/2021 Osteoporotic compression fracture of spine Peripheral neuropathy Pernicious anemia Postmenopausal atrophic vaginitis Renal insufficiency Uncontrolled type II diabetes mellitus Urinary incontinence Vitamin B 12 deficiency Vitamin D deficiency Surgical History H/O lumbosacral spine surgery H/O total knee replacement H/O: hysterectomy History of eyelid surgery History of hernia repair Family History Father Coronary heart disease Myocardial infarction Mother Myocardial infarction Coronary heart disease Brother Myocardial infarction Coronary heart disease Brother Myocardial infarction Coronary heart disease Grandfather (Maternal) Skin cancer Denies family history of Ovarian cancer Prostate cancer Breast cancer Colorectal cancer Social History Smoking Status: Never smoker Second Hand Exposure: No; Do You Dip or Chew Tobacco: No; Hx Alcohol Use: No Hx Substance Use: No Preferred Language: Urdu Communication Ability: Effective Visual Impairment: No Limitations Hearing Ability: Hard of Hearing Coil Placer Required: No Beliefs That Will Affect Care: None marital status: / Current Living Situation: Alone Current Living Situation Comment: Lives in a 2 story home current occupational status: retired 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 [employer] Other Information That Helps Us Care for You: No Feels Safe at Home: Yes Safety Concerns: Feels Safe At This Time Childhood Exposure to Second-Hand Smoke: Yes caffeine: Yes ([employer]) Dental Care, Regularly: Yes Physical Activity Frequency: Does not Exercise Seatbelt Use: always Sunscreen Use: No Assistive Devices: None Allergies Allergies Allergy/AdvReac Type Severity Reaction Status Date / Time No Known Drug Allergies Allergy Verified 07/16/21 09:53 Home Meds Home Medications Medication Instructions Recorded Confirmed cyanocobalamin (vitamin B-12) 1,000 mcg IM MONTHLY 10/03/18 08/04/21 1,000 mcg/mL injection kit hydrocortisone 2.5 % topical cream 1 applic [place] BID PRN 08/04/21 08/04/21 with perineal applicator (Anusol-HC) Previous Rx's Medication Instructions Recorded cholecalciferol (vitamin D3) 1,250 50,000 unit PO .COMPLEX #8 cap 02/13/21 mcg (50,000 unit) capsule famotidine 40 mg tablet 40 mg PO HS #90 tab 02/13/21 fesoterodine 8 mg tablet,extended 8 mg PO DAILY #90 tab 02/13/21 release 24 hr (Toviaz) lisinopril 10 1 tab PO DAILY #90 tab 02/13/21 mg-hydrochlorothiazide 12.5 mg tablet metformin 1,000 mg tablet 1,000 mg PO BID #180 tab 02/13/21 simvastatin 10 mg tablet 10 mg PO HS #90 tab 02/13/21 alendronate 70 mg tablet (Fosamax) 70 mg PO .COMPLEX #4 tab 02/27/21 blood sugar diagnostic (OneTouch #400 ea 06/06/21 Verio test strips) oxycodone 5 mg tablet 5 mg PO BID PRN #60 tab 06/10/21 insulin NPH-regular 70-30 U-100 See Rx Instructions .ROUTE 07/16/21 insulin 100 unit/mL subcutaneous .COMPLEX #15 ml MDD 50 units pen (Novolin 70-30 FlexPen U-100 Insulin) pen needle, diabetic 32 gauge x #200 ea 07/16/21" (Sure Comfort Pen Needle) Results & Data (ED) Vital Signs Vital Signs - 24 hr 08/04/21 09:04 08/04/21 09:13 08/04/21 09:23 Temperature 36.7 C Temperature Source Oral Pulse Rate 91 H Pulse Rate [Apical] 81 Respiratory Rate 18 Respiratory Effort / Characteristics Non-Labored Spontaneous Respiratory Depth Normal Blood Pressure 132/96 Blood Pressure [Right Arm] Blood Pressure Mean 108 Blood Pressure Mean [Right Arm] Blood Pressure Position Sitting Pulse Oximetry 98 98 96 Oxygen Delivery Method Room Air Room Air Room Air Sepsis Recent Fever Within 48 Hours No Sepsis New/Unexplained Change in Mental Status No Sepsis Action Taken by Nursing No Action Required 08/04/21 11:00 08/04/21 13:09 Temperature Temperature Source Pulse Rate Pulse Rate [Apical] 71 Respiratory Rate 18 16 Respiratory Effort / Characteristics Non-Labored Respiratory Depth Normal Blood Pressure Blood Pressure [Right Arm] 118/64 Blood Pressure Mean Blood Pressure Mean [Right Arm] 82 Blood Pressure Position Pulse Oximetry 98 95 Oxygen Delivery Method Room Air Room Air Sepsis Recent Fever Within 48 Hours Sepsis New/Unexplained Change in Mental Status Sepsis Action Taken by Nursing Laboratory Data Attestation: I reviewed the patient's lab results. Result diagrams: 08/04/21 09:51 08/04/21 19:55 Lab Results 08/04/21 08/04/21 08/04/21 Range/Units 09:51 09:51 13:13 WBC 10.03 (4.8-10.8) K/uL RBC 4.73 (4.2-5.4) M/uL Hgb 14.5 (12.0-16.0) g/dL Hct 41.3 (37-47) % MCV 87.3 (80-100) fL MCH 30.7 (25-34) pg MCHC 35.1 (32-36) g/dL RDW Std Deviation 42.5 (36.4-46.3) fL RDW Coeff of Hien 13.2 (11.5-14.5) % Plt Count 196 (130-400) K/uL MPV 10.9 H (7.4-10.4) fL Immature Gran % (Auto) 0.3 % Neut % (Auto) 78.8 % Lymph % (Auto) 14.8 % Logan % (Auto) 5.0 % Eos % (Auto) 0.9 % Baso % (Auto) 0.2 % Neut # (Auto) 7.91 H (1.4-6.5) K/uL Lymph # (Auto) 1.48 (1.2-3.4) K/uL Logan # (Auto) 0.50 (0.11-0.59) K/uL Eos # (Auto) 0.09 (0-0.5) K/uL Baso # (Auto) 0.02 (0-0.2) K/uL Immature Gran # (Auto) 0.03 H (0.00-0.02) K/uL Sodium 139 (136-145) mmol/L Potassium 3.2 L (3.5-5.1) mmol/L Chloride 107 (98-107) mmol/L Carbon Dioxide 15 L (21-32) mmol/L Anion Gap 17 H (3-11) BUN 56 H (6-23) mg/dl Creatinine 3.49 H (0.6-1.2) mg/dl Est Cr Clr Drug Dosing Not Reportable Est GFR ( Amer) 13.8 ml/min Est GFR (Non-Af Amer) 11.9 ml/min BUN/Creatinine Ratio 16.0 (10-20) Glucose 237 H (70-99(Fasting)) mg/dl Calcium 9.5 (8.5-10.1) mg/dl Phosphorus 3.4 (2.5-4.9) mg/dl Magnesium 1.7 (1.7-2.4) mg/dl Total Bilirubin 0.7 (0.2-1.0) mg/dl AST 87 H (13-39) U/L ALT 110 H (7-52) U/L Alkaline Phosphatase 58 (34-104) U/L Troponin I High Sens 10.4 (0-14) pg/ml Total Protein 6.1 (6.0-8.3) gm/dl Albumin 3.6 (3.4-5.0) gm/dl Globulin 2.5 (2.5-4.0) gm/dl Albumin/Globulin Ratio 1.4 (0.9-2) Lipase 50 (11-82) U/L SARS-CoV-2, RNA, NAAT NEGATIVE (NEGATIVE) Administered Medications Sodium Bicarbonate 150 meq/ (Dextrose) 1,150 mls @ 125 mls/hr IV .Q9H12M RUI Stop: 08/04/21 22:41 Last Admin: 08/04/21 14:08 Dose: 125 mls/hr Documented by: [id number] Insulin Aspart (Insulin Aspart Per Unit) 0 units SC ACHS [facility] Stop: 09/03/21 16:29 Last Admin: 08/04/21 21:01 Dose: 2 units Documented by: [id number] Cosigned by: [id number] Admin: 08/04/21 17:32 Dose: 7 units Documented by: [id number] Cosigned by: [id number] Insulin Glargine (Insulin Glargine Solostar 100 Units/Ml 3 Ml Pen) 35 units SC HS RUI Stop: 09/03/21 20:59 Last Admin: 08/04/21 21:02 Dose: 35 units Documented by: [id number] Cosigned by: [id number] Discontinued Medications Sodium Chloride (Nss 1000ml) 1,000 mls @ 999 mls/hr IV .Q1H1M ONE Stop: 08/04/21 10:13 Last Infusion: 08/04/21 10:55 Dose: 0 mls/hr Documented by: [id number] Admin: 08/04/21 09:47 Dose: 999 mls/hr Documented by: [id number] Famotidine (Pepcid 20mg Iv Push) 20 mg in 5 mls @ 2.5 mls/min IV NOW STA Stop: 08/04/21 09:14 Last Admin: 08/04/21 09:43 Dose: 2.5 mls/min Documented by: [id number] Acetaminophen (Ofirmev) 1,000 mg in 100 mls @ 400 mls/hr IV NOW STA Stop: 08/04/21 09:29 Last Infusion: 08/04/21 10:00 Dose: 0 mls/hr Documented by: [id number] Admin: 08/04/21 09:45 Dose: 400 mls/hr Documented by: [id number] Lactated Ringer's (Lr) 1,000 mls @ 125 mls/hr IV .Q8H RUI Stop: 09/03/21 13:14 Last Infusion: 08/04/21 19:18 Dose: 0 mls/hr Documented by: [id number] Admin: 08/04/21 14:00 Dose: 125 mls/hr Documented by: [id number] Ioversol (Optiray 320 100ml) 95 ml IV ONCE ONE Stop: 08/04/21 12:31 Last Admin: 08/04/21 12:21 Dose: 95 ml Documented by: [id number] Ondansetron HCl (Ondansetron Inj 2 Mg/Ml 2 Ml Vial) 4 mg IV NOW STA Stop: 08/04/21 09:14 Last Admin: 08/04/21 09:39 Dose: 4 mg Documented by: [id number] Potassium Chloride (Potassium Chloride Crtab 20 Meq Tabcr) 20 meq PO NOW STA Stop: 08/04/21 13:12 Last Admin: 08/04/21 14:00 Dose: 20 meq Documented by: [id number] Imaging Data Radiologist's Impression: Chest X-Ray 08/04/21 09:13 XR chest 1V portable CLINICAL HISTORY: weak, dizzy, abd pain TECHNIQUE: Single frontal radiograph of the chest was obtained. Comparison: Comparison is made to chest radiograph 02/26/2021 FINDINGS: No lines and tubes are seen. Calcified aortic knob is seen. The lungs are clear. No evidence of pleural effusion or pneumothorax. IMPRESSION: No acute chest disease. ACT 112: Negative or not required by law. Electronically signed by: Johnny Canada M.D. 08/04/2021 10:12 AM Abdomen/Pelvis CT 08/04/21 09:15 CT OF THE ABDOMEN AND PELVIS WITH CONTRAST CLINICAL HISTORY: Abdominal pain, nausea and vomiting. COMPARISON STUDY: CT of the abdomen and pelvis April 12, 2020. TECHNIQUE: Following IV administration of 95 mL of Optiray, axial images of the abdomen and pelvis were obtained from the lung bases to the proximal femurs. Images were reviewed in the axial, sagittal, and coronal planes. IV contrast was administered without complication. Automated exposure control was utilized for the study. A dose lowering technique was utilized adhering to the principles of ALARA. CT DOSE: 365.16 mGy.cm FINDINGS: Lung bases are unremarkable. No pneumatosis, free air or portal venous gas is present. There are small gallstones within the gallbladder. No pericholecystic infiltration is present. Spleen, adrenal glands, kidneys and pancreas are unremarkable. There is no biliary or pancreatic ductal dilatation. No peripancreatic infiltration is present. There is no hydronephrosis. Postoperative findings within the lumbosacral spine are noted, including bilateral iliac bolts. Caliber and wall thickness of small and large bowel are normal. No evidence for a bowel obstruction. The appendix is normal. There is no lymphadenopathy. No ascites. Major vasculature is patent. IMPRESSION: 1. No acute process within the abdomen or pelvis. 2. No bowel obstruction. No bowel wall thickening. 3. Cholelithiasis. ACT 112: Negative or not required by law. Electronically signed by: Christopher Underwood M.D. 08/04/2021 12:47 PM Discharge Plan Visit Data Chief Complaint: Abdominal Pain ED Provider: Lv Talley Discharge Problem: Acute on chronic renal insufficiency, Metabolic acidosis, Diarrhea Patient Disposition: Admitted As Inpatient Discharge Instructions Interventions: ED Discharge Assessment Last Done: 08/04/21 15:03 Discharge Problem: Diarrhea Qualifiers: Diarrhea type: unspecified type Qualified Code(s): R19.7 - Diarrhea, unspecified
[2021-08-04] MEDS ORDERED: SODIUM CHLORIDE 0.9% 1000ML 1,000 ML IV ONE (09:13)
[2021-08-04] MEDS ORDERED: ONDANSETRON INJ 2 MG/ML 2 ML VIAL IV STA (09:13)
[2021-08-04] MEDS ORDERED: FAMOTIDINE 20MG IV PUSH 20 MG/5 ML SYR IV STA (09:13)
[2021-08-04] MEDS ORDERED: ACETAMINOPHEN 1,000 MG/100 ML VIAL IV STA (09:15)
--- NOTE | 2021-08-04 10:15 | XRay Report ---
XR chest 1V portable CLINICAL HISTORY: weak, dizzy, abd pain TECHNIQUE: Single frontal radiograph of the chest was obtained. Comparison: Comparison is made to chest radiograph 02/26/2021 FINDINGS: No lines and tubes are seen. Calcified aortic knob is seen. The lungs are clear. No evidence of pleur al effusion or pneumothorax. IMPRESSION: No acute chest disease. ACT 112: Negative or not required by law. Electronically signed by: Johnny Canada M.D. 08/04/2021 10:12 AM
[2021-08-04 10:36] LABS: Basophils # (auto) 0.02 K/uL (0-0.2); Basophils % (auto) 0.2 %; Eosinophils # (auto) 0.09 K/uL (0-0.5); Eosinophils % (auto) 0.9 %; Hematocrit (blood only) 41.3 % (37-47); Hemoglobin 14.5 g/dL (12.0-16.0); Immature Granulocytes # (auto) 0.03 K/uL (0.00-0.02); Immature Granulocytes % (auto) 0.3 %; Lymphocytes # (auto) 1.48 K/uL (1.2-3.4); Lymphocytes % (auto) 14.8 %; Mean Corpuscular Hemoglobin 30.7 pg (25-34); Mean Corpuscular Hgb Conc 35.1 g/dL (32-36); Mean Corpuscular Volume 87.3 fL (80-100); Mean Platelet Volume 10.9 fL (7.4-10.4); Neutrophils # (auto) 7.91 K/uL (1.4-6.5); Neutrophils % (auto) 78.8 %; Platelet Count 196 K/uL (130-400); RDW Coefficient of Variation 13.2 % (11.5-14.5); RDW Standard Deviation 42.5 fL (36.4-46.3); Red Blood Count 4.73 M/uL (4.2-5.4); White Blood Count 10.03 K/uL (4.8-10.8)
--- NOTE | 2021-08-04 10:42 | Electrocardiogram Report ---
Test Reason : Blood Pressure : / mmHG Vent. Rate : 081 BPM Atrial Rate : 081 BPM P-R Int : 190 ms QRS Dur : 094 ms QT Int : 398 ms P-R-T Axes : 051 000 023 degrees QTc Int : 462 ms Normal sinus rhythm Possible Old Inferior infarct Poor R wave progression, consider anterior RI vs. lead placement vs. LVH Abnormal ECG When compared with ECG of 12-APR-2020 09:17, Borderline Criteria for Inferior infarct now present Confirmed by Crow Ackerman ([id number]) on 08/04/2021 10:42:35 AM Referred By: REFERRED SELF Confirmed By:Crow Ackerman
[2021-08-04 11:00] LABS: Troponin I High Sensitivity 10.4 pg/ml (0-14)
[2021-08-04 11:27] LABS: Alanine Aminotransferase 110 U/L (7-52); Albumin Globulin Ratio 1.4 (0.9-2); Albumin Level 3.6 gm/dl (3.4-5.0); Alkaline Phosphatase 58 U/L (34-104); Anion Gap 17 (3-11); Aspartate Aminotransferase 87 U/L (13-39); Bilirubin,Total 0.7 mg/dl (0.2-1.0); Blood Urea Nitrogen 56 mg/dl (6-23); Calcium 9.5 mg/dl (8.5-10.1); Carbon Dioxide 15 mmol/L (21-32); Chloride 107 mmol/L (98-107); Est GFR (African American) 13.8 ml/min; Est GFR (Non-African American) 11.9 ml/min; Globulin 2.5 gm/dl (2.5-4.0); Glucose 237 mg/dl (70-99(Fasting)); Lipase 50 U/L (11-82); Magnesium 1.7 mg/dl (1.7-2.4); Phosphorus 3.4 mg/dl (2.5-4.9); Potassium 3.2 mmol/L (3.5-5.1); Sodium 139 mmol/L (136-145); Total Protein 6.1 gm/dl (6.0-8.3)
[2021-08-04] MEDS ORDERED: OPTIRAY 320 100ml IV ONE (12:30)
--- NOTE | 2021-08-04 12:49 | CT Scan Report ---
CT OF THE ABDOMEN AND PELVIS WITH CONTRAST CLINICAL HISTORY: Abdominal pain, nausea and vomiting. COMPARISON STUDY: CT of the abdomen and pelvis April 12, 2020. TECHNIQUE: Following IV administration of 95 mL of Optiray, axial images of the abdomen and pelvis we re obtained from the lung bases to the proximal femurs. Images were reviewed in the axial, sagittal, and coronal planes. IV contrast was administered without complication. Automated exposure control wa s utilized for the study. A dose lowering technique was utilized adhering to the principles of ALARA . CT DOSE: 365.16 mGy.cm FINDINGS: Lung bases are unremarkable. No pneumatosis, free air or portal venous gas is present. Ther e are small gallstones within the gallbladder. No pericholecystic infiltration is present. Spleen, ad renal glands, kidneys and pancreas are unremarkable. There is no biliary or pancreatic ductal dilatat ion. No peripancreatic infiltration is present. There is no hydronephrosis. Postoperative findings wi thin the lumbosacral spine are noted, including bilateral iliac bolts. Caliber and wall thickness of small and large bowel are normal. No evidence for a bowel obstruction. The appendix is normal. There is no lymphadenopathy. No ascites. Major vasculature is patent. IMPRESSION: 1. No acute process within the abdomen or pelvis. 2. No bowel obstruction. No bowel wall thickening. 3. Cholelithiasis. ACT 112: Negative or not required by law. Electronically signed by: Christopher Underwood M.D. 08/04/2021 12:47 PM
[2021-08-04] MEDS ORDERED: POTASSIUM CHLORIDE CRTAB 20 MEQ TABCR PO STA (13:11)
[2021-08-04] MEDS ORDERED: LACTATED RINGER'S 1,000 ML IV SCH (13:15)
[2021-08-04] MEDS ORDERED: STAT IV STA (13:20)
[2021-08-04] MEDS ORDERED: SODIUM BICARBONATE 8.4% 150 MEQ in DEXTROSE 5% 1,000 ML IV SCH (13:30)
--- NOTE | 2021-08-04 13:39 | History & Physical Report ---
Date of Service August 04, 2021 Assessment & Plan (1) MICHAEL (acute kidney injury): Plan: No post renal cause on CT A/P UA pending Urine Na/Cr to assess for fractional excretion of sodium Hold lisinopril/HCTZ NS 1L bolus given in ER and 250ml bolus given by EMS. Will switch to sodium bicarb 1L 150 meq given significant combined anion gap and non-anion gap acidosis. Repeat BMP following sodium bicarbonate IV to determine ongoing fluids. (2) Diarrhea: Plan: Stool PCR to be collected. 6 weeks without good explanation of this. No colitis on CT but given RLQ pain and prior hemorrhagic colitis will consult GI to consider repeat colonoscopy. (3) Nausea and vomiting: Plan: Ondansetron 4mg IV q4h PRN Celiac panel send with AM labs - gluten free diet following this, start with clear liquids. Consult GI to consider EGD given no significant explanation of this. (4) Syncope: Plan: Suspect due to dehydration with diarrhea and orthostasis. Monitor for arrhythmia on telemetry. Appear to have no injuries from this. (5) High anion gap metabolic acidosis: Plan: Albumin corrected delta ratio <1 (0.7) suggestive of high anion gap and normal anion gap acidosis. Lactic acid pending to assess for high anion gap but likely some ketosis in addition but only trace in urine. Suspect non anion gap acidosis due to loss of bicarbonate from diarrhea and should correct with sodium bicarb as above. Repeat BMP @ 8pm and in AM to determine ongoing fluid management. (6) Vitamin B 12 deficiency: Plan: Continue monthly B12 injections. Given presyncope and ambulatory dysfunction will repeat levels with AM labs given prior level 245 pg/ml in 04/2020. (7) Nonalcoholic steatohepatitis: Plan: Noted history of this with elevated ALT > AST not suggestive of alcohol induced. Plt within normal limits. Monitor CMP. (8) Uncontrolled type II diabetes mellitus: Plan: HbA1C 10.7 [05/2021] no need to repeat as within 3 months. Hold usual insulin. Note note yet started her 70/30 that was recently prescribed. (9) Vitamin D deficiency: Plan: Continue supplementation for (10) Peripheral neuropathy: Plan: Noted history of this. (11) Obstructive sleep apnea of adult: Plan: Mild per patient. Does not wear CPAP at home. (12) Osteoporosis: Plan: Hold alendronate during inpatient admission (13) Hypertension: Plan: Hold lisinopril/HCTZ due to MICHAEL as above Plan: VTE Prophylaxis - heparin 5000 units SQ BID Diet clear liquid, gluten free, low fiber, T2DM Disposition - admit to med/tele Admission and Anticipated Discharge Date Admission Date: August 04, 2021 History of Present Illness Chief Complaint: Nausea, vomting, syncope, diarrhea Primary Care Provider: Michelle Underwood MD Marisabel Bales is a 80 year old female who presents to the ER with syncope and diarrhea. She reports having 6 weeks of diarrhea without a ceratin precipitating event. Non-watery. No melena or bright red blood in stool. Associated vomiting which occurs 30-60 minutes after eating. She denies any odynophagia or esophageal dysphagia. She was recently on steroid mouth wash for a mouth lesion but has finished this course now and not noticed any thrush. Today she reports getting up to stand out of her chair and waking up on the floor. She denies any head, neck, hip, ankle, wrist pain. She is not on anticoagulation. Of note she last had a colonoscopy in April 2020 due to diarrhea and abnormal CT which showed diffuse moderate inflammation 30-50cm proximal to anus. She reports this resolved with dietary changes alone however she was also given 6 days of IV antibiotics during that admission and was diagnosed with acute hemorrhagic colitis. She was recently prescribed duloxetine for depression and peripheral neuropathy however reports stopping this herself several weeks ago as it was making her angrier. In the ER she was noted to be in MICHAEL with creatine 3.49 from baseline 1.11, CT A/P with IV contrast showed no acute process within the abdomen or pelvis. She was diagnosed with MICHAEL secondary to diarrhea and was referred to medicine for admission and ongoing management of this. Allergies Allergy/AdvReac Type Severity Reaction Status Date / Time No Known Drug Allergies Allergy Verified 07/16/21 09:53 Home Medications Medication Instructions Recorded Confirmed Type cyanocobalamin (vitamin B-12) 1,000 mcg IM MONTHLY 10/03/18 08/04/21 History 1,000 mcg/mL injection kit cholecalciferol (vitamin D3) 1,250 50,000 unit PO .COMPLEX #8 cap 02/13/21 08/04/21 Rx mcg (50,000 unit) capsule famotidine 40 mg tablet 40 mg PO HS #90 tab 02/13/21 08/04/21 Rx fesoterodine 8 mg tablet,extended 8 mg PO DAILY #90 tab 02/13/21 08/04/21 Rx release 24 hr (Toviaz) lisinopril 10 1 tab PO DAILY #90 tab 02/13/21 08/04/21 Rx mg-hydrochlorothiazide 12.5 mg tablet metformin 1,000 mg tablet 1,000 mg PO BID #180 tab 02/13/21 08/04/21 Rx simvastatin 10 mg tablet 10 mg PO HS #90 tab 02/13/21 08/04/21 Rx alendronate 70 mg tablet (Fosamax) 70 mg PO .COMPLEX #4 tab 02/27/21 08/04/21 Rx blood sugar diagnostic (OneTouch #400 ea 06/06/21 07/16/21 Rx Verio test strips) oxycodone 5 mg tablet 5 mg PO BID PRN #60 tab 06/10/21 08/04/21 Rx insulin NPH-regular 70-30 U-100 See Rx Instructions .ROUTE 07/16/21 08/04/21 Rx insulin 100 unit/mL subcutaneous .COMPLEX #15 ml MDD 50 units pen (Novolin 70-30 FlexPen U-100 Insulin) pen needle, diabetic 32 gauge x #200 ea 07/16/21 07/16/21 Rx " (Sure Comfort Pen Needle) hydrocortisone 2.5 % topical cream 1 applic [place] BID PRN 08/04/21 08/04/21 History with perineal applicator (Anusol-HC) Past Med/Surg History Medical History Acute hemorrhagic colitis Depression Fibrocystic breast disease Genital herpes simplex GERD (gastroesophageal reflux disease) Hyperlipidemia Hypertension Lumbar spinal stenosis Nonalcoholic steatohepatitis Obstructive sleep apnea of adult Osteoporosis Fosamax started 02/2021 Osteoporotic compression fracture of spine Peripheral neuropathy Pernicious anemia Postmenopausal atrophic vaginitis Renal insufficiency Uncontrolled type II diabetes mellitus Urinary incontinence Vitamin B 12 deficiency Vitamin D deficiency Surgical History H/O lumbosacral spine surgery H/O total knee replacement H/O: hysterectomy History of eyelid surgery History of hernia repair Family History Father Coronary heart disease Myocardial infarction Mother Myocardial infarction Coronary heart disease Brother Myocardial infarction Coronary heart disease Brother Myocardial infarction Coronary heart disease Grandfather (Maternal) Skin cancer Denies family history of Ovarian cancer Prostate cancer Breast cancer Colorectal cancer Social History Smoking Status: Never smoker Second Hand Exposure: No; Do You Dip or Chew Tobacco: No; Hx Alcohol Use: No Hx Substance Use: No Preferred Language: Jamaican Communication Ability: Effective Visual Impairment: No Limitations Hearing Ability: Hard of Hearing Can Line Examiner Required: No Beliefs That Will Affect Care: None marital status: / Current Living Situation: Alone Current Living Situation Comment: Lives in a 2 story home current occupational status: retired 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 [employer] Other Information That Helps Us Care for You: No Feels Safe at Home: Yes Safety Concerns: Feels Safe At This Time Childhood Exposure to Second-Hand Smoke: Yes caffeine: Yes ([employer]) Dental Care, Regularly: Yes Physical Activity Frequency: Does not Exercise Seatbelt Use: always Sunscreen Use: No Assistive Devices: None Review of Systems Review of Systems: All systems reviewed & are unremarkable except as noted in HPI & below Physical Exam Constitutional: WD/WN, vitals as above Eyes: PERRL, conjunctivae normal, anicteric sclerae ENMT: external ear and nose normal, oropharynx normal (no oral thursh) Neck: trachea midline, no thyromegaly Respiratory: normal respiratory effort, lungs clear to auscultation Cardiovascular: RRR, no murmur, no edema Gastrointestinal (Abdomen): Inspection/Auscultation: normal bowel sounds; abdomen not distended Percussion/Palpation: + abdomen tender (RLQ) and abdomen soft; no guarding and abdomen not rigid Musculoskeletal: no cyanosis or clubbing, extremities motor strength 5/5 Skin: no rashes, warm and dry Neurologic: moves all extremities and awake; no focal motor deficits and not confused Psychiatric: A+Ox3, euthymic affect Results & Data Results & Data ([facility]) Vital Signs (Past 12 Hours) Vital Signs Temp Pulse Pulse Resp BP BP Pulse Ox 08/04/21 13:09 16 95 08/04/21 11:00 71 18 118/64 98 08/04/21 09:23 81 96 08/04/21 09:13 98 08/04/21 09:04 36.7 C 91 H 18 132/96 98 Diagnostic Findings XR chest 1V portable CLINICAL HISTORY: weak, dizzy, abd pain TECHNIQUE: Single frontal radiograph of the chest was obtained. Comparison: Comparison is made to chest radiograph 02/26/2021 FINDINGS: No lines and tubes are seen. Calcified aortic knob is seen. The lungs are clear. No evidence of pleural effusion or pneumothorax. IMPRESSION: No acute chest disease. CT OF THE ABDOMEN AND PELVIS WITH CONTRAST CLINICAL HISTORY: Abdominal pain, nausea and vomiting. COMPARISON STUDY: CT of the abdomen and pelvis April 12, 2020. TECHNIQUE: Following IV administration of 95 mL of Optiray, axial images of the abdomen and pelvis were obtained from the lung bases to the proximal femurs. Images were reviewed in the axial, sagittal, and coronal planes. IV contrast was administered without complication. Automated exposure control was utilized for the study. A dose lowering technique was utilized adhering to the principles of ALARA. CT DOSE: 365.16 mGy.cm FINDINGS: Lung bases are unremarkable. No pneumatosis, free air or portal venous gas is present. There are small gallstones within the gallbladder. No pericholecystic infiltration is present. Spleen, adrenal glands, kidneys and pancreas are unremarkable. There is no biliary or pancreatic ductal dilatation. No peripancreatic infiltration is present. There is no hydronephrosis. Postoperative findings within the lumbosacral spine are noted, including bilateral iliac bolts. Caliber and wall thickness of small and large bowel are normal. No evidence for a bowel obstruction. The appendix is normal. There is no lymphadenopathy. No ascites. Major vasculature is patent. IMPRESSION: 1. No acute process within the abdomen or pelvis. 2. No bowel obstruction. No bowel wall thickening. 3. Cholelithiasis. Medications Administered ER Medications Given: NSS 1000ml bolus Famotidine 20mg IV Ondansetron 4mg IV Acetaminophen 1000mg IV LR @ 125 ml/hr ECG Indication: syncope Rate (beats per minute): 81 Rhythm: normal sinus Findings: + other (poor R wave progression); no acute ischemic change Comparison ECG Date: from (April 12, 2020) Change: the following changes noted (boderline criteria for inferior infarct now present) Code Status & VTE Plan Code Status Full VTE Prophylaxis Plan VTE Prophylaxis will be ordered: Yes PG Care Time/CCT Total # of Minutes Spent Total Time Spent with Patient: Total time spent is greater than 50% in coordination of care (as documented) at patient's floor/unit and/or counseling patient: Coding Level of Care Code 57222 Initial Inpt Care Lvl 3 Diagnoses Vitamin B 12 deficiency E53.8 MICHAEL (acute kidney injury) N17.9 Nonalcoholic steatohepatitis K75.81 Obstructive sleep apnea of adult G47.33 Uncontrolled type II diabetes mellitus E11.65 Glycemic state: with hyperglycemia Vitamin D deficiency E55.9 Peripheral neuropathy G62.89 Peripheral neuropathy type: polyneuropathy, other Osteoporosis M81.0 Hypertension I10 Hypertension type: essential hypertension High anion gap metabolic acidosis E87.2 Diarrhea R19.7 Diarrhea type: unspecified type Nausea and vomiting R11.2 Syncope R55 (1) Diarrhea Diarrhea type: unspecified type Qualified Code(s): R19.7 - Diarrhea, unspecified (2) Uncontrolled type II diabetes mellitus Glycemic state: with hyperglycemia Qualified Code(s): E11.65 - Type 2 diabetes mellitus with hyperglycemia (3) Peripheral neuropathy Peripheral neuropathy type: polyneuropathy, other Qualified Code(s): G62.89 - Other specified polyneuropathies (4) Hypertension Hypertension type: essential hypertension Qualified Code(s): I10 - Essential (primary) hypertension
[2021-08-04] MEDS ORDERED: GLUCOSE 10 TABS/TUBE PO PRN (16:06)
[2021-08-04] MEDS ORDERED: CARBOHYDRATES FOR HYPOGLYCEMIA PO PRN (16:06)
[2021-08-04] MEDS ORDERED: GLUCAGON FOR INJ 1 MG VIAL SQ PRN (16:06)
[2021-08-04] MEDS ORDERED: GLUCOSE 40% GEL 15 GM TUBE PO PRN (16:06)
[2021-08-04] MEDS ORDERED: DEXTROSE 50% 50 ML SYRINGE IV PRN (16:06)
[2021-08-04] MEDS: INSULIN ASPART PER UNIT SC SCH ×2 (17:32→21:01)
[2021-08-04 20:24] LABS: BUN Creatinine Ratio 16.4 (10-20); Est GFR (African American) 17.5 ml/min; Est GFR (Non-African American) 15.1 ml/min; Potassium 3.5 mmol/L (3.5-5.1)
[2021-08-04] MEDS ORDERED: INSULIN GLARGINE SOLOSTAR 100 UNITS/ML 3 ML PEN SC SCH (21:00)
[2021-08-04] MEDS ORDERED: LACTATED RINGER'S 500 ML IV ONE (22:48)
[2021-08-04 22:58] LABS: Appearance Urine Clear (Clear); Bacteria Urine Automated Negative (Negative); Bilirubin Urine Negative (Negative); Blood Urine Negative (Negative); Color Urine Yellow; Epithelial Cell Urine Auto 20-30 /lpf (0-5); Glucose Urine UA Negative (Negative); Ketones Urine Negative (Negative); Leukocyte Esterase Urine 2+ (Negative); Nitrite Urine Negative (Negative); Protein Urine Negative (Negative); RBC Urine Automated 0-4 /hpf (0-4); Specific Gravity Urine 1.029 (1.000-1.030); Urobilinogen Urine Negative (Negative)
[2021-08-04 23:21] LABS: Creatinine Urine Random 69.3 mg/dl
[2021-08-05] MEDS: LACTATED RINGER'S 1,000 ML IV SCH ×3 (00:08→20:42)
[2021-08-05 01:14] LABS: Adenovirus F 40/41 PCR Not Detected (NotDetected); Astrovirus PCR Not Detected (NotDetected); Campylobacter PCR Not Detected (NotDetected); Clostridium diff Toxin A/B PCR Not Detected (NotDetected); Cryptosporidium PCR Not Detected (NotDetected); Cyclospora cayetanensis PCR Not Detected (NotDetected); Entamoeba histolytica PCR Not Detected (NotDetected); Enteroaggregative E.coli(EAEC) Not Detected (NotDetected); Enteropathogenic E.coli (EPEC) Not Detected (NotDetected); Enterotoxigenic E.coli (ETEC) Not Detected (NotDetected); Giardia lamblia PCR Not Detected (NotDetected); Norovirus GI/GII PCR Not Detected (NotDetected); Plesiomonas shigelloides PCR Not Detected (NotDetected); Rotavirus A PCR Not Detected (NotDetected); Salmonella PCR Not Detected (NotDetected); Sapovirus PCR Not Detected (NotDetected); Shiga-like Toxin E.coli (STEC) Not Detected (NotDetected); Shigella/Enteroinvasive E.coli Not Detected (NotDetected); Vibrio cholerae PCR Not Detected (NotDetected); Vibrio species PCR Not Detected (NotDetected); Yersinia enterocolitica PCR Not Detected (NotDetected)
[2021-08-05] MEDS: ACETAMINOPHEN 325 MG TAB PO PRN ×2 (04:04→08:29)
[2021-08-05 06:20] LABS: Basophils # (auto) 0.01 K/uL (0-0.2); Basophils % (auto) 0.1 %; Eosinophils # (auto) 0.17 K/uL (0-0.5); Eosinophils % (auto) 2.4 %; Hematocrit (blood only) 35.4 % (37-47); Hemoglobin 12.5 g/dL (12.0-16.0); Immature Granulocytes # (auto) 0.02 K/uL (0.00-0.02); Immature Granulocytes % (auto) 0.3 %; Lymphocytes # (auto) 1.77 K/uL (1.2-3.4); Lymphocytes % (auto) 24.6 %; Mean Corpuscular Hemoglobin 30.2 pg (25-34); Mean Corpuscular Hgb Conc 35.3 g/dL (32-36); Mean Corpuscular Volume 85.5 fL (80-100); Mean Platelet Volume 10.6 fL (7.4-10.4); Monocytes # (auto) 0.59 K/uL (0.11-0.59); Monocytes % (auto) 8.2 %; Neutrophils # (auto) 4.63 K/uL (1.4-6.5); Neutrophils % (auto) 64.4 %; Platelet Count 211 K/uL (130-400); RDW Coefficient of Variation 13.4 % (11.5-14.5); RDW Standard Deviation 41.7 fL (36.4-46.3); Red Blood Count 4.14 M/uL (4.2-5.4); White Blood Count 7.19 K/uL (4.8-10.8)
[2021-08-05 07:10] LABS: Est GFR (African American) 22.4 ml/min; Est GFR (Non-African American) 19.3 ml/min; Potassium 2.8 mmol/L (3.5-5.1)
[2021-08-05 07:11] LABS: Albumin Globulin Ratio 1.7 (0.9-2); Albumin Level 3.3 gm/dl (3.4-5.0); BUN Creatinine Ratio 16.2 (10-20); Bilirubin,Total 0.6 mg/dl (0.2-1.0); Calcium 8.5 mg/dl (8.5-10.1); Creatinine Clr Calc Pharmacy 17.1 ml/min; Globulin 1.9 gm/dl (2.5-4.0); Total Protein 5.2 gm/dl (6.0-8.3)
[2021-08-05] MEDS: INSULIN ASPART PER UNIT SC SCH ×4 (08:07→20:27)
[2021-08-05] MEDS: ONDANSETRON INJ 2 MG/ML 2 ML VIAL IV PRN ×3 (08:21→23:35)
[2021-08-05] MEDS: HEPARIN SOD 5,000 UNIT/0.5 ML VIAL SQ SCH ×2 (08:42→20:27)
[2021-08-05] MEDS: POTASSIUM CHLORIDE / WTR 10 MEQ/100 ML PLCT IV SCH ×3 (10:09→12:43)
--- NOTE | 2021-08-05 10:09 | Gastrointestinal Consultation ---
Date of Consultation August 05, 2021 Assessment & Plan (1) Nausea and vomiting: (2) Diarrhea: Symptoms appear differently than her presentation with ischemic colitis in 2020. She is currently having right sided abdominal pain and nausea with vomiting after meals. She notes diarrhea follows shortly after a meal as well, but she does continue to have diarrhea even without eating. CT was unremarkable with the exception of cholecystitis. LFTs are bumped with an AST of 66 and ALT of 89. -RUQ US has been ordered by primary team. We will await the result of this study and then make further recommendations regarding need for further testing. -Supportive care and electrolyte management per primary team. -Protonix 40 mg BID. Supervising Physician Co-Signing Physician Notes Agree with ABBY Rodriguez as above Abd: Soft, Tender throughout, ND, +BS Continue current therapy and supportive care RUQ US pending at present History of Present Illness Reason for Consultation: Diarrhea Attending Physician: Gustavo Kennedy MD History of Present Illness Patient is a 80 yo female with PMH of renal insufficiency, urinary incontinence, vitamin D deficiency, DM2, MART, AYERS, HLD, fibrocystic breast disease, lumbar spinal stenosis, osteoporosis, & HTN who presented to the ED after 6 weeks of diarrhea. She denies triggers for this and does not note any rectal bleeding. She notes that she has associated nausea & vomiting as well. Symptoms are worsened with meals. Denies dysphagia. She has a history of type 2 diabetes that is suboptimally controlled with an HA1C >10. She notes that she eventually came to the hospital as she had a syncopal episode. Current labs include a K of 2.8, lactic acid 1.3. AST 66, ALT, 89, bilirubin wnl. No significant BP fluctuations. A CT scan of the abdomen/pelvis is unremarkable for acute issues but does note cholelithiasis. She notes that her pain is right sided. In 2020, she was hospitalized with diarrhea. CT scan of the abdomen/pelvis at that time in 2020 showed inflammation in the left side of the colon only. She underwent a colonoscopy that showed changes in the rectum/left side. Pathology was consistent with an acute colitis suspicious for ischemic changes. She improved with antibiotics and did not have any further issues until recently when she developed diarrhea. Her Creatinine is elevated significantly above her baseline. She denies pertinent family history. Allergies Allergy/AdvReac Type Severity Reaction Status Date / Time No Known Drug Allergies Allergy Verified 07/16/21 09:53 Home Medications Medication Instructions Recorded Confirmed Type cyanocobalamin (vitamin B-12) 1,000 mcg IM MONTHLY 10/03/18 08/04/21 History 1,000 mcg/mL injection kit cholecalciferol (vitamin D3) 1,250 50,000 unit PO .COMPLEX #8 cap 02/13/21 08/04/21 Rx mcg (50,000 unit) capsule famotidine 40 mg tablet 40 mg PO HS #90 tab 02/13/21 08/04/21 Rx fesoterodine 8 mg tablet,extended 8 mg PO DAILY #90 tab 02/13/21 08/04/21 Rx release 24 hr (Toviaz) lisinopril 10 1 tab PO DAILY #90 tab 02/13/21 08/04/21 Rx mg-hydrochlorothiazide 12.5 mg tablet metformin 1,000 mg tablet 1,000 mg PO BID #180 tab 02/13/21 08/04/21 Rx simvastatin 10 mg tablet 10 mg PO HS #90 tab 02/13/21 08/04/21 Rx alendronate 70 mg tablet (Fosamax) 70 mg PO .COMPLEX #4 tab 02/27/21 08/04/21 Rx blood sugar diagnostic (OneTouch #400 ea 06/06/21 07/16/21 Rx Verio test strips) oxycodone 5 mg tablet 5 mg PO BID PRN #60 tab 06/10/21 08/04/21 Rx insulin NPH-regular 70-30 U-100 See Rx Instructions .ROUTE 07/16/21 08/04/21 Rx insulin 100 unit/mL subcutaneous .COMPLEX #15 ml MDD 50 units pen (Novolin 70-30 FlexPen U-100 Insulin) pen needle, diabetic 32 gauge x #200 ea 07/16/21 07/16/21 Rx 5/32" (Sure Comfort Pen Needle) hydrocortisone 2.5 % topical cream 1 applic [place] BID PRN 08/04/21 08/04/21 History with perineal applicator (Anusol-HC) Patient History Medical History Acute hemorrhagic colitis Depression Fibrocystic breast disease Genital herpes simplex GERD (gastroesophageal reflux disease) Hyperlipidemia Hypertension Lumbar spinal stenosis Nonalcoholic steatohepatitis Obstructive sleep apnea of adult Osteoporosis Fosamax started 02/2021 Osteoporotic compression fracture of spine Peripheral neuropathy Pernicious anemia Postmenopausal atrophic vaginitis Renal insufficiency Uncontrolled type II diabetes mellitus Urinary incontinence Vitamin B 12 deficiency Vitamin D deficiency Surgical History H/O lumbosacral spine surgery H/O total knee replacement H/O: hysterectomy History of eyelid surgery History of hernia repair Family History Father Coronary heart disease Myocardial infarction Mother Myocardial infarction Coronary heart disease Brother Myocardial infarction Coronary heart disease Brother Myocardial infarction Coronary heart disease Grandfather (Maternal) Skin cancer Denies family history of Ovarian cancer Prostate cancer Breast cancer Colorectal cancer Social History Smoking Status: Never smoker Second Hand Exposure: No; Do You Dip or Chew Tobacco: No; Hx Alcohol Use: No Hx Substance Use: No Preferred Language: Kyrgyz Communication Ability: Effective Visual Impairment: No Limitations Hearing Ability: Hard of Hearing Film Laboratory Technician Required: No Beliefs That Will Affect Care: None marital status: / Current Living Situation: Alone Current Living Situation Comment: Lives in a 2 story home current occupational status: retired 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 [employer] Other Information That Helps Us Care for You: No Feels Safe at Home: Yes Safety Concerns: Feels Safe At This Time Childhood Exposure to Second-Hand Smoke: Yes caffeine: Yes ([employer]) Dental Care, Regularly: Yes Physical Activity Frequency: Does not Exercise Seatbelt Use: always Sunscreen Use: No Assistive Devices: None Review of Systems Constitutional: no fever and no chills Respiratory: no cough and no dyspnea Cardiovascular: no chest pain Gastrointestinal: + nausea, + vomiting and + diarrhea/loose stools; no abdominal pain Hematologic / Lymphatic: no unexplained weight loss Physical Exam Constitutional: well developed Neck: normal visual inspection Respiratory: normal respiratory effort Cardiovascular: Rate/Rhythm: regular rate Gastrointestinal (Abdomen): Inspection/Auscultation: abdomen normal to inspection Percussion/Palpation: + abdomen tender and abdomen soft Musculoskeletal: Head/Neck/Chest: normocephalic Psychiatric: Orientation: alert and oriented x 3 Results & Data ([facility]) Vital Signs (Past 12 Hours) Vital Signs Temp Pulse Pulse Resp BP BP Pulse Ox 08/05/21 08:35 36.5 C 58 L 18 109/70 97 08/05/21 07:30 61 08/05/21 04:00 37.0 C 66 18 100/62 96 08/05/21 01:16 77 08/04/21 23:00 36.7 C 76 18 119/71 96 PG Care Time/CCT Total # of Minutes Spent Total Time Spent with Patient: Total time spent is greater than 50% in coordination of care (as documented) at patient's floor/unit and/or counseling patient: Coding Level of Care Code 19314 Initial Inpt Care Lvl 3 Diagnoses Nausea and vomiting R11.2 Diarrhea R19.7 Diarrhea type: unspecified type (1) Diarrhea Diarrhea type: unspecified type Qualified Code(s): R19.7 - Diarrhea, unspecified
[2021-08-05] MEDS: PANTOprazole 40 MG TAB PO SCH ×2 (10:43→20:27)
--- NOTE | 2021-08-05 10:43 | Hospitalist Progress Note ---
Date of Service August 05, 2021 Assessment & Plan (1) MICHAEL (acute kidney injury): Plan: - No post renal cause on CT A/P - UA not suggestive of acute infection - FENa 2.4% suggesting intrinsic cause for MICHAEL -- ?ATN - Hold lisinopril/HCTZ - NS 1L bolus given in ER and 250ml bolus given by EMS. Will switch to sodium bicarb 1L 150 meq given significant combined anion gap and CARR[place]. - Repeat BMP drawn yesterday evening to determine ongoing fluid mgmt- AG closed, fluids changed to LR @ 125 ml/hr - Reduce rate of fluids but will continue for now, renal function is improving - Repeat labs in AM (2) Abdominal pain: Plan: with associated N/V/D - Stool PCR collected and negative - GI consulted d/t history of hemorrhagic colitis - last colo in 04/2020, appreciate recommendations, although I do not suspect this is the cause - Celiac panel ordered, low suspicion of this, onset in late 70s would be very unusual - FOBT (+) but no gross hematochezia or melena noted - Add Zofran 4mg IV q6h prn n/v - CT noted cholelithiasis, VERY suspicious that GB could be contributing to symptoms * RUQ ultrasound ordered, await results but will consider surgical consult (3) Hypokalemia: Plan: - K-Riders ordered 10meq IV x3 - Repeat CMP in AM (4) Syncope: Plan: - Suspect due to dehydration with diarrhea and orthostasis. - Monitor for arrhythmia on telemetry. - Sinus jessie in the 50s, asymptomatic (5) High anion gap metabolic acidosis: Plan: - Albumin corrected delta ratio <1 (0.7) suggestive of high anion gap and normal anion gap acidosis. - Lactic acid level within normal limits - Suspect non anion gap acidosis due to loss of bicarbonate from diarrhea and should correct with sodium bicarb as above. RESOLVED (6) Vitamin B 12 deficiency: Plan: - Continue monthly B12 injections. Repeat level much improved to 892 (7) Nonalcoholic steatohepatitis: Plan: - Noted history of this with elevated ALT > AST not suggestive of alcohol induced. Plt within normal limits. - LFTs improved today, suspicious that GB could be contributing, although TB WNL (8) Uncontrolled type II diabetes mellitus: Plan: - HbA1C 10.7 [05/2021] no need to repeat as within 3 months. - Hold usual insulin. She has not yet started her 70/30 that was recently prescribed. (9) Obstructive sleep apnea of adult: Plan: Mild per patient. Does not wear CPAP at home. (10) Hypertension: Plan: Hold lisinopril/HCTZ due to MICHAEL as above Plan: Interventions as outlined above, adjust fluids, repeat labs, replace potassium, obtain RUQ ultrasound and further orders will be determined based on results of imaging. Will d/c tele. Plan to be d/w Dr. Kennedy. Admission and Anticipated Discharge Date Admission Date: August 04, 2021 Subjective Patient seen on rounds this morning. She reports ongoing n/v/d and right sided abdominal pain. Intolerance to oral intake, generally has vomiting without an hour of attempting to eat. Trouble keeping pills down. Pain in abdomen radiates around the right side to her back. She denies fever/chills. No gross blood in stool that she has seen. Last colo was in April of 2020. Review of Systems Review of Systems: All systems reviewed and are unremarkable except as noted in HPI and below. Denies fever, chills, fatigue, headache, nasal congestion, sore throat, cough, chest pain, shortness of breath, palpitations, orthopnea, PND, constipation, dysuria, hematuria, frequency, back pain, joint pain or swelling, easy bruising or bleeding, skin lesions or rashes. Physical Exam Physical Exam: GENERAL: 80 yo well-developed, well-nourished WF. NAD. LUNGS: Clear to auscultation bilaterally. No W/R/R. CARDIOVASCULAR: Regular rate and rhythm. No M/G/R. No JVD. ABDOMEN: Soft, fairly tender in right upper quadrant with some guarding. No rigidity. BS normoactive x 4 quad. EXTREMITIES: No edema. Non-tender. Peripheral pulses +2/4. NEUROLOGIC: A&O x3. Nonfocal PSYCHIATRIC: Cooperative. Appropriate mood and affect. SKIN: Warm, dry, intact. No rashes or lesions. Results & Data Results & Data ([facility]) Vital Signs (Past 12 Hours) Vital Signs Temp Pulse Pulse Resp BP BP Pulse Ox 08/05/21 08:35 36.5 C 58 L 18 109/70 97 08/05/21 07:30 61 08/05/21 04:00 37.0 C 66 18 100/62 96 08/05/21 01:16 77 08/04/21 23:00 36.7 C 76 18 119/71 96 Laboratory Results 08/05/21 05:55 08/05/21 05:55 AST=87-->66 JUH=654-->89 PG Care Time/CCT Total # of Minutes Spent Total Time Spent with Patient: Total time spent is greater than 50% in coordination of care (as documented) at patient's floor/unit and/or counseling patient: Coding Level of Care Code 28917 Subseq Hosp Care Lvl 3 Diagnoses MICHAEL (acute kidney injury) N17.9 Syncope R55 High anion gap metabolic acidosis E87.2 Vitamin B 12 deficiency E53.8 Nonalcoholic steatohepatitis K75.81 Uncontrolled type II diabetes mellitus E11.65 Glycemic state: with hyperglycemia Obstructive sleep apnea of adult G47.33 Hypertension I10 Hypertension type: essential hypertension Abdominal pain R10.9 Hypokalemia E87.6 (1) Uncontrolled type II diabetes mellitus Glycemic state: with hyperglycemia Qualified Code(s): E11.65 - Type 2 diabetes mellitus with hyperglycemia (2) Hypertension Hypertension type: essential hypertension Qualified Code(s): I10 - Essential (primary) hypertension
--- NOTE | 2021-08-05 12:49 | Ultrasound Report ---
US liver HISTORY: 80 years-old Female cholelithiasis, abd pain right upper quadrant abdominal pain COMPARISON: CT abdomen and pelvis 08/04/2021 TECHNIQUE: Multiple real-time sonographic images of the abdominal right upper quadrant were obtained assessing grayscale appearance and color flow FINDINGS: The visualized pancreas is unremarkable. The liver measures up to 14 cm in length and demonstrates mi ldly increased echogenicity which may represent hepatic steatosis. No marginal nodularity or hepatic mass. Common bile duct measures 8 mm which is upper limits of normal for patient age. There is no int rahepatic biliary ductal dilation. Distended gallbladder with a few layering gallstones. No associate d gallbladder wall thickening or pericholecystic fluid. The sonographic Medeiros sign was not reported however the concert or lecture hall manager does report that the patient had subjective pain throughout the right upper q uadrant and epigastric abdomen. The imaged right kidney is unremarkable without hydronephrosis. IMPRESSION: 1. Mild gallbladder distention with cholelithiasis. No sonographic evidence of acute cholecystitis. 2. Suggestion of hepatic steatosis. ACT 112: Negative or not required by law. The above report was generated using voice recognition software. It may contain grammatical, syntax o r spelling errors. Electronically signed by: Yobany Whitehead M.D. 08/05/2021 12:47 PM
[2021-08-05] MEDS: FAMOTIDINE 40 MG TABLET PO SCH (20:26)
[2021-08-05] MEDS: INSULIN GLARGINE SOLOSTAR 100 UNITS/ML 3 ML PEN SC SCH (20:29)
[2021-08-06] MEDS: MELATONIN 3 MG TAB PO PRN ×2 (00:02→20:08)
[2021-08-06] MEDS: ONDANSETRON INJ 2 MG/ML 2 ML VIAL IV PRN (06:37)
[2021-08-06 06:44] LABS: Basophils # (auto) 0.03 K/uL (0-0.2); Basophils % (auto) 0.5 %; Eosinophils # (auto) 0.38 K/uL (0-0.5); Eosinophils % (auto) 5.7 %; Hematocrit (blood only) 35.1 % (37-47); Hemoglobin 12.2 g/dL (12.0-16.0); Immature Granulocytes # (auto) 0.01 K/uL (0.00-0.02); Immature Granulocytes % (auto) 0.2 %; Lymphocytes # (auto) 2.28 K/uL (1.2-3.4); Lymphocytes % (auto) 34.4 %; Mean Corpuscular Hemoglobin 30.2 pg (25-34); Mean Corpuscular Hgb Conc 34.8 g/dL (32-36); Mean Corpuscular Volume 86.9 fL (80-100); Mean Platelet Volume 11.4 fL (7.4-10.4); Monocytes # (auto) 0.54 K/uL (0.11-0.59); Monocytes % (auto) 8.2 %; Neutrophils # (auto) 3.38 K/uL (1.4-6.5); Platelet Count 190 K/uL (130-400); RDW Coefficient of Variation 13.6 % (11.5-14.5); RDW Standard Deviation 43.6 fL (36.4-46.3); Red Blood Count 4.04 M/uL (4.2-5.4); White Blood Count 6.62 K/uL (4.8-10.8)
[2021-08-06] MEDS: LACTATED RINGER'S 1,000 ML IV SCH ×2 (07:05→17:55)
[2021-08-06 07:09] LABS: Albumin Globulin Ratio 1.6 (0.9-2); Albumin Level 2.9 gm/dl (3.4-5.0); BUN Creatinine Ratio 13.8 (10-20); Bilirubin,Total 0.5 mg/dl (0.2-1.0); Calcium 8.1 mg/dl (8.5-10.1); Est GFR (Non-African American) 27.6 ml/min; Globulin 1.8 gm/dl (2.5-4.0); Magnesium 1.2 mg/dl (1.7-2.4); Potassium 3.6 mmol/L (3.5-5.1); Total Protein 4.7 gm/dl (6.0-8.3)
[2021-08-06] MEDS: INSULIN ASPART PER UNIT SC SCH ×4 (08:17→20:00)
[2021-08-06] MEDS: MAGNESIUM SULFATE / D5W 1 GM/100 ML BAG IV SCH ×3 (08:18→11:56)
[2021-08-06] MEDS: PANTOprazole 40 MG TAB PO SCH ×2 (08:21→19:53)
[2021-08-06] MEDS: HEPARIN SOD 5,000 UNIT/0.5 ML VIAL SQ SCH ×2 (08:21→19:52)
--- NOTE | 2021-08-06 09:21 | Communication Note ---
Date of Service: August 06, 2021 Reviewed US results that showed mild gallbladder distention and cholelithiasis. Agree with primary team's decision to pursue HIDA scan and would consider g eneral surgery referral given patient's symptoms and elevated LFTs.
--- NOTE | 2021-08-06 11:07 | Hospitalist Progress Note ---
Date of Service August 06, 2021 Assessment & Plan (1) MICHAEL (acute kidney injury): Plan: - No post renal cause on CT A/P - UA not suggestive of acute infection - FENa 2.4% suggesting intrinsic cause for MICHAEL -- ?ATN + component of dehydration - Continue holding lisinopril/HCTZ - NS 1L bolus given in ER and 250ml bolus given by EMS. Will switch to sodium bicarb 1L 150 meq given significant combined anion gap and CARR[place]. - Repeat BMP drawn 08/04 evening to determine ongoing fluid mgmt- AG closed, fluids changed to LR @ 125 ml/hr - Approaching baseline FORESTRY AIDE of 1.2, continue IVF (2) Abdominal pain: Plan: with associated N/V/D - Stool PCR collected and negative - GI consulted d/t history of hemorrhagic colitis - last colo in 04/2020, appreciate recommendations, although I do not suspect this is the cause - Celiac panel ordered, low suspicion of this, onset in late 70s would be very unusual - FOBT (+) but no gross hematochezia or melena noted - Added Zofran 4mg IV q6h prn n/v (little relief with this), try Compazine - Continue Pepcid and Protonix - CT noted cholelithiasis, VERY suspicious that GB could be contributing to symptoms * RUQ ultrasound ordered, results reviewed, tender in RUQ during exam + findings of distended GB and cholelithiasis * Obtain HIDA scan and determine if surgical consult is warranted based on results * If HIDA unremarkable, will d/w GI to consider EGD (3) Hypokalemia: Plan: - Due to poor PO intake over past few days + GI losses (diarrhea) - Replaced/resolved - Noted to have Mg++ 1.2 08/06 AM, replacement ordered (4) Syncope: Plan: - Suspect due to dehydration with diarrhea and orthostasis. - No further episodes, tele discontinued on 08/05 (5) High anion gap metabolic acidosis: Plan: - Albumin corrected delta ratio <1 (0.7) suggestive of high anion gap and normal anion gap acidosis. - Lactic acid level within normal limits - Suspect non anion gap acidosis due to loss of bicarbonate from diarrhea and should correct with sodium bicarb as above. RESOLVED (6) Nonalcoholic steatohepatitis: Plan: - Noted history of this with elevated ALT > AST not suggestive of alcohol induced. Plt within normal limits. - LFTs continue to improve, suspicious that GB could be contributing, although TB WNL (7) Uncontrolled type II diabetes mellitus: Plan: - HbA1C 10.7 [05/2021] no need to repeat as within 3 months. - Hold usual insulin. She has not yet started her 70/30 that was recently prescribed. - Reduced PM Lantus dose to 20 units at HS, FBS 81 on CMP This AM (8) Hypertension: Plan: Hold lisinopril/HCTZ due to MICHAEL as above Plan: Interventions as outlined above. On heparin for DVT ppx. Await results of HIDA to determine next steps. Discussed plan with patient who is on board. Plan to be d/w Dr. Onofre. Further orders as warranted. Admission and Anticipated Discharge Date Admission Date: August 04, 2021 Subjective Patient seen on rounds this morning. She reports ongoing n/v/d and right sided abdominal pain. Intolerance to oral intake, generally has vomiting without an hour of attempting to eat. Trouble keeping pills down. Pain in abdomen radiates around the right side to her back. She denies fever/chills. Is for HIDA scan this afternoon. Review of Systems Review of Systems: All systems reviewed and are unremarkable except as noted in HPI and below. Denies fever, chills, fatigue, headache, nasal congestion, sore throat, cough, chest pain, shortness of breath, palpitations, orthopnea, PND, constipation, dysuria, hematuria, frequency, back pain, joint pain or swelling, easy bruising or bleeding, skin lesions or rashes. Physical Exam Physical Exam: GENERAL: 80 yo well-developed, well-nourished WF. NAD. LUNGS: Clear to auscultation bilaterally. No W/R/R. CARDIOVASCULAR: Regular rate and rhythm. No M/G/R. No JVD. ABDOMEN: Soft, fairly tender in right upper quadrant with some guarding. No rigidity. BS normoactive x 4 quad. EXTREMITIES: No edema. Non-tender. Peripheral pulses +2/4. NEUROLOGIC: A&O x3. Nonfocal PSYCHIATRIC: Cooperative. Appropriate mood and affect. SKIN: Warm, dry, intact. No rashes or lesions. Results & Data Results & Data ([facility]) Vital Signs (Past 12 Hours) Vital Signs Temp Pulse Resp BP Pulse Ox 08/06/21 06:52 36.6 C 59 L 18 137/77 98 08/06/21 00:09 36.6 C 72 18 133/70 97 Laboratory Results 08/06/21 05:53 08/06/21 05:53 Diagnostic Findings Liver Ultrasound 08/05/21 09:52 US liver HISTORY: 80 years-old Female cholelithiasis, abd pain right upper quadrant abdominal pain COMPARISON: CT abdomen and pelvis 08/04/2021 TECHNIQUE: Multiple real-time sonographic images of the abdominal right upper quadrant were obtained assessing grayscale appearance and color flow FINDINGS: The visualized pancreas is unremarkable. The liver measures up to 14 cm in length and demonstrates mildly increased echogenicity which may represent hepatic steatosis. No marginal nodularity or hepatic mass. Common bile duct measures 8 mm which is upper limits of normal for patient age. There is no intrahepatic biliary ductal dilation. Distended gallbladder with a few layering gallstones. No associated gallbladder wall thickening or pericholecystic fluid. The sonographic Medeiros sign was not reported however the pest control service sales agent does report that the patient had subjective pain throughout the right upper quadrant and epigastric abdomen. The imaged right kidney is unremarkable without hydronephrosis. IMPRESSION: 1. Mild gallbladder distention with cholelithiasis. No sonographic evidence of acute cholecystitis. 2. Suggestion of hepatic steatosis. ACT 112: Negative or not required by law. The above report was generated using voice recognition software. It may contain grammatical, syntax or spelling errors. Electronically signed by: Yobany Whitehead M.D. 08/05/2021 12:47 PM PG Care Time/CCT Total # of Minutes Spent Total Time Spent with Patient: Total time spent is greater than 50% in coordination of care (as documented) at patient's floor/unit and/or counseling patient: Coding Level of Care Code 14200 Subseq Hosp Care Lvl 2 Diagnoses MICHAEL (acute kidney injury) N17.9 Abdominal pain R10.9 Hypokalemia E87.6 Syncope R55 High anion gap metabolic acidosis E87.2 Nonalcoholic steatohepatitis K75.81 Uncontrolled type II diabetes mellitus E11.65 Glycemic state: with hyperglycemia Hypertension I10 Hypertension type: essential hypertension (1) Uncontrolled type II diabetes mellitus Glycemic state: with hyperglycemia Qualified Code(s): E11.65 - Type 2 diabetes mellitus with hyperglycemia (2) Hypertension Hypertension type: essential hypertension Qualified Code(s): I10 - Essential (primary) hypertension
[2021-08-06] MEDS ORDERED: PROCHLORPERAZINE 10 MG in SYRINGE 8 ML IV PRN (13:23)
[2021-08-06] MEDS ORDERED: Nursing to Pharmacy Communication SCH (13:45)
[2021-08-06] MEDS ORDERED: SUCRALFATE 1 GM/10 ML UDC PO STA (19:38)
[2021-08-06] MEDS: FAMOTIDINE 40 MG TABLET PO SCH (19:52)
[2021-08-06] MEDS: INSULIN GLARGINE SOLOSTAR 100 UNITS/ML 3 ML PEN SC SCH (20:00)
[2021-08-07 02:48] LABS: IgA Serum 125 mg/dL (70-320); Tis Trans IgA <1.0 U/mL
[2021-08-07] MEDS: LACTATED RINGER'S 1,000 ML IV SCH ×2 (03:33→15:27)
[2021-08-07 06:36] LABS: Albumin Globulin Ratio 1.6 (0.9-2); Albumin Level 3.1 gm/dl (3.4-5.0); BUN Creatinine Ratio 8.8 (10-20); Bilirubin,Total 0.6 mg/dl (0.2-1.0); Calcium 8.3 mg/dl (8.5-10.1); Creatinine Clr Calc Pharmacy 27.8 ml/min; Est GFR (African American) 35.4 ml/min; Est GFR (Non-African American) 30.5 ml/min; Globulin 1.9 gm/dl (2.5-4.0); Magnesium 1.6 mg/dl (1.7-2.4); Potassium 4.4 mmol/L (3.5-5.1)
[2021-08-07] MEDS: INSULIN ASPART PER UNIT SC SCH ×4 (07:26→21:31)
--- NOTE | 2021-08-07 07:44 | Hospitalist Progress Note ---
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 with xiao bleeding, different than current presentation Of note was on cymbalta recently, only took for short term and d/c due to ir ritability/etc --> patient reported symptoms prior to starting this medication as well Stool PCR NEGATIVE, fecal occult + (denied melena/hematochezia) Celiac panel ordered, did note was attempting to eat more cheese to help "bind her up at home" ?lactose intolerant, could refer for outpt testing Zofran, compazine prn nausea -- no further vomiting Continue pepcid, protonix CTAP with cholelithiasis, suspicious RUQ pain with radiation to scapula RUQ US with distended GB and stones HIDA scan without acute sun, however did consult surgery for consideration --> appreciate recs/assistance GI on consult -- as patient without improvement will plan for EGD tomorrow, --NPO after midnight Of note, 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 Lipase 46, does not want to try creon/bentyl for spasm at this time while investigating A1c <10, ?gastroparesis in differential as well Will also check AM cortisol (n/v/generalized abd pain, borderline hypotensive on admit which she has syncopal for such) consider cosyn stim testin pending course/results Continue IVF, but decreased to 75cc/hr and will order clear liquid diet for now Electrolyte replacement -- mag 1.2 improved to 1.6 and additional 2gm IV ordered Monitor labs in AM (2) MICHAEL (acute kidney injury): Plan: Cr 3.49 on admission No post renal cause on CT A/P --DONE WITH IV CONTRAST UA without infection - FENa 2.4% suggesting intrinsic cause for MICHAEL -- ?ATN/contrast induced nephropathy + component of dehydration as was syncopal on admit with borderline BPs Continue to hold PEG/HCTZ No hx nephroliasis or stones noted on imaging, however in patient with cholelithiasis, possible Cr improved to 1.6 (baseline closer to 1.1/1.2), LR to continue at 75cc/hr and ordered diet (initially got Na bicab with anion gap, now closed) Renal dose meds/avoid nephrotoxic agents when able BMP in AM (3) Hypokalemia: Plan: Due to poor PO intake over past few days + GI losses (diarrhea) - Replaced/resolved - Noted to have Mg++ 1.2 08/06 AM, replacement ordered and additional replacement 08/07 for mag 1.6 for additional 2gm IV K 4.4 on AM labs (4) Syncope: Plan: Suspect due to dehydration with diarrhea and orthostasis. - No further episodes, tele discontinued on 08/05 (5) High anion gap metabolic acidosis: Plan: Albumin corrected delta ratio <1 (0.7) suggestive of high anion gap and normal anion gap acidosis. - Lactic acid level within normal limits - Suspect non anion gap acidosis due to loss of bicarbonate from diarrhea and should correct with sodium bicarb as above. RESOLVED (6) Nonalcoholic steatohepatitis: Plan: - Noted history of this with elevated ALT > AST not suggestive of alcohol induced. Plt within normal limits. - LFTs continue to improve but around same today, suspicious that GB could be contributing, although TB/ALP wnl Hepatitis panel ordered, however acute elevations could have also been contributed by cymbalta use, sub d/c'd due to side effects (7) Uncontrolled type II diabetes mellitus: Plan: HbA1C 10.7 [05/2021] no need to repeat as within 3 months. - Hold usual insulin. She has not yet started her 70/30 that was recently prescribed. 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 Upset about not finding any cause. Wanting to eat but holding off until hearing back from GI about plans for possible endoscopy. Prior hemorrhagic colitis symptoms with severe xiao bleeding but denies xiao blood. Known hemorrhoids. Had been having diarrhea x 6 weeks, prior to that daily regular. Not keen on another pill like bentyl for spasms, HIDA scan without acute abd but still with RUQ pain radiation to scapula. Generalized abdominal discomfort. Denies any history of kidney stones. No further n/v but hadn't eaten. Would like consultation with general surgery as well to consider elective sun given continued symptoms. Visibly upset about missing her grandson which she helps to take care of. Tearful. Stated d/c cymbalta as made her hostile but was only on for short period of time. Notes diarrhea started prior to starting this and was not worsened after discontinuation of cymbalta. Discussed also checking cortisol level in AM to rule out underlying adrenal insufficiency given constellation of symptoms. A1c 10.[address] gastroparesis on differential, however not having symptom to suggest this at this time. Review of Systems Review of Systems: All systems reviewed & are unremarkable except as noted in HPI & below Physical Exam Physical Exam: General: WD/WN female walking in room, NAD but tearful about wanting to know what the underlying issue was HEENT: head normocephalic, atraumatic, mmm, trachea midline without deviation Resp: CTAB, no w/c/r, on room air CV: RRR, no m/r/g, no pitting edema or calf tenderness GI: RUQ tender to deep palpation (reports radiation to R back), generalized discomfort, no rebound or guarding : no casey MSK/Neuro: moves all extremities, no focal deficit, answering questions appropriately Psych: AOx3, anxious and tearful at times, cooperative with questioning Skin: warm, dry Results & Data Results & Data ([facility]) Vital Signs (Past 12 Hours) Vital Signs Temp Pulse Resp BP Pulse Ox 08/07/21 03:25 36.7 C 67 20 127/72 96 08/06/21 23:32 36.9 C 73 20 113/68 93 Laboratory Results 08/07/21 08/07/21 08/07/21 Range/Units 12:23 11:36 07:22 Sodium (136-145) mmol/L Potassium (3.5-5.1) mmol/L Chloride (98-107) mmol/L Carbon Dioxide (21-32) mmol/L Anion Gap (3-11) BUN (6-23) mg/dl Creatinine (0.6-1.2) mg/dl Est Cr Clr Drug Dosing ml/min Est GFR ( Amer) ml/min Est GFR (Non-Af Amer) ml/min BUN/Creatinine Ratio (10-20) Glucose (70-99(Fasting)) mg/dl POC Glucose 189 H 83 (70-99) mg/dl Calcium (8.5-10.1) mg/dl Magnesium (1.7-2.4) mg/dl Total Bilirubin (0.2-1.0) mg/dl AST (13-39) U/L ALT (7-52) U/L Alkaline Phosphatase (34-104) U/L Total Protein (6.0-8.3) gm/dl Albumin (3.4-5.0) gm/dl Globulin (2.5-4.0) gm/dl Albumin/Globulin Ratio (0.9-2) Lipase (11-82) U/L IgA (70-320) mg/dL Tiss Transglutamin IgA U/mL Celiac Disease Interp Hepatitis A IgM Ab Pending Hep Bs Antigen Pending Hep Bs Ag Confirmation Pending Hep B Core IgM Ab Pending Hepatitis C Ab (EIA) Pending Hep C Ab Signal/Cutoff Pending 08/07/21 08/07/21 08/06/21 Range/Units 06:00 06:00 19:56 Sodium 146 H (136-145) mmol/L Potassium 4.4 D (3.5-5.1) mmol/L Chloride 109 H (98-107) mmol/L Carbon Dioxide 31 (21-32) mmol/L Anion Gap 6 (3-11) BUN 14 (6-23) mg/dl Creatinine 1.60 H (0.6-1.2) mg/dl Est Cr Clr Drug Dosing 27.8 ml/min Est GFR ( Amer) 35.4 ml/min Est GFR (Non-Af Amer) 30.5 ml/min BUN/Creatinine Ratio 8.8 L (10-20) Glucose 82 (70-99(Fasting)) mg/dl POC Glucose 86 (70-99) mg/dl Calcium 8.3 L (8.5-10.1) mg/dl Magnesium 1.6 L (1.7-2.4) mg/dl Total Bilirubin 0.6 (0.2-1.0) mg/dl AST 62 H (13-39) U/L ALT 72 H (7-52) U/L Alkaline Phosphatase 48 (34-104) U/L Total Protein 5.0 L (6.0-8.3) gm/dl Albumin 3.1 L (3.4-5.0) gm/dl Globulin 1.9 L (2.5-4.0) gm/dl Albumin/Globulin Ratio 1.6 (0.9-2) Lipase 46 (11-82) U/L IgA (70-320) mg/dL Tiss Transglutamin IgA U/mL Celiac Disease Interp Hepatitis A IgM Ab Hep Bs Antigen Hep Bs Ag Confirmation Hep B Core IgM Ab Hepatitis C Ab (EIA) Hep C Ab Signal/Cutoff 08/06/21 08/05/21 Range/Units 16:52 05:55 Sodium (136-145) mmol/L Potassium (3.5-5.1) mmol/L Chloride (98-107) mmol/L Carbon Dioxide (21-32) mmol/L Anion Gap (3-11) BUN (6-23) mg/dl Creatinine (0.6-1.2) mg/dl Est Cr Clr Drug Dosing ml/min Est GFR ( Amer) ml/min Est GFR (Non-Af Amer) ml/min BUN/Creatinine Ratio (10-20) Glucose (70-99(Fasting)) mg/dl POC Glucose 151 H (70-99) mg/dl Calcium (8.5-10.1) mg/dl Magnesium (1.7-2.4) mg/dl Total Bilirubin (0.2-1.0) mg/dl AST (13-39) U/L ALT (7-52) U/L Alkaline Phosphatase (34-104) U/L Total Protein (6.0-8.3) gm/dl Albumin (3.4-5.0) gm/dl Globulin (2.5-4.0) gm/dl Albumin/Globulin Ratio (0.9-2) Lipase (11-82) U/L IgA 125 (70-320) mg/dL Tiss Transglutamin IgA <1.0 U/mL Celiac Disease Interp SEE NOTE Hepatitis A IgM Ab Hep Bs Antigen Hep Bs Ag Confirmation Hep B Core IgM Ab Hepatitis C Ab (EIA) Hep C Ab Signal/Cutoff Diagnostic Findings Hepatobiliary Scan Nuclear Medicine 08/07/21 08:30 NM hepatobiliary EF CLINICAL HISTORY: 80 years-old Female with RUQ pain, cholelithiasis. Acute right upper quadrant abdominal pain TECHNIQUE: Following the intravenous administration of 5.05 mCi of technetium- 99m Choletec, sequential abdominal images were obtained. In order to evaluate the contractile response of the gallbladder, the oral supplement Boost administered was given orally COMPARISON: CT abdomen and pelvis 08/04/2021 FINDINGS: There is prompt, uniform accumulation of the tracer by the liver. There is normal filling of the intrahepatic ducts, common bile duct and gallbladder and normal excretion of the tracer into the duodenum. There is normal contraction of the gallbladder. The calculated gallbladder ejection fraction is 57% (normal >40%). There is no significant enterogastric reflux. IMPRESSION: 1. Normal contractile response of the gallbladder to Kinevac infusion. 2. Normal biliary imaging study. ACT 112: Negative or not required by law. The above report was generated using voice recognition software. It may contain grammatical, syntax or spelling errors. Electronically signed by: Yobany Whitehead M.D. 08/07/2021 10:58 AM PG Care Time/CCT Total # of Minutes Spent Total Time Spent with Patient: Total time spent is greater than 50% in coordination of care (as documented) at patient's floor/unit and/or counseling patient: Coding Level of Care Code 18931 Subseq Hosp Care Lvl 3 Diagnoses MICHAEL (acute kidney injury) N17.9 Abdominal pain R10.9 Hypokalemia E87.6 Syncope R55 High anion gap metabolic acidosis E87.2 Nonalcoholic steatohepatitis K75.81 Uncontrolled type II diabetes mellitus E11.65 Glycemic state: with hyperglycemia Hypertension I10 Hypertension type: essential hypertension Vitamin D deficiency E55.9 (1) Uncontrolled type II diabetes mellitus Glycemic state: with hyperglycemia Qualified Code(s): E11.65 - Type 2 diabetes mellitus with hyperglycemia (2) Hypertension Hypertension type: essential hypertension Qualified Code(s): I10 - Essential (primary) hypertension
[2021-08-07] MEDS: MAGNESIUM SULFATE / D5W 1 GM/100 ML BAG IV SCH ×2 (08:04→09:49)
[2021-08-07] MEDS: HEPARIN SOD 5,000 UNIT/0.5 ML VIAL SQ SCH (10:03)
--- NOTE | 2021-08-07 11:01 | Nuclear Medicine Report ---
NM hepatobiliary EF CLINICAL HISTORY: 80 years-old Female with RUQ pain, cholelithiasis. Acute right upper quadrant abdo da pain TECHNIQUE: Following the intravenous administration of 5.05 mCi of technetium-99m Choletec, sequenti al abdominal images were obtained. In order to evaluate the contractile response of the gallbladder, the oral supplement Boost administered was given orally COMPARISON: CT abdomen and pelvis 08/04/2021 FINDINGS: There is prompt, uniform accumulation of the tracer by the liver. There is normal filling of the int rahepatic ducts, common bile duct and gallbladder and normal excretion of the tracer into the duodenu m. There is normal contraction of the gallbladder. The calculated gallbladder ejection fraction is 57% (normal >40%). There is no significant enterogastric reflux. IMPRESSION: 1. Normal contractile response of the gallbladder to Kinevac infusion. 2. Normal biliary imaging study. ACT 112: Negative or not required by law. The above report was generated using voice recognition software. It may contain grammatical, syntax o r spelling errors. Electronically signed by: Yobany Whitehead M.D. 08/07/2021 10:58 AM
[2021-08-07] MEDS: PANTOprazole 40 MG TAB PO SCH ×2 (11:37→20:16)
[2021-08-07] MEDS ORDERED: Nursing to Pharmacy Communication SCH ×2 (11:45→12:30)
--- NOTE | 2021-08-07 13:31 | Surgery Consultation ---
Date of Consultation August 07, 2021 Assessment & Plan (1) Diarrhea: This would not be a typical presentation of simple gallstones. There is no evidence of acute cholecystitis and her HIDA scan was negative. LFTs are essentially normal. I do not believe urgent cholecystectomy is indicated. Her main complaint is the diarrhea. Symptoms are different but she did have ischemic colitis 1 year ago with biopsy on colonoscopy. I would recommend reconsideration for repeating the colonoscopy and repeat biopsy. We will follow along from the periphery but please reconsult us or call us if anything changes or there are any questions/concerns. (2) Gallstones: (3) Abdominal pain: History of Present Illness Attending Physician: Dave Onofre MD History of Present Illness 80-year-old female admitted this Wednesday after passing out. She has been having diarrhea for about 6 weeks. She states that about 6 weeks ago she was having some upper abdominal pain and nausea and vomiting and subsequently this was followed by 6 weeks of diarrhea. She still having some abdominal discomfort but primarily in her lower abdomen. She states she will go anywhere from 6-12 times a day and its mostly pure water. She did have some bloody diarrhea last year and had a colonoscopy performed by Dr. Boss which biopsies revealed ischemic colitis. Work-up at this point in time with stool cultures etc. has been negative. She had a CT scan which was essentially negative. She does have some gallstones but no pericholecystic fluid or edema and her HIDA scan was negative. Currently not having upper abdominal pain or nausea although she does have some acid reflux Allergies Allergy/AdvReac Type Severity Reaction Status Date / Time No Known Drug Allergies Allergy Verified 07/16/21 09:53 Home Medications Medication Instructions Recorded Confirmed Type cyanocobalamin (vitamin B-12) 1,000 mcg IM MONTHLY 10/03/18 08/04/21 History 1,000 mcg/mL injection kit cholecalciferol (vitamin D3) 1,250 50,000 unit PO .COMPLEX #8 cap 02/13/21 08/04/21 Rx mcg (50,000 unit) capsule famotidine 40 mg tablet 40 mg PO HS #90 tab 02/13/21 08/04/21 Rx fesoterodine 8 mg tablet,extended 8 mg PO DAILY #90 tab 02/13/21 08/04/21 Rx release 24 hr (Toviaz) lisinopril 10 1 tab PO DAILY #90 tab 02/13/21 08/04/21 Rx mg-hydrochlorothiazide 12.5 mg tablet metformin 1,000 mg tablet 1,000 mg PO BID #180 tab 02/13/21 08/04/21 Rx simvastatin 10 mg tablet 10 mg PO HS #90 tab 02/13/21 08/04/21 Rx alendronate 70 mg tablet (Fosamax) 70 mg PO .COMPLEX #4 tab 02/27/21 08/04/21 Rx blood sugar diagnostic (OneTouch #400 ea 06/06/21 07/16/21 Rx Verio test strips) oxycodone 5 mg tablet 5 mg PO BID PRN #60 tab 06/10/21 08/04/21 Rx insulin NPH-regular 70-30 U-100 See Rx Instructions .ROUTE 07/16/21 08/04/21 Rx insulin 100 unit/mL subcutaneous .COMPLEX #15 ml MDD 50 units pen (Novolin 70-30 FlexPen U-100 Insulin) pen needle, diabetic 32 gauge x #200 ea 07/16/21 07/16/21 Rx " (Sure Comfort Pen Needle) hydrocortisone 2.5 % topical cream 1 applic VA BID PRN 08/04/21 08/04/21 History with perineal applicator (Anusol-HC) Patient History Medical History Acute hemorrhagic colitis Depression Fibrocystic breast disease Genital herpes simplex GERD (gastroesophageal reflux disease) Hyperlipidemia Hypertension Lumbar spinal stenosis Nonalcoholic steatohepatitis Obstructive sleep apnea of adult Osteoporosis Fosamax started 02/2021 Osteoporotic compression fracture of spine Peripheral neuropathy Pernicious anemia Postmenopausal atrophic vaginitis Renal insufficiency Uncontrolled type II diabetes mellitus Urinary incontinence Vitamin B 12 deficiency Vitamin D deficiency Surgical History H/O lumbosacral spine surgery H/O total knee replacement H/O: hysterectomy History of eyelid surgery History of hernia repair Family History Father Coronary heart disease Myocardial infarction Mother Myocardial infarction Coronary heart disease Brother Myocardial infarction Coronary heart disease Brother Myocardial infarction Coronary heart disease Grandfather (Maternal) Skin cancer Denies family history of Ovarian cancer Prostate cancer Breast cancer Colorectal cancer Social History Smoking Status: Never smoker Second Hand Exposure: No; Do You Dip or Chew Tobacco: No; Hx Alcohol Use: No Hx Substance Use: No Preferred Language: Togolese Communication Ability: Effective Visual Impairment: No Limitations Hearing Ability: Hard of Hearing Reel Winder Required: No Beliefs That Will Affect Care: None marital status: / Current Living Situation: Alone Current Living Situation Comment: Lives in a 2 story home current occupational status: retired 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 [employer] Other Information That Helps Us Care for You: No Feels Safe at Home: Yes Safety Concerns: Feels Safe At This Time Childhood Exposure to Second-Hand Smoke: Yes caffeine: Yes ([employer]) Dental Care, Regularly: Yes Physical Activity Frequency: Does not Exercise Seatbelt Use: always Sunscreen Use: No Assistive Devices: None Review of Systems Review of Systems: All systems reviewed & are unremarkable except as noted in HPI & below Physical Exam Constitutional: WD/WN, vitals as above no acute distress and not ill appearing Eyes: PERRL, conjunctivae normal, anicteric sclerae EOM intact bilaterally ENMT: external ear and nose normal, oropharynx normal Ears: no hearing impairment Neck: trachea midline, no thyromegaly Respiratory: normal respiratory effort; no respiratory distress and does not use accessory muscles Cardiovascular: Rate/Rhythm: regular rate and regular rhythm Gastrointestinal (Abdomen): normal bowel sounds, soft, nontender, no hepatosplenomegaly Skin: no rashes, warm and dry Psychiatric: Orientation: alert, oriented x 3 and cooperative Results & Data [facility]) Vital Signs (Past 12 Hours) Vital Signs Temp Pulse Resp BP Pulse Ox 08/07/21 11:49 36.7 C 84 20 144/87 H 96 08/07/21 08:01 36.6 C 71 20 117/73 96 08/07/21 03:25 36.7 C 67 20 127/72 96 PG Care Time/CCT Total # of Minutes Spent Total Time Spent with Patient: Total time spent is greater than 50% in coordination of care (as documented) at patient's floor/unit and/or counseling patient: Coding Level of Care Code 86500 Initial Inpt Care Lvl 3 Diagnoses Diarrhea R19.7 Diarrhea type: unspecified type Gallstones K80.20 Abdominal pain R10.9 (1) Diarrhea Diarrhea type: unspecified type Qualified Code(s): R19.7 - Diarrhea, unspecif ied
[2021-08-07] MEDS ORDERED: INSULIN ASPART PER UNIT SC SCH (18:00)
[2021-08-07] MEDS: FAMOTIDINE 40 MG TABLET PO SCH (20:16)
[2021-08-07] MEDS: MELATONIN 3 MG TAB PO PRN (20:17)
[2021-08-07] MEDS: ACETAMINOPHEN 325 MG TAB PO PRN (20:17)
[2021-08-07] MEDS: ONDANSETRON INJ 2 MG/ML 2 ML VIAL IV PRN (20:18)
[2021-08-07] MEDS: INSULIN GLARGINE SOLOSTAR 100 UNITS/ML 3 ML PEN SC SCH (22:28)
[2021-08-08] MEDS ORDERED: Nursing to Pharmacy Communication SCH (00:15)
[2021-08-08] MEDS: LACTATED RINGER'S 1,000 ML IV SCH (04:37)
[2021-08-08] MEDS: INSULIN ASPART PER UNIT SC SCH ×2 (06:39→13:07)
[2021-08-08 06:51] LABS: HBSAG NON-REACTIVE (NON-REACTIVE); Hepatitis A Antibody IgM NON-REACTIVE (NON-REACTIVE); Hepatitis B Core Antibody IgM NON-REACTIVE (NON-REACTIVE)
[2021-08-08 07:38] LABS: Hematocrit (blood only) 35.9 % (37-47); Hemoglobin 12.2 g/dL (12.0-16.0); Mean Corpuscular Volume 88.2 fL (80-100); Mean Platelet Volume 10.7 fL (7.4-10.4); Platelet Count 183 K/uL (130-400); RDW Coefficient of Variation 13.9 % (11.5-14.5); Red Blood Count 4.07 M/uL (4.2-5.4); White Blood Count 5.83 K/uL (4.8-10.8)
--- NOTE | 2021-08-08 07:49 | Hospitalist Progress Note ---
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 Suspect ongoing n/v/viarrhea most definitely with component of withdrawal syndrome from abruptly stopping the duloxetine Stool PCR NEGATIVE, fecal occult + (denied melena/hematochezia) Celiac panel ordered, did note was attempting to eat more cheese to help "bind her up at home" ?lactose intolerant, could refer for outpt testing Zofran, compazine prn nausea -- no further vomiting Continue pepcid, protonix CTAP with cholelithiasis, suspicious RUQ pain with radiation to scapula RUQ US with distended GB and stones HIDA scan without acute sun, however did consult surgery for consideration --> appreciate recs/assistance GI on consult -- as patient without improvement will plan for EGD tomorrow, --NPO after midnight Of note, 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 Lipase 46, does not want to try creon/bentyl for spasm at this time while investigating A1c <10, ?gastroparesis in differential as well Will also check AM cortisol (n/v/generalized abd pain, borderline hypotensive on admit which she has syncopal for such) consider cosyn stim testin pending course/results Continue IVF, but decreased to 75cc/hr and will order clear liquid diet for now Electrolyte replacement -- mag 1.2 improved to 1.6 and additional 2gm IV ordered Monitor labs in AM (2) MICHAEL (acute kidney injury): Plan: Cr 3.49 on admission No post renal cause on CT A/P --DONE WITH IV CONTRAST UA without infection - FENa 2.4% suggesting intrinsic cause for MICHAEL -- ?ATN/contrast induced nephropathy + component of dehydration as was syncopal on admit with borderline BPs Continue to hold PEG/HCTZ No hx nephroliasis or stones noted on imaging, however in patient with cholelithiasis, possible Cr improved to 1.6 (baseline closer to 1.1/1.2), LR to continue at 75cc/hr and ordered diet (initially got Na bicab with anion gap, now closed) Renal dose meds/avoid nephrotoxic agents when able BMP in AM (3) Hypokalemia: Plan: Due to poor PO intake over past few days + GI losses (diarrhea) - Replaced/resolved - Noted to have Mg++ 1.2 08/06 AM, replacement ordered and additional replacement 08/07 for mag 1.6 for additional 2gm IV K 4.4 on AM labs (4) Syncope: Plan: Suspect due to dehydration with diarrhea and orthostasis. - No further episodes, tele discontinued on 08/05 (5) High anion gap metabolic acidosis: Plan: Albumin corrected delta ratio <1 (0.7) suggestive of high anion gap and normal anion gap acidosis. - Lactic acid level within normal limits - Suspect non anion gap acidosis due to loss of bicarbonate from diarrhea and should correct with sodium bicarb as above. RESOLVED (6) Nonalcoholic steatohepatitis: Plan: - Noted history of this with elevated ALT > AST not suggestive of alcohol induced. Plt within normal limits. - LFTs continue to improve but around same today, suspicious that GB could be contributing, although TB/ALP wnl Hepatitis panel ordered, however acute elevations could have also been contributed by cymbalta use, sub d/c'd due to side effects (7) Uncontrolled type II diabetes mellitus: Plan: HbA1C 10.7 [05/2021] no need to repeat as within 3 months. - Hold usual insulin. She has not yet started her 70/30 that was recently prescribed. - Reduced PM Lantus dose to 20 units at HS, FBS 82 on CMP This AM clinical trial educator consulted Did have occasional lows (8) Hypertension: Plan: Hold lisinopril/HCTZ due to MICHAEL as above BP stable, monitor (9) Vitamin D deficiency: Plan: calcium 10.3 in may --> vit D checked at that time and was low at 24 and patient placed on 50,000 ergocalciferol weekly at that time ca 8.3, normal w/ corrected for albumin check PTH for completeness Plan: On heparin for DVT ppx NPO after midnight for EGD, will hold heparin for this evening Admission and Anticipated Discharge Date Admission Date: August 04, 2021 Subjective patient evaluated this morning anxious about EGD which will be this afternoon Discussed with patient about likelihood that this is medication related and time to wash out. Discussed prior low Vitamin D and replacement. Asked if patient had been taking this medication as recently prescribed, she stated no and that she didn't think it would help. Discussed low fat diet -- she likes [employer] [place] fries/chicken nuggets. Discussed low Vitamin D/high calcium and stone formation and would take the replacement as ordered. She did have some nausea this morning, but no vomiting. Wanting to eat some regular food -- would like chicken after procedure. Discussed testing to guide therapy for at d/c. On Protonix BID currently but typically on pepcid daily whether "she needs it or not". Results & Data Results & Data ([facility]) Vital Signs (Past 12 Hours) Vital Signs Temp Pulse Resp BP Pulse Ox 08/08/21 06:45 36.9 C 65 18 147/74 H 96 08/08/21 04:51 36.6 C 62 18 136/79 97 08/07/21 23:26 36.9 C 64 20 120/62 95 Laboratory Results 08/08/21 08/08/21 08/08/21 Range/Units 07:24 07:24 07:24 WBC 5.83 (4.8-10.8) K/uL RBC 4.07 L (4.2-5.4) M/uL Hgb 12.2 (12.0-16.0) g/dL Hct 35.9 L (37-47) % MCV 88.2 (80-100) fL MCH 30.0 (25-34) pg MCHC 34.0 (32-36) g/dL RDW Std Deviation 45.0 (36.4-46.3) fL RDW Coeff of Hien 13.9 (11.5-14.5) % Plt Count 183 (130-400) K/uL MPV 10.7 H (7.4-10.4) fL Sodium Pending Potassium Pending Chloride Pending Carbon Dioxide Pending Anion Gap Pending BUN Pending Creatinine Pending Est Cr Clr Drug Dosing Pending Est GFR ( Amer) Pending Est GFR (Non-Af Amer) Pending BUN/Creatinine Ratio Pending Glucose Pending POC Glucose (70-99) mg/dl Calcium Pending Magnesium Pending Total Bilirubin Pending AST Pending ALT Pending Alkaline Phosphatase Pending Total Protein Pending Albumin Pending Globulin Pending Albumin/Globulin Ratio Pending Lipase (11-82) U/L PTH Intact Cortisol AM Sample Pending Hepatitis A IgM Ab (NON-REACTIVE) Hep Bs Antigen (NON-REACTIVE) Hep Bs Ag Confirmation Hep B Core IgM Ab (NON-REACTIVE) Hepatitis C Ab (EIA) (NON-REACTIVE) Hep C Ab Signal/Cutoff (<1.00) Urine Legionella Ag 08/08/21 08/08/21 08/08/21 Range/Units 07:24 07:13 06:18 WBC (4.8-10.8) K/uL RBC (4.2-5.4) M/uL Hgb (12.0-16.0) g/dL Hct (37-47) % MCV (80-100) fL MCH (25-34) pg MCHC (32-36) g/dL RDW Std Deviation (36.4-46.3) fL RDW Coeff of Hien (11.5-14.5) % Plt Count (130-400) K/uL MPV (7.4-10.4) fL Sodium Potassium Chloride Carbon Dioxide Anion Gap BUN Creatinine Est Cr Clr Drug Dosing Est GFR ( Amer) Est GFR (Non-Af Amer) BUN/Creatinine Ratio Glucose POC Glucose 105 H 120 H (70-99) mg/dl Calcium Magnesium Total Bilirubin AST ALT Alkaline Phosphatase Total Protein Albumin Globulin Albumin/Globulin Ratio Lipase (11-82) U/L PTH Intact Pending Cortisol AM Sample Hepatitis A IgM Ab (NON-REACTIVE) Hep Bs Antigen (NON-REACTIVE) Hep Bs Ag Confirmation Hep B Core IgM Ab (NON-REACTIVE) Hepatitis C Ab (EIA) (NON-REACTIVE) Hep C Ab Signal/Cutoff (<1.00) Urine Legionella Ag 08/08/21 08/07/21 08/07/21 Range/Units 00:18 20:51 16:19 WBC (4.8-10.8) K/uL RBC (4.2-5.4) M/uL Hgb (12.0-16.0) g/dL Hct (37-47) % MCV (80-100) fL MCH (25-34) pg MCHC (32-36) g/dL RDW Std Deviation (36.4-46.3) fL RDW Coeff of Hien (11.5-14.5) % Plt Count (130-400) K/uL MPV (7.4-10.4) fL Sodium Potassium Chloride Carbon Dioxide Anion Gap BUN Creatinine Est Cr Clr Drug Dosing Est GFR ( Amer) Est GFR (Non-Af Amer) BUN/Creatinine Ratio Glucose POC Glucose 83 84 177 H (70-99) mg/dl Calcium Magnesium Total Bilirubin AST ALT Alkaline Phosphatase Total Protein Albumin Globulin Albumin/Globulin Ratio Lipase (11-82) U/L PTH Intact Cortisol AM Sample Hepatitis A IgM Ab (NON-REACTIVE) Hep Bs Antigen (NON-REACTIVE) Hep Bs Ag Confirmation Hep B Core IgM Ab (NON-REACTIVE) Hepatitis C Ab (EIA) (NON-REACTIVE) Hep C Ab Signal/Cutoff (<1.00) Urine Legionella Ag 08/07/21 08/07/21 08/07/21 Range/Units 15:27 12:23 11:36 WBC (4.8-10.8) K/uL RBC (4.2-5.4) M/uL Hgb (12.0-16.0) g/dL Hct (37-47) % MCV (80-100) fL MCH (25-34) pg MCHC (32-36) g/dL RDW Std Deviation (36.4-46.3) fL RDW Coeff of Hien (11.5-14.5) % Plt Count (130-400) K/uL MPV (7.4-10.4) fL Sodium Potassium Chloride Carbon Dioxide Anion Gap BUN Creatinine Est Cr Clr Drug Dosing Est GFR ( Amer) Est GFR (Non-Af Amer) BUN/Creatinine Ratio Glucose POC Glucose 189 H (70-99) mg/dl Calcium Magnesium Total Bilirubin AST ALT Alkaline Phosphatase Total Protein Albumin Globulin Albumin/Globulin Ratio Lipase (11-82) U/L PTH Intact Cortisol AM Sample Hepatitis A IgM Ab NON-REACTIVE (NON-REACTIVE) Hep Bs Antigen NON-REACTIVE (NON-REACTIVE) Hep Bs Ag Confirmation TNP Hep B Core IgM Ab NON-REACTIVE (NON-REACTIVE) Hepatitis C Ab (EIA) NON-REACTIVE (NON-REACTIVE) Hep C Ab Signal/Cutoff 0.01 (<1.00) Urine Legionella Ag Pending 08/07/21 Range/Units 06:00 WBC (4.8-10.8) K/uL RBC (4.2-5.4) M/uL Hgb (12.0-16.0) g/dL Hct (37-47) % MCV (80-100) fL MCH (25-34) pg MCHC (32-36) g/dL RDW Std Deviation (36.4-46.3) fL RDW Coeff of Hien (11.5-14.5) % Plt Count (130-400) K/uL MPV (7.4-10.4) fL Sodium Potassium Chloride Carbon Dioxide Anion Gap BUN Creatinine Est Cr Clr Drug Dosing Est GFR ( Amer) Est GFR (Non-Af Amer) BUN/Creatinine Ratio Glucose POC Glucose (70-99) mg/dl Calcium Magnesium Total Bilirubin AST ALT Alkaline Phosphatase Total Protein Albumin Globulin Albumin/Globulin Ratio Lipase 46 (11-82) U/L PTH Intact Cortisol AM Sample Hepatitis A IgM Ab (NON-REACTIVE) Hep Bs Antigen (NON-REACTIVE) Hep Bs Ag Confirmation Hep B Core IgM Ab (NON-REACTIVE) Hepatitis C Ab (EIA) (NON-REACTIVE) Hep C Ab Signal/Cutoff (<1.00) Urine Legionella Ag Diagnostic Findings Hepatobiliary Scan Nuclear Medicine 08/07/21 08:30 NM hepatobiliary EF CLINICAL HISTORY: 80 years-old Female with RUQ pain, cholelithiasis. Acute right upper quadrant abdominal pain TECHNIQUE: Following the intravenous administration of 5.05 mCi of technetium- 99m Choletec, sequential abdominal images were obtained. In order to evaluate the contractile response of the gallbladder, the oral supplement Boost administered was given orally COMPARISON: CT abdomen and pelvis 08/04/2021 FINDINGS: There is prompt, uniform accumulation of the tracer by the liver. There is normal filling of the intrahepatic ducts, common bile duct and gallbladder and normal excretion of the tracer into the duodenum. There is normal contraction of the gallbladder. The calculated gallbladder ejection fraction is 57% (normal >40%). There is no significant enterogastric reflux. IMPRESSION: 1. Normal contractile response of the gallbladder to Kinevac infusion. 2. Normal biliary imaging study. ACT 112: Negative or not required by law. The above report was generated using voice recognition software. It may contain grammatical, syntax or spelling errors. Electronically signed by: Yobany Whitehead M.D. 08/07/2021 10:58 AM PG Care Time/CCT Total # of Minutes Spent Total Time Spent with Patient: Total time spent is greater than 50% in coordination of care (as documented) at patient's floor/unit and/or counseling patient: Coding Diagnoses Abdominal pain R10.9 MICHAEL (acute kidney injury) N17.9 Hypokalemia E87.6 Syncope R55 High anion gap metabolic acidosis E87.2 Nonalcoholic steatohepatitis K75.81 Uncontrolled type II diabetes mellitus E11.65 Glycemic state: with hyperglycemia Hypertension I10 Hypertension type: essential hypertension Vitamin D deficiency E55.9 (1) Uncontrolled type II diabetes mellitus Glycemic state: with hyperglycemia Qualified Code(s): E11.65 - Type 2 diabetes mellitus with hyperglycemia (2) Hypertension Hypertension type: essential hypertension Qualified Code(s): I10 - Essential (primary) hypertension
[2021-08-08 07:56] LABS: Albumin Globulin Ratio 1.5 (0.9-2); Albumin Level 3.2 gm/dl (3.4-5.0); Bilirubin,Total 0.7 mg/dl (0.2-1.0); Calcium 8.3 mg/dl (8.5-10.1); Creatinine Clr Calc Pharmacy 27.6 ml/min; Est GFR (African American) 39.9 ml/min; Est GFR (Non-African American) 34.4 ml/min; Globulin 2.1 gm/dl (2.5-4.0); Magnesium 1.6 mg/dl (1.7-2.4); Potassium 3.8 mmol/L (3.5-5.1); Total Protein 5.3 gm/dl (6.0-8.3)
[2021-08-08] MEDS: PANTOprazole 40 MG TAB PO SCH ×2 (09:24→11:47)
--- NOTE | 2021-08-08 09:27 | Anesthesiology Consultation ---
Date of Service August 08, 2021 Assessment & Plan (1) Encounter for pre-operative examination: Chart Review Chart Review: Acceptable Risk for Surgery, Patient NOT seen in Pre Admission Testing and order entry technician initiated Consults Requested none History Surgery Operation Date: 08/08/21 17:15 Proposed Procedures p Esophagogastroduodenoscopy Dr Francisco Coates Case, DO Height/Weight Height: 5 ft 4 in Weight: 64.7 kg Allergies Allergy/AdvReac Type Severity Reaction Status Date / Time No Known Drug Allergies Allergy Verified 07/16/21 09:53 Medications Home Medications Medication Instructions Recorded Confirmed Last Taken cyanocobalamin (vitamin B-12) 1,000 mcg IM MONTHLY 10/03/18 08/04/21 07/04/21 1,000 mcg/mL injection kit cholecalciferol (vitamin D3) 1,250 50,000 unit PO .COMPLEX #8 cap 02/13/21 08/04/21 2 Weeks Ago mcg (50,000 unit) capsule ~07/21/21 famotidine 40 mg tablet 40 mg PO HS #90 tab 02/13/21 08/04/21 3 Days Ago ~08/01/21 fesoterodine 8 mg tablet,extended 8 mg PO DAILY #90 tab 02/13/21 08/04/21 3 Days Ago release 24 hr (Toviaz) ~08/01/21 lisinopril 10 1 tab PO DAILY #90 tab 02/13/21 08/04/21 3 Days Ago mg-hydrochlorothiazide 12.5 mg ~08/01/21 tablet metformin 1,000 mg tablet 1,000 mg PO BID #180 tab 02/13/21 08/04/21 3 Days Ago ~08/01/21 simvastatin 10 mg tablet 10 mg PO HS #90 tab 02/13/21 08/04/21 3 Days Ago ~08/01/21 alendronate 70 mg tablet (Fosamax) 70 mg PO .COMPLEX #4 tab 02/27/21 08/04/21 08/01/21 blood sugar diagnostic (OneTouch #400 ea 06/06/21 07/16/21 Unknown Verio test strips) oxycodone 5 mg tablet 5 mg PO BID PRN #60 tab 06/10/21 08/04/21 1 Month Ago ~07/04/21 insulin NPH-regular 70-30 U-100 See Rx Instructions .ROUTE 07/16/21 08/04/21 Unknown insulin 100 unit/mL subcutaneous .COMPLEX #15 ml MDD 50 units pen (Novolin 70-30 FlexPen U-100 Insulin) pen needle, diabetic 32 gauge x #200 ea 07/16/21 07/16/21 Unknown " (Sure Comfort Pen Needle) hydrocortisone 2.5 % topical cream 1 applic OR BID PRN 08/04/21 08/04/21 Unknown with perineal applicator (Anusol-HC) Active Medications Generic Name Dose Route Start Last Admin Trade Name Freq PRN Reason Stop Dose Admin Acetaminophen 650 mg 08/04/21 16:06 08/07/21 20:17 Acetaminophen 325 Mg Tab PO 09/03/21 16:05 650 mg Q4H PRN Administration Pain or Fever Famotidine 40 mg 08/05/21 21:00 08/07/21 20:16 Famotidine 40 Mg Tablet PO 09/04/21 20:59 40 mg HS RUI Administration Heparin Sodium (Porcine) 5,000 units 08/05/21 09:00 08/07/21 10:03 Heparin Sod 5,000 Unit/0.5 Ml Vial SQ 09/04/21 08:59 Not Given BID RUI Lactated Ringer's 1,000 mls @ 60 mls/hr 08/04/21 23:30 08/08/21 09:17 Lr IV 09/03/21 23:29 60 mls/hr .[id number] RUI Infusion Magnesium Sulfate/Dextrose 1 gm in 100 mls @ 50 mls/hr 08/08/21 08:15 08/08/21 09:31 Magnesium Sulfate / D5w IV 08/08/21 12:14 50 mls/hr Q2H RUI Administration Insulin Aspart 0 units 08/08/21 06:00 08/08/21 06:39 Insulin Aspart Per Unit SC 09/07/21 05:59 Not Given Q6 RUI Insulin Glargine 20 units 08/05/21 21:00 08/07/21 22:28 Insulin Glargine Solostar 100 Units/Ml 3 Ml Pen SC 09/04/21 20:59 Not Given HS RUI Melatonin 3 mg 08/05/21 23:44 08/07/21 20:17 Melatonin 3 Mg Tab PO 09/04/21 23:43 3 mg HS PRN Administration Sleep Ondansetron HCl 4 mg 08/05/21 08:11 08/08/21 09:29 Ondansetron Inj 2 Mg/Ml 2 Ml Vial IV 09/04/21 08:10 4 mg Q6H PRN Administration Nausea And Vomiting Pantoprazole Sodium 40 mg 08/05/21 10:30 08/08/21 09:24 Pantoprazole 40 Mg Tab PO 09/04/21 10:29 Not Given BID RUI Past Medical History Medical History (Updated 08/08/21 @ 09:33 by Kaz Haynes MD) Acute hemorrhagic colitis Depression Encounter for pre-operative examination Fibrocystic breast disease Genital herpes simplex GERD (gastroesophageal reflux disease) Hyperlipidemia Hypertension Lumbar spinal stenosis Nonalcoholic steatohepatitis Obstructive sleep apnea of adult Osteoporosis Fosamax started 02/2021 Osteoporotic compression fracture of spine Peripheral neuropathy Pernicious anemia Postmenopausal atrophic vaginitis Renal insufficiency Uncontrolled type II diabetes mellitus Urinary incontinence Vitamin B 12 deficiency Vitamin D deficiency Past Family History Family History Father Coronary heart disease Myocardial infarction Mother Myocardial infarction Coronary heart disease Brother Myocardial infarction Coronary heart disease Brother Myocardial infarction Coronary heart disease Grandfather (Maternal) Skin cancer Denies family history of Ovarian cancer Prostate cancer Breast cancer Colorectal cancer Past Surgical History Surgical History H/O lumbosacral spine surgery H/O total knee replacement H/O: hysterectomy History of eyelid surgery History of hernia repair Social History Smoking Status: Never smoker Do You Dip or Chew Tobacco: No Hx Alcohol Use: No Hx Substance Use: No substance use type: does not use Physical Exam Vital Signs Last Vital Signs Temp 36.9 C 08/08/21 06:45 Pulse 65 08/08/21 06:45 Resp 18 08/08/21 06:45 BP 147/74 H 08/08/21 06:45 Pulse Ox 96 08/08/21 06:45 Testing Laboratory Results 08/08/21 07:24 08/08/21 07:24 Urine Color Yellow 08/04/21 21:20 Urine Appearance Clear (Clear) 08/04/21 21:20 Urine pH 5.0 (4.5-7.5) 08/04/21 21:20 Ur Specific [place]orton 1.029 (1.000-1.030) 08/04/21 21:20 Urine Protein Negative (Negative) 08/04/21 21:20 Urine Glucose (UA) Negative (Negative) 08/04/21 21:20 Urine Ketones Negative (Negative) 08/04/21 21:20 Urine Nitrite Negative (Negative) 08/04/21 21:20 Ur Leukocyte Esterase 2+ (Negative) H 08/04/21 21:20 Urine WBC (Auto) 10-30 /hpf (0-5) H 08/04/21 21:20 Urine RBC (Auto) 0-4 /hpf (0-4) 08/04/21 21:20 U Hyaline Cast (Auto) 1-5 /lpf (0-5) 08/04/21 21:20 U Epithel Cells (Auto) 20-30 /lpf (0-5) H 08/04/21 21:20 Urine Bacteria (Auto) Negative (Negative) 08/04/21 21:20 08/04/21 21:20 Urine Culture - Final Urine,Clean Catch More than three types of organisms present, all high counts. Repeat collection recommended. No further identifications or sensitivities to follow. 08/08/21 08/08/21 08/08/21 07:13 06:18 00:18 POC Glucose 105 H 120 H 83 Electrocardiogram Date: 08/04/21 Test Reason : Blood Pressure : / mmHG Vent. Rate : 081 BPM Atrial Rate : 081 BPM P-R Int : 190 ms QRS Dur : 094 ms QT Int : 398 ms P-R-T Axes : 051 000 023 degrees QTc Int : 462 ms Normal sinus rhythm Possible Old Inferior infarct Poor R wave progression, consider anterior HI vs. lead placement vs. LVH Abnormal ECG When compared with ECG of 12-APR-2020 09:17, Borderline Criteria for Inferior infarct now present Confirmed by Crow Ackerman ([id number]) on 08/04/2021 10:42:35 AM Chest X-Ray Date: 08/04/21 XR chest 1V portable CLINICAL HISTORY: weak, dizzy, abd pain TECHNIQUE: Single frontal radiograph of the chest was obtained. Comparison: Comparison is made to chest radiograph 02/26/2021 FINDINGS: No lines and tubes are seen. Calcified aortic knob is seen. The lungs are clear. No evidence of pleural effusion or pneumothorax. IMPRESSION: No acute chest disease. Echocardiogram Date: 04/12/20 EF: 60-65% LV Function: normal RWMA: + none Other Findings: + LVH (Mild) Other Testing 08/05/21 US liver HISTORY: 80 years-old Female cholelithiasis, abd pain right upper quadrant abdominal pain COMPARISON: CT abdomen and pelvis 08/04/2021 TECHNIQUE: Multiple real-time sonographic images of the abdominal right upper quadrant were obtained assessing grayscale appearance and color flow FINDINGS: The visualized pancreas is unremarkable. The liver measures up to 14 cm in length and demonstrates mildly increased echogenicity which may represent hepatic steatosis. No marginal nodularity or hepatic mass. Common bile duct measures 8 mm which is upper limits of normal for patient age. There is no intrahepatic biliary ductal dilation. Distended gallbladder with a few layering gallstones. No associated gallbladder wall thickening or pericholecystic fluid. The sonographic Medeiros sign was not reported however the assistant principal does report that the patient had subjective pain throughout the right upper quadrant and epigastric abdomen. The imaged right kidney is unremarkable without hydronephrosis. IMPRESSION: 1. Mild gallbladder distention with cholelithiasis. No sonographic evidence of acute cholecystitis. 2. Suggestion of hepatic steatosis. 08/07/21 NM hepatobiliary EF CLINICAL HISTORY: 80 years-old Female with RUQ pain, cholelithiasis. Acute right upper quadrant abdominal pain TECHNIQUE: Following the intravenous administration of 5.05 mCi of technetium- 99m Choletec, sequential abdominal images were obtained. In order to evaluate the contractile response of the gallbladder, the oral supplement Boost admin istered was given orally COMPARISON: CT abdomen and pelvis 08/04/2021 FINDINGS: There is prompt, uniform accumulation of the tracer by the liver. There is normal filling of the intrahepatic ducts, common bile duct and gallbladder and normal excretion of the tracer into the duodenum. There is normal contraction of the gallbladder. The calculated gallbladder ejection fraction is 57% (normal >40%). There is no significant enterogastric reflux. IMPRESSION: 1. Normal contractile response of the gallbladder to Kinevac infusion. 2. Normal biliary imaging study.
[2021-08-08] MEDS: ONDANSETRON INJ 2 MG/ML 2 ML VIAL IV PRN (09:29)
--- NOTE | 2021-08-08 09:29 | History & Physical Bridge Note ---
Date of Service August 08, 2021 History & Physical Bridge Note I have examined the patient, reviewed the History & Physical and in the interval since the performance of the History & Physical I have noted the following changes of clinical significance: no changes noted Keep NPO & Proceed with EGD today Supervising Physician Co-Signing Physician Notes Agree with ABBY Rodriguez as above Abd: Soft, Tender RUQ, ND, +BS Continue current therapy and supportive care Proceed with EGD now
[2021-08-08] MEDS: MAGNESIUM SULFATE / D5W 1 GM/100 ML BAG IV SCH ×2 (09:31→11:46)
[2021-08-08] MEDS ORDERED: SERTRALINE HCL 50 MG TABLET PO SCH (09:35)
[2021-08-08] MEDS ORDERED: LIDOCAINE 2% MPF LOCAL 5 ML VIAL INFIL ONE (10:33)
[2021-08-08] MEDS ORDERED: PROPOFOL IV EMULSION 10 MG/ML 20 ML VIAL IV ONE (10:33)
--- NOTE | 2021-08-08 10:55 | GI REPORT ---
Patient Name: Marisabel Bales Procedure Date: 08/08/2021 9:49 AM Date of : 1940 Admit Type: Inpatient Age: 80 Gender: Female Attending MD: Yamil Singh DO Procedure: Upper GI endoscopy Providers: Yamil Singh DO Referring MD: Referred Self Indications: Abdominal pain in the right upper quadrant Medicines: Monitored Anesthesia Care Complications: No immediate complications. Estimated Blood Loss: Estimated blood loss: none. Procedure: Pre-Anesthesia Assessment: - Prior to the procedure, a History and Physical was performed, and patient medications and allergies were reviewed. The patient's tolerance of previous anesthesia was also reviewed. The risks and benefits of the procedure and the sedation options and risks were discussed with the patient. All questions were answered, and informed consent was obtained. Prior Anticoagulants: The patient has taken no previous anticoagulant or antiplatelet agents. ASA Grade Assessment: III - A patient with severe systemic disease. After reviewing the risks and benefits, the patient was deemed in satisfactory condition to undergo the procedure. After obtaining informed consent, the endoscope was passed under direct vision. Throughout the procedure, the patient's blood pressure, pulse, and oxygen saturations were monitored continuously. The Endoscope was introduced through the mouth, and advanced to the second part of duodenum. The upper GI endoscopy was accomplished without difficulty. The patient tolerated the procedure well. Findings: A mild Schatzki ring was found in the distal esophagus. This was biopsied with a cold forceps for histology. A TTS dilator was passed through the scope. Dilation with an 18-19-20 mm balloon dilator was performed to 20 mm. A small hiatal hernia was present. Localized mild inflammation characterized by erythema was found in the gastric antrum. Biopsies were taken with a cold forceps for histology. The examined duodenum was normal. Impression: - Mild Schatzki ring. Biopsied. Dilated. - Small hiatal hernia. - Gastritis. Biopsied. - Normal examined duodenum. Recommendation: - Resume previous diet. - Continue present medications. - Await pathology results. - Return to primary care physician as previously scheduled. Yamil Singh DO 08/08/2021 10:55:16 AM This report has been signed electronically. Note Initiated On: 08/08/2021 9:49 AM Number of Addenda: 0 I attest to the content of the Intraoperative Record and orders documented therein, exceptions below {[id number]}
--- NOTE | 2021-08-08 11:24 | Discharge Summary ---
Date of Service August 08, 2021 Admission HPI Per Admitting Provider Marisabel Bales is a 80 year old female who presents to the ER with syncope and diarrhea. She reports having 6 weeks of diarrhea without a ceratin precipitating event. Non-watery. No melena or bright red blood in stool. Associated vomiting which occurs 30-60 minutes after eating. She denies any odynophagia or esophageal dysphagia. She was recently on steroid mouth wash for a mouth lesion but has finished this course now and not noticed any thrush. Today she reports getting up to stand out of her chair and waking up on the floor. She denies any head, neck, hip, ankle, wrist pain. She is not on anticoagulation. Of note she last had a colonoscopy in April 2020 due to diarrhea and abnormal CT which showed diffuse moderate inflammation 30-50cm proximal to anus. She reports this resolved with dietary changes alone however she was also given 6 days of IV antibiotics during that admission and was diagnosed with acute hemorrhagic colitis. She was recently prescribed duloxetine for depression and peripheral neuropathy however reports stopping this herself several weeks ago as it was making her angrier. In the ER she was noted to be in MICHAEL with creatine 3.49 from baseline 1.11, CT A/P with IV contrast showed no acute process within the abdomen or pelvis. She was diagnosed with MICHAEL secondary to diarrhea and was referred to medicine for admission and ongoing management of this. Admission Exam Per Admitting Provider Constitutional: WD/WN, vitals as above Eyes: PERRL, conjunctivae normal, anicteric sclerae ENMT: external ear and nose normal, oropharynx normal (no oral thursh) Neck: trachea midline, no thyromegaly Respiratory: normal respiratory effort, lungs clear to auscultation Cardiovascular: RRR, no murmur, no edema Gastrointestinal (Abdomen): Inspection/Auscultation: normal bowel sounds; abdomen not distended Percussion/Palpation: + abdomen tender (RLQ) and abdomen soft; no guarding and abdomen not rigid Musculoskeletal: no cyanosis or clubbing, extremities motor strength 5/5 Skin: no rashes, warm and dry Neurologic: moves all extremities and awake; no focal motor deficits and not confused Psychiatric: A+Ox3, euthymic affect Principal Diagnosis N/V, Diarrhea, Schatski Ring, MICHAEL Discharge Exam General: WD/WN female sitting in hospital bed, NAD HEENT: head normocephalic, atraumatic, mmm, trachea midline without deviation Resp: CTAB, no w/c/r, on room air CV: RRR, no m/r/g, no pitting edema or calf tenderness GI: +BS, mild generalized upper abdominal tenderness (decreased), no rebound or guarding : no casey MSK/Neuro: moves all extremities, no focal deficit, answering questions appropriately Psych: AOx3, anxious at times, cooperative with questioning Skin: warm, dry Discharge Data Allergies Allergy/AdvReac Type Severity Reaction Status Date / Time No Known Drug Allergies Allergy Verified 08/08/21 09:48 Consultations 08/04/21 13:00 ED Decision to Admit Stat 08/04/21 16:06 Consult Gastroenterology Routine 08/07/21 11:40 Consult General Surgery Routine Procedures Performed Operation Date: 08/08/21 17:15 Actual Procedures p EGD Biopsy Dilatation - Yamil G. Case, DO Ordered Studies Chest X-Ray 08/04/21 09:13 XR chest 1V portable CLINICAL HISTORY: weak, dizzy, abd pain TECHNIQUE: Single frontal radiograph of the chest was obtained. Comparison: Comparison is made to chest radiograph 02/26/2021 FINDINGS: No lines and tubes are seen. Calcified aortic knob is seen. The lungs are clear. No evidence of pleural effusion or pneumothorax. IMPRESSION: No acute chest disease. ACT 112: Negative or not required by law. Electronically signed by: Johnny Canada M.D. 08/04/2021 10:12 AM Abdomen/Pelvis CT 08/04/21 09:15 CT OF THE ABDOMEN AND PELVIS WITH CONTRAST CLINICAL HISTORY: Abdominal pain, nausea and vomiting. COMPARISON STUDY: CT of the abdomen and pelvis April 12, 2020. TECHNIQUE: Following IV administration of 95 mL of Optiray, axial images of the abdomen and pelvis were obtained from the lung bases to the proximal femurs. Images were reviewed in the axial, sagittal, and coronal planes. IV contrast was administered without complication. Automated exposure control was utilized for the study. A dose lowering technique was utilized adhering to the principles of ALARA. CT DOSE: 365.16 mGy.cm FINDINGS: Lung bases are unremarkable. No pneumatosis, free air or portal venous gas is present. There are small gallstones within the gallbladder. No pericholecystic infiltration is present. Spleen, adrenal glands, kidneys and pancreas are unremarkable. There is no biliary or pancreatic ductal dilatation. No peripancreatic infiltration is present. There is no hydronephrosis. Postoperative findings within the lumbosacral spine are noted, including bilateral iliac bolts. Caliber and wall thickness of small and large bowel are normal. No evidence for a bowel obstruction. The appendix is normal. There is no lymphadenopathy. No ascites. Major vasculature is patent. IMPRESSION: 1. No acute process within the abdomen or pelvis. 2. No bowel obstruction. No bowel wall thickening. 3. Cholelithiasis. ACT 112: Negative or not required by law. Electronically signed by: Christopher Underwood M.D. 08/04/2021 12:47 PM Liver Ultrasound 08/05/21 09:52 US liver HISTORY: 80 years-old Female cholelithiasis, abd pain right upper quadrant abdominal pain COMPARISON: CT abdomen and pelvis 08/04/2021 TECHNIQUE: Multiple real-time sonographic images of the abdominal right upper quadrant were obtained assessing grayscale appearance and color flow FINDINGS: The visualized pancreas is unremarkable. The liver measures up to 14 cm in length and demonstrates mildly increased echogenicity which may represent hepatic steatosis. No marginal nodularity or hepatic mass. Common bile duct measures 8 mm which is upper limits of normal for patient age. There is no intrahepatic biliary ductal dilation. Distended gallbladder with a few layering gallstones. No associated gallbladder wall thickening or pericholecystic fluid. The sonographic Medeiros sign was not reported however the insecticide mixer does report that the patient had subjective pain throughout the right upper quadrant and epigastric abdomen. The imaged right kidney is unremarkable without hydronephrosis. IMPRESSION: 1. Mild gallbladder distention with cholelithiasis. No sonographic evidence of acute cholecystitis. 2. Suggestion of hepatic steatosis. ACT 112: Negative or not required by law. The above report was generated using voice recognition software. It may contain grammatical, syntax or spelling errors. Electronically signed by: Yobany Whitehead M.D. 08/05/2021 12:47 PM Hepatobiliary Scan Nuclear Medicine 08/07/21 08:30 NM hepatobiliary EF CLINICAL HISTORY: 80 years-old Female with RUQ pain, cholelithiasis. Acute right upper quadrant abdominal pain TECHNIQUE: Following the intravenous administration of 5.05 mCi of technetium- 99m Choletec, sequential abdominal images were obtained. In order to evaluate the contractile response of the gallbladder, the oral supplement Boost administered was given orally COMPARISON: CT abdomen and pelvis 08/04/2021 FINDINGS: There is prompt, uniform accumulation of the tracer by the liver. There is normal filling of the intrahepatic ducts, common bile duct and gallbladder and normal excretion of the tracer into the duodenum. There is normal contraction of the gallbladder. The calculated gallbladder ejection fraction is 57% (normal >40%). There is no significant enterogastric reflux. IMPRESSION: 1. Normal contractile response of the gallbladder to Kinevac infusion. 2. Normal biliary imaging study. ACT 112: Negative or not required by law. The above report was generated using voice recognition software. It may contain grammatical, syntax or spelling errors. Electronically signed by: Yobany Whitehead M.D. 08/07/2021 10:58 AM Hospital Course (1) Abdominal pain: presented with associated N/V/D, prior hx ischemic colitis April 2020 with xiao bleeding, different than current presentation Of note was on cymbalta recently, only took for short term and d/c due to irritability/etc --> patient reported symptoms prior to starting this medication as well Upon further questioning, patient took 30mg x 2 weeks, followed by 60mg daily for 2 weeks before abruptly stopping, which once she was able to think about it was prior to onset of n/v/diarrhea. Outpatient notes indicate on 06/10 starting the cymbalta and on 07/16 was going to try a little longer, making the cessation about ~4 weeks ago if she stopped right after that appointment Did discuss with psych and placed on zoloft 12.5mg to help with withdrawal side effects and in patient with anxiety/depression, more anxiety than depression and can f/u PCP for continued titration vs discontinuation if she wishes While in the hospital prior to discovering medication abruptly stopped coinciding with symptoms, concerns for GB pathology, with elevated AST/ALT but no elevation in Tb/alp, which is likely from cymbalta use and could have been higher during peak and caused an acute liver failure but impossible to r/o but those labs are also improving. Hepatitis panel NEGATIVE Regarding GB concerns: * CTAP with cholelithiasis, suspicious RUQ pain with radiation to scapula * RUQ US with distended GB and stones * HIDA scan without acute sun, however did consult surgery for consideration --> appreciate recs/assistance Stool PCR negative. fecal occult ++ but denied melena/hematochezia and known hemorrhoids. hgb stable Celiac panel ordered -- of note, had been attempting to eat more cheese at home to "bind her up" with her diarrhea Also endorses [employer] fries/chicken nuggest, M&M candles/monie kisses/skittles and A1c 10.9 and discussed elevated sugars/uncontrolled DM can cause GI symptoms as well. Encouraged use of the 70/30 as recently prescribed by PCP to gain better BSG control. F/u outpatient GI did perform EGD for ongoing n/v and upper abdominal discomfort EGD w/ schatzki's ring, dilated. Also w/ gastritis, biopsied. Noted hiatal hernia as well Discussed with Dr Singh and continue PPI/carafate at d/c Also sent slow mag given issues w/ hypomagnesemia on admit --> improved. No cardiac abn on telemetry or palpations endorsed. Also sent rx for Zofran ODT prn for any ongoing nausea Discussed if continued issues w/ tx of above, [facility] ref [facility] for EUS eval for sphincter of Oddi but suspect causes contributed by multiple factors including abrupt cymbalta discontinuation, dehydration (MICHAEL much improved, see below), uncontrolled BM, gastritis/Schatzki ring, etc. Could also consider gastroparesis in future once other issues resolved but did not endorse issues of such (2) Schatzki's ring: in pt w/ hx gerd/hiatal hernia and recent n/v presented with n/v/diarrhea (also withdrawal from Cymbalta recently prescribed and discontinued as outlined below) placed on PPI BID Worked up for GB pathology but negative, GI convinced to move forward w/ EGD for evaluation Discovered gastritis/schatzki's ring, dilated discussed with Dr Singh, to be on PPI BID, carafate at d/c. Outpt f/u (3) MICHAEL (acute kidney injury): Cr 3.49 on admission No post renal cause on CT A/P --DONE WITH IV CONTRAST UA without infection - FENa 2.4% suggesting intrinsic cause for MICHAEL -- ?ATN/contrast induced nephropathy as given IV contrast for CT on admit w/ elevated Cr + component of dehydration as was syncopal on admit with borderline BPs Continue to hold PEG/HCTZ -- instructed to hold at d/c and monitor BPs and f/u in office to prevent further dehydration Cr improved from 3.49 on admit to 1.45, BUN now wnl 13 No hx nephroliasis or stones noted on imaging, however in patient with cholelithiasis, possible Also discussed low vit D prior, checked PTH elevated appropriately as patient NOT STARTED the ergocalciferol as prescribed by PCP discussed hypercalcemia and stone formation and would rec adherance to medications as prescribed and ask questions when unsure of medications/changes to prevent issues in the future (4) Hypokalemia: Due to poor PO intake over past few days + GI losses (diarrhea) -Replaced/resolved -Noted to have Mg++ 1.2 08/06 AM, replacement ordered and additional replacement 08/07 for mag 1.6 for additional 2gm IV and repeated K wnl Sent rx for slow mag while on protonix BID (5) Syncope: Suspect due to dehydration with diarrhea and orthostasis. - No further episodes, tele discontinued on 08/05 (6) High anion gap metabolic acidosis: Albumin corrected delta ratio <1 (0.7) suggestive of high anion gap and normal anion gap acidosis. - Lactic acid level within normal limits - Suspect non anion gap acidosis due to loss of bicarbonate from diarrhea and should correct with sodium bicarb as above. RESOLVED (7) Nonalcoholic steatohepatitis: - Noted history of this with elevated ALT > AST not suggestive of alcohol induced. Plt within normal limits. - LFTs continue to improve but around same today, suspicious that GB could be contributing initially, although TB/ALP wnl and more likely patient had elevated AST/ALT since starting the cymbalta given reported GI side effects during office visit but no labs at that time Hepatitis panel ordered -- NEGATIVE AST/ALT improving on labs advised against cymbalta use in the future (8) Uncontrolled type II diabetes mellitus: HbA1C 10.7 [05/2021] no need to repeat as within 3 months. - Held usual insulin. She has not yet started her 70/30 that was recently prescribed. - Reduced PM Lantus dose to 20 units at HS, FBS 112 on CMP This AM but had been NPO/clears previously DM educator consulted but I did discuss dietary modifications/limiting processed sugars/candies/fast food -- see above BSGs controlled inpatient, however no access to snacking like she does at home ENcouraged starting her 70/30 outpatient (d/c'd glipizide prior and to stop lantus once on the 70/30) and after discussion with DM educator and patient sugars reported, decided to change to 15u AM, 20u at night from prior 10uam/25upm given elevated sugars in the evening given largest meal for patient reported as breakfast continue monitoring her sugars at home and f/u PCP (9) Hypertension: Hold lisinopril/HCTZ due to MICHAEL as above, MICHAEL improving almost back to baseline BPs remained stable -- instructed to hold BP med at d/c and monitor BPs, resume if elevated but rec'd discussion with PCP regarding possibly decreasing dose especially in setting of dehydration/diarrhea as current presentation BP stable, monitor (10) Vitamin D deficiency: calcium 10.3 in may --> vit D checked at that time and was low at 24 and patient placed on 50,000 ergocalciferol weekly at that time ca 8.3, normal w/ corrected for albumin check PTH for completeness, elevated appropriately again questioned patient whether or not she started/was taking the ergocalciferol --> she DENIED STARTING discussed risks for stone formation and encouraged compliance On heparin for DVT ppx while inpatient Total Time Total Time Spent Total Time Spent (In Minutes): 60 Discharge Plan Discharge Items Patient Disposition: Home - Self-Care Reason For Visit: MICHAEL Discharge Diagnosis: Acute Kidney Injury, Dehydration, Hypomagnesemia, Nausea/vomiting with diarrhea, schatski's ring Goals: You have been hospitalized for an acute medical problem. During your stay at [facility], we have made an effort to correct the problem that brought you to the hospital while keeping you as comfortable as possible. Medications were used to bring your condition under control and your discharge instructions will include directions for any medications you should take after leaving the hospital. Please make sure you see your Primary Care Provider as part of your follow up plan. Activity: Resume your previous activity Non-emergency contact: Primary Care Provider and Anesthetic Assistant Call non-emergency contact if: you have any medication questions, your symptoms worsen and you have a fever Follow-up/Referrals: Yamil Singh, [Physician] - 09/03/21 2:20 am Michelle Underwood MD [Primary Care Provider] - 08/15/21 11:00 am Diet: Carb Consistent or DM2 and Heart Healthy Addtl Attending Provider Instructions: You have been hospitalized for nausea, vomiting, and diarrhea. You have had work-up for concerns for a bad gallbladder, but this imaging did not indicate any acute infection. You should continue a low fat diet/monitor fat intake to prevent issues and can advance diet as tolerated. Please note that fried foods can also cause irritation. It was discussed during hospitalization about the abrupt stopping of your duloxetine (Cymbalta) as antidepressant and this could have made symptoms a lot worse. Given symptoms of anxiety more than depression, I did speak with Psychiatry in hospital and they recommend Sertraline (Zoloft) 12.5mg daily and can increase in follow up with your PCP if warranted but can help with withdrawal. Stool testing was negative. We were able to arrange for GI to perform an EGD for issues with nausea/vomiting after eating and this did show an area of narrowing with inflammation which was dilated (stretched) and should help with that regard. Pathology has been sent from biopsy during procedure but no obvious masses or lesions were found concerning for anything scary. You will continue pantoprazole 40mg TWICE daily as well as carafate before meals to help with coating of the stomach given the inflammation. This means you can STOP the pepcid in the meantime. We have sent oral magnesium to take while on the pantoprazole, and this should be continued for a month and can have follow up with Dr Singh as outpatient. You should also please start the vitamin D 50,000 once weekly as we talked about because elevated calcium levels from not having adequate amounts can lead to additional stone formation, both kidney and gallbladder stones, and obviously we want to avoid this. Given findings on EGD, can avoid follow up with [facility] unless continued issues in the future. Please monitor blood sugars at home and limit high carbohydrate foods. Elevated/uncontrolled diabetes can lead to additional abdominal symptoms. YOUR 70/30 insulin was reviewed by the glass inspector and recommendations are to NOT BE TAKING THE LANTUS WHEN STARTING THIS, and should take 20 units in the morning and 15 units in the evening instead. Please monitor sugars and also ensure you are no longer taking your glipizide. YOUR BLOOD PRESSURE PILL -- HYDROCHLOROTHIAZIDE-LISINOPRIL was held during hospitalization because of dehydration and kidney numbers elevated, and you should monitor your blood pressure and if controlled at home can hold this until follow up with your PCP to ensure taking in enough oral fluids to maintain hydration. You may be able to cut one of these in half in the future but would hold for right now. Your kidney numbers were elevated due to diarrhea/dehydration, and these have improved with hydration. You should follow up with your PCP in the next 7-10 days to monitor your status after discharge. Please return to the ER with any worsening symptoms, inability to keep up with oral intake/fluids, or for any other symptoms concerning for you. Pending Studies at Discharge: Yes Studies:: Legionella Urine Pathology from EGD Stand-Alone Forms: My [facility] Rights[employer], Smoking Cessation Medications and DC Order Prescriptions: New sertraline 50 mg Tablet 12.5 mg PO QAM 30 Days Qty: 8 RF: 0 sucralfate 1 gram Tablet 1 g PO QID 30 Days Qty: 120 RF: 0 pantoprazole 40 mg Tablet,Delayed Release (Dr/Ec) 40 mg PO BID Qty: 60 RF: 0 Slow-Mag 71.5 mg tablet,delayed release (DR/EC) 71.5 mg PO DAILY Qty: 30 RF: 0 ondansetron 4 mg tablet,disintegrating 4 mg PO Q8H PRN (Reason: nausea and vomiting) 3 Days Qty: 9 RF: 0 Continued alendronate [Fosamax] 70 mg tablet 70 mg PO .COMPLEX Qty: 4 RF: 0 (DME) OneTouch Verio test strips Strip See Rx Instructions .ROUTE .MEDSUPPLY Qty: 400 RF: 3 Toviaz 8 mg tablet extended release 24 hr 8 mg PO DAILY Qty: 90 RF: 3 metformin 1,000 mg tablet 1,000 mg PO BID Qty: 180 RF: 3 simvastatin 10 mg tablet 10 mg PO HS Qty: 90 RF: 3 cholecalciferol (vitamin D3) 1,250 mcg (50,000 unit) capsule 50,000 unit PO .COMPLEX Qty: 8 RF: 0 Novolin 70-30 FlexPen U-100 100 unit/mL (70-30) insulin pen See Rx Instructions .ROUTE .COMPLEX MDD 50 units Qty: 15 RF: 3 (DME) pen needle, diabetic [Sure Comfort Pen Needle] 32 gauge x 5/32" needle See Rx Instructions .Route Qty: 200 RF: 3 oxycodone 5 mg tablet 5 mg PO BID PRN (Reason: pain) Qty: 60 RF: 0 cyanocobalamin (vitamin B-12) 1,000 mcg/mL kit 1,000 mcg IM MONTHLY RF: 0 hydrocortisone [Anusol-HC] 2.5 % cream with perineal applicator 1 applic [place] BID PRN (Reason: Hemorrhoids) RF: 0 Discontinued famotidine 40 mg tablet 40 mg PO HS Qty: 90 RF: 3 lisinopril-hydrochlorothiazide 10-12.5 mg tablet 1 tab PO DAILY Qty: 90 RF: 3 Discharge Orders: Discharge Order (Routine); Ordered 08/08/21 Ordered By: Fidelina Lorenzo Admission Data Admit Date/Time: 08/04/21 13:26 Attending Provider: Dave Onofre Admit Provider: Denzel Del Real Primary Care Provider: Michelle Underwood Other Providers: Denzel Del Real ; Yamil Singh ; Yusef Teresa Other Interventions: Discharge Summary Assessment (RN) Last Done: 08/08/21 11:15 Coding Level of Care Code D/C DAY MANAGEMENT >30 MINS Diagnoses Abdominal pain R10.9 MICHAEL (acute kidney injury) N17.9 Hypokalemia E87.6 Syncope R55 High anion gap metabolic acidosis E87.2 Nonalcoholic steatohepatitis K75.81 Uncontrolled type II diabetes mellitus E11.65 Glycemic state: with hyperglycemia Hypertension I10 Hypertension type: essential hypertension Vitamin D deficiency E55.9 Schatzki's ring K22.2
--- NOTE | 2021-08-08 12:51 | Anesthesiology Progress Note ---
Date of Service August 08, 2021 Anesthesia Post Procedure Vital Signs Vital Signs: Temp Pulse Resp BP Pulse Ox 08/08/21 11:17 65 16 136/76 96 08/08/21 11:02 66 16 134/64 95 08/08/21 10:47 60 16 103/50 L 95 08/08/21 09:49 36.9 C 80 18 157/89 H 96 08/08/21 06:45 36.9 C 65 18 147/74 H 96 08/08/21 04:51 36.6 C 62 18 136/79 97 08/07/21 23:26 36.9 C 64 20 120/62 95 08/07/21 19:35 37.1 C 68 20 131/76 95 Pain Intensity Bilateral Lower Abdomen: Pain Intensity: 5 Transfer of Care Handoff Completed per policy Notes Mental Status: alert / awake / arousable and participated in evaluation Patient Amnestic to Procedure: Yes Nausea / Vomiting: adequately controlled Pain: adequately controlled Airway Patency, RR, SpO2: stable & adequate BP & HR: stable & adequate Hydration State: stable & adequate Anesthetic Complications: no major complications apparent and Pt Satisfied with anesthetic care
[2021-08-08] MEDS ORDERED: SUCRALFATE 1 GM TAB PO SCH (13:00)
== END 2021-08-08 15:23 | disposition home or self-care (01) | DRG 683 ==
LOC: ED 09:00 → SUATTDRO 13:26 → 2N 13:26